=== PATIENT | male | born 1965 | race African-American/Black ===

== ENCOUNTER → 2016-12-05 | Outpatient (CLI) | payer OTHER ==
[~2016-12-05] MED LIST: ALBU1.25 NEB; AZIT250T3 PO; BENZ100 PO; GLIP5TAB8 PO; METF1000 PO; MOBI15TA PO; PRED20 PO; TERB250T4 PO; TYLETAB34 PO; lancets
[2016-12-05 09:12] LABS: AUTOMATED NEUTROPHIL # 4.1 TH/MM3 (1.8-7.7); BASOPHIL # 0.1 TH/MM3 (0-0.2); BASOPHIL % 0.9 % (0.0-2.0); EOSINOPHIL # 0.3 TH/MM3 (0-0.4); EOSINOPHIL % 4.2 % (0.0-4.0); HEMATOCRIT 38.7 % (39.0-51.0); HEMO FLAGS DIFF FINAL; LYMPH % 24.7 % (9.0-44.0); LYMPHOCYTE # 1.6 TH/MM3 (1.0-4.8); MEAN CELL VOLUME 89.4 FL (80.0-100.0); MEAN CORPUSCULAR HEMOGLOBIN 31.7 PG (27.0-34.0); MEAN CORPUSCULAR HGB CONC 35.5 % (32.0-36.0); MONO % 9.4 % (0.0-8.0); NEUT % 60.8 % (16.0-70.0); PLATELET COUNT 305 TH/MM3 (150-450); RED BLOOD COUNT 4.33 MIL/MM3 (4.50-5.90); RED CELL DISTRIBUTION WIDTH 14.7 % (11.6-17.2); WHITE BLOOD COUNT 6.7 TH/MM3 (4.0-11.0)
[2016-12-05 09:54] LABS: INDIRECT BILIRUBIN 0.7 MG/DL (0.0-0.8); POTASSIUM 4.1 MEQ/L (3.5-5.1); TOTAL BILIRUBIN ADULT 0.9 MG/DL (0.2-1.0)
== END ==
LOC: CLAB 08:51
DX: B35.0 Tinea barbae and tinea capitis (principal); Z79.899 Other long term (current) drug therapy
CPT/HCPCS: 36415; 80048; 80076; 85025

== ENCOUNTER 2017-01-25 06:13 | Emergency (ER) | payer OTHER ==
[~2017-01-25] VITALS: Ht 188 cm; Wt 92.0 kg
[2017-01-25] VITALS (7 sets, daily range): BP systolic 130–163; BP diastolic 77–93; PULSE 102–114; RESP 16–20; TEMP 97.8–99.2; O2SAT 97–98
[2017-01-25] MEDS ORDERED: ONDANSETRON HCL 4 MG/2 ML VIAL IV PUSH ONE (06:30)
[2017-01-25] MEDS ORDERED: MORPHINE SULFATE 4 MG/ML INJ IV PUSH ONE (06:30)
[2017-01-25] MEDS ORDERED: ASPIRIN 81 MG CHEW TAB PO ONE (06:30)
[2017-01-25] MEDS ORDERED: SODIUM CHLORID 0.9% 500 ML INJ 500 ML IV ONE (06:30)
--- NOTE | 2017-01-25 06:44 | PD ---
HPI Chief Complaint: Chest Pain Time Seen by Provider: 06:24 Travel History International Travel<30 days: No Contact w/Intl Traveler<30days: No Traveled to known affect area: No History of Present Illness HPI The patient is a 51-year-old [place] male who presents to the emergency department for chest pain or shortness of breath. The patient states she developed symptoms last night at 9 PM after eating Popeyes. The patient states the chest pain is right sided, pleuritic, worse with inspiration, and associated with shortness of breath. He denies any nausea, vomiting, diarrhea, or abdominal pain. The patient does have a history of diabetes and sarcoidosis. The patient states he had a negative cardiac catheterization in 2010 after a positive stress test. The patient denies any history of hypertension, hyperlipidemia, tobacco use, polysubstance abuse, or known coronary artery disease. He does note a history of diabetes mellitus which is controlled with glyburide and metformin. The patient denies any history of pulmonary embolism, DVT, recent surgeries, recent hospitalizations, but does state he traveled to [place] and December. Symptoms are moderate, worse with inspiration, slightly alleviated at rest. PFSH Past Medical History Arthritis: Yes Blood Disorders: No Heart Rhythm Problems: No Cancer: No Cardiac Catheterization: Yes (2009) Cardiovascular Problems: Yes (PREV CATH, + STRESS) High Cholesterol: No Chest Pain: Yes Congestive Heart Failure: No Diabetes: Yes Patient Takes Glucophage: Yes (METFORMIN 01/24/17 1800) Diminished Hearing: No Endocrine: Yes Gastrointestinal Disorders: No Genitourinary: Yes (KIDNEY STONE) Hepatitis: No Hiatal Hernia: No Hypertension: No Immune Disorder: Yes (PT THINKS HE MIGHT HAVE RA, NOT SURE) Musculoskeletal: Yes (CHRONIC BACK PAIN; ARTHRITIS IN KNEES, HIPS, FINGERS) Neurologic: No Psychiatric: No Reproductive: No Respiratory: Yes Myocardial Infarction: No Thyroid Disease: No Past Surgical History Abdominal Surgery: No AICD: No Body Medical Devices: NONE Cardiac Surgery: Yes (CARDIAC CATH 08/2012) Coronary Artery Bypass Graft: No Ear Surgery: No Endocrine Surgery: No Eye Surgery: No Genitourinary Surgery: No Joint Replacement: No Oral Surgery: No Pacemaker: No Thoracic Surgery: No Other Surgery: Yes (LUNG BIOPSY 2015) Social History Alcohol Use: Yes (2X WEEKLY) Tobacco Use: No Substance Use: No Allergies-Medications (Allergen,Severity, Reaction): Coded Allergies: No Known Allergies (Verified , 01/25/17) Reported Meds & Prescriptions Reported Meds & Active Scripts Active Metformin (Metformin HCl) 1,000 Mg Tab 1,000 Mg PO DAILY With a meal [lancets] DAILYAC Reported Glipizide 5 Mg Tab 5 Mg PO DAILY Take 30 minutes before a meal Albuterol Neb (Albuterol Sulfate) 1.25 Mg/3 Ml Neb 1.25 Mg NEB TID NEB PRN Review of Systems Except as stated in HPI: all other systems reviewed are Neg General / Constitutional: No: Fever Cardiovascular: Positive: Chest Pain or Discomfort, No: Diaphoresis Respiratory: Positive: Shortness of Breath Gastrointestinal: No: Nausea, Vomiting, Diarrhea, Abdominal Pain Musculoskeletal: No: Weakness Neurologic: No: Dizziness Physical Exam Narrative GENERAL: Awake, alert, pleasant 51-year-old male who appears his stated age and is in no acute respiratory distress. SKIN: Focused skin assessment warm/dry. HEAD: Atraumatic. Normocephalic. EYES: Pupils equal and round. No scleral icterus. No injection or drainage. ENT: No nasal bleeding or discharge. Mucous membranes pink and moist. NECK: Trachea midline. No JVD. CARDIOVASCULAR: Regular, tachycardic with a heart rate of 110. Chest wall is tender palpation reproduces symptoms. RESPIRATORY: No accessory muscle use. Clear to auscultation. Breath sounds equal bilaterally. GASTROINTESTINAL: Abdomen soft, non-tender, nondistended. No rebound tenderness. MUSCULOSKELETAL: No obvious deformities. No clubbing. No cyanosis. No edema. Calves are soft bilaterally. NEUROLOGICAL: Awake and alert. No obvious cranial nerve deficits. Motor grossly within normal limits. Normal speech. PSYCHIATRIC: Appropriate mood and affect; insight and judgment normal. Data Data Last Documented VS Vital Signs Date Time Temp Pulse Resp B/P Pulse Ox O2 Delivery O2 Flow Rate FiO2 01/25/17 09:32 97.8 76 16 130/77 99 01/25/17 08:14 Nasal Cannula 2 Orders B-Type Natriuretic Peptide (01/25/17 06:29) Ckmb (Isoenzyme) Profile (01/25/17 06:29) Complete Blood Count With Diff (01/25/17 06:29) Comprehensive Metabolic Panel (01/25/17 06:29) Magnesium (Mg) (01/25/17 06:29) Prothrombin Time / Inr (Pt) (01/25/17 06:29) Act Partial Throm Time (Ptt) (01/25/17 06:29) Troponin I (01/25/17 06:29) Lipase (01/25/17 06:29) Chest, Single Ap (01/25/17 06:29) Ecg Monitoring (01/25/17 06:29) Bilateral Bp Monitoring (01/25/17 06:29) Iv Access Insert/Monitor (01/25/17 06:29) Oximetry (01/25/17 06:29) Oxygen Administration (01/25/17 06:29) Aspirin Chew (Aspirin Chew) (01/25/17 06:30) Morphine Inj (Morphine Inj) (01/25/17 06:30) Sodium Chloride 0.9% Flush (Ns Flush) (01/25/17 06:30) Sodium Chlorid 0.9% 500 Ml Inj (Ns 500 M (01/25/17 06:30) Ct Pulmonary Angiogram (01/25/17 06:29) Ondansetron Inj (Zofran Inj) (01/25/17 06:30) Albuterol-Ipratropium Neb (Duoneb Neb) (01/25/17 06:45) Lidocaine Pf 4% Neb (Lidocaine Pf 4% Neb (01/25/17 06:45) Sodium Chlor 0.9% 1000 Ml Inj (Ns 1000 M (01/25/17 08:15) Insulin Human Regular Inj (Novolin R Inj (01/25/17 08:15) Electrocardiogram (01/25/17 ) Iohexol 350 Inj (Omnipaque 350 Inj) (01/25/17 08:37) Electrocardiogram (01/25/17 ) Labs Laboratory Tests Test 01/25/17 06:30 White Blood Count 7.4 TH/MM3 Red Blood Count 4.50 MIL/MM3 Hemoglobin 13.9 GM/DL Hematocrit 40.0 % Mean Corpuscular Volume 89.0 FL Mean Corpuscular Hemoglobin 31.0 PG Mean Corpuscular Hemoglobin 34.8 % Concent Red Cell Distribution Width 13.1 % Platelet Count 335 TH/MM3 Mean Platelet Volume 8.3 FL Neutrophils (%) (Auto) 62.1 % Lymphocytes (%) (Auto) 23.2 % Monocytes (%) (Auto) 8.9 % Eosinophils (%) (Auto) 4.9 % Basophils (%) (Auto) 0.9 % Neutrophils # (Auto) 4.6 TH/MM3 Lymphocytes # (Auto) 1.7 TH/MM3 Monocytes # (Auto) 0.7 TH/MM3 Eosinophils # (Auto) 0.4 TH/MM3 Basophils # (Auto) 0.1 TH/MM3 CBC Comment DIFF FINAL Differential Comment Prothrombin Time 10.9 SEC Prothromb Time International 1.0 RATIO Ratio Activated Partial 26.4 SEC Thromboplast Time Sodium Level 135 MEQ/L Potassium Level 4.1 MEQ/L Chloride Level 101 MEQ/L Carbon Dioxide Level 26.2 MEQ/L Anion Gap 8 MEQ/L Blood Urea Nitrogen 12 MG/DL Creatinine 1.48 MG/DL Estimat Glomerular Filtration 61 ML/MIN Rate Random Glucose 348 MG/DL Calcium Level 8.9 MG/DL Magnesium Level 2.0 MG/DL Total Bilirubin 0.6 MG/DL Aspartate Amino Transf 20 U/L (AST/SGOT) Alanine Aminotransferase 19 U/L (ALT/SGPT) Alkaline Phosphatase 116 U/L Total Creatine Kinase 96 U/L Troponin I LESS THAN 0.02 NG/ML B-Type Natriuretic Peptide 7 PG/ML Total Protein 7.5 GM/DL Albumin 3.5 GM/DL Lipase 424 U/L [facility] Medical Decision Making Medical Screen Exam Complete: Yes Emergency Medical Condition: Yes Medical Record Reviewed: Yes Interpretation(s) EKG reveals sinus tachycardia with a heart rate of 110. Nonspecific T-wave changes. S1Q3T3 Differential Diagnosis Differential diagnosis includes acute coronary syndrome, pulmonary embolism, costochondritis, sarcoidosis, pleural effusion, esophageal spasm, GERD, pancreatitis. Narrative Course IV was established, labs are drawn and sent, and the patient was placed on cardiac telemetry monitoring and continuous pulse oximetry monitoring. EKG was ordered and interpreted. CTA pulmonary angiogram was ordered as patient is tachycardic with pleuritic chest pain. The patient was administered aspirin, morphine, Zofran, and IV fluids. The patient was signed out to the oncoming physician at 7 AM with laboratory evaluation, chest x-ray, and CT pulmonary angiogram pending. I reviewed the patient's EMR, the patient had a negative cardiac catheterization performed by Dr. Anders September 03, 2012. Diagnosis Primary Impression: Chest pain, atypical Condition: Stable Javier Smart MD Jan 25, 2017 06:44
[2017-01-25] MEDS ORDERED: RESP: ALBUTEROL 2.5 MG/IPRATROPIUM 0.5 MG NEB (SCH) NEB ONE (06:45)
[2017-01-25] MEDS ORDERED: RESP: LIDOCAINE HCL 4% PF 5 ML NEB NEB ONE (06:45)
--- NOTE | 2017-01-25 06:48 | RADRPT ---
EXAM DATE/TIME: 01/25/2017 06:27 [facility] COMPARISON: CHEST SINGLE AP, September 15, 2016, 22:51. INDICATIONS : Chest pain. MEDICAL HISTORY : Cardiovascular disease. Diabetes mellitus type II. SURGICAL HISTORY : None. ENCOUNTER: Initial ACUITY: 1 day PAIN SCORE: 10/10 LOCATION: Right chest FINDINGS: A single view of the chest demonstrates the lungs to be symmetrically aerated without evidence of mas s, infiltrate or effusion. The cardiomediastinal contours are unremarkable. Osseous structures are intact. CONCLUSION: Normal examination. Dennys Che MD on January 25, 2017 at 6:46 Board Certified Radiologist. This report was verified electronically.
[2017-01-25 07:10] LABS: AUTOMATED NEUTROPHIL # 4.6 TH/MM3 (1.8-7.7); BASOPHIL # 0.1 TH/MM3 (0-0.2); BASOPHIL % 0.9 % (0.0-2.0); EOSINOPHIL # 0.4 TH/MM3 (0-0.4); EOSINOPHIL % 4.9 % (0.0-4.0); HEMO FLAGS DIFF FINAL; LYMPH % 23.2 % (9.0-44.0); LYMPHOCYTE # 1.7 TH/MM3 (1.0-4.8); MEAN CORPUSCULAR HGB CONC 34.8 % (32.0-36.0); MONO % 8.9 % (0.0-8.0); NEUT % 62.1 % (16.0-70.0); PLATELET COUNT 335 TH/MM3 (150-450); RED CELL DISTRIBUTION WIDTH 13.1 % (11.6-17.2); WHITE BLOOD COUNT 7.4 TH/MM3 (4.0-11.0)
[2017-01-25 07:21] LABS: APTT (PATIENT) 26.4 SEC (24.3-30.1); PROTHROMBIN TIME - PATIENT 10.9 SEC (9.8-11.6)
[2017-01-25] MEDS: SODIUM CHLORIDE 0.9% FLUSH 10 ML FLUSH IVF PRN ×2 (07:33→09:14)
[2017-01-25 07:41] LABS: ALKALINE PHOSPHATASE 116 U/L (45-117); ALT (GPT) 19 U/L (12-78); ANION GAP 8 MEQ/L (5-15); AST (GOT) 20 U/L (15-37); BICARBONATE 26.2 MEQ/L (21.0-32.0); BLOOD UREA NITROGEN 12 MG/DL (7-18); CHLORIDE 101 MEQ/L (98-107); GLOMERULAR FILTRATION RATE 61 ML/MIN (>89); POTASSIUM 4.1 MEQ/L (3.5-5.1); SODIUM (NA) 135 MEQ/L (136-145); TOTAL BILIRUBIN ADULT 0.6 MG/DL (0.2-1.0)
[2017-01-25 07:43] LABS: CREATINE KINASE 96 U/L (39-308)
--- NOTE | 2017-01-25 08:06 | PD ---
Physical Exam Narrative Received sign out from previous provider to follow up labs and CT angio for possible PE. 51yo M with history of sarcoidosis here with right sided pleuritic chest pain and sob that is worst with deep breathing. Pt has sinus tachycardia and EKG findings concerning for PE. Labs reviewed, no leukocytosis. Creatinine elevated at 1.48 but is at baseline. Glucose is elevated at 348 and it appears that pt has had glucose multiple times in the 300s before. Normal anion gap and CO2. Pt given regular insulin 5 units and liter of NS IVF. Troponin negative. BNP 7. CXR normal. Repeat glucose is 275. Pt reevaluated at bedside and states he feels better. CT angio showed mediastinal and hilar lymphadenopathy with antonio size ranging up to 3cm. No pulmonary embolism. Pt has history of sarcoidosis and has a art framing manager that he follows up with. Informed pt of the results and to follow up with art framing manager as outpatient. Lungs are clear bilaterally. Pt speaking in complete sentences. Chest pain is very atypical and agreed with previous provider and does not feel it is cardiac. Return precaution given. Data Data Last Documented VS Vital Signs Date Time Temp Pulse Resp B/P Pulse Ox O2 Delivery O2 Flow Rate FiO2 01/25/17 08:14 102 20 141/82 98 Nasal Cannula 2 01/25/17 07:05 97.8 Orders B-Type Natriuretic Peptide (01/25/17 06:29) Ckmb (Isoenzyme) Profile (01/25/17 06:29) Complete Blood Count With Diff (01/25/17 06:29) Comprehensive Metabolic Panel (01/25/17 06:29) Magnesium (Mg) (01/25/17 06:29) Prothrombin Time / Inr (Pt) (01/25/17 06:29) Act Partial Throm Time (Ptt) (01/25/17 06:29) Troponin I (01/25/17 06:29) Lipase (01/25/17 06:29) Chest, Single Ap (01/25/17 06:29) Ecg Monitoring (01/25/17 06:29) Bilateral Bp Monitoring (01/25/17 06:29) Iv Access Insert/Monitor (01/25/17 06:29) Oximetry (01/25/17 06:29) Oxygen Administration (01/25/17 06:29) Aspirin Chew (Aspirin Chew) (01/25/17 06:30) Morphine Inj (Morphine Inj) (01/25/17 06:30) Sodium Chloride 0.9% Flush (Ns Flush) (01/25/17 06:30) Sodium Chlorid 0.9% 500 Ml Inj (Ns 500 M (01/25/17 06:30) Ct Pulmonary Angiogram (01/25/17 06:29) Ondansetron Inj (Zofran Inj) (01/25/17 06:30) Albuterol-Ipratropium Neb (Duoneb Neb) (01/25/17 06:45) Lidocaine Pf 4% Neb (Lidocaine Pf 4% Neb (01/25/17 06:45) Sodium Chlor 0.9% 1000 Ml Inj (Ns 1000 M (01/25/17 08:15) Insulin Human Regular Inj (Novolin R Inj (01/25/17 08:15) Electrocardiogram (01/25/17 ) Iohexol 350 Inj (Omnipaque 350 Inj) (01/25/17 08:37) Labs Laboratory Tests Test 01/25/17 06:30 White Blood Count 7.4 TH/MM3 Red Blood Count 4.50 MIL/MM3 Hemoglobin 13.9 GM/DL Hematocrit 40.0 % Mean Corpuscular Volume 89.0 FL Mean Corpuscular Hemoglobin 31.0 PG Mean Corpuscular Hemoglobin 34.8 % Concent Red Cell Distribution Width 13.1 % Platelet Count 335 TH/MM3 Mean Platelet Volume 8.3 FL Neutrophils (%) (Auto) 62.1 % Lymphocytes (%) (Auto) 23.2 % Monocytes (%) (Auto) 8.9 % Eosinophils (%) (Auto) 4.9 % Basophils (%) (Auto) 0.9 % Neutrophils # (Auto) 4.6 TH/MM3 Lymphocytes # (Auto) 1.7 TH/MM3 Monocytes # (Auto) 0.7 TH/MM3 Eosinophils # (Auto) 0.4 TH/MM3 Basophils # (Auto) 0.1 TH/MM3 CBC Comment DIFF FINAL Differential Comment Prothrombin Time 10.9 SEC Prothromb Time International 1.0 RATIO Ratio Activated Partial 26.4 SEC Thromboplast Time Sodium Level 135 MEQ/L Potassium Level 4.1 MEQ/L Chloride Level 101 MEQ/L Carbon Dioxide Level 26.2 MEQ/L Anion Gap 8 MEQ/L Blood Urea Nitrogen 12 MG/DL Creatinine 1.48 MG/DL Estimat Glomerular Filtration 61 ML/MIN Rate Random Glucose 348 MG/DL Calcium Level 8.9 MG/DL Magnesium Level 2.0 MG/DL Total Bilirubin 0.6 MG/DL Aspartate Amino Transf 20 U/L (AST/SGOT) Alanine Aminotransferase 19 U/L (ALT/SGPT) Alkaline Phosphatase 116 U/L Total Creatine Kinase 96 U/L Troponin I LESS THAN 0.02 NG/ML B-Type Natriuretic Peptide 7 PG/ML Total Protein 7.5 GM/DL Albumin 3.5 GM/DL Lipase 424 U/L MDM Supervised Visit with ELIOT: No Diagnosis Primary Impression: Chest pain, atypical Patient Instructions: General Instructions Departure Forms: Tests/Procedures Additional Instruction: Please follow up with your art framing manager in 3-7 days. Return to the ED if symptoms worsen. Med/Other Pt SpecificInfo: No Change to Meds Disposition: 01 DISCHARGE HOME Condition: Stable Brooke Werner Jan 25, 2017 08:06
[2017-01-25] MEDS ORDERED: SODIUM CHLOR 0.9% 1000 ML INJ 1,000 ML IV ONE (08:15)
[2017-01-25] MEDS ORDERED: INSULIN HUMAN REGULAR 1,000 UNITS/10 ML VIAL SQ ONE (08:15)
[2017-01-25] MEDS ORDERED: IOHEXOL 350 MG/ML 10 ML VIAL (for RAD DIAG) IV ONE (08:37)
--- NOTE | 2017-01-25 09:04 | RADRPT ---
EXAM DATE/TIME: 01/25/2017 08:17 [facility] COMPARISON: No previous studies available for comparison. INDICATIONS : Chest pain and shortness of breath. IV CONTRAST: 66 cc Omnipaque 350 (iohexol) IV RADIATION DOSE: 12.0 CTDIvol (mGy) MEDICAL HISTORY : Diabetes mellitus type 2. SURGICAL HISTORY : Cardiac cath, lung biopsy. ENCOUNTER: Initial ACUITY: 1 day PAIN SCALE: 0/10 LOCATION: chest TECHNIQUE: Volumetric scanning of the chest was performed using a pulmonary embolism protocol MIP images were re constructed. Using automated exposure control and adjustment of the mA and/or kV according to patien t size, radiation dose was kept as low as reasonably achievable to obtain optimal diagnostic quality images. FINDINGS: PULMONARY ARTERIES: No filling defects are seen in the pulmonary arteries through the segmental level. LUNGS: 2 small nodular densities are identified in the right midlung within the interlobar fissure. They jules sure 5.2 and 4.4 mm in size. Mild interstitial prominence with groundglass opacity is identified in t he left lower lobe. There is no significant consolidation. PLEURAE: There is no pleural thickening or pleural effusion. MEDIASTINUM: Enlarged lymph nodes are identified in the mediastinum and hilar regions. There is prevascular, parat marcy and subcarinal lymphadenopathy. Largest lymph node is identified subcarinally and measures ro ughly 3 cm in size. Significant antonio enlargement is also evident within the right hilum. The heart i s unremarkable in size and appearance. MUSCULOSKELETAL: Within normal limits for patient age. MISCELLANEOUS: The visualized upper abdominal organs demonstrate no acute abnormality. CONCLUSION: Mediastinal and hilar lymphadenopathy with antonio size ranging up to 3 cm. Small nodules in the right intralobar fissure likely represent small nodes however surveillance is re commended. Interstitial prominence and ground glass opacity in the left lower lobe which may or present mild pne umonitis. No evidence of pulmonary embolism. Hung Dolan MD on January 25, 2017 at 8:48 Board Certified Radiologist. This report was verified electronically.
--- NOTE | 2017-01-25 13:36 | EKG ---
Date Performed: 01/25/2017 Time Performed: 06:26:37 PTAGE: 51 years EKG: SINUS TACHYCARDIA POSSIBLE LEFT ATRIAL ENLARGEMENT NONSPECIFIC T-WAVE ABNORMALITY ABNORMAL RHYTHM ECG WARNING: DATA QUALITY MAY AFFECT INTERPRETATION INTERPRETATION BASED ON A DEFAULT AGE OF 4 0 YEARS PREVIOUS TRACING : 09/15/2016 23.06 Compared to previous tracing nonspecific T wave louis es are now present. DOCTOR: Clay Casanova Interpretating Date/Time 01/25/2017 13:35:20
--- NOTE | 2017-01-26 18:54 | EKG ---
Date Performed: 01/25/2017 Time Performed: 08:39:59 PTAGE: 51 years EKG: Sinus rhythm NONSPECIFIC T-WAVE ABNORMALITY BORDERLINE ECG Compared to prior tracing no significant change PREVIOUS TRACING 01/25/17 @ 06.26.37 DOCTOR: Osmany Escobar Interpretating Date/Time 01/26/2017 18:53:30
== END 2017-01-25 09:32 | disposition home or self-care (01) ==
LOC: NEPC 06:13
DX: R07.89 Other chest pain (principal); R94.31 Abnormal electrocardiogram [ECG] [EKG]; E11.9 Type 2 diabetes mellitus without complications; Z79.84 Long term (current) use of oral hypoglycemic drugs; Z79.4 Long term (current) use of insulin
CPT/HCPCS: 71010; 71275; 80053; 82550; 83690; 83735; 83880; 84484; 85025; 85610; 85730; 93005; 94664; 96361; 96372; 96374; 96375; 99285; J1815; J2270; J2405; J7030; J7040; Q9967

== ENCOUNTER → 2017-03-21 | Outpatient (CLI) | payer OTHER ==
[~2017-03-21] MED LIST changes: -AZIT250T3 PO; -BENZ100 PO; -MOBI15TA PO; -PRED20 PO; -TERB250T4 PO; -TYLETAB34 PO
[2017-03-21 12:31] LABS: AUTOMATED NEUTROPHIL # 4.4 TH/MM3 (1.8-7.7); BASOPHIL % 0.7 % (0.0-2.0); EOSINOPHIL # 0.3 TH/MM3 (0-0.4); EOSINOPHIL % 4.6 % (0.0-4.0); HEMO FLAGS DIFF FINAL; LYMPH % 21.6 % (9.0-44.0); LYMPHOCYTE # 1.5 TH/MM3 (1.0-4.8); MEAN CELL VOLUME 88.6 FL (80.0-100.0); MEAN CORPUSCULAR HEMOGLOBIN 30.1 PG (27.0-34.0); MONO % 8.4 % (0.0-8.0); NEUT % 64.7 % (16.0-70.0); PLATELET COUNT 345 TH/MM3 (150-450); RED BLOOD COUNT 4.85 MIL/MM3 (4.50-5.90); RED CELL DISTRIBUTION WIDTH 13.8 % (11.6-17.2); WHITE BLOOD COUNT 6.8 TH/MM3 (4.0-11.0)
[2017-03-21 12:54] LABS: BICARBONATE 30.1 MEQ/L (21.0-32.0); POTASSIUM 4.3 MEQ/L (3.5-5.1)
[2017-03-21 13:00] LABS: INDIRECT BILIRUBIN 0.7 MG/DL (0.0-0.8); TOTAL BILIRUBIN ADULT 0.9 MG/DL (0.2-1.0)
== END ==
LOC: CLAB 11:47
DX: B35.0 Tinea barbae and tinea capitis (principal); Z79.899 Other long term (current) drug therapy
CPT/HCPCS: 36415; 80048; 80076; 85025

== ENCOUNTER 2017-04-15 19:42 | Emergency (ER) | payer OTHER ==
[~2017-04-15] VITALS: Ht 177.8 cm; Wt 92.0 kg
[2017-04-15 19:45] VITALS: BP 160/84; PULSE 115; RESP 16; TEMP 78.4; TEMP 98.4; O2SAT 98
[2017-04-15 23:22] VITALS: BP 161/91; PULSE 97; RESP 16; O2SAT 99
[2017-04-16] MEDS ORDERED: ONDANSETRON HCL 4 MG/2 ML VIAL IV PUSH ONE
[2017-04-16] MEDS ORDERED: MORPHINE SULFATE 4 MG/ML INJ IV PUSH ONE
[2017-04-16] MEDS ORDERED: SODIUM CHLORID 0.9% 500 ML INJ 500 ML IV ONE
[2017-04-16] MEDS ORDERED: MORPHINE SULFATE 8 MG/ML INJ ONE (00:19)
--- NOTE | 2017-04-16 00:24 | PD ---
HPI Chief Complaint: Headache Time Seen by Provider: 23:15 Travel History International Travel<30 days: No Contact w/Intl Traveler<30days: No Traveled to known affect area: No History of Present Illness HPI The patient is a 51 year old male who presents to the [facility] emergency department with a history of beginning to feel unwell yesterday. He reports that last night he began to have a subjective fever, diarrhea 3-4 times, and nausea without vomiting. The patient also reports having a headache over the top of his head. He reports that he's had problems with headaches and scalp pain since being diagnosed with tinea capitis. He reports that he has taken a 4 course of griseofulvin and then followed this up with terbinafine when his symptoms had not improved. The patient reports that he has been told that he has some lymph node swelling related to this infection. The patient reports that he has body aches since yesterday including neck pain since yesterday. The patient is currently on prednisone 20 mg daily over the last 2 months related to an exacerbation of his sarcoidosis. He denies having any worsening cough. He reports that he has a chronic dry cough. On review of systems otherwise, he denies having any new congestion, chest pain, worsening shortness of breath, abdominal pain, urinary symptoms, or neurologic symptoms. [facility] Past Medical History Narrative Medical The patient's past medical history is significant for arthritis, history of an abnormal stress test followed by a cardiac catheterization that was reportedly negative and 2011, history of diabetes mellitus, history of kidney stone, history of sarcoidosis, history of chronic back pain, history of arthritis in his knees. Arthritis: Yes Blood Disorders: No Heart Rhythm Problems: No Cancer: No Cardiac Catheterization: Yes (2009) Cardiovascular Problems: Yes (PREV CATH, + STRESS) High Cholesterol: No Chest Pain: Yes Congestive Heart Failure: No Diabetes: Yes Patient Takes Glucophage: Yes Diminished Hearing: No Endocrine: Yes Gastrointestinal Disorders: No Genitourinary: Yes (KIDNEY STONE) Hepatitis: No Hiatal Hernia: No Hypertension: No Immune Disorder: Yes (PT THINKS HE MIGHT HAVE RA, NOT SURE) Implanted Vascular Access Dvce: No Medical other: No Musculoskeletal: Yes (CHRONIC BACK PAIN; ARTHRITIS IN KNEES, HIPS, FINGERS) Neurologic: No Psychiatric: No Reproductive: No Respiratory: Yes Immunizations Current: Yes Myocardial Infarction: No Thyroid Disease: No Tetanus Vaccination: Unknown Influenza Vaccination: Yes Past Surgical History Narrative Surgical The patient's past surgical history is significant for a cardiac catheterization which was reportedly negative, lung biopsy in 2016 which confirmed sarcoidosis. Abdominal Surgery: No AICD: No Body Medical Devices: NONE Cardiac Surgery: Yes (CARDIAC CATH 08/2012) Coronary Artery Bypass Graft: No Ear Surgery: No Endocrine Surgery: No Eye Surgery: No Genitourinary Surgery: No Joint Replacement: No Neurologic Surgery: No Oral Surgery: No Pacemaker: No Thoracic Surgery: No Other Surgery: Yes (LUNG BIOPSY 2016) Social History Alcohol Use: Yes (2X WEEKLY) Tobacco Use: No Substance Use: No Allergies-Medications (Allergen,Severity, Reaction): Coded Allergies: No Known Allergies (Verified , 04/15/17) Reported Meds & Prescriptions Reported Meds & Active Scripts Active Keflex (Cephalexin) 500 Mg Cap 500 Mg PO Q6H Clindamycin (Clindamycin HCl) 300 Mg Cap 300 Mg PO TID Metformin (Metformin HCl) 1,000 Mg Tab 1,000 Mg PO DAILY With a meal Reported Glipizide 5 Mg Tab 5 Mg PO DAILY Take 30 minutes before a meal Albuterol Neb (Albuterol Sulfate) 1.25 Mg/3 Ml Neb 1.25 Mg NEB TID NEB PRN Review of Systems Except as stated in HPI: all other systems reviewed are Neg General / Constitutional: No: Fever Eyes: No: Visual changes HENT: Positive: Headaches, Neck Pain, No: Rhinorrhea, Neck Stiffness Cardiovascular: Positive: Dyspnea on exertion, No: Chest Pain or Discomfort Respiratory: Positive: Cough, No: Shortness of Breath Gastrointestinal: Positive: Nausea, Diarrhea, Hematemesis, Hematochezia, Indigestion, Loss of Appetite, No: Vomiting, Abdominal Pain, Changes in Bowel Habits Genitourinary: No: Dysuria Musculoskeletal: No: Pain Skin: No Rash Neurologic: Positive: Headache, No: Weakness, Focal Abnormalities, Change in Mentation, Slurred Speech, Sensory Disturbance Psychiatric: No: Depression Endocrine: No: Polydipsia Hematologic/Lymphatic: No: Easy Bruising Physical Exam Narrative General: The patient is a well-developed well-nourished male in no acute distress. Head and Neck exam: Head is normocephalic atraumatic. The patient on examination of the scalp is noted to have skin dryness, scalp thickening with some erythema in patches consistent with his diagnosis of tinea capitis. There is tenderness on palpation of the scalp. There is no visible drainage, pointing, crepitus area Eyes: EOMI, pupils are equal round and reactive to light. Nose: Midline septum with pink mucous membranes Mouth: Dentition unremarkable. No gum erythema, edema, or nikunj abscess formation. No swelling underneath his tongue. Moist mucus membranes. Posterior oropharynx is not erythematous. No tonsillar hypertrophy. Uvula midline. Airway patent. Neck: No palpable anterior cervical lymphadenopathy.. No nuchal rigidity. No thyromegaly. The patient has occipital lymphadenopathy palpated with tenderness on palpation. Cardiovascular: Regular rate and rhythm without murmurs, gallops, or rubs. Lungs: Clear to auscultation bilaterally. No wheezes, rhonchi, or rales. The patient has a frequent dry Cough on examination. Abdomen: Soft, without tenderness to palpation in all 4 quadrants of the abdomen. No guarding, rebound, or rigidity. Normal bowel sounds are audible. No tenderness on palpation of McBurney's point. Negative Lopez's sign. Extremities: No clubbing, cyanosis, or edema. 2+ pulses in all 4 extremities. No calf tenderness on palpation. Back: No costovertebral angle tenderness to palpation. Neurologic Exam: Grossly nonfocal. Skin Exam: No other rashes noted. Data Data Last Documented VS Vital Signs Date Time Temp Pulse Resp B/P Pulse Ox O2 Delivery O2 Flow Rate FiO2 04/16/17 00:38 94 18 160/84 99 Room Air 04/15/17 19:45 98.4 Orders Complete Blood Count With Diff (04/15/17 23:58) Comprehensive Metabolic Panel (04/15/17 23:58) Lipase (04/15/17 23:58) Magnesium (Mg) (04/15/17 23:58) Chest, Single Ap (04/15/17 23:58) Ct Brain W/O Iv Contrast(Rout) (04/15/17 23:58) Iv Access Insert/Monitor (04/15/17 23:58) Ecg Monitoring (04/15/17 23:58) Oximetry (04/15/17 23:58) Ct Soft Tiss Neck W Iv Cont (04/15/17 ) Sodium Chlorid 0.9% 500 Ml Inj (Ns 500 M (04/16/17 00:00) Morphine Inj (Morphine Inj) (04/16/17 00:00) Ondansetron Inj (Zofran Inj) (04/16/17 00:00) Morphine Inj (Morphine Inj) (04/16/17 00:19) Iohexol 350 Inj (Omnipaque 350 Inj) (04/16/17 01:16) Cefazolin 2 Gm Premix (Ancef 2 Gm Premix (04/16/17 01:45) Labs Laboratory Tests Test 04/16/17 00:10 White Blood Count 7.2 TH/MM3 Red Blood Count 4.51 MIL/MM3 Hemoglobin 13.7 GM/DL Hematocrit 39.6 % Mean Corpuscular Volume 87.7 FL Mean Corpuscular Hemoglobin 30.5 PG Mean Corpuscular Hemoglobin 34.7 % Concent Red Cell Distribution Width 13.6 % Platelet Count 330 TH/MM3 Mean Platelet Volume 8.5 FL Neutrophils (%) (Auto) 62.1 % Lymphocytes (%) (Auto) 21.6 % Monocytes (%) (Auto) 10.0 % Eosinophils (%) (Auto) 5.2 % Basophils (%) (Auto) 1.1 % Neutrophils # (Auto) 4.5 TH/MM3 Lymphocytes # (Auto) 1.6 TH/MM3 Monocytes # (Auto) 0.7 TH/MM3 Eosinophils # (Auto) 0.4 TH/MM3 Basophils # (Auto) 0.1 TH/MM3 CBC Comment DIFF FINAL Differential Comment Sodium Level 138 MEQ/L Potassium Level 4.3 MEQ/L Chloride Level 102 MEQ/L Carbon Dioxide Level 30.5 MEQ/L Anion Gap 6 MEQ/L Blood Urea Nitrogen 11 MG/DL Creatinine 1.28 MG/DL Estimat Glomerular Filtration 72 ML/MIN Rate Random Glucose 253 MG/DL Calcium Level 9.2 MG/DL Magnesium Level 2.0 MG/DL Total Bilirubin 0.7 MG/DL Aspartate Amino Transf 24 U/L (AST/SGOT) Alanine Aminotransferase 29 U/L (ALT/SGPT) Alkaline Phosphatase 121 U/L Total Protein 8.3 GM/DL Albumin 3.7 GM/DL Lipase 352 U/L [facility] Medical Decision Making Medical Screen Exam Complete: Yes Emergency Medical Condition: Yes Medical Record Reviewed: Yes Differential Diagnosis Superimposed bacterial infection on top of his prior diagnosis of tinea capitis , versus viral syndrome, versus lymphadenitis Narrative Course During the course of the patients emergency department visit, the patients history, examination, and differential diagnosis were reviewed with the patient. The patient had IV access obtained and blood work sent for analysis. The patient is placed on a cardiac exercise physiologist with oximetry and blood pressure monitoring. A CT scan of the head, and soft tissues of the neck was ordered The patient was initially provided normal saline IV fluids, morphine for pain, Zofran for nausea. The patients laboratory studies were reviewed and remarkable for a white count of 7.2, hemoglobin 13.7, platelets 3:30 with 10 monocytes, CMP is remarkable for glucose of 253, alkaline phosphatase 121, lipase 352 Radiology studies were reviewed and remarkable for a chest x-ray that shows no acute abnormality. CT scan of the brain shows no acute abnormality. CT scan of soft tissues in the neck shows marked soft tissue swelling across the chin on the right greater than the left, no deep abscess or drainable fluid collection is identified, I do not see any obvious etiology for cellulitis or infection. The patient's symptoms appear to be related to an infectious process from a folliculitis. The patient will be discharged home with a prescription for clindamycin and Keflex. The patient was given his first dose of Ancef 2 g IV. The patient is instructed to follow-up with his primary care physician for reexamination in 2 days for improvement. The patient is resting comfortably and feels better, is alert and in no distress. The patients results and examination findings were discussed with the patient. The repeat examination is unremarkable and benign. The history, exam, diagnostic testing, and current condition do not suggest any significant pathology to warrant further testing, continued ED treatment, admission, or surgical evaluation at this point. The vital signs have been stable. The patient does not have uncontrollable pain, intractable vomiting, or other significant symptoms. The patient's condition is stable and appropriate for discharge. The patient will pursue further outpatient evaluation with a primary care physician or other designated or consulting physician as indicated in the discharge instructions. The patient expressed understanding and was agreeable with this plan. Diagnosis Primary Impression: Folliculitis Additional Impression: Lymphadenitis Referrals: Primary Care Physician 2 days Patient Instructions: Folliculitis (ED), General Instructions Med/Other Pt SpecificInfo: Prescription(s) given Scripts Cephalexin (Keflex)500 Mg [id number] Mg PO Q6H #39 CAP Ref 0 Prov:Cindy Escobar MD 04/16/17 Clindamycin 300 Mg [id number] Mg PO TID #30 CAP Ref 0 Prov:Cindy Escobar MD 04/16/17 Disposition: 01 DISCHARGE HOME Condition: Stable Cindy Escobar MD Apr 16, 2017 00:24
[2017-04-16 00:29] LABS: AUTOMATED NEUTROPHIL # 4.5 TH/MM3 (1.8-7.7); BASOPHIL # 0.1 TH/MM3 (0-0.2); BASOPHIL % 1.1 % (0.0-2.0); EOSINOPHIL # 0.4 TH/MM3 (0-0.4); EOSINOPHIL % 5.2 % (0.0-4.0); HEMATOCRIT 39.6 % (39.0-51.0); HEMO FLAGS DIFF FINAL; LYMPH % 21.6 % (9.0-44.0); LYMPHOCYTE # 1.6 TH/MM3 (1.0-4.8); MEAN CELL VOLUME 87.7 FL (80.0-100.0); MEAN CORPUSCULAR HEMOGLOBIN 30.5 PG (27.0-34.0); MEAN CORPUSCULAR HGB CONC 34.7 % (32.0-36.0); NEUT % 62.1 % (16.0-70.0); PLATELET COUNT 330 TH/MM3 (150-450); RED BLOOD COUNT 4.51 MIL/MM3 (4.50-5.90); RED CELL DISTRIBUTION WIDTH 13.6 % (11.6-17.2); WHITE BLOOD COUNT 7.2 TH/MM3 (4.0-11.0)
--- NOTE | 2017-04-16 00:30 | RADRPT ---
EXAM DATE/TIME: 04/16/2017 00:08 [facility] COMPARISON: CHEST SINGLE AP, January 25, 2017, 6:27. INDICATIONS : Pt has had headache with fever x 2 days. MEDICAL HISTORY : Diabetes mellitus type II. Lung Biopsy (2016) SURGICAL HISTORY : None. ENCOUNTER: Initial ACUITY: 2 days PAIN SCORE: 7/10 LOCATION: Bilateral chest FINDINGS: A single view of the chest demonstrates the lungs to be symmetrically aerated without evidence of mas s, infiltrate or effusion. The cardiomediastinal contours are unremarkable. Osseous structures are intact. CONCLUSION: Normal examination. Dennys Che MD on April 16, 2017 at 0:28 Board Certified Radiologist. This report was verified electronically.
[2017-04-16 00:32] VITALS: RESP 16
[2017-04-16 00:38] VITALS: BP 160/84; PULSE 94; RESP 18; O2SAT 99
[2017-04-16 00:46] LABS: ALKALINE PHOSPHATASE 121 U/L (45-117); TOTAL BILIRUBIN ADULT 0.7 MG/DL (0.2-1.0)
[2017-04-16 00:48] LABS: ALT (GPT) 29 U/L (12-78); ANION GAP 6 MEQ/L (5-15); AST (GOT) 24 U/L (15-37); BICARBONATE 30.5 MEQ/L (21.0-32.0); BLOOD UREA NITROGEN 11 MG/DL (7-18); CHLORIDE 102 MEQ/L (98-107); GLOMERULAR FILTRATION RATE 72 ML/MIN (>89); POTASSIUM 4.3 MEQ/L (3.5-5.1); SODIUM (NA) 138 MEQ/L (136-145)
[2017-04-16] MEDS ORDERED: IOHEXOL 350 MG/ML 10 ML VIAL (for RAD DIAG) IV ONE (01:16)
--- NOTE | 2017-04-16 01:23 | RADRPT ---
EXAM DATE/TIME: 04/16/2017 01:12 [facility] COMPARISON: CT BRAIN W/O CONTRAST, July 26, 2016, 2:30. INDICATIONS : Headache and fever. RADIATION DOSE: 40.65 CTDIvol (mGy) MEDICAL HISTORY : Cardiovascular disease. Diabetes mellitus type 2. Renal calculi. SURGICAL HISTORY : None. ENCOUNTER: Initial ACUITY: 1 day PAIN SCALE: 6/10 LOCATION: cranial TECHNIQUE: Multiple contiguous axial images were obtained of the head. Using automated exposure control and adj ustment of the mA and/or kV according to patient size, radiation dose was kept as low as reasonably a chievable to obtain optimal diagnostic quality images. DICOM format image data is available electro nically for review and comparison. FINDINGS: CEREBRUM: The ventricles are normal for age. No evidence of midline shift, mass lesion, hemorrhage or acute in farction. No extra-axial fluid collections are seen. POSTERIOR FOSSA: The cerebellum and brainstem are intact. The 4th ventricle is midline. The cerebellopontine angle i s unremarkable. EXTRACRANIAL: The visualized portion of the orbits is intact. SKULL: The calvaria is intact. No evidence of skull fracture. CONCLUSION: Normal examination. Dennys Che MD on April 16, 2017 at 1:21 Board Certified Radiologist. This report was verified electronically.
--- NOTE | 2017-04-16 01:29 | RADRPT ---
EXAM DATE/TIME: 04/16/2017 01:12 [facility] COMPARISON: No previous studies available for comparison. INDICATIONS : Fever; possible abscess. Swelling on posterior neck. IV CONTRAST: 70 cc Omnipaque 350 (iohexol) IV RADIATION DOSE: 15.54 CTDIvol (mGy) MEDICAL HISTORY : Cardiovascular disease. Diabetes mellitus type 2. Renal calculi. SURGICAL HISTORY : None. ENCOUNTER: Initial ACUITY: 1 day PAIN SCALE: 6/10 LOCATION: neck TECHNIQUE: Volumetric scanning of the neck was performed. Using automated exposure control and adjustment of th e mA and/or kV according to patient size, radiation dose was kept as low as reasonably achievable to obtain optimal diagnostic quality images. DICOM format image data is available electronically for r eview and comparison. FINDINGS: There is very impressive soft tissue edema and swelling across the chin right greater than left. Ther e may be a skin ulceration inferolaterally. No deep abscess or drainable fluid collection is identifi ed. There are tiny reactive lymph nodes throughout the neck. None of them are pathologically enlarged . NASOPHARYNX: The nasopharyngeal airway has a normal configuration. No mucosal thickening or mass is seen. Small m ucous retention cyst within the right maxillary sinus OROPHARYNX: The intrinsic muscles of the tongue are symmetric. The tonsillar pillars are intact. The prevertebr al soft tissues are not thickened. LARYNX: The supraglottic, glottic, and infraglottic structures are intact. PARAPHARYNGEAL: The parapharyngeal space is intact. SALIVARY GLANDS: The parotid and submandibular glands are intact. LYMPH NODES: No enlarged or necrotic-appearing nodes. THYROID: Homogeneous enhancement without evidence of nodule. BONES: Unremarkable. CONCLUSION: Marked soft tissue swelling across the chin right greater than left. No deep abscess or drainable flu id collection is identified. I do not see an obvious etiology for the cellulitis or infection. Dennys Che MD on April 16, 2017 at 1:25 Board Certified Radiologist. This report was verified electronically.
[2017-04-16] MEDS ORDERED: ceFAZolin 2 GM PREMIX 50 ML IV ONE (01:45)
[2017-04-16] MEDS ORDERED: CLIN1CAP6 PO (01:50)
[2017-04-16] MEDS ORDERED: CEPH-460 PO (01:50)
== END 2017-04-16 02:20 | disposition home or self-care (01) ==
LOC: NEPE 19:42
DX: L73.9 Follicular disorder, unspecified (principal); I88.9 Nonspecific lymphadenitis, unspecified; R05 Cough; R19.7 Diarrhea, unspecified; R11.0 Nausea; M54.2 Cervicalgia; E11.9 Type 2 diabetes mellitus without complications; Z79.899 Other long term (current) drug therapy; Z79.51 Long term (current) use of inhaled steroids
CPT/HCPCS: 70450; 70491; 71010; 80053; 83690; 83735; 85025; 96361; 96374; 96375; 99285; J0690; J2270; J2405; J7040; Q9967

== ENCOUNTER 2017-05-20 17:48 | Emergency (ER) | payer OTHER ==
[~2017-05-20] VITALS: Ht 188 cm; Wt 92.0 kg
[~2017-05-20 17:48] MED LIST changes: +CEPH-460 PO; +CLIN1CAP6 PO; -lancets
[2017-05-20 17:51] VITALS: BP 130/93; PULSE 120; RESP 20; TEMP 98.9; O2SAT 97
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
[2017-05-20] MEDS ORDERED: PRED20 PO (18:13)
[2017-05-20] MEDS ORDERED: ORPHENADRINE INJ 60 MG/2 ML AMP IM ONE (18:15)
[2017-05-20] MEDS ORDERED: KETOROLAC TROMETHAMINE 60 MG/2 ML (IM) VIAL IM ONE (18:15)
[2017-05-20 18:27] VITALS: PULSE 110; RESP 16; O2SAT 100
[2017-05-20] MEDS ORDERED: ROBA500T PO (18:55)
[2017-05-20] MEDS ORDERED: IBUP800T23 PO (18:55)
[2017-05-20 19:15] VITALS: PULSE 98
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
== END 2017-05-20 19:25 | disposition home or self-care (01) ==
LOC: NEPD 17:48
DX: S39.012A Strain of muscle, fascia and tendon of lower back, initial encounter (principal); V89.2XXA Person injured in unspecified motor-vehicle accident, traffic, initial encounter
CPT/HCPCS: 72100; 96372; 99284; J1885; J2360

== ENCOUNTER 2017-06-24 13:02 | Emergency (ER) | payer OTHER ==
[~2017-06-24] VITALS: Ht 188 cm; Wt 90.0 kg
[~2017-06-24 13:02] MED LIST changes: -CEPH-460 PO; -CLIN1CAP6 PO; +IBUP800T23 PO; +PRED20 PO; +ROBA500T PO
[2017-06-24 13:04] VITALS: BP 148/91; PULSE 112; RESP 17; TEMP 98.4; O2SAT 98
[2017-06-24] MEDS ORDERED: SODIUM CHLORIDE 0.9% FLUSH 10 ML FLUSH IVF PRN (13:45)
[2017-06-24] MEDS ORDERED: methylPREDNISolone SOD SUCC 125 MG/2 ML VIAL IV PUSH ONE (13:45)
[2017-06-24 13:52] VITALS: RESP 20; O2SAT 98
--- NOTE | 2017-06-24 14:04 | PD ---
HPI Chief Complaint: Respiratory Symptoms Time Seen by Provider: 13:34 Travel History International Travel<30 days: No Contact w/Intl Traveler<30days: No Traveled to known affect area: No History of Present Illness HPI 52yo M with PMH of sarcoidosis, DM presents to the ED with sob for a few days. States he took his treatment today and did not really help. States he has nasal congestion. +Cough that is chronic for him. Denies any fever, chest pain , n/v, abdominal pain, focal weakness or numbness. PFSH Past Medical History Arthritis: Yes Blood Disorders: No Heart Rhythm Problems: No Cancer: No Cardiac Catheterization: Yes (2009) Cardiovascular Problems: Yes (PREV CATH, + STRESS) High Cholesterol: No Chest Pain: Yes Congestive Heart Failure: No Diabetes: Yes Diminished Hearing: No Endocrine: Yes Gastrointestinal Disorders: No Genitourinary: Yes (KIDNEY STONE) Hepatitis: No Hiatal Hernia: No Hypertension: No Immune Disorder: Yes (PT THINKS HE MIGHT HAVE RA, NOT SURE) Implanted Vascular Access Dvce: No Musculoskeletal: Yes (CHRONIC BACK PAIN; ARTHRITIS IN KNEES, HIPS, FINGERS) Neurologic: No Psychiatric: No Reproductive: No Respiratory: Yes Immunizations Current: Yes Myocardial Infarction: No Thyroid Disease: No Past Surgical History Abdominal Surgery: No AICD: No Body Medical Devices: NONE Cardiac Surgery: Yes (CARDIAC CATH 08/2012) Coronary Artery Bypass Graft: No Ear Surgery: No Endocrine Surgery: No Eye Surgery: No Genitourinary Surgery: No Joint Replacement: No Neurologic Surgery: No Oral Surgery: No Pacemaker: No Thoracic Surgery: No Other Surgery: Yes (LUNG BIOPSY 2015) Social History Alcohol Use: Yes (2X WEEKLY) Tobacco Use: No Substance Use: No Allergies-Medications (Allergen,Severity, Reaction): Coded Allergies: No Known Allergies (Verified , 04/15/17) Reported Meds & Prescriptions Reported Meds & Active Scripts Active Ibuprofen 800 Mg Tab 800 Mg PO Q6HR PRN Robaxin (Methocarbamol) 500 Mg Tab 500 Mg PO QID PRN Metformin (Metformin HCl) 1,000 Mg Tab 1,000 Mg PO DAILY With a meal Reported Prednisone 20 Mg Tab 20 Mg PO DAILY Glipizide 5 Mg Tab 5 Mg PO DAILY Take 30 minutes before a meal Albuterol Neb (Albuterol Sulfate) 1.25 Mg/3 Ml Neb 1.25 Mg NEB TID NEB PRN Review of Systems Except as stated in HPI: all other systems reviewed are Neg Physical Exam Narrative GENERAL: 52yo M not in distress. SKIN: Focused skin assessment warm/dry. HEAD: Atraumatic. Normocephalic. EYES: Pupils equal and round. No scleral icterus. No injection or drainage. ENT: No nasal bleeding or discharge. Mucous membranes pink and moist. NECK: Trachea midline. No JVD. CARDIOVASCULAR: Regular rate and rhythm. No murmur appreciated. RESPIRATORY: No accessory muscle use. End expiratory wheezing bilaterally. GASTROINTESTINAL: Abdomen soft, non-tender, nondistended. No rebound tenderness or guarding. MUSCULOSKELETAL: No obvious deformities. No clubbing. No cyanosis. No edema. NEUROLOGICAL: Awake and alert. No obvious cranial nerve deficits. Motor grossly within normal limits. Normal speech. PSYCHIATRIC: Appropriate mood and affect; insight and judgment normal. Data Data Last Documented VS Vital Signs Date Time Temp Pulse Resp B/P (MAP) Pulse Ox O2 Delivery O2 Flow Rate FiO2 06/24/17 15:13 99 Nasal Cannula 1.00 06/24/17 13:54 20 06/24/17 13:52 06/24/17 13:04 98.4 112 Orders Orders Complete Blood Count With Diff (06/24/17 13:38) Basic Metabolic Panel (Bmp) (06/24/17 13:38) B-Type Natriuretic Peptide (06/24/17 13:38) Troponin I (06/24/17 13:38) Iv Access Insert/Monitor (06/24/17 13:38) Electrocardiogram (06/24/17 13:38) Ecg Monitoring (06/24/17 13:38) Oximetry (06/24/17 13:38) Oxygen Administration (06/24/17 13:38) Chest, Single Ap (06/24/17 13:38) Sodium Chloride 0.9% Flush (Ns Flush) (06/24/17 13:45) Methylprednisolone So Succ Inj (Solumedr (06/24/17 13:45) Albuterol-Ipratropium Neb (Duoneb Neb) (06/24/17 13:45) Labs Laboratory Tests Test 06/24/17 13:45 White Blood Count 6.4 TH/MM3 Red Blood Count 4.22 MIL/MM3 Hemoglobin 12.6 GM/DL Hematocrit 38.3 % Mean Corpuscular Volume 90.7 FL Mean Corpuscular Hemoglobin 30.0 PG Mean Corpuscular Hemoglobin Concent 33.1 % Red Cell Distribution Width 13.6 % Platelet Count 320 TH/MM3 Mean Platelet Volume 7.2 FL Neutrophils (%) (Auto) 70.8 % Lymphocytes (%) (Auto) 15.9 % Monocytes (%) (Auto) 8.5 % Eosinophils (%) (Auto) 4.1 % Basophils (%) (Auto) 0.7 % Neutrophils # (Auto) 4.5 TH/MM3 Lymphocytes # (Auto) 1.0 TH/MM3 Monocytes # (Auto) 0.5 TH/MM3 Eosinophils # (Auto) 0.3 TH/MM3 Basophils # (Auto) 0.0 TH/MM3 CBC Comment DIFF FINAL Differential Comment Blood Urea Nitrogen 9 MG/DL Creatinine 1.22 MG/DL Random Glucose 365 MG/DL Calcium Level 8.6 MG/DL Sodium Level 133 MEQ/L Potassium Level 4.7 MEQ/L Chloride Level 100 MEQ/L Carbon Dioxide Level 26.7 MEQ/L Anion Gap 6 MEQ/L Estimat Glomerular Filtration Rate 76 ML/MIN Troponin I LESS THAN 0.02 NG/ML B-Type Natriuretic Peptide 10 PG/ML MDM Medical Decision Making Medical Screen Exam Complete: Yes Emergency Medical Condition: Yes Interpretation(s) EKG: NSR 95bpm. RAD. No ST segment elevation or depression. Differential Diagnosis Sarcoidosis vs. COPD vs. pneumonia Narrative Course 52yo M with sarcoidosis here with sob. Pt has wheezing on exam and given methylprednisolone 60mg IV and duonebs x3. Labs reviewed, no leukocytosis. Troponin negative. BNP normal. Glucose 365. No increased anion. Pt reevaluated at bedside after treatments and he said he feels much better. No longer sob. Pt saturating at 96% on RA and ambulating in the ED without any worsening sob. Pt has a [employer] supervisor to follow up with. Return precautions given. Diagnosis Primary Impression: Bronchitis Patient Instructions: General Instructions Departure Forms: Tests/Procedures Additional Instructions: Please follow up with your [employer] supervisor in 1-2 days. Return to the ED if symptoms worsen. Med/Other Pt SpecificInfo: Prescription(s) given Scripts Albuterol 18 GM Inh (Ventolin Hfa 18 GM Inh) 90 Mcg/Act Aer 2 PUFF INH Q4H Y for SHORTNESS OF BREATH, #1 INHALER 0 Refills Prov: Brooke Werner DO 06/24/17 Prednisone (Deltasone) 20 Mg Tab 20 MG PO BID for 5 Days, #10 TAB 0 Refills Prov: Brooke Werner DO 06/24/17 Disposition: 01 DISCHARGE HOME Condition: Stable Brooke Werner DO Jun 24, 2017 14:04
--- NOTE | 2017-06-24 14:05 | RADRPT ---
EXAM DATE/TIME: 06/24/2017 13:41 [facility] COMPARISON: CT PULMONARY ANGIOGRAM, January 25, 2017, 8:17. CHEST SINGLE AP, April 16, 2017, 0:08. INDICATIONS : Short of breath MEDICAL HISTORY : Diabetes mellitus type II. Lung Biopsy (2016) SURGICAL HISTORY : None. ENCOUNTER: Initial ACUITY: 1 day PAIN SCORE: 0/10 LOCATION: chest FINDINGS: The heart size is normal. The lungs are grossly clear. There is enlargement of the hilar regions german cially on the right. This appearance is unchanged. No effusion is seen. CONCLUSION: 1. No acute abnormality seen. 2. Persistent enlargement of the hilar regions. The patient had adenopathy seen on the prior CT. Wilton Barrera MD on June 24, 2017 at 14:02 Board Certified Radiologist. This report was verified electronically.
[2017-06-24 14:09] LABS: AUTOMATED NEUTROPHIL # 4.5 TH/MM3 (1.8-7.7); BASOPHIL % 0.7 % (0.0-2.0); EOSINOPHIL # 0.3 TH/MM3 (0-0.4); EOSINOPHIL % 4.1 % (0.0-4.0); HEMATOCRIT 38.3 % (39.0-51.0); HEMO FLAGS DIFF FINAL; LYMPH % 15.9 % (9.0-44.0); MEAN CELL VOLUME 90.7 FL (80.0-100.0); MEAN CORPUSCULAR HGB CONC 33.1 % (32.0-36.0); MONO % 8.5 % (0.0-8.0); NEUT % 70.8 % (16.0-70.0); PLATELET COUNT 320 TH/MM3 (150-450); RED BLOOD COUNT 4.22 MIL/MM3 (4.50-5.90); RED CELL DISTRIBUTION WIDTH 13.6 % (11.6-17.2); WHITE BLOOD COUNT 6.4 TH/MM3 (4.0-11.0)
[2017-06-24 14:35] LABS: ANION GAP 6 MEQ/L (5-15); BICARBONATE 26.7 MEQ/L (21.0-32.0); BLOOD UREA NITROGEN 9 MG/DL (7-18); CHLORIDE 100 MEQ/L (98-107); GLOMERULAR FILTRATION RATE 76 ML/MIN (>89); POTASSIUM 4.7 MEQ/L (3.5-5.1); SODIUM (NA) 133 MEQ/L (136-145)
[2017-06-24] MEDS: RESP: ALBUTEROL 2.5 MG/IPRATROPIUM 0.5 MG NEB (SCH) INH ×2 (15:05→15:06)
[2017-06-24 15:13] VITALS: O2SAT 99
[2017-06-24] MEDS ORDERED: VENTAER INH (16:42)
[2017-06-24] MEDS ORDERED: PRED-503 PO (16:42)
--- NOTE | 2017-06-24 19:15 | EKG ---
Date Performed: 06/24/2017 Time Performed: 14:16:40 PTAGE: 52 years EKG: Sinus rhythm NORMAL ECG PREVIOUS TRACING : 01/25/2017 08.39 No significant change from previous tracing noted. DOCTOR: Fran Joy Interpretating Date/Time 06/24/2017 19:14:20
== END 2017-06-24 16:52 | disposition home or self-care (01) ==
LOC: NEPC 13:02
DX: J40 Bronchitis, not specified as acute or chronic (principal); E11.9 Type 2 diabetes mellitus without complications; Z79.84 Long term (current) use of oral hypoglycemic drugs
CPT/HCPCS: 71010; 80048; 83880; 84484; 85025; 93005; 94664; 96374; 99285; J2930

== ENCOUNTER 2017-08-22 22:37 | Observation (INO) | payer OTHER ==
[~2017-08-22] VITALS: Ht 188 cm; Wt 88.0 kg
[~2017-08-22 22:37] MED LIST changes: +IBUP1TAB7 PO; -IBUP800T23 PO; +PRED-503 PO; +VENTAER INH
[2017-08-22 22:42] VITALS: BP 167/103; PULSE 123; RESP 18; TEMP 99.2; O2SAT 97
[2017-08-22 22:54] VITALS: BP 158/98; PULSE 115; RESP 20; TEMP 98.5; O2SAT 98
--- NOTE | 2017-08-22 22:57 | PD ---
HPI Chief Complaint: Cold / Flu Symptoms Time Seen by Provider: 22:57 Travel History International Travel<30 days: No Contact w/Intl Traveler<30days: No Traveled to known affect area: No History of Present Illness HPI 52-year-old male came to the emergency room with history of chest pain, dizziness, nausea, vomiting and cough for past 2-3 days. Patient describes this chest pain substernal and subxiphoid. No radiation of the pain. He describes the pain to be like a knife stabbing. He says the pain gets worse when he coughs. He says it is not unusual for him to cough since he has sarcoidosis but the cough is worse this time. Patient had a temperature of 99.2 in triage. His heart rate was 123. He appeared to be in some distress. Patient does not have any coronary artery disease his head. [facility] Past Medical History Narrative Medical List of his past medical, surgical, social and family history is reviewed from the nursing note. Arthritis: Yes Blood Disorders: No Heart Rhythm Problems: No Cancer: No Cardiac Catheterization: Yes (2009) Cardiovascular Problems: Yes (PREV CATH, + STRESS) High Cholesterol: No Chest Pain: Yes Congestive Heart Failure: No Diabetes: Yes Patient Takes Glucophage: Yes (METFORMIN 08/22/172029) Diminished Hearing: No Endocrine: Yes Gastrointestinal Disorders: No Genitourinary: Yes (KIDNEY STONE) Hepatitis: No Hiatal Hernia: No Hypertension: No Immune Disorder: Yes (PT THINKS HE MIGHT HAVE RA, NOT SURE) Implanted Vascular Access Dvce: No Musculoskeletal: Yes (CHRONIC BACK PAIN; ARTHRITIS IN KNEES, HIPS, FINGERS) Neurologic: No Psychiatric: No Reproductive: No Respiratory: Yes Immunizations Current: Yes Myocardial Infarction: No Thyroid Disease: No Past Surgical History Abdominal Surgery: No AICD: No Body Medical Devices: NONE Cardiac Surgery: Yes (CARDIAC CATH 08/2012) Coronary Artery Bypass Graft: No Ear Surgery: No Endocrine Surgery: No Eye Surgery: No Genitourinary Surgery: No Joint Replacement: No Neurologic Surgery: No Oral Surgery: No Pacemaker: No Thoracic Surgery: No Other Surgery: Yes (LUNG BIOPSY 2015) Social History Alcohol Use: Yes (2 OR 3X WEEKLY) Tobacco Use: No Substance Use: No Allergies-Medications (Allergen,Severity, Reaction): Coded Allergies: No Known Allergies (Verified Adverse Reaction, Unknown, 08/22/17) Comments No known drug allergies. Reported Meds & Prescriptions Reported Meds & Active Scripts Active Ventolin Hfa 18 GM Inh (Albuterol Sulfate) 90 Mcg/Act Aer 2 Puff INH Q4H PRN Ibuprofen 800 Mg Tab 800 Mg PO Q6HR PRN Robaxin (Methocarbamol) 500 Mg Tab 500 Mg PO QID PRN Metformin (Metformin HCl) 1,000 Mg Tab 1,000 Mg PO DAILY With a meal Reported Doxycycline Hyclate 50 Mg Cap 50 Mg PO BID Prednisone 20 Mg Tab 20 Mg PO DAILY Albuterol Neb (Albuterol Sulfate) 1.25 Mg/3 Ml Neb 1.25 Mg NEB TID NEB PRN Narrative Medication List of his home medications reviewed from the nursing note. Review of Systems Except as stated in HPI: all other systems reviewed are Neg Cardiovascular: Positive: Chest Pain or Discomfort Respiratory: Positive: Cough Gastrointestinal: Positive: Nausea, Vomiting Physical Exam Narrative GENERAL: Awake, alert, moderate distress SKIN: Focused skin assessment warm/dry. HEAD: Atraumatic. Normocephalic. EYES: Pupils equal and round. No scleral icterus. No injection or drainage. ENT: No nasal bleeding or discharge. Mucous membranes pink and moist. NECK: Trachea midline. No JVD. CARDIOVASCULAR: Regular rate and rhythm. Tachycardia. No murmur appreciated. RESPIRATORY: No accessory muscle use. Clear to auscultation. Breath sounds equal bilaterally. GASTROINTESTINAL: Abdomen soft, non-tender, nondistended. Hepatic and splenic margins not palpable. MUSCULOSKELETAL: No obvious deformities. No clubbing. No cyanosis. No edema. NEUROLOGICAL: Awake and alert. No obvious cranial nerve deficits. Motor grossly within normal limits. Normal speech. PSYCHIATRIC: Appropriate mood and affect; insight and judgment normal. Data Data Last Documented VS Vital Signs Date Time Temp Pulse Resp B/P (MAP) Pulse Ox O2 Delivery O2 Flow Rate FiO2 08/23/17 00:26 108 20 147/94 (111) 98 Nasal Cannula 2.00 08/22/17 22:54 98.5 Orders Orders Electrocardiogram (08/22/17 23:06) Basic Metabolic Panel (Bmp) (08/22/17 23:06) Ckmb (Isoenzyme) Profile (08/22/17 23:06) Complete Blood Count With Diff (08/22/17 23:06) D-Dimer (08/22/17 23:06) Magnesium (Mg) (08/22/17 23:06) Prothrombin Time / Inr (Pt) (08/22/17 23:06) Act Partial Throm Time (Ptt) (08/22/17 23:06) Troponin I (08/22/17 23:06) Chest, Single Ap (08/22/17 23:06) Ecg Monitoring (08/22/17 23:06) Bilateral Bp Monitoring (08/22/17 23:06) Iv Access Insert/Monitor (08/22/17 23:) Oximetry (08/22/17 23:06) Oxygen Administration (08/22/17 23:06) Sodium Chloride 0.9% Flush (Ns Flush) (08/22/17:15) Sodium Chlorid 0.9% 500 Ml Inj (Ns 500 M (08/22/17 23:15) Blood Culture (08/22/17 23:07) Lactic Acid (08/22/17 23:07) CKMB (08/22/17 23:10) CKMB% (08/22/17 23:10) Morphine Inj (Morphine Inj) (08/23/17 00:15) Labs Laboratory Tests Test 08/22/17 23:10 08/22/17 23:30 White Blood Count 6.5 TH/MM3 Red Blood Count 4.17 MIL/MM3 Hemoglobin 12.8 GM/DL Hematocrit 37.1 % Mean Corpuscular Volume 89.0 FL Mean Corpuscular Hemoglobin 30.7 PG Mean Corpuscular Hemoglobin Concent 34.5 % Red Cell Distribution Width 13.3 % Platelet Count 330 TH/MM3 Mean Platelet Volume 7.9 FL Neutrophils (%) (Auto) 63.3 % Lymphocytes (%) (Auto) 19.5 % Monocytes (%) (Auto) 10.2 % Eosinophils (%) (Auto) 6.2 % Basophils (%) (Auto) 0.8 % Neutrophils # (Auto) 4.1 TH/MM3 Lymphocytes # (Auto) 1.3 TH/MM3 Monocytes # (Auto) 0.7 TH/MM3 Eosinophils # (Auto) 0.4 TH/MM3 Basophils # (Auto) 0.1 TH/MM3 CBC Comment DIFF FINAL Differential Comment Prothrombin Time 10.9 SEC Prothromb Time International Ratio 1.0 RATIO Activated Partial Thromboplast Time 25.5 SEC D-Dimer Quantitative (PE/DVT) 0.41 MG/L FEU Blood Urea Nitrogen 11 MG/DL Creatinine 1.35 MG/DL Random Glucose 395 MG/DL Calcium Level 8.9 MG/DL Magnesium Level 2.0 MG/DL Sodium Level 136 MEQ/L Potassium Level 4.5 MEQ/L Chloride Level 100 MEQ/L Carbon Dioxide Level 26.8 MEQ/L Anion Gap 9 MEQ/L Estimat Glomerular Filtration Rate 67 ML/MIN Total Creatine Kinase 127 U/L Creatine Kinase MB 1.5 NG/ML Troponin I LESS THAN 0.02 NG/ML Lactic Acid Level 2.0 mmol/L MDM Medical Decision Making Medical Screen Exam Complete: Yes Emergency Medical Condition: Yes Medical Record Reviewed: Yes Interpretation(s) Twelve-lead EKG was reviewed by me. Normal sinus rhythm, normal axis, tachycardia, nonspecific ST-T wave changes. Heart rate of 115 bpm. Differential Diagnosis PE, ACS, pneumonia, sepsis Narrative Course 1:17 AM blood test results are back. Patient is hyperglycemic and lactic acid is borderline. Patient was given 500 cc of IV fluid bolus. His heart rate currently is come down to 100s. D-dimer is negative and troponin is negative. I will give him a dose of metformin. However I would like to admit him for his chest pain to medical service given other comorbid factors including the tachycardia and hyperglycemia. Awaiting for the hospitalist to call back. Meanwhile patient kept complaining of the pain and I have given him some morphine. Procedures EKG Prior to Arrival: No Diagnosis Primary Impression: chest pain Additional Impressions: Tachycardia Cough Hyperglycemia Admitting Information Admitting Physician Requests: Observation Azra Serna MD Aug 22, 2017 22:57
[2017-08-22] MEDS ORDERED: DOXY50 PO (23:01)
[2017-08-22] MEDS ORDERED: SODIUM CHLORIDE 0.9% FLUSH 10 ML FLUSH IVF PRN (23:15)
[2017-08-22] MEDS ORDERED: SODIUM CHLORID 0.9% 500 ML INJ 500 ML IV ONE (23:15)
--- NOTE | 2017-08-22 23:25 | RADRPT ---
EXAM DATE/TIME: 08/22/2017 23:10 [facility] COMPARISON: CHEST SINGLE AP, June 24, 2017, 13:41. INDICATIONS : Chest pain. MEDICAL HISTORY : Diabetes mellitus type II. Lung Biopsy (2016) SURGICAL HISTORY : None. ENCOUNTER: Initial ACUITY: 1 day PAIN SCORE: 4/10 LOCATION: Bilateral chest FINDINGS: A single view of the chest demonstrates the lungs to be symmetrically aerated without evidence of mas s, infiltrate or effusion. The cardiomediastinal contours are unremarkable. Osseous structures are intact. CONCLUSION: Normal examination. Dennys Che MD on August 22, 2017 at 23:23 Board Certified Radiologist. This report was verified electronically.
[2017-08-22 23:29] LABS: AUTOMATED NEUTROPHIL # 4.1 TH/MM3 (1.8-7.7); BASOPHIL # 0.1 TH/MM3 (0-0.2); BASOPHIL % 0.8 % (0.0-2.0); EOSINOPHIL # 0.4 TH/MM3 (0-0.4); EOSINOPHIL % 6.2 % (0.0-4.0); HEMATOCRIT 37.1 % (39.0-51.0); HEMO FLAGS DIFF FINAL; LYMPH % 19.5 % (9.0-44.0); LYMPHOCYTE # 1.3 TH/MM3 (1.0-4.8); MEAN CORPUSCULAR HEMOGLOBIN 30.7 PG (27.0-34.0); MEAN CORPUSCULAR HGB CONC 34.5 % (32.0-36.0); MONO % 10.2 % (0.0-8.0); NEUT % 63.3 % (16.0-70.0); PLATELET COUNT 330 TH/MM3 (150-450); RED BLOOD COUNT 4.17 MIL/MM3 (4.50-5.90); RED CELL DISTRIBUTION WIDTH 13.3 % (11.6-17.2); WHITE BLOOD COUNT 6.5 TH/MM3 (4.0-11.0)
[2017-08-22 23:53] LABS: APTT (PATIENT) 25.5 SEC (24.3-30.1); PROTHROMBIN TIME - PATIENT 10.9 SEC (9.8-11.6)
[2017-08-22 23:58] LABS: ANION GAP 9 MEQ/L (5-15); BICARBONATE 26.8 MEQ/L (21.0-32.0); BLOOD UREA NITROGEN 11 MG/DL (7-18); CHLORIDE 100 MEQ/L (98-107); GLOMERULAR FILTRATION RATE 67 ML/MIN (>89); POTASSIUM 4.5 MEQ/L (3.5-5.1); SODIUM (NA) 136 MEQ/L (136-145)
[2017-08-23] VITALS (14 sets, daily range): BP systolic 130–165; BP diastolic 84–94; PULSE 96–110; RESP 16–21; TEMP 97.6–98.5; O2SAT 97–99
[2017-08-23 00:04] LABS: CREATINE KINASE 127 U/L (39-308)
[2017-08-23] MEDS ORDERED: MORPHINE SULFATE 4 MG/ML INJ IV PUSH ONE (00:15)
[2017-08-23 00:17] LABS: CKMB 1.5 NG/ML (0.5-3.6)
[2017-08-23] MEDS ORDERED: metFORMIN HCL 500 MG TAB PO ONE (01:30)
[2017-08-23] MEDS ORDERED: DEXTROSE 50% IN WATER 50 ML VIAL(D50) IV PUSH PRN (01:45)
[2017-08-23] MEDS ORDERED: SODIUM CHLORIDE 0.9% FLUSH 10 ML FLUSH IV FLUSH PRN (01:45)
[2017-08-23] MEDS ORDERED: NITROGLYCERIN 0.4 MG SL 25 TABS/BTL SL PRN (01:45)
[2017-08-23] MEDS ORDERED: GLUCAGON 1 MG/ML VIAL OTHER PRN (01:45)
[2017-08-23] MEDS: HEPARIN SODIUM - SQ 10,000 UNITS/ML VIAL SQ SCH ×3 (02:00→18:00)
[2017-08-23] MEDS: MORPHINE SULFATE 2 MG/ML INJ IV PUSH PRN ×4 (03:43→18:11)
--- NOTE | 2017-08-23 05:25 | HHI.HP ---
[facility] Service [facility] Primary Care Physician Non-Staff Admission Diagnosis chest pain, hyperglycemia, tachycardia Diagnoses: Travel History International Travel<30 Days: No Contact w/Intl Traveler <30 Da: No Traveled to Known Affected Are: No History of Present Illness 52-year-old male with a past medical history significant for sarcoidosis and type 2 diabetes mellitus presents with a 2 day history of left-sided substernal chest pain. The patient reports his pain started on Sunday night and is worse with inspiration and when he leans forward. It does not radiate. He describes associated nausea/vomiting since his chest pain onset. He has a cough at baseline however reports that his cough has recently been worse. Labs are significant for creatinine of 1.35 (baseline 1.2-1.4). EKG significant for tachycardia of 115, no ST segment elevations or depressions. Troponin within normal limits. Patient is also being treated for a staph infection on his face and upper back, he is currently compliant with his doxycycline. Review of Systems Denies fever or chills Denies blurry vision, otorrhea, rhinorrhea Denies sore throat and cough Positive chest pain, palpitations and shortness of breath No abdominal pain Denies constipation/diarrhea/nausea/vomiting Denies muscle pain/weakness No rashes Past Family Social History Past Medical History Sarcoidosis Type 2 diabetes mellitus Past Surgical History Cardiac catheterization in 2010 - per patient within normal limits Left shoulder surgery Reported Medications Reported Meds & Active Scripts Active Ventolin Hfa 18 GM Inh (Albuterol Sulfate) 90 Mcg/Act Aer 2 Puff INH Q4H PRN Ibuprofen 800 Mg Tab 800 Mg PO Q6HR PRN Robaxin (Methocarbamol) 500 Mg Tab 500 Mg PO QID PRN Metformin (Metformin HCl) 1,000 Mg Tab 1,000 Mg PO DAILY With a meal Reported Doxycycline Hyclate 50 Mg Cap 50 Mg PO BID Prednisone 20 Mg Tab 20 Mg PO DAILY Albuterol Neb (Albuterol Sulfate) 1.25 Mg/3 Ml Neb 1.25 Mg NEB TID NEB PRN Allergies: Coded Allergies: No Known Allergies (Verified Adverse Reaction, Unknown, 08/22/17) Family History No family history of diabetes or coronary artery disease Social History Denies tobacco. Drinks approximately 4-5 beers per week. No marijuana or illicit drugs. Physical Exam Vital Signs Vital Signs Date Time Temp Pulse Resp B/P (MAP) Pulse Ox O2 Delivery O2 Flow Rate FiO2 08/23/17 04:18 98.4 105 16 139/91 (107) 97 08/23/17 02:45 98.4 108 18 142/89 (106) 98 08/23/17 02:15 104 20 150/85 (106) 99 Nasal Cannula 2.00 08/23/17 01:49 20 08/23/17 00:26 108 20 147/94 (111) 98 Nasal Cannula 2.00 08/22/17 23:45 99 Nasal Cannula 2.00 08/22/17 22:54 98.5 115 20 158/98 (118) 98 Room Air 08/22/17 22:42 99.2 123 18 167/103 (124) 97 Room Air Physical Exam GENERAL: male lying in bed SKIN: Multiple erythematous, scaly lesions on the face and upper back. HEAD: Atraumatic. Normocephalic. No temporal or scalp tenderness. EYES: Pupils equal round and reactive. Extraocular motions intact. No scleral icterus. No injection or drainage. ENT: Nose without bleeding, purulent drainage or septal hematoma. Throat without erythema, tonsillar hypertrophy or exudate. Uvula midline. Airway patent. NECK: Trachea midline. No JVD or lymphadenopathy. Supple, nontender, no meningeal signs. CARDIOVASCULAR: Tachycardic. No murmurs/rubs/gallops. RESPIRATORY: Bilateral wheezes throughout all lung san. No rales or rhonchi. GASTROINTESTINAL: Abdomen soft, non-tender, nondistended. No hepato-splenomegaly , or palpable masses. No guarding. MUSCULOSKELETAL: Extremities without clubbing, cyanosis, or edema. No joint tenderness, effusion, or edema noted. No calf tenderness. Negative Homans sign bilaterally. NEUROLOGICAL: Awake and alert. Cranial nerves II through XII intact. Motor and sensory grossly within normal limits. Normal speech. Laboratory Laboratory Tests Test 08/22/17 23:10 08/22/17 23:30 White Blood Count 6.5 Red Blood Count 4.17 Hemoglobin 12.8 Hematocrit 37.1 Mean Corpuscular Volume 89.0 Mean Corpuscular Hemoglobin 30.7 Mean Corpuscular Hemoglobin Concent 34.5 Red Cell Distribution Width 13.3 Platelet Count 330 Mean Platelet Volume 7.9 Neutrophils (%) (Auto) 63.3 Lymphocytes (%) (Auto) 19.5 Monocytes (%) (Auto) 10.2 Eosinophils (%) (Auto) 6.2 Basophils (%) (Auto) 0.8 Neutrophils # (Auto) 4.1 Lymphocytes # (Auto) 1.3 Monocytes # (Auto) 0.7 Eosinophils # (Auto) 0.4 Basophils # (Auto) 0.1 CBC Comment DIFF FINAL Differential Comment Prothrombin Time 10.9 Prothromb Time International Ratio 1.0 Activated Partial Thromboplast Time 25.5 D-Dimer Quantitative (PE/DVT) 0.41 Blood Urea Nitrogen 11 Creatinine 1.35 Random Glucose 395 Calcium Level 8.9 Magnesium Level 2.0 Sodium Level 136 Potassium Level 4.5 Chloride Level 100 Carbon Dioxide Level 26.8 Anion Gap 9 Estimat Glomerular Filtration Rate 67 Total Creatine Kinase 127 Creatine Kinase MB 1.5 Troponin I LESS THAN 0.02 Lactic Acid Level 2.0 Date/Time Source Procedure Growth Status 08/22/17 23:30 Blood Peripheral Aerobic Blood Culture Pending Received 08/22/17 23:30 Blood Peripheral Anaerobic Blood Culture Pending Received Result Diagram: 08/22/170 08/22/170 Caprini VTE Risk Assessment Caprini VTE Risk Assessment: No/Low Risk (score <= 1) Caprini Risk Assessment Model Point Value = 1 Point Value = 2 Point Value = 3 Point Value = 5 Age 41-60 Minor surgery BMI > 25 kg/m2 Swollen legs Varicose veins or History of unexplained or recurrent spontaneous Oral contraceptives or hormone replacement Sepsis (< 1 month) Serious lung disease, including pneumonia (< 1 month) Abnormal pulmonary function Acute myocardial infarction Congestive heart failure (< 1 month) History of inflammatory bowel disease Medical patient at bed rest Age 61-74 Arthroscopic surgery Major open surgery (> 45 min) Laparoscopic surgery (> 45 min) Malignancy Confined to bed (> 72 hours) Immobilizing plaster cast Central venous access Age >= 75 History of VTE Family history of VTE Factor V Leiden Prothrombin [id number] Lupus anticoagulant Anticardiolipin antibodies Elevated serum homocysteine Heparin-induced thrombocytopenia Other congenital or acquired thrombophilia Stroke (< 1 month) Elective arthroplasty Hip, pelvis, or leg fracture Acute spinal cord injury (< 1 month) Prophylaxis Regimen Total Risk Factor Score Risk Level Prophylaxis Regimen 0-1 Low Early ambulation 2 Moderate Order ONE of the following: *Sequential Compression Device (SCD) *Heparin 5000 units SQ BID 3-4 Higher Order ONE of the following medications: *Heparin 5000 units SQ TID *Enoxaparin/Lovenox 40 mg SQ daily (WT < 150 kg, CrCl > 30 mL/min) *Enoxaparin/Lovenox 30 mg SQ daily (WT < 150 kg, CrCl > 10-29 mL/min) *Enoxaparin/Lovenox 30 mg SQ BID (WT < 150 kg, CrCl > 30 mL/min) AND/OR *Sequential Compression Device (SCD) 5 or more Highest Order ONE of the following medications: *Heparin 5000 units SQ TID (Preferred with Epidurals) *Enoxaparin/Lovenox 40 mg SQ daily (WT < 150 kg, CrCl > 30 mL/min) *Enoxaparin/Lovenox 30 mg SQ daily (WT < 150 kg, CrCl > 10-29 mL/min) *Enoxaparin/Lovenox 30 mg SQ BID (WT < 150 kg, CrCl > 30 mL/min) AND *Sequential Compression Device (SCD) Assessment and Plan Assessment and Plan 52-year-old male with past medical history significant for type 2 diabetes mellitus and sarcoidosis presents with a 2 day history of increasing left-sided chest pain and shortness of breath. 1. Chest pain EKG significant for tachycardia, no ST segment depressions or elevations, reviewed by me Initial troponin negative ACS rule out pending; serial troponins/EKGs Morphine for pain 2. Shortness of breath/cough Patient with increasing cough and shortness of breath Chest x-ray with no acute process, images reviewed by me D-dimer within normal limits May be secondary to underlying sarcoidosis versus cardiac versus infection No leukocytosis, afebrile, lactic acid 2.0 3. Sarcoidosis Duo nebs for wheezing Continue home prednisone 4. Type 2 diabetes mellitus Holding home metformin Sliding scale insulin 5. Skin infection Per patient, this is improving on by mouth antibiotics Continue doxycycline 6. Nausea/vomiting Resolved FEN Heart healthy diet Electrolytes: monitor and replete prn Heparin Nicki Gomez MD Aug 23, 2017 05:25
[2017-08-23] MEDS ORDERED: RESP: ALBUTEROL 2.5 MG/IPRATROPIUM 0.5 MG NEB (PRN) NEB (05:30)
[2017-08-23 07:49] LABS: CREATINE KINASE 79 U/L (39-308)
[2017-08-23] MEDS: INSULIN ASPART SUPPLEMENTAL SCALE SQ SCH ×4 (08:00→22:45)
[2017-08-23] MEDS: SODIUM CHLORIDE 0.9% FLUSH 10 ML FLUSH IV FLUSH SCH ×2 (09:00→21:00)
[2017-08-23] MEDS ORDERED: predniSONE 20 MG TAB PO SCH ×2 (09:00→21:00)
[2017-08-23] MEDS ORDERED: DOXYCYCLINE HYCLATE 50 MG CAP PO SCH (09:00)
[2017-08-23] MEDS ORDERED: DOXY50 PO (11:42)
--- NOTE | 2017-08-23 11:43 | HHI.PR ---
Subjective Remarks Follow up for chest pain, shortness of breath, cough, with sarcoidosis. The patient reports the chest pain has improved but still persists, located at the left anterior chest, described as constant sharp pains, worse when leaning forward, deep inspiration, and cough. Denies fevers/chills. He reports continued nonproductive cough and shortness of breath. O2 sat currently 98% on 2L NC. He does not wear oxygen at home. 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 The patient cannot recall when his last chest CT was done, at least over a year ago. He has no other medical complaints at this time. Objective Vitals Vital Signs Date Time Temp Pulse Resp B/P (MAP) Pulse Ox O2 Delivery O2 Flow Rate FiO2 08/23/17 09:39 20 08/23/17 08:17 98.5 104 20 135/84 (101) 98 08/23/17 04:47 106 08/23/17 04:18 98.4 105 16 139/91 (107) 97 08/23/17 02:45 98.4 108 18 142/89 (106) 98 08/23/17 02:15 104 20 150/85 (106) 99 Nasal Cannula 2.00 08/23/17 01:49 20 08/23/17 00:26 108 20 147/94 (111) 98 Nasal Cannula 2.00 08/22/17 23:45 99 Nasal Cannula 2.00 08/22/17 22:54 98.5 115 20 158/98 (118) 98 Room Air 08/22/17 22:42 99.2 123 18 167/103 (124) 97 Room Air Result Diagram: 08/22/17 2310 08/22/17 2310 Imaging Last Impressions Chest X-Ray 08/22/17 2306 Signed Impressions: Service Date/Time: Tuesday, August 22, 2017 23:10 - CONCLUSION: Normal examination. Dennys Che MD Objective Remarks GENERAL: Well-nourished, well-developed middle aged male patient in [facility]. SKIN: Warm and dry. Multiple healing pustules at posterior neck and left submandibular area. HEENT: Normocephalic. Atraumatic.Pupils equal and round. Mucous membranes pink and moist. NECK: Supple. Trachea midline. CARDIOVASCULAR: Regular rate and rhythm. S1, S2 noted. No murmur or rub appreciated. Left anterior chest wall TTP. RESPIRATORY: No accessory muscle use. Diffuse scattered rhonchi with expiratory wheezing. Breath sounds equal bilaterally. GASTROINTESTINAL: Abdomen soft, non-tender, nondistended. Normoactive bowel sounds x4. MUSCULOSKELETAL: No obvious deformities. Extremities without clubbing, cyanosis , or edema. NEUROLOGICAL: Awake and alert. No obvious cranial nerve deficits. Motor grossly within normal limits. Normal speech. PSYCHIATRIC: Appropriate mood and affect; insight and judgment normal. Medications and IVs Current Medications Medications (Trade) Dose Ordered Sig/Dereck Route Start Time Stop Time Status Last Admin (NS Flush) 2 ml BID IV FLUSH 08/23/17 09:00 08/23/17 09:00 (NS Flush) 2 ml UNSCH PRN IV FLUSH 08/23/17 01:45 (Nitrostat Sl) 0.4 mg Q5M PRN SL 08/23/17 01:45 (Morphine Inj) 2 mg Q30M PRN IV PUSH 08/23/17 02:00 08/23/17 09:29 (Heparin Inj) 5,000 units Q8H SQ 08/23/17 02:00 08/23/17 09:29 (D50w (Vial) Inj) 50 ml UNSCH PRN IV PUSH 08/23/17 01:45 (Glucagon Inj) 1 mg UNSCH PRN OTHER 08/23/17 01:45 (NovoLOG SUPPLEMENTAL SCALE) 1 ACHS SLIDING SCALE SQ 08/23/17 08:00 08/23/17 08:00 (Duoneb Neb) 1 ampule Q4HR NEB PRN NEB 08/23/17 05:30 08/23/17 06:09 (Deltasone) 20 mg DAILY PO 08/23/17 09:00 08/23/17 09:00 (Vibramycin) 150 mg BID PO 08/23/17 21:00 UNV (Vibramycin) 100 mg ONCE ONCE PO 08/23/17 11:45 08/23/17 11:46 UNV A/P Problem List: (1) Sarcoidosis ICD Code: D86.9 - Sarcoidosis, unspecified (2) Dyspnea ICD Code: R06.00 - Dyspnea, unspecified (3) Chest pain, atypical ICD Code: R07.89 - Atypical chest pain Status: Acute (4) Cough ICD Code: R05 - Cough Status: Acute Assessment and Plan 52-year-old male with past medical history significant for type 2 diabetes mellitus and sarcoidosis presents with a 2 day history of increasing left-sided chest pain and shortness of breath. Chest pain: suspect secondary to sarcoidosis/cough, pain reproducible with deep inspiration, cough, and with palpation. EMR reviewed, had clean cardiac catheterization in Aug [address] Anders. -EKG reviewed, significant for tachycardia, no ST segment depressions or elevations -Continue to trend serial cardiac enzymes; first 2 sets negative -Continue IV morphine prn pain -Monitor on telemetry Dyspnea/Cough with Sarcoidosis: suspect secondary to underlying sarcoidosis, need to rule out infection. CXR images reviewed, shows no acute findings. Patient with significant rhonchi/wheezing on exam, and nonproductive cough. Afebrile, no leukocytosis. D-dimer negative. 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 Hyman -Check chest CT, give IVF and monitor BMP -check inflammatory markers including ESR/CRP -Blood cultures with NGTD -patient already on doxycycline 100mg bid for rash which will also cover for possible developing pneumonia -continue duonebs q6h and prn -increase patient's home prednisone from 20mg daily to 20mg bid -incentive spirometry -check home O2 walk test if unable to wean off oxygen -will consult pulmonology Type 2 diabetes mellitus, uncontrolled with hyperglycemia: BG 395 upon arrival, possibly secondary to steroids -holding home metformin for now -monitor Accu-checks and cover with SSI -check HgbA1c Skin infection: symptoms have been improving on antibiotics. Culture 07/23/17 positive for Staph Aureus and Group B Strep -Continue patient's doxycycline 100mg bid Nausea/vomiting: possibly secondary to recent excessive coughing -symptoms resolved for now -continue IV Zofran prn DVT Prophylaxis: Heparin SQ Discharge Planning Not yet ready for discharge. Possible discharge tomorrow if continued improvement. Martina Dang PA-C Aug 23, 2017 11:42 am
[2017-08-23] MEDS ORDERED: DOXYCYCLINE HYCLATE 100 MG CAP PO ONE (11:45)
[2017-08-23] MEDS ORDERED: ONDANSETRON HCL 4 MG/2 ML VIAL IV PUSH PRN (12:00)
[2017-08-23] MEDS ORDERED: SODIUM CHLOR 0.9% 1000 ML INJ 1,000 ML IV SCH (12:00)
[2017-08-23 13:00] LABS: BICARBONATE 27.9 MEQ/L (21.0-32.0)
[2017-08-23] MEDS: guaiFENesin/DEXTROMETHORPHAN 200 MG/20 MG/10 ML CUP PO PRN (13:18)
[2017-08-23] MEDS ORDERED: IOHEXOL 350 MG/ML 10 ML VIAL (for RAD DIAG) IVCONTRAST ONE (13:35)
--- NOTE | 2017-08-23 14:00 | RADRPT ---
EXAM DATE/TIME: 08/23/2017 13:35 [place] COMPARISON: CT PULMONARY ANGIOGRAM, January 25, 2017, 8:17. CT SOFT TISSUE NECK W CONTRAST, April 16, 2017, 1:12. INDICATIONS : Sarcoidosis with cough and dyspnea IV CONTRAST: 73 cc Omnipaque 350 (iohexol) IV RADIATION DOSE: 8.0 CTDIvol (mGy) MEDICAL HISTORY : Cardiovascular disease. Diabetes mellitus type 1. SURGICAL HISTORY : None. ENCOUNTER: Initial ACUITY: 2 days PAIN SCALE: 0/10 LOCATION: chest TECHNIQUE: Volumetric scanning of the chest was performed. Using automated exposure control and adjustment of t mA and/or kV according to patient size, radiation dose was kept as low as reasonably achievable to obtain optimal diagnostic quality images. DICOM format image data is available electronically for review and comparison. Follow-up recommendations for detected pulmonary nodules are based at a minimum on nodule size and pa tient risk factors according to Fleischner Society Guidelines. FINDINGS: The examination demonstrates extensive paratracheal, mediastinal and bilateral hilar adenopathy. Ther e is extensive subcarinal adenopathy as well. The largest node in the right hilum measures 3.6 cm. Th e largest area of subcarinal adenopathy measures 2.5 x 4.3 cm. The nodes within the mediastinum and l eft hilar are somewhat smaller but prolific. Imaging through the pulmonary parenchyma demonstrates in terstitial fibrotic change with 2 nodules measuring approximately 4 mm in the right middle lobe. Ther e is a 5 mm nodule in the left lower lobe. The finding is identified by CT would be consistent with t he patient's stated diagnosis of sarcoidosis. The visualized bony structures demonstrate mild degenerative changes but are otherwise intact. CONCLUSION: 1. There is extensive paratracheal, mediastinal hilar and subcarinal adenopathy. There is interstitia l fibrotic change and 3 subcentimeter pulmonary nodules identified as described above. In the appropr [facility] clinical setting, this could represent sarcoidosis as stated by the patient's clinical history. 2. The adenopathy and small nodules are similar in appearance compared to previous study dated 7. David Singh MD on August 23, 2017 at 13:47 Board Certified Radiologist. This report was verified electronically.
[2017-08-23] MEDS: RESP: ALBUTEROL 2.5 MG/IPRATROPIUM 0.5 MG NEB (SCH) NEB ×2 (14:22→20:55)
[2017-08-23 15:24] LABS: CREATINE KINASE 82 U/L (39-308)
[2017-08-23 16:11] LABS: HEMOGLOBIN A1b 1.1 %; HEMOGLOBIN F 1.4 %; HEMOGLOBIN LA1C 3.3 %; HEMOGLOBIN P3 4.5 %
[2017-08-23 16:27] LABS: HEMOGLOBIN A1a 0.9 %; HEMOGLOBIN A1b 1.1 %; HEMOGLOBIN F 1.4 %; HEMOGLOBIN LA1C 3.4 %; HEMOGLOBIN P3 4.5 %
--- NOTE | 2017-08-23 18:13 | EKG ---
Date Performed: 08/22/2017 Time Performed: 22:53:34 PTAGE: 52 years EKG: SINUS TACHYCARDIA Minimal inferior T-wave flattening, which is new since the prior tracing ABNORMAL RHYTHM ECG PREVIOUS TRACING : 06/24/2017 14.16 Since the prior tracing, the right axis deviation has resol allen, and that was probably from limb lead reversal on the previous tracing, but the P-wave vector is now normal. Except for the sinus tachycardia and T-wave changes, the tracing is now within normal shields its. DOCTOR: Vanesa Hurtado Interpretating Date/Time 08/23/2017 18:11:31
--- NOTE | 2017-08-23 18:13 | EKG ---
Date Performed: 08/23/2017 Time Performed: 06:21:17 PTAGE: 52 years EKG: SINUS TACHYCARDIA NONSPECIFIC T-WAVE ABNORMALITY ABNORMAL RHYTHM ECG PREVIOUS TRACING : 08/22/2017 22.53 Since the prior tracing, the EKG remains essentially normal , except for a modest sinus tachycardia and minimal stable T-wave flattening. DOCTOR: Vanesa Hurtado Interpretating Date/Time 08/23/2017 18:12:06
--- NOTE | 2017-08-23 21:35 | MB ---
cc: Tanner CARPENTER M.D. DATE OF CONSULTATION 08/23/17 REASON FOR CONSULTATION Sarcoidosis and chest pain. HISTORY OF PRESENT ILLNESS This is a 52-year-old -[place] male with a history of sarcoidosis and diabetes mellitus type 2, was admitted with left-sided chest pain radiating to the back. The patient has pleuritic chest pain and apparently has also had a cough but does not bring up any sputum. He had no fevers or chills and he has had a history for keratotic skin lesions on his face, neck and back and recently was seen by a stick feeder and a biopsy was suggestive of staph infection and thus he has been on doxycycline as an outpatient. The patient had cardiac evaluation done initially which was negative for any acute cardiac event PAST HISTORY The past history includes history of sarcoidosis on prednisone orally. History of diabetes mellitus. History of cardiac catheterization and history of shoulder surgery. HABITS The patient does not smoke. Alcohol use moderate. Works at the [employer]. FAMILY HISTORY Was noncontributory. Father in an accident. Mother is well. REVIEW OF SYSTEMS The patient denies recent weight loss. He has skin rash consistent with a staph infection. Has no headaches or blackouts. He has wheezing and shortness of breath and pleuritic chest pain. He has no abdominal pains. No GI bleed. No urinary symptoms and no depression or anxiety. Other system review is negative. ALLERGIES None listed. PHYSICAL EXAMINATION GENERAL: This averagely built middle-aged -[place] male who is pale in no acute distress. VITAL SIGNS: Blood pressure 138/80, pulse is 100, respirations 22, temperature 98.2. HEENT: Head normocephalic. Pupils are reactive and equal. Tongue is moist. Throat is mildly injected. Nasal mucosae erythematous. NECK: Supple. No bruits or thyroid enlargement. CHEST: Distant breath sounds, expiratory wheezes bilaterally, prolonged expirations. No crackles on either side. HEART: The heart sounds are regular S1-S2 with no murmur. No S3. ABDOMEN: The abdomen is soft, protuberant. No masses or organomegaly or tenderness. EXTREMITIES: Peripheral pulses are well felt. SKIN: Revealed there are keratotic raised lesions over the face, neck and the back between the scapulae and there was no redness around those lesions. RECTAL: Exam is deferred. IMPRESSION 1. Sarcoidosis. 2. Chest pain, etiology undetermined. Possible pleuritic chest pain. 3. Acute bronchitis with bronchospasm. 4. Keratotic skin lesions, possible staph infection. PLAN The patient will be maintained on O2 at 2 liters as ordered. We will also get a bedside pulmonary function study and continue with the doxycycline 100 milligrams b.i.d. He will be placed on Solu-Medrol in place of prednisone and we will get an RUFUS level. The patient will have a CT scan of the chest to evaluate the lymphadenopathy and if the cardiac evaluation is negative we could possibly switch him to oral medications and manage him as an outpatient. Thank you Dr. Barker for this consultation. Wilton Carpenter MD JVD/RODOLFO /7:33 PM /9:24 PM
[2017-08-23] MEDS: DOXYCYCLINE HYCLATE 100 MG CAP PO SCH (22:43)
[2017-08-23] MEDS: methylPREDNISolone SOD SUCC 40 MG/1 ML VIAL IV SCH (22:43)
[2017-08-24] VITALS (11 sets, daily range): BP systolic 130–137; BP diastolic 77–89; PULSE 95–117; RESP 18–20; TEMP 97.4–98.6; O2SAT 95–99
[2017-08-24] MEDS: HEPARIN SODIUM - SQ 10,000 UNITS/ML VIAL SQ SCH ×3 (03:00→17:13)
[2017-08-24] MEDS: methylPREDNISolone SOD SUCC 40 MG/1 ML VIAL IV SCH (03:00)
[2017-08-24] MEDS: RESP: ALBUTEROL 2.5 MG/IPRATROPIUM 0.5 MG NEB (SCH) NEB ×3 (07:32→19:53)
[2017-08-24] MEDS: INSULIN ASPART SUPPLEMENTAL SCALE SQ SCH ×5 (08:00→23:23)
[2017-08-24 08:08] LABS: BICARBONATE 22.7 MEQ/L (21.0-32.0); MAGNESIUM 1.8 MG/DL (1.5-2.5); POTASSIUM 4.1 MEQ/L (3.5-5.1)
[2017-08-24] MEDS: DOXYCYCLINE HYCLATE 100 MG CAP PO SCH ×2 (08:12→23:23)
[2017-08-24] MEDS: guaiFENesin/DEXTROMETHORPHAN 200 MG/20 MG/10 ML CUP PO PRN (08:12)
[2017-08-24] MEDS: SODIUM CHLORIDE 0.9% FLUSH 10 ML FLUSH IV FLUSH SCH ×2 (08:12→21:00)
[2017-08-24] MEDS ORDERED: INSULIN DETEMIR 100 UNITS/ML VIAL SQ ONE (12:00)
--- NOTE | 2017-08-24 12:56 | HHI.PR ---
Subjective Remarks patient stated he is doing much better than before about 60% Less wheezing I discussed with him his diabetes and his A1c he understand that he needs to go on insulin and agree with that Patient to have PFT today Later on he was cleared by exerciser horse for discharge once blood sugar under control Objective Vitals Vital Signs Date Time Temp Pulse Resp B/P (MAP) Pulse Ox O2 Delivery O2 Flow Rate FiO2 08/24/17 11:53 98.6 117 18 131/79 (96) 96 08/24/17 07:34 99 Nasal Cannula 1.00 08/24/17 07:22 98.3 102 20 137/85 (102) 98 08/24/17 04:39 97.4 95 18 133/86 (102) 99 08/24/17 00:21 97.6 95 18 136/89 (105) 99 08/23/17 20:53 99 Nasal Cannula 2.00 08/23/17 20:49 97.6 100 20 130/84 (99) 98 08/23/17 20:00 96 08/23/17 18:09 142/88 (106) 08/23/17 16:34 98.4 110 18 165/90 (115) 99 08/23/17 16:05 109 08/23/17 14:24 97 Nasal Cannula 2.00 I/O 08/23/17 08/23/17 08/23/17 08/24/17 08/24/17 08/24/17 07:00 15:00 23:00 07:00 15:00 23:00 Output Total 775 ml 725 ml Balance -775 ml -725 ml Output Urine Total 775 ml 725 ml Result Diagram: 08/22/17 2310 08/24/17 0602 Objective Remarks GENERAL: This is a well-nourished, well-developed patient, in no apparent distress. SKIN: No rashes, warm and dry HEAD: Atraumatic. Normocephalic. EYES: Pupils equal round and reactive. Extraocular motions intact. No scleral icterus. ENT: Nose without bleeding, or drainage, Airway patent. NECK: Trachea midline. Supple CARDIOVASCULAR: Regular tachycardia and rhythm without murmurs, gallops, or rubs. RESPIRATORY: Fair air entry bilaterally. No wheezes, rales, or rhonchi. GASTROINTESTINAL: Abdomen soft, non-tender, nondistended. Positive bowel sounds MUSCULOSKELETAL: Extremities without clubbing, cyanosis, or edema. Pedal pulses appreciated NEUROLOGICAL: Awake and alert. Moves all extremity. Normal speech.no focal neurological deficit A/P Problem List: (1) Sarcoidosis ICD Code: D86.9 - Sarcoidosis, unspecified (2) Dyspnea ICD Code: R06.00 - Dyspnea, unspecified (3) Chest pain, atypical ICD Code: R07.89 - Atypical chest pain Status: Acute (4) Cough ICD Code: R05 - Cough Status: Acute Assessment and Plan 08/24: Appreciate pulmonology consultation, start tapering cortisone, PFT to be done today, A1c was above 10, discussed with the patient he agree with going on insulin started Levemir with high level sliding scale blood sugar reached 440, will do Accu-Chek every 4 hours with coverage hopefully by tomorrow patient can be discharged on a new insulin regimen to follow up as an outpatient with pulmonology and primary care physician Initial A/P: 52-year-old male with past medical history significant for type 2 diabetes mellitus and sarcoidosis presents with a 2 day history of increasing left-sided chest pain and shortness of breath. Chest pain: suspect secondary to sarcoidosis/cough, pain reproducible with deep inspiration, cough, and with palpation. EMR reviewed, had clean cardiac catheterization in Aug [address] Anders. -EKG reviewed, significant for tachycardia, no ST segment depressions or elevations -Continue to trend serial cardiac enzymes; first 2 sets negative -Continue IV morphine prn pain -Monitor on telemetry Dyspnea/Cough with Sarcoidosis: suspect secondary to underlying sarcoidosis, need to rule out infection. CXR images reviewed, shows no acute findings. Patient with significant rhonchi/wheezing on exam, and nonproductive cough. Afebrile, no leukocytosis. D-dimer negative. Sees exerciser horse Dr. Hyman -Check chest CT, give IVF and monitor BMP -check inflammatory markers including ESR/CRP -Blood cultures with NGTD -patient already on doxycycline 100mg bid for rash which will also cover for possible developing pneumonia -continue duonebs q6h and prn -increase patient's home prednisone from 20mg daily to 20mg bid -incentive spirometry -check home O2 walk test if unable to wean off oxygen -will consult pulmonology Type 2 diabetes mellitus, uncontrolled with hyperglycemia: BG 395 upon arrival, possibly secondary to steroids -holding home metformin for now -monitor Accu-checks and cover with SSI -check HgbA1c Skin infection: symptoms have been improving on antibiotics. Culture 07/23/17 positive for Staph Aureus and Group B Strep -Continue patient's doxycycline 100mg bid Nausea/vomiting: possibly secondary to recent excessive coughing -symptoms resolved for now -continue IV Zofran prn DVT Prophylaxis: Heparin SQ Michelle Colon MD Aug 24, 2017 12:56
[2017-08-24] MEDS ORDERED: INSULIN ASPART SUPPLEMENTAL SCALE SQ SCH (17:00)
--- NOTE | 2017-08-24 17:58 | EKG ---
Date Performed: 08/23/2017 Time Performed: 12:37:44 PTAGE: 52 years EKG: Sinus rhythm NORMAL ECG Compared to PREVIOUS TRACING , T wave changes have improved. PREVIOUS TRACIN08/23/2017 06.21 DOCTOR: Dejuan Danielle Interpretating Date/Time 08/24/2017 17:57:23
--- NOTE | 2017-08-24 18:57 | HHI.PR ---
Subjective Remarks Chest pain is better. No cough. Has wheezing. Objective Vital Signs Date Time Temp Pulse Resp B/P (MAP) Pulse Ox O2 Delivery O2 Flow Rate FiO2 08/24/17 15:30 98.3 114 18 130/77 (94) 97 08/24/17 15:00 108 08/24/17 11:53 98.6 117 18 131/79 (96) 96 08/24/17 08:00 111 08/24/17 07:34 99 Nasal Cannula 1.00 08/24/17 07:22 98.3 102 20 137/85 (102) 98 08/24/17 04:39 97.4 95 18 133/86 (102) 99 08/24/17 00:21 97.6 95 18 136/89 (105) 99 08/23/17 20:53 99 Nasal Cannula 2.00 08/23/17 20:49 97.6 100 20 130/84 (99) 98 08/23/17 20:00 96 I/O 08/23/17 08/23/17 08/23/17 08/24/17 08/24/17 08/24/17 07:00 15:00 23:00 07:00 15:00 23:00 Intake Total 750 ml Output Total 775 ml 725 ml 1100 ml Balance -775 ml -725 ml -350 ml Intake Oral 750 ml Output Urine Total 775 ml 725 ml 1100 ml Result Diagram: 08/22/17 2310 08/24/17 1505 Objective Remarks GENERAL: This averagely built middle-aged -[place] male who is pale in no acute distress. HEENT: Head normocephalic. Pupils are reactive and equal. Tongue is moist. Throat is mildly injected. Nasal mucosae erythematous. NECK: Supple. No bruits or thyroid enlargement. CHEST: Distant breath sounds, expiratory wheezes bilaterally, prolonged expirations. No crackles on either side. HEART: The heart sounds are regular S1-S2 with no murmur. No S3. ABDOMEN: The abdomen is soft, protuberant. No masses or organomegaly or tenderness. EXTREMITIES: Peripheral pulses are well felt.No Neuro deficits SKIN: Revealed there are keratotic raised lesions over the face, neck and the back between the scapulae and there was no redness around those lesions. RECTAL: Exam is deferred. Assessment and Plan Assessment and Plan IMPRESSION 1. Sarcoidosis. 2. Chest pain, etiology undetermined. Possible pleuritic chest pain. 3. Acute bronchitis with bronchospasm. 4. Keratotic skin lesions, possible staph infection Plan : 1. Cont Antibiotics. 2. Taper steroids to Prednisone 20 mg bid. 3. Nebs tid , duoneb. 4. CBC,BMP, PFT. 5. Home on PO Meds in am 6. Wean O2 to keep sat >92 Tanner Carpenter MD Aug 24, 2017 18:57
[2017-08-24] MEDS ORDERED: INSULIN DETEMIR 100 UNITS/ML VIAL SQ SCH (21:00)
[2017-08-24] MEDS: predniSONE 20 MG TAB PO SCH (23:23)
[2017-08-25] VITALS: PULSE 102
[2017-08-25 00:58] VITALS: BP 142/88; PULSE 103; RESP 16; TEMP 98.2; O2SAT 98
[2017-08-25 04:00] VITALS: PULSE 102
[2017-08-25] MEDS: HEPARIN SODIUM - SQ 10,000 UNITS/ML VIAL SQ SCH ×2 (04:59→10:10)
[2017-08-25 07:48] VITALS: O2SAT 96
[2017-08-25] MEDS: RESP: ALBUTEROL 2.5 MG/IPRATROPIUM 0.5 MG NEB (SCH) NEB (07:48)
[2017-08-25] MEDS ORDERED: NOVOLOGP2 SQ (09:29)
[2017-08-25] MEDS ORDERED: PRED20 PO (09:29)
[2017-08-25] MEDS ORDERED: LANCETS1 MI1 (09:29)
[2017-08-25] MEDS ORDERED: GLUCKIT15 (09:29)
[2017-08-25] MEDS ORDERED: INSU1MIS15 (09:29)
[2017-08-25] MEDS ORDERED: LEVEMIR SQ (09:29)
[2017-08-25] MEDS ORDERED: GLUCTES12 (09:29)
--- NOTE | 2017-08-25 09:29 | HHI.DCPOC ---
Discharge Care Plan Diagnosis: (1) Chest pain, atypical (2) Sarcoidosis (3) Hyperglycemia (4) Diabetes mellitus Goals to Promote Your Health * To prevent worsening of your condition and complications * To maintain your health at the optimal level Directions to Meet Your Goals Take your medications as prescribed Follow your dietary instruction Follow activity as directed Keep your appointments as scheduled Take your immunizations and boosters as scheduled If your symptoms worsen call your PCP, if no PCP go to Urgent Care Center or Emergency Room Smoking is Dangerous to Your Health. Avoid second hand smoke Call the 24-hour hour crisis hotline for domestic abuse at Martina Dang PA-C Aug 25, 2017 9:29 am
[2017-08-25 09:33] VITALS: BP 132/81; PULSE 101; RESP 20; TEMP 95.4; O2SAT 97
[2017-08-25] MEDS: INSULIN ASPART SUPPLEMENTAL SCALE SQ SCH (10:10)
[2017-08-25] MEDS: DOXYCYCLINE HYCLATE 100 MG CAP PO SCH (10:11)
[2017-08-25] MEDS: predniSONE 20 MG TAB PO SCH (10:11)
[2017-08-25] MEDS: SODIUM CHLORIDE 0.9% FLUSH 10 ML FLUSH IV FLUSH SCH (10:11)
--- NOTE | 2017-08-25 13:04 | HHI.DS ---
Discharge Summary Admission Date Aug 23, 2017 at 01:41 Discharge Date: Aug 25, 2017 Admitting Diagnosis chest pain, hyperglycemia, tachycardia (1) Sarcoidosis ICD Code: D86.9 - Sarcoidosis, unspecified (2) Dyspnea ICD Code: R06.00 - Dyspnea, unspecified (3) Chest pain, atypical ICD Code: R07.89 - Atypical chest pain Status: Acute (4) Cough ICD Code: R05 - Cough Status: Acute Procedures See below Brief History - From Admission 52-year-old male with a past medical history significant for sarcoidosis and type 2 diabetes mellitus presents with a 2 day history of left-sided substernal chest pain. The patient reports his pain started on Sunday night and is worse with inspiration and when he leans forward. It does not radiate. He describes associated nausea/vomiting since his chest pain onset. He has a cough at baseline however reports that his cough has recently been worse. Labs are significant for creatinine of 1.35 (baseline 1.2-1.4). EKG significant for tachycardia of 115, no ST segment elevations or depressions. Troponin within normal limits. Patient is also being treated for a staph infection on his face and upper back, he is currently compliant with his doxycycline. CBC/BMP: 08/22/17 2310 08/24/17 1505 Significant Findings Laboratory Tests Test 08/22/17 23:10 08/22/17 23:30 08/23/17 06:40 08/23/17 11:54 Red Blood Count 4.17 MIL/MM3 (4.50-5.90) Hemoglobin 12.8 GM/DL (13.0-17.0) Hematocrit 37.1 % (39.0-51.0) Monocytes (%) (Auto) 10.2 % (0.0-8.0) Eosinophils (%) (Auto) 6.2 % (0.0-4.0) Creatinine 1.35 MG/DL (0.60-1.30) Random Glucose 395 MG/DL (74-106) 301 MG/DL (74-106) Estimat Glomerular Filtration Rate 67 ML/MIN (>89) 84 ML/MIN (>89) Troponin I LESS THAN 0.02 NG/ML LESS THAN 0.02 NG/ML Sodium Level 135 MEQ/L (136-145) Test 08/23/17 14:19 08/23/17 14:43 08/24/17 06:02 08/24/17 15:05 Hemoglobin A1c 10.4 % (4.3-6.0) 10.4 % (4.3-6.0) Troponin I LESS THAN 0.02 NG/ML Erythrocyte Sedimentation Rate 30 mm/hr (0-20) C-Reactive Protein 1.54 MG/DL (0.00-0.30) Random Glucose 284 MG/DL (74-106) 376 MG/DL (74-106) Sodium Level 134 MEQ/L (136-145) Estimat Glomerular Filtration Rate 88 ML/MIN (>89) PE at Discharge GENERAL: This is a well-nourished, well-developed patient, in no apparent distress. SKIN: No rashes, warm and dry HEAD: Atraumatic. Normocephalic. EYES: Pupils equal round and reactive. Extraocular motions intact. No scleral icterus. ENT: Nose without bleeding, or drainage, Airway patent. NECK: Trachea midline. Supple CARDIOVASCULAR: Regular tachycardia and rhythm without murmurs, gallops, or rubs. RESPIRATORY: Fair air entry bilaterally. No wheezes, rales, or rhonchi. GASTROINTESTINAL: Abdomen soft, non-tender, nondistended. Positive bowel sounds MUSCULOSKELETAL: Extremities without clubbing, cyanosis, or edema. Pedal pulses appreciated NEUROLOGICAL: Awake and alert. Moves all extremity. Normal speech.no focal neurological deficit Hospital Course 52-year-old male with past medical history significant for type 2 diabetes mellitus and sarcoidosis presents with a 2 day history of increasing left-sided chest pain and shortness of breath. Chest pain: suspect secondary to sarcoidosis/cough, pain reproducible with deep inspiration, cough, and with palpation. EMR reviewed, had clean cardiac catheterization in Aug [address] Anders. -EKG reviewed, significant for tachycardia, no ST segment depressions or elevations Dyspnea/Cough with Sarcoidosis: suspect secondary to underlying sarcoidosis, need to rule out infection. CXR images reviewed, shows no acute findings. Patient with significant rhonchi/wheezing on exam, and nonproductive cough. Afebrile, no leukocytosis. D-dimer negative. Sees case worker Dr. Hyman Pulmonology consulted, O2, DuoNeb, Solu-Medrol in tapering prednisone, ABX Type 2 diabetes mellitus, uncontrolled with hyperglycemia: BG 395 upon arrival, possibly worsened by steroid, hemoglobin A1c is above 10, we stop metformin placed on Levemir 10 units twice a day, with sliding scale and extensive diabetic education, at the beginning patient was against doing insulin but with further explanation he agreed Skin infection: symptoms have been improving on antibiotics. Culture 07/23/17 positive for Staph Aureus and Group B Strep Continue patient's doxycycline 100mg bid [id number] encounter performed with the patient on discharge day, as well as physical exam, summary of hospitalization course and postdischarge plan has been D/W the patient. D/W nurse D/W nurse case management. Discharge medications reviewed and printed and signed, post discharge follow up visit with PCP and other specialist as well as Brief hospital course and discharge summary has been placed. Pt Condition on Discharge: Stable Discharge Disposition: Discharge Home Discharge Time: > 30 minutes Discharge Instructions DIET: Follow Instructions for: Diabetic Diet Activities you can perform: Regular-No Restrictions Follow up Referrals: PCP Follow-up - 1 Week Pulmonology - 1 Week with Shayne Hyman MD New Medications: Blood Glucose Monitoring W/Device (Glucocom Blood Glucose Mo W/Device) 1 Kit Kit KIT .ROUTE DIRECTED for Blood Sugar Management, #1 Glucocom Test Strips (Glucocom Test Strips) 1 Anum Anum EA .ROUTE DIRECTED for Blood Sugar Management, #1 Insulin Aspart Inj (Novolog Inj) 1,000 Unit/10 Ml Vial 2-12 UNITS SQ ACHS for Blood Sugar Management, #100 ML 0 Refills sugars less than 70,(0) units; sugars 150-199,(2) units; sugars 200-249,(4) units; sugars 250-299,(7) units; sugars 300-349,(10) units; sugars greater than 349,(12)units Insulin Syringe/U-100/31G X 5/16" 1 ml (Insulin Syringe/U-100/31G X 5/16" 1 ml) 31 Gauge X 5/16" Mis EA .ROUTE DIRECTED for Blood Sugar Management, #1 0 Refills Lancets (Lancets) 1 Mis Mis EA .ROUTE DIRECTED for Blood Sugar Management, #1 0 Refills Insulin Detemir Inj (Levemir Inj) 1,000 unit/ 10 ML Vial 10 UNITS SQ BID for Blood Sugar Management, #60 INJECTION Do not mix with any other Insulin. Prednisone (Prednisone) 20 Mg Tab 20 MG PO BID for Inflammation, #37 TAB Take 20mg twice a day for 1 week, Then go back to 20mg once daily. Continued Medications: Albuterol 18 GM Inh (Ventolin Hfa 18 GM Inh) 90 Mcg/Act Aer 2 PUFF INH Q4H PRN for SHORTNESS OF BREATH, #1 INHALER 0 Refills Albuterol Neb (Albuterol Neb) 1.25 Mg/3 Ml Neb 1.25 MG NEB TID NEB PRN for SHORTNESS OF BREATH, #100 NEBULE 0 Refills Doxycycline Hyclate (Doxycycline Hyclate) 50 Mg Cap 150 MG PO BID for Infection for 14 Days, #84 CAP 0 Refills Discontinued Medications: Ibuprofen (Ibuprofen) 800 Mg Tab 800 MG PO Q6HR PRN for PAIN, #30 TAB 0 Refills Metformin (Metformin) 1,000 Mg Tab 1000 MG PO DAILY for Blood Sugar Management, #30 TAB 5 Refills With a meal Methocarbamol (Robaxin) 500 Mg Tab 500 MG PO QID PRN for MUSCLE SPASM, #30 TAB 0 Refills Prednisone (Prednisone) 20 Mg Tab 20 MG PO DAILY, TAB 0 Refills Michelle Colon MD Aug 25, 2017 13:04
--- NOTE | 2017-08-27 11:11 | RSPPFT ---
DATE OF PROCEDURE: 08/24/17 COMMENTS: The forced vital capacity shows a marked reduction with no improvement after bronchodilator. The FEV1 also shows a marked reduction with no improvement after bronchodilator. The FEF 25-75 is normal. The FEV1/FVC ratio is normal. Flow volume loops are an unusual elliptical shape. IMPRESSION: This is compatible with a possible upper airways obstruction. A total lung capacity would be helpful.
== END 2017-08-25 11:12 | disposition home or self-care (01) ==
LOC: NEPE 22:37 → NEDA 08-23 01:41 → NEPHCDU 08-23 02:47
PROVIDERS: ADMIT Hospitalist; ATTEND Hospitalist
DX: R07.89 Other chest pain (principal); D86.9 Sarcoidosis, unspecified; E11.65 Type 2 diabetes mellitus with hyperglycemia; J20.9 Acute bronchitis, unspecified; L08.9 Local infection of the skin and subcutaneous tissue, unspecified; B95.8 Unspecified staphylococcus as the cause of diseases classified elsewhere; M17.0 Bilateral primary osteoarthritis of knee; Z87.442 Personal history of urinary calculi; Z79.84 Long term (current) use of oral hypoglycemic drugs
CPT/HCPCS: 71010; 71260; 80048; 82550; 82552; 82947; 82948; 83036; 83605; 83735; 84484; 85025; 85379; 85610; 85652; 85730; 86140; 87040; 93005; 94060; 94150; 94640; 94664; 96361; 96372; 96374; 96375; 96376; 99285; G0378; J1644; J1815; J2270; J2920; J7030; J7040; J7512; Q9967

== ENCOUNTER 2017-11-12 22:42 | Observation (INO) | payer OTHER ==
[~2017-11-12 22:42] MED LIST changes: +DOXY50 PO; -GLIP5TAB8 PO; +GLUCKIT15; +GLUCTES12; -IBUP1TAB7 PO; +INSU1MIS15; +LANCETS1 MI1; +LEVEMIR SQ; -METF1000 PO; +NOVOLOGP2 SQ; -PRED-503 PO; -ROBA500T PO
[2017-11-12 22:44] VITALS: BP 143/81; PULSE 118; RESP 16; TEMP 99.9; O2SAT 98
[2017-11-12] MEDS ORDERED: METF1000 PO (22:54)
[2017-11-12] MEDS ORDERED: SODIUM CHLOR 0.9% 1000 ML INJ 1,000 ML IV ONE (23:15)
[2017-11-12] MEDS ORDERED: ASPIRIN 81 MG CHEW TAB CHEW ONE (23:15)
--- NOTE | 2017-11-12 23:20 | PD ---
HPI Chief Complaint: Chest Pain Time Seen by Provider: 22:59 Travel History International Travel<30 days: No Contact w/Intl Traveler<30days: No Traveled to known affect area: No History of Present Illness HPI The patient is a 52 year old male who presents to the [facility] emergency department with a history of left-sided chest pain that he reports began yesterday and has been coming and going. It became worse this evening and recurred approximately 1 hour ago. He reports that he was resting when it began. He reports that the pain is a tightening sensation. He reports that it is currently moderate in severity. He denies having any shortness of breath associated with this. He does report having some sweating and chills. He denies having any known fevers. He denies having any worsening cough or congestion. He does have a chronic dry cough related to sarcoidosis. 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 The patient reports that that was diagnosed in September. He denies having any nausea, vomiting, or diarrhea. He denies having any prior history of myocardial infarction, DVT, or PE. He denies having any lower extremity edema, calf pain, or erythema. He reports that he was recently checked for HIV and it was negative. Review of systems otherwise, the patient denies having any neck pain, abdominal pain, urinary symptoms, or neurologic symptoms. [facility] Past Medical History Narrative Medical The patient's past medical history is significant for sarcoidosis, type 2 diabetes mellitus, history of a Mycobacterium infection currently under treatment, chronic back pain related to arthritis, history of chest pain in the past with a stress test that was abnormal in 2011 followed by a cardiac catheterization in 2011 that was negative for coronary artery disease. Arthritis: Yes Blood Disorders: No Depression: No Heart Rhythm Problems: No Cancer: No Cardiac Catheterization: Yes (2009) Cardiovascular Problems: Yes (PREV CATH, + STRESS) High Cholesterol: No Chest Pain: Yes Congestive Heart Failure: No Diabetes: Yes Patient Takes Glucophage: Yes Diminished Hearing: No Endocrine: Yes Gastrointestinal Disorders: No Genitourinary: Yes (KIDNEY STONE) Hepatitis: No Hiatal Hernia: No Hypertension: No Immune Disorder: Yes (PT THINKS HE MIGHT HAVE RA, NOT SURE) Implanted Vascular Access Dvce: No Musculoskeletal: Yes (CHRONIC BACK PAIN; ARTHRITIS IN KNEES, HIPS, FINGERS) Neurologic: No Psychiatric: No Reproductive: No Respiratory: Yes (sarcoidosis) Immunizations Current: Yes Myocardial Infarction: No Thyroid Disease: No Tetanus Vaccination: Unknown Influenza Vaccination: Yes Past Surgical History Narrative Surgical The patient's past surgical history is significant for cardiac catheterization in 2011, left shoulder surgery. Abdominal Surgery: No AICD: No Body Medical Devices: NONE Cardiac Surgery: Yes (CARDIAC CATH 08/2012) Coronary Artery Bypass Graft: No Ear Surgery: No Endocrine Surgery: No Eye Surgery: No Genitourinary Surgery: No Joint Replacement: No Neurologic Surgery: No Oral Surgery: No Pacemaker: No Thoracic Surgery: No Other Surgery: Yes (LUNG BIOPSY 2016) Social History Alcohol Use: Yes (2 OR 3X WEEKLY) Tobacco Use: No Substance Use: No Allergies-Medications (Allergen,Severity, Reaction): Coded Allergies: No Known Allergies (Verified Adverse Reaction, Unknown, 11/12/17) Reported Meds & Prescriptions Reported Meds & Active Scripts Active Prednisone 20 Mg Tab 20 Mg PO BID Take 20mg twice a day for 1 week, Then go back to 20mg once daily. Ventolin Hfa 18 GM Inh (Albuterol Sulfate) 90 Mcg/Act Aer 2 Puff INH Q4H PRN Reported Metformin (Metformin HCl) 1,000 Mg Tab 1,500 Mg PO DAILY With a meal Albuterol Neb (Albuterol Sulfate) 1.25 Mg/3 Ml Neb 1.25 Mg NEB TID NEB PRN Review of Systems Except as stated in HPI: all other systems reviewed are Neg General / Constitutional: Positive: Chills, No: Fever Eyes: No: Visual changes HENT: No: Headaches, Rhinorrhea, Congestion Cardiovascular: Positive: Chest Pain or Discomfort, No: Dyspnea on exertion Respiratory: Positive: Cough (Chronic), No: Shortness of Breath Gastrointestinal: No: Nausea, Vomiting, Diarrhea, Abdominal Pain Genitourinary: No: Dysuria Musculoskeletal: No: Pain Skin: No Rash Neurologic: No: Weakness, Syncope, Focal Abnormalities, Headache, Change in Mentation, Slurred Speech, Sensory Disturbance Psychiatric: No: Depression Endocrine: No: Polydipsia Hematologic/Lymphatic: No: Easy Bruising Physical Exam Narrative General: The patient is a well-developed well-nourished male in no acute distress. Head and Neck exam: Head is normocephalic atraumatic. Eyes: EOMI, pupils are equal round and reactive to light. Nose: Midline septum with pink mucous membranes. The patient is noted to have a granulomatous appearing ulcerated lesion involving the left naris. Mouth: Dentition unremarkable. Moist mucus membranes. Posterior oropharynx is not erythematous. No tonsillar hypertrophy. Uvula midline. Airway patent. Neck: No palpable lymphadenopathy. No nuchal rigidity. No thyromegaly. Cardiovascular: Sinus tachycardia in the 1 teens without murmurs, gallops, or rubs. No pulse deficit to the extremities on simultaneous auscultation and palpation of his radial artery per. Lungs: Clear to auscultation bilaterally. No wheezes, rhonchi, or rales. Abdomen: Soft, without tenderness to palpation in all 4 quadrants of the abdomen. No guarding, rebound, or rigidity. Normal bowel sounds are audible. No tenderness on palpation of McBurney's point. Negative Lopez sign. Extremities: No clubbing, cyanosis, or edema. 2+ pulses in all 4 extremities. No calf tenderness on palpation. Back: No spinous process tenderness to palpation. No costovertebral angle tenderness to palpation. Neurologic Exam: Grossly nonfocal. Skin Exam: On examination of the upper mid back the patient is noted to have a cluster of papules which he reports is related to a Mycobacterium infection that is currently under treatment. Intact skin that is warm and dry. Data Data Last Documented VS Vital Signs Date Time Temp Pulse Resp B/P (MAP) Pulse Ox O2 Delivery O2 Flow Rate FiO2 11/12/17 23:44 16 98 Room Air 11/12/17 23:00 116 11/12/17 22:44 99.9 Orders Orders Electrocardiogram (11/12/17 23:10) Complete Blood Count With Diff (11/12/17 23:10) Comprehensive Metabolic Panel (11/12/17 23:10) Creatine Kinase (Cpk) (11/12/17 23:10) Ckmb (Isoenzyme) Profile (11/12/17 23:10) Troponin I (11/12/17 23:10) B-Type Natriuretic Peptide (11/12/17 23:10) Prothrombin Time / Inr (Pt) (11/12/17 23:10) Act Partial Throm Time (Ptt) (11/12/17 23:10) Blood Culture (11/12/17 23:10) C-Reactive Protein (Crp) (11/12/17 23:10) Lipase (11/12/17 23:10) Urinalysis - C+S If Indicated (11/12/17 23:10) D-Dimer (11/12/17 23:10) Magnesium (Mg) (11/12/17 23:10) Chest, Single Ap (11/12/17 23:10) Iv Access Insert/Monitor (11/12/17 23:10) Ecg Monitoring (11/12/17 23:10) Oximetry (11/12/17 23:10) Lactic Acid Sepsis Protocol (11/12/17 23:10) Sodium Chlor 0.9% 1000 Ml Inj (Ns 1000 M (11/12/17 23:15) Influenzae A/B Antigen (11/12/17 23:10) Aspirin Chew (Aspirin Chew) (11/12/17 23:15) Morphine Inj (Morphine Inj) (11/13/17 00:00) Ondansetron Inj (Zofran Inj) (11/13/17 00:00) Sodium Chlor 0.9% 1000 Ml Inj (Ns 1000 M (11/13/17 00:00) Admit Order (Ed Use Only) (11/13/17 01:25) Labs Laboratory Tests Test 11/12/17 23:15 White Blood Count 6.0 TH/MM3 Red Blood Count 4.69 MIL/MM3 Hemoglobin 14.5 GM/DL Hematocrit 41.9 % Mean Corpuscular Volume 89.2 FL Mean Corpuscular Hemoglobin 31.0 PG Mean Corpuscular Hemoglobin Concent 34.7 % Red Cell Distribution Width 14.0 % Platelet Count 309 TH/MM3 Mean Platelet Volume 7.8 FL Neutrophils (%) (Auto) 60.6 % Lymphocytes (%) (Auto) 20.8 % Monocytes (%) (Auto) 10.0 % Eosinophils (%) (Auto) 7.6 % Basophils (%) (Auto) 1.0 % Neutrophils # (Auto) 3.6 TH/MM3 Lymphocytes # (Auto) 1.2 TH/MM3 Monocytes # (Auto) 0.6 TH/MM3 Eosinophils # (Auto) 0.5 TH/MM3 Basophils # (Auto) 0.1 TH/MM3 CBC Comment DIFF FINAL Differential Comment Prothrombin Time 10.7 SEC Prothromb Time International Ratio 1.1 RATIO Activated Partial Thromboplast Time 25.1 SEC D-Dimer Quantitative (PE/DVT) 0.39 MG/L FEU Blood Urea Nitrogen 13 MG/DL Creatinine 1.44 MG/DL Random Glucose 279 MG/DL Total Protein 7.7 GM/DL Albumin 3.5 GM/DL Calcium Level 9.1 MG/DL Magnesium Level 2.1 MG/DL Alkaline Phosphatase 135 U/L Aspartate Amino Transf (AST/SGOT) 19 U/L Alanine Aminotransferase (ALT/SGPT) 20 U/L Total Bilirubin 0.9 MG/DL Sodium Level 137 MEQ/L Potassium Level 4.3 MEQ/L Chloride Level 102 MEQ/L Carbon Dioxide Level 29.8 MEQ/L Anion Gap 5 MEQ/L Estimat Glomerular Filtration Rate 62 ML/MIN Lactic Acid Level 2.1 mmol/L Total Creatine Kinase 90 U/L Troponin I LESS THAN 0.02 NG/ML C-Reactive Protein 1.90 MG/DL B-Type Natriuretic Peptide 11 PG/ML Lipase 414 U/L MDM Medical Decision Making Medical Screen Exam Complete: Yes Emergency Medical Condition: Yes Medical Record Reviewed: Yes Interpretation(s) Last Impressions Chest X-Ray 11/12/17 1840 Signed Impressions: Service Date/Time: Sunday, November 12, 2017 23:15 - CONCLUSION: Stable chest x-ray with bilateral hilar fullness. This was previously demonstrated to represent mediastinal and hilar lymphadenopathy. Otherwise, no acute finding is identified. Wilton Landeros MD Differential Diagnosis Acute coronary syndrome, versus pulmonary embolism, versus pneumonia, versus pericarditis, versus sepsis, versus influenza, versus sarcoidosis exacerbation Narrative Course During the course of the patient's emergency department visit, the patient's history, examination, and differential diagnosis were reviewed with the patient. The patient was placed on a residential monitor with oximetry and frequent blood pressure monitoring. The patient had IV access obtained and blood work sent for analysis. The patient had an EKG done on arrival that shows a sinus tachycardia, heart rate of 115, QRS duration is 75 ms, QTC [address] segment elevation is noted. The patient was initially provided aspirin 324 mg p.o. 1, normal saline 1 L IV fluid bolus, morphine for pain, Zofran for nausea. A second liter of normal saline IV fluids was started per The patient's laboratory studies were reviewed and remarkable for a white count of 6, hemoglobin 14.5, platelets 309 with 10 monocytes, CMP is remarkable for a creatinine of 1.44, glucose 279, alk phos 135, troponin I less than 0.02, CPK 90 , lipase 414, BNP 11, lactic acid 2.1 which will be repeated in 2 hours, I suspect that the patient's elevated lactate is related to dehydration as the patient's creatinine is up slightly compared to previously and the patient is slightly tachycardic. PT 10.7, PTT 25.1, d-dimer 0.39 decreasing likelihood of pulmonary embolism in this patient with no other significant risk factors, urinalysis shows trace ketones, 1000 glucose, otherwise unremarkable Radiology studies were reviewed and remarkable for a chest x-ray shows stable bilateral hilar fullness that was previously seen on x-ray, no other acute findings. Repeat lactate actually increased to 2.5. Given the fact that the patient is tachycardic and in spite of hydration the patient's lactate has increased, and underlying bacteremia versus sepsis is still in the differential as the patient has been on antibiotic for mycobacteria infection The patient's results were discussed with the patient, including the plan of care. I explained that further testing and/ or monitoring is indicated based on the patient's history, examination, and/ or laboratory findings. Therefore, I recommended admission for additional evaluation. The patient expressed understanding and was agreeable with this plan. The patient was admitted to the hospital in stable condition and sent to a bed under the care of [facility] service. Sepsis Criteria SIRS Criteria (2 or more): Heart rate over 90 Severe Sepsis (+one): Lactate >2 Physician Communication Physician Communication The patient's case including history, pertinent physical examination findings, and laboratory studies were discussed with Dr. Gomez. It was agreed that the patient would be admitted to the [facility] service. Diagnosis Primary Impression: Lactic acidosis Additional Impressions: Sinus tachycardia Chest pain, rule out acute myocardial infarction Admitting Information Admitting Physician Requests: Observation Cindy Escobar MD Nov 12, 2017 23:20
--- NOTE | 2017-11-12 23:29 | RADRPT ---
EXAM DATE/TIME: 11/12/2017 23:15 [place] COMPARISON: CT THORAX W CONTRAST, August 23, 2017, 13:35. CHEST SINGLE AP, August 22, 2017, 23:10. INDICATIONS : Chest wall pain at anterior chest. MEDICAL HISTORY : Diabetes mellitus type II. Lung Biopsy (2016) SURGICAL HISTORY : None. ENCOUNTER: Initial ACUITY: 1 day PAIN SCORE: 5/10 LOCATION: Bilateral chest FINDINGS: Portable AP view of the chest demonstrates a normal-sized cardiac silhouette. There is stable bilater al hilar fullness. No pleural effusion, airspace consolidation, or pneumothorax is identified. The siobhan emmanuel and soft tissues demonstrate no acute abnormality. CONCLUSION: Stable chest x-ray with bilateral hilar fullness. This was previously demonstrated to represent media stinal and hilar lymphadenopathy. Otherwise, no acute finding is identified. Wilton Landeros MD on November 12, 2017 at 23:26 Board Certified Radiologist. This report was verified electronically.
[2017-11-12 23:37] LABS: AUTOMATED NEUTROPHIL # 3.6 TH/MM3 (1.8-7.7); BASOPHIL # 0.1 TH/MM3 (0-0.2); EOSINOPHIL # 0.5 TH/MM3 (0-0.4); EOSINOPHIL % 7.6 % (0.0-4.0); HEMATOCRIT 41.9 % (39.0-51.0); HEMOGLOBIN 14.5 GM/DL (13.0-17.0); LYMPH % 20.8 % (9.0-44.0); LYMPHOCYTE # 1.2 TH/MM3 (1.0-4.8); MEAN CELL VOLUME 89.2 FL (80.0-100.0); MEAN CORPUSCULAR HGB CONC 34.7 % (32.0-36.0); MEAN PLATELET VOLUME 7.8 FL (7.0-11.0); MONOCYTE # 0.6 TH/MM3 (0-0.9); NEUT % 60.6 % (16.0-70.0); PLATELET COUNT 309 TH/MM3 (150-450); RED BLOOD COUNT 4.69 MIL/MM3 (4.50-5.90)
[2017-11-12 23:44] VITALS: RESP 16; O2SAT 98
[2017-11-12 23:50] LABS: D-DIMER 0.39 MG/L FEU (0.00-0.50); INTERNATIONAL NORMALIZED RATIO 1.1 RATIO; PROTHROMBIN TIME - PATIENT 10.7 SEC (9.8-11.6)
[2017-11-12 23:52] LABS: ALT (GPT) 20 U/L (12-78)
[2017-11-12 23:53] LABS: LACTIC ACID SEPSIS PROTOCOL 2.1 mmol/L (0.4-2.0)
[2017-11-12 23:55] LABS: ALBUMIN 3.5 GM/DL (3.4-5.0); ALKALINE PHOSPHATASE 135 U/L (45-117); AST (GOT) 19 U/L (15-37); BICARBONATE 29.8 MEQ/L (21.0-32.0); BLOOD UREA NITROGEN 13 MG/DL (7-18); CALCIUM 9.1 MG/DL (8.5-10.1); CHLORIDE 102 MEQ/L (98-107); CREATININE 1.44 MG/DL (0.60-1.30); GLOMERULAR FILTRATION RATE 62 ML/MIN (>89); GLUCOSE,RANDOM 279 MG/DL (74-106); MAGNESIUM 2.1 MG/DL (1.5-2.5); SODIUM (NA) 137 MEQ/L (136-145); TOTAL BILIRUBIN ADULT 0.9 MG/DL (0.2-1.0); TOTAL PROTEIN 7.7 GM/DL (6.4-8.2); TROPONIN I LESS THAN 0.02 NG/ML (0.02-0.05)
[2017-11-13] MEDS ORDERED: ONDANSETRON HCL 4 MG/2 ML VIAL IV PUSH ONE
[2017-11-13] MEDS ORDERED: MORPHINE SULFATE 4 MG/ML INJ IV PUSH ONE
[2017-11-13 02:09] LABS: BILIRUBIN, URINE NEG (NEG); BLOOD, URINE NEG (NEG); GLUCOSE,URINE 1000 mg/dL (NEG); HYALINE CAST, URINE 1 /lpf (RARE); KETONE, URINE TRACE mg/dL (NEG); MUCUS URINE FEW /lpf (OCC); NITRITE,URINE NEG (NEG); PH, URINE 5.5 (5.0-8.5); URINE COLOR YELLOW (YELLW/STRAW); URINE LEUKOCYTE ESTERASE NEG (NEG)
[2017-11-13] MEDS ORDERED: SODIUM CHLOR 0.9% 1000 ML INJ 1,000 ML IV ONE ×2 (02:45)
[2017-11-13] MEDS ORDERED: cefTRIAXone INJ 1,000 MG in SODIUM CHLORIDE 0.9% INJ 100 ML IV ONE (02:45)
[2017-11-13] MEDS ORDERED: AZITHROMYCIN INJ 500 MG in SODIUM CHLOR 0.9% 250 ML INJ 250 ML IV ONE (02:45)
--- NOTE | 2017-11-13 03:22 | HHI.HP ---
[facility] Adriana aPz MD Admission Diagnosis CP r/o ACS Diagnoses: Travel History International Travel<30 Days: No Contact w/Intl Traveler <30 Da: No Traveled to Known Affected Are: No History of Present Illness 52-year-old male with a past medical history significant for sarcoidosis and type 2 diabetes mellitus presents with a 2 day history of left-sided substernal chest pain. The patient ascribes the pain as a pressure. He endorses accompanying episodes of diaphoresis and shortness of breath, worse than baseline. Chest pain started Sunday night and has continued. Patient also has a nonproductive cough which is increased from baseline. 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 He is not sure what antibiotics he is on. Review of Systems Except as stated in HPI: all other systems reviewed are Neg Past Family Social History Past Medical History Sarcoidosis Type 2 diabetes mellitus Past Surgical History Cardiac catheterization in 2011 - per patient within normal limits Left shoulder surgery Reported Medications Reported Meds & Active Scripts Active Prednisone 20 Mg Tab 20 Mg PO BID Take 20mg twice a day for 1 week, Then go back to 20mg once daily. Ventolin Hfa 18 GM Inh (Albuterol Sulfate) 90 Mcg/Act Aer 2 Puff INH Q4H PRN Reported Metformin (Metformin HCl) 1,000 Mg Tab 1,500 Mg PO DAILY With a meal Albuterol Neb (Albuterol Sulfate) 1.25 Mg/3 Ml Neb 1.25 Mg NEB TID NEB PRN Allergies: Coded Allergies: No Known Allergies (Verified Adverse Reaction, Unknown, 11/12/17) Family History No family history of diabetes or coronary artery disease Social History Denies tobacco. Drinks approximately 4-5 beers per week. No marijuana or illicit drugs. Physical Exam Vital Signs Vital Signs Date Time Temp Pulse Resp B/P (MAP) Pulse Ox O2 Delivery O2 Flow Rate FiO2 11/12/17 23:44 16 98 Room Air 11/12/17 23:00 116 16 98 Room Air 11/12/17 22:44 99.9 118 16 143/81 (101) 98 Physical Exam GENERAL: male lying in bed SKIN: Multiple erythematous, scaly lesions on the face and upper back. HEAD: Atraumatic. Normocephalic. No temporal or scalp tenderness. EYES: Pupils equal round and reactive. Extraocular motions intact. No scleral icterus. No injection or drainage. ENT: Nose without bleeding, purulent drainage or septal hematoma. Throat without erythema, tonsillar hypertrophy or exudate. Uvula midline. Airway patent. NECK: Trachea midline. No JVD or lymphadenopathy. Supple, nontender, no meningeal signs. CARDIOVASCULAR: Tachycardic. No murmurs/rubs/gallops. RESPIRATORY: Bilateral wheezes throughout all lung san. No rales or rhonchi. GASTROINTESTINAL: Abdomen soft, non-tender, nondistended. No hepato-splenomegaly , or palpable masses. No guarding. MUSCULOSKELETAL: Extremities without clubbing, cyanosis, or edema. No joint tenderness, effusion, or edema noted. No calf tenderness. NEUROLOGICAL: Awake and alert. Cranial nerves II through XII intact. Motor and sensory grossly within normal limits. Normal speech. Laboratory Laboratory Tests Test 11/12/17 23:15 11/13/17 01:40 11/13/17 01:50 White Blood Count 6.0 Red Blood Count 4.69 Hemoglobin 14.5 Hematocrit 41.9 Mean Corpuscular Volume 89.2 Mean Corpuscular Hemoglobin 31.0 Mean Corpuscular Hemoglobin Concent 34.7 Red Cell Distribution Width 14.0 Platelet Count 309 Mean Platelet Volume 7.8 Neutrophils (%) (Auto) 60.6 Lymphocytes (%) (Auto) 20.8 Monocytes (%) (Auto) 10.0 Eosinophils (%) (Auto) 7.6 Basophils (%) (Auto) 1.0 Neutrophils # (Auto) 3.6 Lymphocytes # (Auto) 1.2 Monocytes # (Auto) 0.6 Eosinophils # (Auto) 0.5 Basophils # (Auto) 0.1 CBC Comment DIFF FINAL Differential Comment Prothrombin Time 10.7 Prothromb Time International Ratio 1.1 Activated Partial Thromboplast Time 25.1 D-Dimer Quantitative (PE/DVT) 0.39 Blood Urea Nitrogen 13 Creatinine 1.44 Random Glucose 279 Total Protein 7.7 Albumin 3.5 Calcium Level 9.1 Magnesium Level 2.1 Alkaline Phosphatase 135 Aspartate Amino Transf (AST/SGOT) 19 Alanine Aminotransferase (ALT/SGPT) 20 Total Bilirubin 0.9 Sodium Level 137 Potassium Level 4.3 Chloride Level 102 Carbon Dioxide Level 29.8 Anion Gap 5 Estimat Glomerular Filtration Rate 62 Lactic Acid Level 2.1 2.5 Total Creatine Kinase 90 Troponin I LESS THAN 0.02 C-Reactive Protein 1.90 B-Type Natriuretic Peptide 11 Lipase 414 Urine Color YELLOW Urine Turbidity CLEAR Urine pH 5.5 Urine Specific [place] 1.025 Urine Protein TRACE Urine Glucose (UA) 1000 Urine Ketones TRACE Urine Occult Blood NEG Urine Nitrite NEG Urine Bilirubin NEG Urine Urobilinogen 2.0 Urine Leukocyte Esterase NEG Urine RBC LESS THAN 1 Urine WBC 1 Urine Hyaline Casts 1 Urine Mucus FEW Microscopic Urinalysis Comment CULT NOT INDICATED Date/Time Source Procedure Growth Status 11/12/17 23:20 Blood Peripheral Aerobic Blood Culture Pending Received 11/12/17 23:20 Blood Peripheral Anaerobic Blood Culture Pending Received 11/12/17 23:25 Nasal Aspirate Influenza Types A,B Antigen (TAYLOR) - Final NEGATIVE FOR FLU A AND B ANTIGEN.... Complete Result Diagram: 11/12/17 2315 11/12/175 Caprini VTE Risk Assessment Caprini VTE Risk Assessment: No/Low Risk (score <= 1) Caprini Risk Assessment Model Point Value = 1 Point Value = 2 Point Value = 3 Point Value = 5 Age 41-60 Minor surgery BMI > 25 kg/m2 Swollen legs Varicose veins or History of unexplained or recurrent spontaneous Oral contraceptives or hormone replacement Sepsis (< 1 month) Serious lung disease, including pneumonia (< 1 month) Abnormal pulmonary function Acute myocardial infarction Congestive heart failure (< 1 month) History of inflammatory bowel disease Medical patient at bed rest Age 61-74 Arthroscopic surgery Major open surgery (> 45 min) Laparoscopic surgery (> 45 min) Malignancy Confined to bed (> 72 hours) Immobilizing plaster cast Central venous access Age >= 75 History of VTE Family history of VTE Factor V Leiden Prothrombin [id number] Lupus anticoagulant Anticardiolipin antibodies Elevated serum homocysteine Heparin-induced thrombocytopenia Other congenital or acquired thrombophilia Stroke (< 1 month) Elective arthroplasty Hip, pelvis, or leg fracture Acute spinal cord injury (< 1 month) Prophylaxis Regimen Total Risk Factor Score Risk Level Prophylaxis Regimen 0-1 Low Early ambulation 2 Moderate Order ONE of the following: *Sequential Compression Device (SCD) *Heparin 5000 units SQ BID 3-4 Higher Order ONE of the following medications: *Heparin 5000 units SQ TID *Enoxaparin/Lovenox 40 mg SQ daily (WT < 150 kg, CrCl > 30 mL/min) *Enoxaparin/Lovenox 30 mg SQ daily (WT < 150 kg, CrCl > 10-29 mL/min) *Enoxaparin/Lovenox 30 mg SQ BID (WT < 150 kg, CrCl > 30 mL/min) AND/OR *Sequential Compression Device (SCD) 5 or more Highest Order ONE of the following medications: *Heparin 5000 units SQ TID (Preferred with Epidurals) *Enoxaparin/Lovenox 40 mg SQ daily (WT < 150 kg, CrCl > 30 mL/min) *Enoxaparin/Lovenox 30 mg SQ daily (WT < 150 kg, CrCl > 10-29 mL/min) *Enoxaparin/Lovenox 30 mg SQ BID (WT < 150 kg, CrCl > 30 mL/min) AND *Sequential Compression Device (SCD) Assessment and Plan Assessment and Plan 1. Chest pain/diaphoresis EKG significant for tachycardia, no ST segment depressions or elevations, reviewed by me Initial troponin negative ACS rule out pending; serial troponins/EKGs Morphine for pain 2. Mycobacterium skin infection Patient on 3 antibiotics and being treated by outpatient infectious disease, does not know which antibiotics he is currently on Patient will call in the morning to determine the names of his antibiotics Lactic acid remains elevated despite IV fluid hydration, patient tachycardic Concern for developing sepsis Infectious disease consulted, appreciate recommendations 3. Acute kidney injury Creatinine 1.44, baseline 1.2 IV fluid hydration Monitor renal function 4. Sarcoidosis Duo nebs for wheezing Continue home prednisone 5. Type 2 diabetes mellitus Holding home metformin Sliding scale insulin FEN Heart healthy diet Electrolytes: monitor and replete prn Heparin Nicki Gomez MD Nov 13, 2017 03:22
[2017-11-13] MEDS ORDERED: GLUCAGON 1 MG/ML VIAL OTHER PRN (03:30)
[2017-11-13] MEDS ORDERED: SODIUM CHLORIDE 0.9% FLUSH 10 ML FLUSH IV FLUSH PRN (03:30)
[2017-11-13] MEDS ORDERED: NALOXONE HCL 0.4 MG/ML AMP IV PUSH PRN (03:30)
[2017-11-13] MEDS ORDERED: ONDANSETRON HCL 4 MG/2 ML VIAL IVP PRN (03:30)
[2017-11-13] MEDS ORDERED: DEXTROSE 50% IN WATER 50 ML VIAL(D50) IV PUSH PRN (03:30)
[2017-11-13] MEDS ORDERED: ACETAMINOPHEN 325 MG TAB PO PRN (03:30)
[2017-11-13] MEDS: HEPARIN SODIUM - SQ 10,000 UNITS/ML VIAL SQ SCH ×2 (05:04→13:55)
[2017-11-13 05:07] VITALS: BP 138/84; PULSE 74; RESP 18; TEMP 98.1; O2SAT 98
[2017-11-13] MEDS: SODIUM CHLOR 0.9% 1000 ML INJ 1,000 ML IV SCH ×2 (05:41→11:17)
[2017-11-13 07:52] VITALS: BP 133/80; PULSE 96; RESP 18; TEMP 98; O2SAT 95
[2017-11-13 07:52] LABS: TROPONIN I LESS THAN 0.02 NG/ML (0.02-0.05)
[2017-11-13] MEDS: INSULIN ASPART SUPPLEMENTAL SCALE SQ SCH ×2 (08:00→12:00)
[2017-11-13] MEDS ORDERED: SODIUM CHLORIDE 0.9% FLUSH 10 ML FLUSH IV FLUSH SCH (09:00)
[2017-11-13] MEDS ORDERED: predniSONE 20 MG TAB PO SCH (09:00)
[2017-11-13] MEDS ORDERED: ACETAMINOPHEN/HYDROcodone 325 MG/5 MG TAB PO PRN (09:45)
[2017-11-13] MEDS ORDERED: AZIT500T2 PO (10:02)
[2017-11-13] MEDS ORDERED: ETHA400T PO (10:02)
[2017-11-13] MEDS ORDERED: MOXI1TAB2 PO (10:02)
[2017-11-13] MEDS ORDERED: guaiFENesin/CODEINE SYRUP 200 MG/20 MG/10 ML CUP PO PRN (10:45)
[2017-11-13] MEDS ORDERED: HYDR-3516 PO (11:28)
[2017-11-13] MEDS ORDERED: guaiFEN-COD 200-20 MG/10ML LIQ PO (11:28)
--- NOTE | 2017-11-13 12:39 | HHI.DS ---
Discharge Summary Admission Date Nov 13, 2017 at 01:27 Discharge Date: Nov 13, 2017 Admitting Diagnosis CP r/o ACS (1) Pleurisy ICD Code: R09.1 - Pleurisy Diagnosis: Principal Procedures See hospital course. Brief History - From Admission 52-year-old male with a past medical history significant for sarcoidosis and type 2 diabetes mellitus presents with a 2 day history of left-sided substernal chest pain. The patient ascribes the pain as a pressure. He endorses accompanying episodes of diaphoresis and shortness of breath, worse than baseline. Chest pain started Sunday night and has continued. Patient also has a nonproductive cough which is increased from baseline. 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 He is not sure what antibiotics he is on. CBC/BMP: 11/12/17 2315 11/12/17 2315 Significant Findings Laboratory Tests Test 11/12/17 23:15 11/13/17 01:40 11/13/17 01:50 11/13/17 06:39 Monocytes (%) (Auto) 10.0 % (0.0-8.0) Eosinophils (%) (Auto) 7.6 % (0.0-4.0) Eosinophils # (Auto) 0.5 TH/MM3 (0-0.4) Creatinine 1.44 MG/DL (0.60-1.30) Random Glucose 279 MG/DL (74-106) Alkaline Phosphatase 135 U/L (45-117) Estimat Glomerular Filtration Rate 62 ML/MIN (>89) Lactic Acid Level 2.1 mmol/L (0.4-2.0) 2.5 mmol/L (0.4-2.0) Troponin I LESS THAN 0.02 NG/ML LESS THAN 0.02 NG/ML C-Reactive Protein 1.90 MG/DL (0.00-0.30) Lipase 414 U/L (73-393) Urine Glucose (UA) 1000 mg/dL (NEG) Urine Ketones TRACE mg/dL (NEG) Urine Mucus FEW /lpf (OCC) Imaging Last Impressions Chest X-Ray 11/12/17 2310 Signed Impressions: Service Date/Time: Sunday, November 12, 2017 23:15 - CONCLUSION: Stable chest x-ray with bilateral hilar fullness. This was previously demonstrated to represent mediastinal and hilar lymphadenopathy. Otherwise, no acute finding is identified. Wilton Landeros MD PE at Discharge GENERAL: in NAD. CARDIOVASCULAR: Regular rate and rhythm without murmurs, gallops, or rubs. RESPIRATORY: Breath sounds equal bilaterally. No accessory muscle use. GASTROINTESTINAL: Abdomen soft, non-tender, nondistended. MUSCULOSKELETAL: No cyanosis, or edema. BACK: Nontender without obvious deformity. No CVA tenderness. Pt update on day of discharge Follow-up for chest pain and cough. Patient stated that he has been having a cough for very long time due to his sarcoidosis. Patient stated that the past week it has increased some. Denied any increased sputum production. Denies any fevers or chills. Patient sees Dr. George in regards to his Mycobacterium treatment. He stated that he can get into see her easily. Chest pain only occurs with cough or deep inspiration. Patient was admitted a few months ago for the exact same symptoms. Otherwise he has no other complaints. Denies any shortness of breathing, palpitation, lightheadedness or dizziness. Hospital Course This is a 52-year-old male with history of sarcoidosis and Mycobacterium infection who was complaining of chest pain with cough or deep inspiration Atypical chest pain -Most likely secondary to pleurisy. Chest pain only occurs with cough and deep inspiration. Patient said that he has been coughing a little more this past week. Denies any increased sputum production. EKG significant for tachycardia, no ST segment depressions or elevations. Patient was ruled out with negative troponins 3. -Patient was given pain medication and cough medicine to help with symptoms. Mycobacterium skin infection -Patient seen Dr. George infectious disease. His chest x-ray was stable from his prior hospitalization. Patient told to see Dr. rock George tomorrow or in the next 1-2 days to see if she wants to change his antibiotics since he has increased -cough the past week. He stated that he can do this and that she is very easy to get into. Acute kidney injury -Creatinine 1.44, baseline 1.2 -Mild insufficiency. Patient was put on IV fluids. Encourage oral intake. Sarcoidosis -Continue with home prednisone. Type 2 diabetes mellitus -Resume home medication. Pt Condition on Discharge: Stable Discharge Disposition: Discharge Home Discharge Time: > 30 minutes Discharge Instructions DIET: Follow Instructions for: Diabetic Diet Activities you can perform: Regular-No Restrictions Follow up Referrals: Infectious Disease - Today PCP Follow-up - 3-5 Days New Medications: Hydrocodone/Acetaminophen (Hydrocodone-Acetamin 5-325 mg) 5 Mg-325 Mg Tablet 1 TAB PO Q4H PRN for pain>3, #15 TAB 0 Refills [guaiFEN-COD 200-20 MG/10ML LIQ] () 10 ML SYRP 10 ML PO Q6H PRN for cough, #100 ML 0 Refills Continued Medications: Albuterol 18 GM Inh (Ventolin Hfa 18 GM Inh) 90 Mcg/Act Aer 2 PUFF INH Q4H PRN for SHORTNESS OF BREATH, #1 INHALER 0 Refills Albuterol Neb (Albuterol Neb) 1.25 Mg/3 Ml Neb 1.25 MG NEB TID NEB PRN for SHORTNESS OF BREATH, #100 NEBULE 0 Refills Azithromycin (Azithromycin) 500 Mg Tab 500 MG PO DAILY for Infection, #5 TAB 0 Refills Ethambutol (Ethambutol) 400 Mg Tab 1200 MG PO DAILY for Infection Metformin (Metformin) 1,000 Mg Tab 1500 MG PO DAILY for Blood Sugar Management, #30 TAB 0 Refills With a meal Moxifloxacin (Moxifloxacin) 400 Mg Tab 400 MG PO DAILY for Infection, TAB 0 Refills Prednisone (Prednisone) 20 Mg Tab 20 MG PO BID for Inflammation, #37 TAB Take 20mg twice a day for 1 week, Then go back to 20mg once daily. Cheryl Dunn MD Nov 13, 2017 12:39
[2017-11-13 12:55] VITALS: BP 138/85; PULSE 93; RESP 18; TEMP 98; O2SAT 96
[2017-11-13 13:22] LABS: TROPONIN I LESS THAN 0.02 NG/ML (0.02-0.05)
--- NOTE | 2017-11-13 14:01 | HHI.DCPOC ---
Discharge Care Plan Diagnosis: (1) Pleurisy Goals to Promote Your Health * To prevent worsening of your condition and complications * To maintain your health at the optimal level Directions to Meet Your Goals Take your medications as prescribed Follow your dietary instruction Follow activity as directed Keep your appointments as scheduled Take your immunizations and boosters as scheduled If your symptoms worsen call your PCP, if no PCP go to Urgent Care Center or Emergency Room Smoking is Dangerous to Your Health. Avoid second hand smoke Call the 24-hour hour crisis hotline for domestic abuse at Cheryl Dunn MD Nov 13, 2017 14:01
--- NOTE | 2017-11-13 15:56 | EKG ---
Date Performed: 11/12/2017 Time Performed: 23:01:35 PTAGE: 52 years EKG: SINUS TACHYCARDIA LEFT ATRIAL ENLARGEMENT NONSPECIFIC T-WAVE ABNORMALITY ABNORMAL ECG Since the prior tracing, there has been no significant change NO PREVIOUS TRACING DOCTOR: Samantha Sherwood Interpretating Date/Time 11/13/2017 15:55:40
--- NOTE | 2017-11-13 15:56 | EKG ---
Date Performed: 11/13/2017 Time Performed: 06:27:38 PTAGE: 52 years EKG: SINUS TACHYCARDIA POSSIBLE LEFT ATRIAL ENLARGEMENT ABNORMAL RHYTHM ECG Since the prior trac ing, there has been no significant change PREVIOUS TRACING : 08/23/2017 12.37 DOCTOR: Samantha Sherwood Interpretating Date/Time 11/13/2017 15:55:49
== END 2017-11-13 14:42 | disposition home or self-care (01) ==
LOC: NEPE 22:42 → NEDA 11-13 01:27 → NEPFCDU 11-13 04:24
PROVIDERS: ADMIT Family Medicine; ATTEND Family Medicine
DX: R09.1 Pleurisy (principal); R61 Generalized hyperhidrosis; A31.9 Mycobacterial infection, unspecified; R00.0 Tachycardia, unspecified; N17.9 Acute kidney failure, unspecified; D86.9 Sarcoidosis, unspecified; E11.9 Type 2 diabetes mellitus without complications; R05 Cough; R68.83 Chills (without fever); M54.9 Dorsalgia, unspecified; G89.29 Other chronic pain; E87.2 Acidosis; R94.31 Abnormal electrocardiogram [ECG] [EKG]; L08.9 Local infection of the skin and subcutaneous tissue, unspecified; M17.0 Bilateral primary osteoarthritis of knee; M16.0 Bilateral primary osteoarthritis of hip; M19.042 Primary osteoarthritis, left hand; M19.041 Primary osteoarthritis, right hand; Z79.84 Long term (current) use of oral hypoglycemic drugs
CPT/HCPCS: 71045; 80053; 81001; 82550; 82948; 83605; 83690; 83735; 83880; 84484; 85025; 85379; 85610; 85730; 86140; 87040; 87804; 93005; 96361; 96365; 96366; 96368; 96372; 96375; 96376; 99285; G0378; J0456; J0696; J1644; J1815; J2270; J2405; J7030; J7050; J7512

== ENCOUNTER 2017-11-18 10:40 | Emergency (ER) | payer OTHER ==
[~2017-11-18] VITALS: Ht 188 cm; Wt 91.5 kg
[~2017-11-18 10:40] MED LIST changes: +AZIT500T2 PO; -DOXY50 PO; +ETHA400T PO; -GLUCKIT15; -GLUCTES12; +HYDR-3516 PO; -INSU1MIS15; -LANCETS1 MI1; -LEVEMIR SQ; +METF1000 PO; +MOXI1TAB2 PO; -NOVOLOGP2 SQ; +guaiFEN-COD 200-20 MG/10ML LIQ PO
[2017-11-18 10:41] VITALS: BP 143/90; PULSE 112; RESP 15; TEMP 98.4; O2SAT 96
[2017-11-18 11:00] VITALS: BP 160/94; PULSE 90
[2017-11-18] MEDS ORDERED: SILVER SULFADIAZINE 1% CR 400 GM JAR TOPICAL ONE (11:15)
[2017-11-18] MEDS ORDERED: TETANUS/DIPHTHERIA TOXOID ADULT 0.5 ML VIAL IM ONE (11:15)
[2017-11-18] MEDS ORDERED: CLINDAMYCIN 600 MG/NS PREMIX 50 ML IV ONE (11:15)
[2017-11-18 11:25] LABS: AUTOMATED NEUTROPHIL # 4.5 TH/MM3 (1.8-7.7); BASOPHIL % 0.6 % (0.0-2.0); EOSINOPHIL # 0.4 TH/MM3 (0-0.4); EOSINOPHIL % 5.7 % (0.0-4.0); HEMATOCRIT 40.1 % (39.0-51.0); LYMPH % 19.4 % (9.0-44.0); LYMPHOCYTE # 1.4 TH/MM3 (1.0-4.8); MEAN CELL VOLUME 88.7 FL (80.0-100.0); MEAN PLATELET VOLUME 7.5 FL (7.0-11.0); MONO % 10.4 % (0.0-8.0); MONOCYTE # 0.7 TH/MM3 (0-0.9); NEUT % 63.9 % (16.0-70.0); PLATELET COUNT 304 TH/MM3 (150-450); RED BLOOD COUNT 4.52 MIL/MM3 (4.50-5.90); RED CELL DISTRIBUTION WIDTH 14.3 % (11.6-17.2)
--- NOTE | 2017-11-18 11:26 | PD ---
HPI Chief Complaint: Diabetic Time Seen by Provider: 11:06 Travel History International Travel<30 days: No Contact w/Intl Traveler<30days: No Traveled to known affect area: No History of Present Illness HPI 52-year-old male that presents to the ED for evaluation of left lower leg pain and swelling. Per patient she's had swelling on his leg about 2 days ago and applied Epsom salts on his foot. Per patient ever since his been noticing blisters to appear to be infected. Patient he has minimal feeling on his feet secondary to diabetes. He is diabetic and takes medications. Per patient his sugars of in the 200s. He denies any urinary or bowel movement issues. No trauma. No history of palpitations. No fevers chills or sweats. States compliance with his medications. Has not seen anybody for this. He got concerned because of the swelling and blistering. When asked. Was the Epsom salts he states as hot as I could tolerate it. Per patient the pain is 4 out of 10 but he also states that he has minimal feeling on his feet. PFSH Past Medical History Arthritis: Yes Blood Disorders: No Anxiety: No Depression: No Heart Rhythm Problems: No Cancer: No Cardiac Catheterization: Yes (2009) Cardiovascular Problems: Yes (PREV CATH, + STRESS) High Cholesterol: No Chest Pain: Yes Congestive Heart Failure: No Diabetes: Yes (METFORMIN) Patient Takes Glucophage: Yes (TODAY) Diminished Hearing: No Endocrine: Yes Gastrointestinal Disorders: No Genitourinary: No Hepatitis: No Hiatal Hernia: No Hypertension: No Immune Disorder: Yes (PT THINKS HE MIGHT HAVE RA, NOT SURE) Implanted Vascular Access Dvce: No Medical other: No Musculoskeletal: Yes Neurologic: No Psychiatric: No Reproductive: No Immunizations Current: Yes Myocardial Infarction: No Thyroid Disease: No Tetanus Vaccination: < 5 Years Past Surgical History Abdominal Surgery: No AICD: No Body Medical Devices: NONE Cardiac Surgery: Yes (CARDIAC CATH 08/2012) Coronary Artery Bypass Graft: No Ear Surgery: No Endocrine Surgery: No Eye Surgery: No Genitourinary Surgery: No Joint Replacement: No Neurologic Surgery: No Oral Surgery: No Pacemaker: No Thoracic Surgery: No Other Surgery: Yes (shoulder/heart cath) Social History Alcohol Use: Yes (2 OR 3X WEEKLY LAST WAS A WEEK AGO) Tobacco Use: No Substance Use: No Allergies-Medications (Allergen,Severity, Reaction): Coded Allergies: No Known Allergies (Verified Adverse Reaction, Unknown, 11/12/17) Reported Meds & Prescriptions Reported Meds & Active Scripts Active Silvadene Topical (Silver Sulfadiazine) 1 % Cream 1 Applic TOPICAL DIRECTED Bactrim DS (Sulfamethoxazole-Trimethoprim) 800-160 Mg Tab 1 Tab PO BID 10 Days [guaiFEN-COD 200-20 MG/10ML LIQ] 10 ML Syrp 10 Ml PO Q6H PRN Hydrocodone-Acetamin 5-325 mg (Hydrocodone/Acetaminophen) 5 Mg-325 Mg Tablet 1 Tab PO Q4H PRN Prednisone 20 Mg Tab 20 Mg PO BID Take 20mg twice a day for 1 week, Then go back to 20mg once daily. Ventolin Hfa 18 GM Inh (Albuterol Sulfate) 90 Mcg/Act Aer 2 Puff INH Q4H PRN Reported Moxifloxacin (Moxifloxacin HCl) 400 Mg Tab 400 Mg PO DAILY Azithromycin 500 Mg Tab 500 Mg PO DAILY Ethambutol (Ethambutol HCl) 400 Mg Tab 1,200 Mg PO DAILY Metformin (Metformin HCl) 1,000 Mg Tab 1,500 Mg PO DAILY With a meal Albuterol Neb (Albuterol Sulfate) 1.25 Mg/3 Ml Neb 1.25 Mg NEB TID NEB PRN Review of Systems Except as stated in HPI: all other systems reviewed are Neg Physical Exam Narrative GENERAL: SKIN: Warm and dry. HEAD: Atraumatic. Normocephalic. EYES: Pupils equal and round. No scleral icterus. No injection or drainage. ENT: No nasal bleeding or discharge. Mucous membranes pink and moist. Tongue is midline. No uvula deviation. NECK: Trachea midline. No JVD. CARDIOVASCULAR: Regular rate and rhythm. No murmurs, S3, S4. RESPIRATORY: No accessory muscle use. Clear to auscultation. Breath sounds equal bilaterally. GASTROINTESTINAL: Abdomen soft, non-tender, nondistended. Hepatic and splenic margins not palpable. MUSCULOSKELETAL: Extremities without clubbing, cyanosis, or edema. No obvious deformities. Full range of motion of the upper and lower extremities bilaterally. 2+ pulses bilaterally. Patient has what appears to be blistering with possible second-degree escamilla to the left lateral dorsal foot. Mainly around the first oh as well as the third through fifth. Has good capillary refill. Patient does appear to have some purulence noted on the dorsal aspect of the blisters. Does appear to be second-degree escamilla. Possible first-degree escamilla as well but no sign of third-degree escamilla. None noted in the plantar aspect of the foot. NEUROLOGICAL: Awake and alert. No obvious cranial nerve deficits. Motor grossly within normal limits. Five out of 5 muscle strength in the arms and legs. Normal speech. PSYCHIATRIC: Appropriate mood and affect; insight and judgment normal. Data Data Last Documented VS Vital Signs Date Time Temp Pulse Resp B/P (MAP) Pulse Ox O2 Delivery O2 Flow Rate FiO2 11/18/17 10:41 98.4 112 15 143/90 (107) 96 Orders Orders Foot, Complete ([id number]) (11/18/17 11:12) Complete Blood Count With Diff (11/18/17 11:12) Basic Metabolic Panel (Bmp) (11/18/17 11:12) Wound Culture And Gram Stain (11/18/17 11:12) Iv Access Insert/Monitor (11/18/17 11:12) Clindamycin 600 Mg/Ns Premix (Cleocin 60 (11/18/17 11:15) Silver Sulfadi 1% Crm (400 Gm) (Silvaden (11/18/17 11:15) Tetanus/Diphtheria Tox Adult (Tetanus/Di (11/18/17 11:15) Labs Laboratory Tests Test 11/18/17 11:05 White Blood Count 7.0 TH/MM3 Red Blood Count 4.52 MIL/MM3 Hemoglobin 14.0 GM/DL Hematocrit 40.1 % Mean Corpuscular Volume 88.7 FL Mean Corpuscular Hemoglobin 31.0 PG Mean Corpuscular Hemoglobin Concent 35.0 % Red Cell Distribution Width 14.3 % Platelet Count 304 TH/MM3 Mean Platelet Volume 7.5 FL Neutrophils (%) (Auto) 63.9 % Lymphocytes (%) (Auto) 19.4 % Monocytes (%) (Auto) 10.4 % Eosinophils (%) (Auto) 5.7 % Basophils (%) (Auto) 0.6 % Neutrophils # (Auto) 4.5 TH/MM3 Lymphocytes # (Auto) 1.4 TH/MM3 Monocytes # (Auto) 0.7 TH/MM3 Eosinophils # (Auto) 0.4 TH/MM3 Basophils # (Auto) 0.0 TH/MM3 CBC Comment DIFF FINAL Differential Comment Blood Urea Nitrogen 9 MG/DL Creatinine 1.10 MG/DL Random Glucose 188 MG/DL Calcium Level 8.7 MG/DL Sodium Level 138 MEQ/L Potassium Level 4.1 MEQ/L Chloride Level 104 MEQ/L Carbon Dioxide Level 26.6 MEQ/L Anion Gap 7 MEQ/L Estimat Glomerular Filtration Rate 85 ML/MIN MDM Medical Decision Making Medical Screen Exam Complete: Yes Emergency Medical Condition: Yes Medical Record Reviewed: Yes Interpretation(s) CBC & BMP Diagram 11/18/17 11:05 Calcium Level 8.7 xray of foot showed chronic changes concerning for chronic plantar fasciitis, but no infection or bony injury Differential Diagnosis Cellulitis versus first-degree burn versus second-degree burn versus osteomyelitis Narrative Course 52-year-old male that presents to the ED for evaluation of left foot blistering and swelling. Patient was properly examined and was found to have signs and symptoms which appear to be very consistent with likely second-degree escamilla and first-degree escamilla from putting the put on a hot Epsom salt. Patient has neuropathy and per patient she left there until the swelling came down but it appears that he had blistering secondary to the burning. He does appear to have some early signs of infection what appears to be some purulence and some of the blisters. He is diabetic. The recommend labs and imaging as well as antibiotics and wound culture. Labs and imaging showed no sign of acute disease. At this time this appears to be second-degree burn with possible early infection. Patient will be sent home with prescriptions for Bactrim and silver Silvadene. My attending Dr. Munoz about the patient and agrees with plan. Patient was given clindamycin here as well as wound care and told her to do wound care. Patient was told to come back in 48 hours for recheck. See ED worsening symptoms. Follow with PCP. Diagnosis Primary Impression: Second degree burn of foot Qualified Codes: T25.222A - Burn of second degree of left foot, initial encounter Patient Instructions: General Instructions Additional Instructions: Take medication as prescribed. Follow with PCP. See ED worsening symptoms. Recheck in 48 hours to assess improvement Med/Other Pt SpecificInfo: Prescription(s) given Scripts Silver Sulfadiazine Topical (Silvadene Topical) 1 % Cream 1 APPLIC TOPICAL DIRECTED for Wound Management, #50 GM 0 Refills Prov: Dennys Munoz MD 11/18/17 Sulfamethoxazole-Trimethoprim (Bactrim DS) 800-160 Mg Tab 1 TAB PO BID for Infection for 10 Days, #20 TAB 0 Refills Prov: Dennys Munoz MD 11/18/17 Disposition: 01 DISCHARGE HOME Condition: Stable Phillip Cruz Nov 18, 2017 11:25
[2017-11-18 11:46] LABS: BICARBONATE 26.6 MEQ/L (21.0-32.0); CALCIUM 8.7 MG/DL (8.5-10.1); CREATININE 1.1 MG/DL (0.60-1.30)
--- NOTE | 2017-11-18 11:47 | RADRPT ---
EXAM DATE/TIME: 11/18/2017 11:19 [facility] COMPARISON: No previous studies available for comparison. INDICATIONS : Pain lateral side left foot, numbness medial side left foot. Injured foot 6 months ago. Open score 1st 2nd and 3rd anterior toes began today. MEDICAL HISTORY : None. Diabetes mellitus type II. Lung Biopsy (2016) SURGICAL HISTORY : None. ENCOUNTER: Initial ACUITY: 4 - 6 months PAIN SCORE: 5/10 LOCATION: Left Foot FINDINGS: Three view examination of the left foot demonstrates no soft tissue swelling, dislocation, or fractur e. There is ossification of the plantar neurosis at the level of the insertion on the calcaneus. Smal l enthesophyte identified at the level of the Achilles tendon insertion. The tarsal bones appear int act. The interphalangeal and metatarsophalangeal joints are intact. The calcaneus is intact. Bony mineralization is normal. CONCLUSION: No acute abnormality seen. Dystrophic calcifications identified within the plantar neurosis near its insertion concerning for chronic plantar fasciitis. No other abnormality seen. Maria Victoria Zapien MD on November 18, 2017 at 11:43 Board Certified Radiologist. This report was verified electronically.
[2017-11-18] MEDS ORDERED: SILV1CRE20 TOPICAL (11:52)
[2017-11-18] MEDS ORDERED: BACT800T5 PO (11:52)
--- NOTE | 2017-11-18 11:56 | PD ---
Data Data Last Documented VS Vital Signs Date Time Temp Pulse Resp B/P (MAP) Pulse Ox O2 Delivery O2 Flow Rate FiO2 11/18/17 10:41 98.4 112 15 143/90 (107) 96 Orders Orders Foot, Complete ([id number]) (11/18/17 11:12) Complete Blood Count With Diff (11/18/17 11:12) Basic Metabolic Panel (Bmp) (11/18/17 11:12) Wound Culture And Gram Stain (11/18/17 11:12) Iv Access Insert/Monitor (11/18/17 11:12) Clindamycin 600 Mg/Ns Premix (Cleocin 60 (11/18/17 11:15) Silver Sulfadi 1% Crm (400 Gm) (Silvaden (11/18/17 11:15) Tetanus/Diphtheria Tox Adult (Tetanus/Di (11/18/17 11:15) Labs Laboratory Tests Test 11/18/17 11:05 White Blood Count 7.0 TH/MM3 Red Blood Count 4.52 MIL/MM3 Hemoglobin 14.0 GM/DL Hematocrit 40.1 % Mean Corpuscular Volume 88.7 FL Mean Corpuscular Hemoglobin 31.0 PG Mean Corpuscular Hemoglobin Concent 35.0 % Red Cell Distribution Width 14.3 % Platelet Count 304 TH/MM3 Mean Platelet Volume 7.5 FL Neutrophils (%) (Auto) 63.9 % Lymphocytes (%) (Auto) 19.4 % Monocytes (%) (Auto) 10.4 % Eosinophils (%) (Auto) 5.7 % Basophils (%) (Auto) 0.6 % Neutrophils # (Auto) 4.5 TH/MM3 Lymphocytes # (Auto) 1.4 TH/MM3 Monocytes # (Auto) 0.7 TH/MM3 Eosinophils # (Auto) 0.4 TH/MM3 Basophils # (Auto) 0.0 TH/MM3 CBC Comment DIFF FINAL Differential Comment Blood Urea Nitrogen 9 MG/DL Creatinine 1.10 MG/DL Random Glucose 188 MG/DL Calcium Level 8.7 MG/DL Sodium Level 138 MEQ/L Potassium Level 4.1 MEQ/L Chloride Level 104 MEQ/L Carbon Dioxide Level 26.6 MEQ/L Anion Gap 7 MEQ/L Estimat Glomerular Filtration Rate 85 ML/MIN MDM Supervised Visit with ELIOT: Yes Narrative Course The history, exam, and medical decision-making in the associated mid-level provider note were completed with my assistance. I reviewed and agree with the findings presented. I attest that I had a [id number] encounter with the patient on the same day, and personally performed and documented my assessment and findings in the medical record. *My assessment and Findings: He is a 52-year-old man who presents the emergency department with wound to the left foot, history diabetes, concern for chemical burn. He looks generally well. Some blistering. No evidence of osteomyelitis. He otherwise looks well. Wound check for follow-up. Scripts Silver Sulfadiazine Topical (Silvadene Topical) 1 % Cream 1 APPLIC TOPICAL DIRECTED for Wound Management, #50 GM 0 Refills Prov: Dennys Munoz MD 11/18/17 Sulfamethoxazole-Trimethoprim (Bactrim DS) 800-160 Mg Tab 1 TAB PO BID for Infection for 10 Days, #20 TAB 0 Refills Prov: Dennys Munoz MD 11/18/17 Dennys Munoz MD Nov 18, 2017 11:56
[2017-11-18] MEDS ORDERED: SILVER SULFADIAZINE 1% CR 50 GM JAR TOPICAL ONE (13:15)
[2017-11-18 13:45] VITALS: BP 154/83
== END 2017-11-18 13:50 | disposition home or self-care (01) ==
LOC: NEPE 10:40
DX: T25.222A Burn of second degree of left foot, initial encounter (principal); X19.XXXA Contact with other heat and hot substances, initial encounter; B95.62 Methicillin resistant Staphylococcus aureus infection as the cause of diseases classified elsewhere; E11.9 Type 2 diabetes mellitus without complications; M19.90 Unspecified osteoarthritis, unspecified site; Z23 Encounter for immunization
CPT/HCPCS: 16000; 73630; 80048; 85025; 86403; 87070; 87186; 87205; 90471; 90714; 96374

== ENCOUNTER 2017-11-27 22:02 | Emergency (ER) | payer OTHER ==
[~2017-11-27] VITALS: Ht 188 cm; Wt 88.2 kg
[~2017-11-27 22:02] MED LIST changes: +BACT800T5 PO; +SILV1CRE20 TOPICAL
[2017-11-27 22:05] VITALS: BP 134/85; PULSE 114; RESP 16; TEMP 99.3; O2SAT 99
[2017-11-28] MEDS ORDERED: diphenhydrAMINE HCL 50 MG/ML VIAL IM ONE (04:45)
[2017-11-28] MEDS: RESP: ALBUTEROL 2.5 MG/3 ML NEB (SCH) INH ×2 (04:45→04:46)
--- NOTE | 2017-11-28 04:54 | PD ---
HPI Chief Complaint: Allergic/Adverse Reaction Time Seen by Provider: 04:28 Travel History International Travel<30 days: No Contact w/Intl Traveler<30days: No Traveled to known affect area: No History of Present Illness HPI 52-year-old black male presents to emergency Department with complaints of allergic reaction. He states he was seen earlier today by his doctor due to her reaction to sulfur antibiotic for a foot infection. He states that he was not given anything for itching or swelling. He was changed from his antibiotic and given a topical cream. He states that he feels his face is more swollen than usual. He feels short of breath and tightness. He denies any nausea vomiting. His skin is very pruritic. States that he had hives earlier but they did improve. Symptoms are moderate. He denies any glossal edema. No alleviating factors. Worsened by sulfur antibiotic PFSH Past Medical History Arthritis: Yes Blood Disorders: No Anxiety: No Depression: No Heart Rhythm Problems: No Cancer: No Cardiac Catheterization: Yes (2009) Cardiovascular Problems: Yes (PREV CATH, + STRESS) High Cholesterol: No Chest Pain: Yes Congestive Heart Failure: No Diabetes: Yes (METFORMIN) Diminished Hearing: No Endocrine: Yes Gastrointestinal Disorders: No Genitourinary: No Hepatitis: No Hiatal Hernia: No Hypertension: No Immune Disorder: Yes (PT THINKS HE MIGHT HAVE RA, NOT SURE) Implanted Vascular Access Dvce: No Musculoskeletal: Yes Neurologic: No Psychiatric: No Reproductive: No Immunizations Current: Yes Myocardial Infarction: No Thyroid Disease: No Past Surgical History Abdominal Surgery: No AICD: No Body Medical Devices: NONE Cardiac Surgery: Yes (CARDIAC CATH 08/2012) Coronary Artery Bypass Graft: No Ear Surgery: No Endocrine Surgery: No Eye Surgery: No Genitourinary Surgery: No Joint Replacement: No Neurologic Surgery: No Oral Surgery: No Pacemaker: No Thoracic Surgery: No Other Surgery: Yes (shoulder/heart cath) Social History Alcohol Use: Yes (2 OR 3X WEEKLY LAST WAS A WEEK AGO) Tobacco Use: No Substance Use: No Allergies-Medications (Allergen,Severity, Reaction): Coded Allergies: sulfamethoxazole (Verified Allergy, Severe, Swelling, 11/27/17) trimethoprim (Verified Allergy, Severe, Swelling, 11/27/17) Reported Meds & Prescriptions Reported Meds & Active Scripts Active Qvar Inh (Beclomethasone Dipropionate) 80 Mcg/Act Aero 1 Puff INH BID Proventil Hfa 6.7 GM Inh (Albuterol Sulfate) 90 Mcg/Act Aer 2 Puff INH Q4-6H PRN Silvadene Topical (Silver Sulfadiazine) 1 % Cream 1 Applic TOPICAL DIRECTED [guaiFEN-COD 200-20 MG/10ML LIQ] 10 ML Syrp 10 Ml PO Q6H PRN Hydrocodone-Acetamin 5-325 mg (Hydrocodone/Acetaminophen) 5 Mg-325 Mg Tablet 1 Tab PO Q4H PRN Prednisone 20 Mg Tab 20 Mg PO BID Take 20mg twice a day for 1 week, Then go back to 20mg once daily. Ventolin Hfa 18 GM Inh (Albuterol Sulfate) 90 Mcg/Act Aer 2 Puff INH Q4H PRN Reported Azithromycin 500 Mg Tab 500 Mg PO DAILY Ethambutol (Ethambutol HCl) 400 Mg Tab 1,200 Mg PO DAILY Metformin (Metformin HCl) 1,000 Mg Tab 1,500 Mg PO DAILY With a meal Albuterol Neb (Albuterol Sulfate) 1.25 Mg/3 Ml Neb 1.25 Mg NEB TID NEB PRN Review of Systems Except as stated in HPI: all other systems reviewed are Neg Physical Exam Narrative GENERAL: Well-developed, well-nourished in no apparent distress. Nontoxic appearing. HEAD: Normocephalic, atraumatic. EYES: Pupils equal round and reactive. Extraocular motions intact. No scleral icterus. No injection or drainage. ENT: Nose clear. Throat without erythema, tonsillar hypertrophy or exudate. Uvula midline. Airway patent. No glossal edema. No muffled phonation. Handling his secretions well. NECK: Trachea midline. Supple, nontender, moves head freely. No central bony tenderness or spasm. CARDIOVASCULAR: Regular rate and rhythm without murmurs, gallops, or rubs. RESPIRATORY: Patient has findings very wheezes. No Rales. No respiratory distress. GASTROINTESTINAL: Abdomen soft, non-tender, nondistended. No hepato-splenomegaly , or palpable masses. No guarding. EXTREMITIES: No clubbing, cyanosis, or edema. No joint tenderness. BACK: Nontender without deformity. No flank tenderness. NEUROLOGICAL: Awake, alert and oriented x 3 .Cranial nerves grossly intact. Motor and sensory grossly within normal limits. Normal speech. Skin: Patient has no hives or erythema. He has multiple areas of excoriation. He also has multiple skin lesions are chronic nature about his arms, legs, trunk , neck and face. 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 Data Data Last Documented VS Vital Signs Date Time Temp Pulse Resp B/P (MAP) Pulse Ox O2 Delivery O2 Flow Rate FiO2 11/28/17 05:06 109 20 143/87 (105) 97 Room Air 11/27/17 22:05 99.3 Orders Orders Oximetry (11/28/17 04:33) Albuterol Neb (Albuterol Neb) (11/28/17 04:45) Diphenhydramine Inj (Benadryl Inj) (11/28/17 04:45) MDM Medical Decision Making Medical Screen Exam Complete: Yes Emergency Medical Condition: Yes Medical Record Reviewed: Yes Differential Diagnosis Differential diagnoses: Allergic reaction, angioedema, contact dermatitis, medication reaction Narrative Course Patient's oral exam is unremarkable. He does have a fine expiratory wheezes. He does not appear to be any distress. He will be given an albuterol treatment and Benadryl 50 mg IM. At this time due to his foot infection and diabetes I will hold off on oral steroids. The patient is reexamined. He has had decrease in of his wheezing. He's had improvement of air movement. The patient will be discharged with prescription for albuterol and inhaled corticosteroid. Diagnosis Primary Impression: Allergic reaction caused by a drug Qualified Codes: T78.40XA - Allergy, unspecified, initial encounter Additional Impression: reactive airway disease Patient Instructions: General Instructions Additional Instructions: Rest. Aveeno bath. Benadryl 50 mg every 4 hours. Albuterol inhaler and Qvar. Recheck with your doctor in 24 hours. Return to the ER for any problems. Med/Other Pt SpecificInfo: Prescription(s) given Scripts Beclomethasone Inh (Qvar Inh) 80 Mcg/Act Aero 1 PUFF INH BID for Asthma Management, #1 INHALER 0 Refills Prov: Cindy Escobar MD 11/28/17 Albuterol 6.7 GM Inh (Proventil Hfa 6.7 GM Inh) 90 Mcg/Act Aer 2 PUFF INH Q4-6H Y for SHORTNESS OF BREATH, #1 INHALER 0 Refills Prov: Cindy Escobar MD 11/28/17 Disposition: 01 DISCHARGE HOME Condition: Stable Oseas Aguiar Nov 28, 2017 04:54
[2017-11-28 05:06] VITALS: BP 143/87; PULSE 109; RESP 20; O2SAT 97
[2017-11-28] MEDS ORDERED: BECL80AE3 INH (05:54)
[2017-11-28] MEDS ORDERED: ALBU6.7H INH (05:54)
== END 2017-11-28 06:20 | disposition home or self-care (01) ==
LOC: NEPC 22:02
DX: R06.2 Wheezing (principal); R22.0 Localized swelling, mass and lump, head; L29.9 Pruritus, unspecified; T49.0X5A Adverse effect of local antifungal, anti-infective and anti-inflammatory drugs, initial encounter; L08.9 Local infection of the skin and subcutaneous tissue, unspecified; E11.9 Type 2 diabetes mellitus without complications; J45.909 Unspecified asthma, uncomplicated; M19.90 Unspecified osteoarthritis, unspecified site; Z79.899 Other long term (current) drug therapy
CPT/HCPCS: 94640; 94664; 96372; 99283; J1200; J7613

== ENCOUNTER 2017-12-13 20:05 | Emergency (ER) | payer OTHER ==
[~2017-12-13 20:05] MED LIST changes: +ALBU6.7H INH; -BACT800T5 PO; +BECL80AE3 INH; -MOXI1TAB2 PO
[2017-12-13 21:02] VITALS: BP 144/88; PULSE 124; RESP 22; TEMP 100.7; O2SAT 97
[2017-12-13] MEDS ORDERED: FLUT1INH INH (21:14)
[2017-12-13 21:16] VITALS: BP 155/94; PULSE 124; RESP 16; O2SAT 96
--- NOTE | 2017-12-13 21:23 | PD ---
HPI Chief Complaint: Musculoskeletal Complaint Time Seen by Provider: 21:19 Travel History International Travel<30 days: No Contact w/Intl Traveler<30days: No Traveled to known affect area: No History of Present Illness HPI 52-year-old male with history of CAD, diabetes, sarcoidosis, presents emergency department for evaluation of left lower extremity pain and swelling. Patient states he fell 2 days ago. Sustained an abrasion on his right great toe. He seems not think much of this. He is able to get up and ambulate. However he does today that there was swelling in the left lower extremity distal to the knee with tenderness on the posterior aspect of the distal lower extremity, worse with ambulation. Denies fever or chills. Denies chest or tightness. He states he is all he short of breath due to his sarcoidosis. He has no other symptoms to report. PFSH Past Medical History Arthritis: Yes Blood Disorders: No Anxiety: No Depression: No Heart Rhythm Problems: No Cancer: No Cardiac Catheterization: Yes (2009) Cardiovascular Problems: Yes (PREV CATH, + STRESS) High Cholesterol: No Chest Pain: Yes Congestive Heart Failure: No Diabetes: Yes (METFORMIN) Patient Takes Glucophage: Yes Diminished Hearing: No Endocrine: Yes Gastrointestinal Disorders: No Genitourinary: No Hepatitis: No Hiatal Hernia: No Hypertension: No Immune Disorder: Yes (PT THINKS HE MIGHT HAVE RA, NOT SURE) Implanted Vascular Access Dvce: No Musculoskeletal: Yes Neurologic: No Psychiatric: No Reproductive: No Immunizations Current: Yes Myocardial Infarction: No Thyroid Disease: No Influenza Vaccination: No Past Surgical History Abdominal Surgery: No AICD: No Body Medical Devices: NONE Cardiac Surgery: Yes (CARDIAC CATH 08/2012) Coronary Artery Bypass Graft: No Ear Surgery: No Endocrine Surgery: No Eye Surgery: No Genitourinary Surgery: No Joint Replacement: No Neurologic Surgery: No Oral Surgery: No Pacemaker: No Thoracic Surgery: No Other Surgery: Yes (shoulder/heart cath) Social History Alcohol Use: No (LAST DRINK NOV 11 2017) Tobacco Use: No Substance Use: No Allergies-Medications (Allergen,Severity, Reaction): Coded Allergies: sulfamethoxazole (Verified Allergy, Severe, Swelling, 12/13/17) trimethoprim (Verified Allergy, Severe, Swelling, 12/13/17) Reported Meds & Prescriptions Reported Meds & Active Scripts Active Proventil Hfa 6.7 GM Inh (Albuterol Sulfate) 90 Mcg/Act Aer 2 Puff INH Q4-6H PRN Silvadene Topical (Silver Sulfadiazine) 1 % Cream 1 Applic TOPICAL DIRECTED [guaiFEN-COD 200-20 MG/10ML LIQ] 10 ML Syrp 10 Ml PO Q6H PRN Prednisone 20 Mg Tab 20 Mg PO BID Take 20mg twice a day for 1 week, Then go back to 20mg once daily. Reported Breo Ellipta Inh (Fluticasone/Vilanterol) 100-25 Mcg/Act Inh 1 Puff INH DAILY Use daily at the same time. Metformin (Metformin HCl) 1,000 Mg Tab 1,000 Mg PO DAILY With a meal Albuterol Neb (Albuterol Sulfate) 1.25 Mg/3 Ml Neb 1,000 Mg NEB TID NEB PRN Review of Systems Except as stated in HPI: all other systems reviewed are Neg Physical Exam Narrative GENERAL: Unkempt male patient, sitting in bed, in no acute distress. SKIN: Focused skin assessment warm/dry. HEAD: Atraumatic. Normocephalic. EYES: Pupils equal and round. No scleral icterus. No injection or drainage. ENT: No nasal bleeding or discharge. Mucous membranes pink and moist. NECK: Trachea midline. No JVD. CARDIOVASCULAR: Tachycardic rate and rhythm. RESPIRATORY: No accessory muscle use. Diminished with next. Wheeze to auscultation. Breath sounds equal bilaterally. GASTROINTESTINAL: Abdomen soft, non-tender, nondistended. Hepatic and splenic margins not palpable. MUSCULOSKELETAL: No obvious deformities. No clubbing. No cyanosis. 1+ nonpitting edema of the right distal lower extremity. Tenderness elicited palpation of the posterior distal lower extremity. There is a 2 cm diameter abrasion over the left great toe. NEUROLOGICAL: Awake and alert. No obvious cranial nerve deficits. Motor grossly within normal limits. Normal speech. PSYCHIATRIC: Appropriate mood and affect; insight and judgment normal. Data Data Last Documented VS Vital Signs Date Time Temp Pulse Resp B/P (MAP) Pulse Ox O2 Delivery O2 Flow Rate FiO2 12/13/17 21:16 124 16 155/94 (114) 96 Room Air 12/13/17 21:02 100.7 Orders Orders Iv Access Insert/Monitor (12/13/17 21:22) Basic Metabolic Panel (Bmp) (12/13/17 21:22) Coag Profile (12/13/17 21:22) Us Leg Venous Doppler (12/13/17 ) Complete Blood Count With Diff (12/13/17 21:22) Sodium Chlor 0.9% 1000 Ml Inj (Ns 1000 M (12/13/17 21:30) Labs Laboratory Tests Test 12/13/17 21:45 White Blood Count 8.6 TH/MM3 Red Blood Count 4.14 MIL/MM3 Hemoglobin 12.6 GM/DL Hematocrit 35.9 % Mean Corpuscular Volume 86.7 FL Mean Corpuscular Hemoglobin 30.5 PG Mean Corpuscular Hemoglobin Concent 35.1 % Red Cell Distribution Width 13.1 % Platelet Count 353 TH/MM3 Mean Platelet Volume 7.7 FL Neutrophils (%) (Auto) 72.7 % Lymphocytes (%) (Auto) 14.5 % Monocytes (%) (Auto) 9.9 % Eosinophils (%) (Auto) 2.1 % Basophils (%) (Auto) 0.8 % Neutrophils # (Auto) 6.3 TH/MM3 Lymphocytes # (Auto) 1.2 TH/MM3 Monocytes # (Auto) 0.8 TH/MM3 Eosinophils # (Auto) 0.2 TH/MM3 Basophils # (Auto) 0.1 TH/MM3 CBC Comment DIFF FINAL Differential Comment Prothrombin Time 11.2 SEC Prothromb Time International Ratio 1.1 RATIO Activated Partial Thromboplast Time 26.9 SEC Blood Urea Nitrogen 13 MG/DL Creatinine 1.41 MG/DL Random Glucose 350 MG/DL Calcium Level 8.7 MG/DL Sodium Level 134 MEQ/L Potassium Level 4.2 MEQ/L Chloride Level 99 MEQ/L Carbon Dioxide Level 27.4 MEQ/L Anion Gap 8 MEQ/L Estimat Glomerular Filtration Rate 64 ML/MIN [facility] Medical Decision Making Medical Screen Exam Complete: Yes Emergency Medical Condition: Yes Medical Record Reviewed: Yes Differential Diagnosis Cellulitis versus DVT versus strain versus fracture Narrative Course 52-year-old male presents to emergency department for evaluation left distal lower extremity edema and pain. Workup is initiated. Ultrasound disorder. Patient is treated for pain. [id number] patient is signed out to my attending physician who will assume care and disposition will pend his judgment. Condition: Stable CashMiesha diaz CHALO Dec 13, 2017 21:23
[2017-12-13] MEDS ORDERED: SODIUM CHLOR 0.9% 1000 ML INJ 1,000 ML IV ONE (21:30)
[2017-12-13 22:20] LABS: INTERNATIONAL NORMALIZED RATIO 1.1 RATIO; PROTHROMBIN TIME - PATIENT 11.2 SEC (9.8-11.6)
[2017-12-13 22:24] LABS: BICARBONATE 27.4 MEQ/L (21.0-32.0); BLOOD UREA NITROGEN 13 MG/DL (7-18); CALCIUM 8.7 MG/DL (8.5-10.1); CHLORIDE 99 MEQ/L (98-107); CREATININE 1.41 MG/DL (0.60-1.30); GLOMERULAR FILTRATION RATE 64 ML/MIN (>89); GLUCOSE,RANDOM 350 MG/DL (74-106); SODIUM (NA) 134 MEQ/L (136-145)
[2017-12-13 22:33] LABS: AUTOMATED NEUTROPHIL # 6.3 TH/MM3 (1.8-7.7); BASOPHIL # 0.1 TH/MM3 (0-0.2); BASOPHIL % 0.8 % (0.0-2.0); EOSINOPHIL # 0.2 TH/MM3 (0-0.4); EOSINOPHIL % 2.1 % (0.0-4.0); HEMATOCRIT 35.9 % (39.0-51.0); HEMOGLOBIN 12.6 GM/DL (13.0-17.0); LYMPH % 14.5 % (9.0-44.0); LYMPHOCYTE # 1.2 TH/MM3 (1.0-4.8); MEAN CELL VOLUME 86.7 FL (80.0-100.0); MEAN CORPUSCULAR HEMOGLOBIN 30.5 PG (27.0-34.0); MEAN CORPUSCULAR HGB CONC 35.1 % (32.0-36.0); MEAN PLATELET VOLUME 7.7 FL (7.0-11.0); MONO % 9.9 % (0.0-8.0); MONOCYTE # 0.8 TH/MM3 (0-0.9); NEUT % 72.7 % (16.0-70.0); PLATELET COUNT 353 TH/MM3 (150-450); RED BLOOD COUNT 4.14 MIL/MM3 (4.50-5.90); RED CELL DISTRIBUTION WIDTH 13.1 % (11.6-17.2); WHITE BLOOD COUNT 8.6 TH/MM3 (4.0-11.0)
[2017-12-13] MEDS ORDERED: KETOROLAC TROMETHAMINE 30 MG/ML (IVP) VIAL IV PUSH ONE (22:45)
--- NOTE | 2017-12-13 23:16 | RADRPT ---
EXAM DATE/TIME: 12/13/2017 22:40 [facility] COMPARISON: No previous studies available for comparison. INDICATIONS : Left leg swelling. MEDICAL HISTORY : Diabetic. SURGICAL HISTORY : Cardiac catheterization. Left shoulder surgery. ENCOUNTER: Initial ACUITY: 1 day PAIN SCORE: 3/10 LOCATION: Left leg. TECHNIQUE: Venous ultrasound of the leg was performed from the inguinal ligament to the proximal calf. Real-jaycob e, color Doppler and spectral tracing, compression and augmentation techniques were used. FINDINGS: There is normal compressibility of the deep venous system from the inguinal region to the proximal ca lf. No echogenic clot is seen in the lumen of the common femoral, femoral, popliteal, and posterior tibial veins. There is a normal response of the venous system to proximal and distal augmentation an d respiration. There are left inguinal lymph nodes measuring up to 1.9 x 1.3 x 5.7 cm. CONCLUSION: No venous thrombosis of the left lower extremity. Wilton Cam MD on December 13, 2017 at 23:14 Board Certified Radiologist. This report was verified electronically.
[2017-12-14] MEDS ORDERED: SODIUM CHLOR 0.9% 1000 ML INJ 1,000 ML IV ONE (01:00)
[2017-12-14] MEDS ORDERED: ACETAMINOPHEN 325 MG TAB PO ONE (01:00)
[2017-12-14 01:30] VITALS: BP 120/72; PULSE 112; RESP 18; O2SAT 99
[2017-12-14 03:54] LABS: TROPONIN I LESS THAN 0.02 NG/ML (0.02-0.05)
--- NOTE | 2017-12-14 05:36 | PD ---
Physical Exam Date Seen by Provider: Dec 14, 2017 Time Seen by Provider: 00:30 Narrative Patient's ultrasound was negative for a clot in his leg patient's troponin is negative and she is sleeping there is no abnormalities in his labs to make it need for any further workup he is afebrile he is safe to discharge for close follow-up as an outpatient for his doctor with his sarcoidosis and his leg no indication that there is an infectious process Data Data Last Documented VS Vital Signs Date Time Temp Pulse Resp B/P (MAP) Pulse Ox O2 Delivery O2 Flow Rate FiO2 12/14/17 05:59 12/14/17 01:30 112 18 99 Room Air 12/13/17 21:02 100.7 Orders Orders Iv Access Insert/Monitor (12/13/17 21:22) Basic Metabolic Panel (Bmp) (12/13/17 21:22) Coag Profile (12/13/17 21:22) Us Leg Venous Doppler (12/13/17 ) Complete Blood Count With Diff (12/13/17 21:22) Sodium Chlor 0.9% 1000 Ml Inj (Ns 1000 M (12/13/17 21:30) Ketorolac Inj (Toradol Inj) (12/13/17 22:45) Sodium Chlor 0.9% 1000 Ml Inj (Ns 1000 M (12/14/17 01:00) Acetaminophen (Tylenol) (12/14/17 01:00) Troponin I (12/14/17 02:42) Troponin I (12/13/17 21:45) Ed Discharge Order (12/14/17 06:03) Labs Laboratory Tests Test 12/13/17 21:45 12/14/17 02:50 White Blood Count 8.6 TH/MM3 Red Blood Count 4.14 MIL/MM3 Hemoglobin 12.6 GM/DL Hematocrit 35.9 % Mean Corpuscular Volume 86.7 FL Mean Corpuscular Hemoglobin 30.5 PG Mean Corpuscular Hemoglobin Concent 35.1 % Red Cell Distribution Width 13.1 % Platelet Count 353 TH/MM3 Mean Platelet Volume 7.7 FL Neutrophils (%) (Auto) 72.7 % Lymphocytes (%) (Auto) 14.5 % Monocytes (%) (Auto) 9.9 % Eosinophils (%) (Auto) 2.1 % Basophils (%) (Auto) 0.8 % Neutrophils # (Auto) 6.3 TH/MM3 Lymphocytes # (Auto) 1.2 TH/MM3 Monocytes # (Auto) 0.8 TH/MM3 Eosinophils # (Auto) 0.2 TH/MM3 Basophils # (Auto) 0.1 TH/MM3 CBC Comment DIFF FINAL Differential Comment Prothrombin Time 11.2 SEC Prothromb Time International Ratio 1.1 RATIO Activated Partial Thromboplast Time 26.9 SEC Blood Urea Nitrogen 13 MG/DL Creatinine 1.41 MG/DL Random Glucose 350 MG/DL Calcium Level 8.7 MG/DL Sodium Level 134 MEQ/L Potassium Level 4.2 MEQ/L Chloride Level 99 MEQ/L Carbon Dioxide Level 27.4 MEQ/L Anion Gap 8 MEQ/L Estimat Glomerular Filtration Rate 64 ML/MIN Troponin I LESS THAN 0.02 NG/ML LESS THAN 0.02 NG/ML MDM Supervised Visit with ELIOT: Yes Diagnosis Primary Impression: Foot pain Patient Instructions: Foot Care for People with Diabetes (ED), General Instructions Condition: Stable Baldev Galicia MD Dec 14, 2017 05:36
[2017-12-14 06:08] VITALS: BP 129/76; PULSE 75; RESP 18; O2SAT 100
[2017-12-15] MEDS ORDERED: DOXY100C PO (06:01)
== END 2017-12-14 06:16 | disposition home or self-care (01) ==
LOC: NEPE 20:05
DX: M79.672 Pain in left foot (principal); R60.0 Localized edema; E11.9 Type 2 diabetes mellitus without complications; D86.9 Sarcoidosis, unspecified; I25.10 Atherosclerotic heart disease of native coronary artery without angina pectoris; M19.90 Unspecified osteoarthritis, unspecified site
CPT/HCPCS: 80048; 84484; 85025; 85610; 85730; 93971; 96361; 96374; 99284; J1885; J7030

== ENCOUNTER 2017-12-15 05:18 | Emergency (ER) | payer OTHER ==
[~2017-12-15] VITALS: Ht 188 cm; Wt 87.0 kg
[~2017-12-15 05:18] MED LIST changes: -AZIT500T2 PO; -BECL80AE3 INH; -ETHA400T PO; +FLUT1INH INH; -HYDR-3516 PO; -VENTAER INH
[2017-12-15 05:23] VITALS: BP 143/79; PULSE 117; RESP 20; TEMP 99.2; O2SAT 98
--- NOTE | 2017-12-15 05:54 | PD ---
HPI Chief Complaint: Edema Time Seen by Provider: 05:47 Travel History International Travel<30 days: No Contact w/Intl Traveler<30days: No Traveled to known affect area: No History of Present Illness HPI The patient is a 52-year-old male that has had left leg swelling for about 5 days. 4 days ago he came to the emergency department and an ultrasound showed no DVT. He does have a wound on his great toe. 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 He has never had swelling in the leg before. His right leg is unaffected. He denies any fever. He has diabetes and states he does not have any feeling in his feet and this is a sore on his left great toe developed. His primary care physician is Dr. Paz and he is followed by Dr. Paz for his diabetes. He is currently on an antibiotic but he did not bring the antibiotic with him. Review of the old records did not reveal an antibiotic. His primary care physician wrote the antibiotic. PFSH Past Medical History Arthritis: Yes Blood Disorders: No Anxiety: No Depression: No Heart Rhythm Problems: No Cancer: No Cardiac Catheterization: Yes (2009) Cardiovascular Problems: Yes (PREV CATH, + STRESS) High Cholesterol: No Chest Pain: Yes Congestive Heart Failure: No Diabetes: Yes Patient Takes Glucophage: Yes Diminished Hearing: No Endocrine: Yes Gastrointestinal Disorders: No Genitourinary: No Hepatitis: No Hiatal Hernia: No Hypertension: No Immune Disorder: Yes (PT THINKS HE MIGHT HAVE RA, NOT SURE) Implanted Vascular Access Dvce: No Medical other: No Musculoskeletal: Yes Neurologic: No Psychiatric: No Reproductive: No Immunizations Current: Yes Myocardial Infarction: No Thyroid Disease: No Tetanus Vaccination: < 5 Years Influenza Vaccination: Yes Past Surgical History Abdominal Surgery: No AICD: No Body Medical Devices: NONE Cardiac Surgery: Yes (CARDIAC CATH 08/2012) Coronary Artery Bypass Graft: No Ear Surgery: No Endocrine Surgery: No Eye Surgery: No Genitourinary Surgery: No Joint Replacement: No Neurologic Surgery: No Oral Surgery: No Pacemaker: No Thoracic Surgery: No Other Surgery: Yes (shoulder/heart cath) Social History Alcohol Use: No (LAST DRINK NOV 11 2017) Tobacco Use: No Substance Use: No Allergies-Medications (Allergen,Severity, Reaction): Coded Allergies: sulfamethoxazole (Verified Allergy, Severe, Swelling, 12/15/17) trimethoprim (Verified Allergy, Severe, Swelling, 12/15/17) Reported Meds & Prescriptions Reported Meds & Active Scripts Active Doxycycline Hyclate 100 Mg Cap 100 Mg PO BID Proventil Hfa 6.7 GM Inh (Albuterol Sulfate) 90 Mcg/Act Aer 2 Puff INH Q4-6H PRN Silvadene Topical (Silver Sulfadiazine) 1 % Cream 1 Applic TOPICAL DIRECTED [guaiFEN-COD 200-20 MG/10ML LIQ] 10 ML Syrp 10 Ml PO Q6H PRN Prednisone 20 Mg Tab 20 Mg PO BID Take 20mg twice a day for 1 week, Then go back to 20mg once daily. Reported Breo Ellipta Inh (Fluticasone/Vilanterol) 100-25 Mcg/Act Inh 1 Puff INH DAILY Use daily at the same time. Metformin (Metformin HCl) 1,000 Mg Tab 1,000 Mg PO DAILY With a meal Albuterol Neb (Albuterol Sulfate) 1.25 Mg/3 Ml Neb 1,000 Mg NEB TID NEB PRN Review of Systems Except as stated in HPI: all other systems reviewed are Neg Physical Exam Narrative GENERAL: Well-nourished, well-developed patient in slight apparent distress with his left leg discomfort. His vital signs show pulse of 117 and blood pressure 143/79 but are otherwise normal. SKIN: Focused skin assessment warm/dry. There is a 2 cm diameter ulcer on the great toe. This appears to be healing slowly. There is no red streak or cellulitis developing from the sore. HEAD: Normocephalic. EYES: No scleral icterus. No injection or drainage. NECK: Supple, trachea midline. No JVD or lymphadenopathy. CARDIOVASCULAR: Regular rate and rhythm without murmurs, gallops, or rubs. RESPIRATORY: Breath sounds equal bilaterally. No accessory muscle use. GASTROINTESTINAL: Abdomen soft, non-tender, nondistended. MUSCULOSKELETAL: No cyanosis, there is 2+ left lower extremity edema. BACK: Nontender without obvious deformity. No CVA tenderness. Data Data Last Documented VS Vital Signs Date Time Temp Pulse Resp B/P (MAP) Pulse Ox O2 Delivery O2 Flow Rate FiO2 12/15/17 05:23 99.2 117 20 143/79 (100) 98 Orders Orders Doxycycline (Vibramycin) (12/15/17 06:00) [facility] Medical Decision Making Medical Screen Exam Complete: Yes Emergency Medical Condition: Yes Medical Record Reviewed: Yes Differential Diagnosis Nonhealing ulcer great toe, DVT-unlikely, edema from inability to elevate properly, venous insufficiency Narrative Course The patient certainly is not elevating his left leg properly. He will be given a 7 day work excuse so that he can elevate his leg above his heart. He is also referred to the [place] wound care clinic and given a brochure. He is also to use JOHN stockings. He is to continue his antibiotic. Review of the old records reveals also that he was put on Bactrim DS but he became allergic to this and was switched to azithromycin. Tonight we will add doxycycline to the antibiotics. Diagnosis Primary Impression: Non-healing ulcer of foot Additional Impression: Edema of left lower extremity Additional Instructions: As we discussed, it is important to elevate the leg as much as you can. Elevation remains above the level of your heart. You will be given 7 days off so that she can do this. Also, follow-up with the wound clinic. We will also add doxycycline to be taken twice daily for 10 days. Med/Other Pt SpecificInfo: Prescription(s) given Scripts Doxycycline Hyclate (Doxycycline Hyclate) 100 Mg Cap 100 MG PO BID for Infection, #20 CAP 0 Refills Prov: Valdo Meza MD 12/15/17 Disposition: 01 DISCHARGE HOME Condition: Stable Valdo Meza MD Dec 15, 2017 05:54
[2017-12-15] MEDS ORDERED: DOXYCYCLINE HYCLATE 100 MG CAP PO ONE (06:00)
[2017-12-15] MEDS ORDERED: DOXY100C PO (06:01)
== END 2017-12-15 06:22 | disposition home or self-care (01) ==
LOC: PHED 05:18
DX: L97.529 Non-pressure chronic ulcer of other part of left foot with unspecified severity (principal); R60.0 Localized edema; E11.9 Type 2 diabetes mellitus without complications; Z79.84 Long term (current) use of oral hypoglycemic drugs; Z87.39 Personal history of other diseases of the musculoskeletal system and connective tissue; Z86.79 Personal history of other diseases of the circulatory system
CPT/HCPCS: 99283

== ENCOUNTER 2017-12-21 03:12 | Emergency (ER) | payer OTHER ==
[~2017-12-21] VITALS: Ht 188 cm; Wt 86.4 kg
[~2017-12-21 03:12] MED LIST changes: +DOXY100C PO
[2017-12-21 03:27] VITALS: BP 164/90; PULSE 104; RESP 16; TEMP 98.3; O2SAT 99
--- NOTE | 2017-12-21 04:54 | PD ---
HPI Chief Complaint: Skin Problem Time Seen by Provider: 04:49 Travel History International Travel<30 days: No Contact w/Intl Traveler<30days: No Traveled to known affect area: No History of Present Illness HPI 52-year-old male with history of diabetes presents for evaluation of left great toe wound. He has had an ulcer on the dorsal aspect of left great toe for weeks. He is currently taking doxycycline. He was seen for the first time at the wound care clinic 3 days ago where a wound culture was performed, an x-ray was performed, bandages were placed. He presents tonight because he noticed some leaking through the bandages. He denies any increased pain-reports that because of his peripheral neuropathy he has minimal sensation in his left foot. He denies any fevers or chills. He has been compliant with his doxycycline. He has an appointment with the wound care doctor in 3 days. No other complaints. PFSH Past Medical History Arthritis: Yes Blood Disorders: No Anxiety: No Depression: No Heart Rhythm Problems: No Cancer: No Cardiac Catheterization: Yes (2009) Cardiovascular Problems: Yes (PREV CATH, + STRESS) High Cholesterol: No Chest Pain: Yes Congestive Heart Failure: No Diabetes: Yes Patient Takes Glucophage: No Diminished Hearing: No Endocrine: Yes Gastrointestinal Disorders: No Genitourinary: No Hepatitis: No Hiatal Hernia: No Hypertension: No Immune Disorder: Yes (PT THINKS HE MIGHT HAVE RA, NOT SURE) Implanted Vascular Access Dvce: No Musculoskeletal: Yes Neurologic: No Psychiatric: No Reproductive: No Immunizations Current: Yes Myocardial Infarction: No Thyroid Disease: No Past Surgical History Abdominal Surgery: No AICD: No Body Medical Devices: NONE Cardiac Surgery: Yes (CARDIAC CATH 08/2012) Coronary Artery Bypass Graft: No Ear Surgery: No Endocrine Surgery: No Eye Surgery: No Genitourinary Surgery: No Joint Replacement: No Neurologic Surgery: No Oral Surgery: No Pacemaker: No Thoracic Surgery: No Other Surgery: Yes (shoulder/heart cath) Social History Alcohol Use: Yes Tobacco Use: No Substance Use: No Allergies-Medications (Allergen,Severity, Reaction): Coded Allergies: sulfamethoxazole (Verified Allergy, Severe, Swelling, 12/21/17) trimethoprim (Verified Allergy, Severe, Swelling, 12/21/17) Reported Meds & Prescriptions Reported Meds & Active Scripts Active Doxycycline Hyclate 100 Mg Cap 100 Mg PO BID Proventil Hfa 6.7 GM Inh (Albuterol Sulfate) 90 Mcg/Act Aer 2 Puff INH Q4-6H PRN Silvadene Topical (Silver Sulfadiazine) 1 % Cream 1 Applic TOPICAL DIRECTED [guaiFEN-COD 200-20 MG/10ML LIQ] 10 ML Syrp 10 Ml PO Q6H PRN Prednisone 20 Mg Tab 20 Mg PO BID Take 20mg twice a day for 1 week, Then go back to 20mg once daily. Reported Breo Ellipta Inh (Fluticasone/Vilanterol) 100-25 Mcg/Act Inh 1 Puff INH DAILY Use daily at the same time. Metformin (Metformin HCl) 1,000 Mg Tab 1,000 Mg PO DAILY With a meal Albuterol Neb (Albuterol Sulfate) 1.25 Mg/3 Ml Neb 1,000 Mg NEB TID NEB PRN Review of Systems General / Constitutional: No: Fever, Chills Skin: Positive Other (Positive for ulcer, drainage) Neurologic: Positive: Paresthesia Physical Exam Narrative GENERAL: Well-developed well-nourished male in no acute distress SKIN: Warm and dry. Examination left lower extremity reveals a 2 cm circular ulceration on the dorsum of the left great toe with no purulent drainage at this time. There was some bloody drainage on his bandage which has been removed. There is no proximal streaking or erythema. HEAD: Atraumatic. Normocephalic. EYES: Pupils equal and round. No scleral icterus. No injection or drainage. ENT: No nasal bleeding or discharge. Mucous membranes pink and moist. NECK: Trachea midline. No JVD. CARDIOVASCULAR: Regular rate and rhythm. No murmur appreciated. RESPIRATORY: No accessory muscle use. Clear to auscultation. Breath sounds equal bilaterally. MUSCULOSKELETAL: skin as noted above. Diminished sensation left foot which is chronic. NEUROLOGICAL: Awake and alert. No obvious cranial nerve deficits. Motor grossly within normal limits. Normal speech. Data Data Last Documented VS Vital Signs Date Time Temp Pulse Resp B/P (MAP) Pulse Ox O2 Delivery O2 Flow Rate FiO2 12/21/17 03:27 98.3 104 16 164/90 (114) 99 MDM Medical Decision Making Medical Screen Exam Complete: Yes Emergency Medical Condition: Yes Medical Record Reviewed: Yes Differential Diagnosis Diabetic foot ulcer, cellulitis, osteomyelitis Narrative Course The patient appears to have a chronic ulcer on the dorsal aspect of left great toe. There is no cellulitic changes. He had an x-ray 3 days ago at the wound care clinic and the results are not available at this time. He also had a wound culture performed at that time which has grown out MRSA which is sensitive to the doxycycline that he is on. At this point in time the plan is to re-bandage the ulcer and have him follow-up at the wound care clinic in 3 days as scheduled. Discussed signs and symptoms that would warrant returning to the emergency room. He is stable for discharge. Diagnosis Primary Impression: Diabetic foot ulcer Additional Instructions: Follow-up at the wound care clinic as scheduled. Elevate. Continue taking antibiotics as prescribed. Return for any acutely new or worsening symptoms such as fevers, increasing pain. Med/Other Pt SpecificInfo: Wound Care Disposition: 01 DISCHARGE HOME Condition: Stable Graham Ennis Dec 21, 2017 04:54
== END 2017-12-21 05:16 | disposition home or self-care (01) ==
LOC: NEPD 03:12
DX: E11.621 Type 2 diabetes mellitus with foot ulcer (principal); L97.529 Non-pressure chronic ulcer of other part of left foot with unspecified severity; Z79.84 Long term (current) use of oral hypoglycemic drugs
CPT/HCPCS: 99281

== ENCOUNTER 2017-12-28 21:02 | Inpatient (IN) | payer OTHER ==
[~2017-12-28] VITALS: Ht 188 cm; Wt 82.7 kg
[2017-12-28 22:40] VITALS: BP 159/87; PULSE 101; RESP 18; TEMP 99.6; O2SAT 96
[2017-12-28] MEDS ORDERED: MORPHINE SULFATE 2 MG/ML SYRINGE IV PUSH PRN (23:30)
[2017-12-28] MEDS ORDERED: NALOXONE HCL 0.4 MG/ML AMP IV PUSH PRN (23:30)
[2017-12-28] MEDS ORDERED: ONDANSETRON HCL 4 MG/2 ML VIAL IVP PRN (23:30)
[2017-12-28] MEDS ORDERED: ACETAMINOPHEN 325 MG TAB PO PRN (23:30)
--- NOTE | 2017-12-28 23:55 | HHI.HP ---
HPI Service [facility] Hospitalists Primary Care Physician Unknown Admission Diagnosis Osteomyelitis of left great toe Diagnoses: Chief Complaint: Left great toe infection Travel History International Travel<30 Days: No Contact w/Intl Traveler <30 Da: No History of Present Illness Mr. Ceja is a 52-year-old male with a past medical history significant for sarcoidosis, MRSA, and type 2 diabetes mellitus who presented to [facility] in [place] complaint of left toe infection. The patient has been transferred to [facility] under the care of the hospitalist service for treatment of toe osteomyelitis. Mr. Ceja was sent by infectious disease DrTru Britton for fever and left great toe drainage to [facility] in [place] on 12/25/17. He was diagnosed with osteomyelitis there as well as lower left leg cellulitis. IV antibiotics were initiated and surgical intervention was anticipated. Due to insurance issues, it was deemed necessary to transport him to [facility]. The patient reports severe, throbbing left foot and ankle pain secondary to infection. He reports that the IV morphine last for about 2 hours but then he is left sitting in pain until the next dose. [facility] MRI of the left foot with findings in keeping with active/acute osteomyelitis throughout the proximal and distal phalanges of the hallux. Septic arthritis IP joint hallux. Dorsal wound site above the head segment of the proximal phalanx of the hallux with soft tissue subcutaneous inflammatory tract extending to the head of the proximal phalanx of the hallux. Minimal fluid in the subcutaneous tract without definite discrete large drainable soft tissue abscess collection defined. Small nonspecific effusion first MTP. Left foot x-ray also reveals a fracture in the head of the proximal phalanx. 12/27/2017 sodium 133, potassium 4.3, BUN 14, creatinine 1.0, estimated GFR 99.6 Review of Systems Except as stated in HPI: all other systems reviewed are Neg Past Family Social History Past Medical History Sarcoidosis Type 2 diabetes mellitus MRSA PAD bilateral lower extremity Diabetic peripheral neuropathy . Past Surgical History Cardiac catheterization 2011 Left shoulder surgery . Reported Medications Reported Meds & Active Scripts Active Doxycycline Hyclate 100 Mg Cap 100 Mg PO BID Proventil Hfa 6.7 GM Inh (Albuterol Sulfate) 90 Mcg/Act Aer 2 Puff INH Q4-6H PRN Silvadene Topical (Silver Sulfadiazine) 1 % Cream 1 Applic TOPICAL DIRECTED [guaiFEN-COD 200-20 MG/10ML LIQ] 10 ML Syrp 10 Ml PO Q6H PRN Prednisone 20 Mg Tab 20 Mg PO BID Take 20mg twice a day for 1 week, Then go back to 20mg once daily. Reported Breo Ellipta Inh (Fluticasone/Vilanterol) 100-25 Mcg/Act Inh 1 Puff INH DAILY Use daily at the same time. Metformin (Metformin HCl) 1,000 Mg Tab 1,000 Mg PO DAILY With a meal Albuterol Neb (Albuterol Sulfate) 1.25 Mg/3 Ml Neb 1,000 Mg NEB TID NEB PRN . Allergies: Coded Allergies: sulfamethoxazole (Verified Allergy, Severe, Swelling, 12/21/17) trimethoprim (Verified Allergy, Severe, Swelling, 12/21/17) Family History Mother with migraine headaches Father when patient was a child via drowning . Social History Tobacco: Denies-states has never smoked. Alcohol: Has had no alcohol since . Antonio's Day. Previously drank a few drinks socially per week. Illicit Drugs: Denies . Physical Exam Physical Exam GENERAL: This is a well-nourished, well-developed patient, pleasant and cooperative. SKIN: No rashes. Cool and dry. Left foot covered in dressing. Left lower extremity warm. HEAD: Atraumatic. Normocephalic. EYES: No scleral icterus. No injection or drainage. ENT: Nose without bleeding, purulent drainage. NECK: Trachea midline. No JVD. CARDIOVASCULAR: Regular rate and rhythm without murmurs, gallops, or rubs. RESPIRATORY: Clear to auscultation. Breath sounds equal bilaterally. No wheezes , rales, or rhonchi. GASTROINTESTINAL: Abdomen soft, non-tender, nondistended. No guarding. MUSCULOSKELETAL: Extremities without clubbing, cyanosis, or edema. No calf tenderness. NEUROLOGICAL: Awake and alert. Motor and sensory grossly within normal limits. Normal speech. . Laboratory MRSA on left toe culture 12/18 . Imaging As summarized from [facility] records: 12/26/17: MRI of the left foot with findings in keeping with active/acute osteomyelitis throughout the proximal and distal phalanges of the hallux. Septic arthritis IP joint hallux. Dorsal wound site above the head segment of the proximal phalanx of the hallux with soft tissue subcutaneous inflammatory tract extending to the head of the proximal phalanx of the Hallux. Minimal fluid in the subcutaneous tract without definite discrete large drainable soft tissue abscess collection defined. Small nonspecific effusion first MTP. 12/25: X-ray left foot shows minimally displaced intra-articular fracture head proximal phalanx hallux 12/26 -left lower extremity venous Doppler - no left lower extremity deep venous thrombosis. Enlarged normal-appearing left inguinal lymph node. . Caprini VTE Risk Assessment Caprini VTE Risk Assessment: Mod/High Risk (score >= 2) Caprini Risk Assessment Model Point Value = 1 Point Value = 2 Point Value = 3 Point Value = 5 Age 41-60 Minor surgery BMI > 25 kg/m2 Swollen legs Varicose veins or History of unexplained or recurrent spontaneous Oral contraceptives or hormone replacement Sepsis (< 1 month) Serious lung disease, including pneumonia (< 1 month) Abnormal pulmonary function Acute myocardial infarction Congestive heart failure (< 1 month) History of inflammatory bowel disease Medical patient at bed rest Age 61-74 Arthroscopic surgery Major open surgery (> 45 min) Laparoscopic surgery (> 45 min) Malignancy Confined to bed (> 72 hours) Immobilizing plaster cast Central venous access Age >= 75 History of VTE Family history of VTE Factor V Leiden Prothrombin [id number] Lupus anticoagulant Anticardiolipin antibodies Elevated serum homocysteine Heparin-induced thrombocytopenia Other congenital or acquired thrombophilia Stroke (< 1 month) Elective arthroplasty Hip, pelvis, or leg fracture Acute spinal cord injury (< 1 month) Prophylaxis Regimen Total Risk Factor Score Risk Level Prophylaxis Regimen 0-1 Low Early ambulation 2 Moderate Order ONE of the following: *Sequential Compression Device (SCD) *Heparin 5000 units SQ BID 3-4 Higher Order ONE of the following medications: *Heparin 5000 units SQ TID *Enoxaparin/Lovenox 40 mg SQ daily (WT < 150 kg, CrCl > 30 mL/min) *Enoxaparin/Lovenox 30 mg SQ daily (WT < 150 kg, CrCl > 10-29 mL/min) *Enoxaparin/Lovenox 30 mg SQ BID (WT < 150 kg, CrCl > 30 mL/min) AND/OR *Sequential Compression Device (SCD) 5 or more Highest Order ONE of the following medications: *Heparin 5000 units SQ TID (Preferred with Epidurals) *Enoxaparin/Lovenox 40 mg SQ daily (WT < 150 kg, CrCl > 30 mL/min) *Enoxaparin/Lovenox 30 mg SQ daily (WT < 150 kg, CrCl > 10-29 mL/min) *Enoxaparin/Lovenox 30 mg SQ BID (WT < 150 kg, CrCl > 30 mL/min) AND *Sequential Compression Device (SCD) Assessment and Plan Assessment and Plan Mr. Ceja is a 52-year-old male with a past medical history significant for sarcoidosis and type 2 diabetes mellitus who presented to [facility] in [place] complaint of left toe infection. The patient has been transferred to [facility] under the care of the hospitalist service for treatment of possible toe osteomyelitis. Osteomyelitis MRSA Displaced intra-articular fracture head proximal phalanx hallux - 12/26/17: MRI of the left foot with findings in keeping with active/acute osteomyelitis throughout the proximal and distal phalanges of the hallux. Septic arthritis IP joint hallux. Dorsal wound site above the head segment of the proximal phalanx of the hallux with soft tissue subcutaneous inflammatory tract extending to the head of the proximal phalanx of the Hallux. Minimal fluid in the subcutaneous tract without definite discrete large drainable soft tissue abscess collection defined. Small nonspecific effusion first MTP. - Consult podiatry - appreciate assistance - Poorly controlled pain - change pain medication regimen to Farley 5/325 mg and 10/325 mg as needed for pain, Morphine 3 mg IV PRN breakthrough pain - Antibiotics: IV Vancomycin and Zosyn Mycobacterial skin infection Osteomyelitis MRSA 12-18-17 per culture of toe wound - consult infectious disease - appreciate assistance - patient has been following with Dr. Tasha Schilling - continue IV Vancomycin, IV Zosyn, Ethambutol, and Azithromycin based on discharge medications listed from [facility] - Placed on contact isolation Type 2 Diabetes Mellitus - Hold home metformin for now - Accu-Cheks before meals and at bedtime with low-dose NovoLog sliding scale coverage - As needed hypoglycemia protocol - Monitor trends and blood glucose readings and adjust treatments as indicated Sarcoidosis - Duonebulizers q4h PRN sob/wheezing - monitor pulse oximetry q4h DVT prophylaxis - Heparin 5000 units subq q8h . Discussed Condition With Charleen Reynolds Dec 28, 2017 23:55
[2017-12-29] MEDS: HEPARIN SODIUM - SQ 10,000 UNITS/ML VIAL SQ SCH ×4 (00:15→23:07)
[2017-12-29] MEDS: SODIUM CHLORIDE 0.9% FLUSH 10 ML FLUSH IV FLUSH SCH ×2 (00:15→20:57)
[2017-12-29 00:25] VITALS: BP 153/94; PULSE 100; RESP 18; TEMP 99.2; O2SAT 95
[2017-12-29] MEDS ORDERED: GLUCAGON 1 MG/ML VIAL OTHER PRN (00:30)
[2017-12-29] MEDS ORDERED: DEXTROSE 50% IN WATER 50 ML VIAL(D50) IV PUSH PRN (00:30)
[2017-12-29] MEDS ORDERED: Vancomycin Consult Pharmacy 1 EA OTHER SCH (01:45)
[2017-12-29] MEDS ORDERED: ACETAMINOPHEN/HYDROcodone 325 MG/5 MG TAB PO PRN (02:30)
[2017-12-29] MEDS: PIPERACIL-TAZO 3.375 GM PREMIX 50 ML IV SCH ×4 (02:53→20:57)
[2017-12-29] MEDS: ACETAMINOPHEN/HYDROcodone 325 MG/10 MG TAB PO PRN ×2 (02:53→20:56)
[2017-12-29 04:00] VITALS: BP 139/87; PULSE 93; RESP 18; TEMP 98.4; O2SAT 96
[2017-12-29] MEDS: MORPHINE SULFATE 4 MG/ML INJ IV PRN ×3 (05:30→22:56)
[2017-12-29] MEDS ORDERED: RESP: ALBUTEROL 2.5 MG/IPRATROPIUM 0.5 MG NEB (PRN) NEB (05:30)
[2017-12-29] MEDS ORDERED: VANCOMYCIN INJ 1,750 MG in SODIUM CHLORID 0.9% 500 ML INJ 500 ML IV ONE (05:45)
[2017-12-29 08:00] VITALS: BP 132/88; PULSE 92; RESP 20; TEMP 98.2; O2SAT 92
[2017-12-29] MEDS: INSULIN ASPART SUPPLEMENTAL SCALE SQ SCH ×4 (08:00→21:01)
[2017-12-29] MEDS: ETHAMBUTOL HCL 400 MG TAB PO SCH (09:00)
[2017-12-29] MEDS: AZITHROMYCIN 250 MG TAB PO SCH (09:00)
[2017-12-29 10:06] LABS: AUTOMATED NEUTROPHIL # 4.2 TH/MM3 (1.8-7.7); BASOPHIL # 0.1 TH/MM3 (0-0.2); BASOPHIL % 0.7 % (0.0-2.0); EOSINOPHIL # 0.5 TH/MM3 (0-0.4); EOSINOPHIL % 6.2 % (0.0-4.0); HEMATOCRIT 32.6 % (39.0-51.0); HEMOGLOBIN 11.5 GM/DL (13.0-17.0); LYMPH % 25.7 % (9.0-44.0); LYMPHOCYTE # 1.9 TH/MM3 (1.0-4.8); MEAN CELL VOLUME 85.9 FL (80.0-100.0); MEAN CORPUSCULAR HEMOGLOBIN 30.4 PG (27.0-34.0); MEAN CORPUSCULAR HGB CONC 35.4 % (32.0-36.0); MEAN PLATELET VOLUME 7.3 FL (7.0-11.0); MONO % 10.4 % (0.0-8.0); MONOCYTE # 0.8 TH/MM3 (0-0.9); PLATELET COUNT 492 TH/MM3 (150-450); RED BLOOD COUNT 3.79 MIL/MM3 (4.50-5.90); RED CELL DISTRIBUTION WIDTH 12.8 % (11.6-17.2); WHITE BLOOD COUNT 7.4 TH/MM3 (4.0-11.0)
[2017-12-29 10:14] LABS: BICARBONATE 26.7 MEQ/L (21.0-32.0); CALCIUM 8.5 MG/DL (8.5-10.1); CREATININE 0.97 MG/DL (0.60-1.30)
[2017-12-29 12:00] VITALS: BP 159/99; PULSE 95; RESP 20; TEMP 98.3; O2SAT 97
--- NOTE | 2017-12-29 13:21 | HHI.PR ---
Subjective Remarks Resting comfortably in bed No event overnight Denied chest and or short of breath No fever or chills Objective Vitals Vital Signs Date Time Temp Pulse Resp B/P (MAP) Pulse Ox O2 Delivery O2 Flow Rate FiO2 12/29/17 08:00 98.2 92 20 132/88 (103) 92 12/29/17 04:00 98.4 93 18 139/87 (104) 96 12/29/17 00:25 99.2 100 18 153/94 (113) 95 12/29/17 00:00 Room Air 12/28/17 22:40 99.6 101 18 159/87 (111) 96 I/O 12/28/17 12/28/17 12/28/17 12/29/17 12/29/17 12/29/17 07:00 15:00 23:00 07:00 15:00 23:00 Intake Total 290 ml Output Total 775 ml Balance -485 ml Intake Oral 240 ml IV Total 50 ml Output Urine Total 775 ml # Bowel Movements 0 Result Diagram: 12/29/17 0857 12/29/17 0857 Objective Remarks GENERAL: This is a well-nourished, well-developed patient, in no apparent distress. SKIN: No rashes, warm and dry HEAD: Atraumatic. Normocephalic. EYES: PERRLA . No scleral icterus. ENT: No bleeding, or drainage, Airway patent. NECK: Trachea midline. Supple CARDIOVASCULAR: RRR, no gallops, or rubs. RESPIRATORY: Fair air entry bilaterally. No W, R, or R GASTROINTESTINAL: Abdomen soft, non-tender, nondistended. Positive bowel sounds MUSCULOSKELETAL: Extremities without clubbing, cyanosis, or edema. Pedal pulses appreciated, left foot in because NEUROLOGICAL: Awake and alert. Moves all extremity. Normal speech.no focal neurological deficit A/P Assessment and Plan Mr. Ceja is a 52-year-old male with a past medical history significant for sarcoidosis and type 2 diabetes mellitus who presented to [facility] in [place] complaint of left toe infection. The patient has been transferred to [facility] under the care of the hospitalist service for treatment of possible toe osteomyelitis. 12/29: Pending podiatry consult, also infectious disease consult for abx management, monitor CBC Osteomyelitis MRSA Displaced intra-articular fracture head proximal phalanx hallux - 12/26/17: MRI of the left foot with findings in keeping with active/acute osteomyelitis throughout the proximal and distal phalanges of the hallux. Septic arthritis IP joint hallux. Dorsal wound site above the head segment of the proximal phalanx of the hallux with soft tissue subcutaneous inflammatory tract extending to the head of the proximal phalanx of the Hallux. Minimal fluid in the subcutaneous tract without definite discrete large drainable soft tissue abscess collection defined. Small nonspecific effusion first MTP. - Consult podiatry - appreciate assistance - Poorly controlled pain - change pain medication regimen to Huson 5/325 mg and 10/325 mg as needed for pain, Morphine 3 mg IV PRN breakthrough pain - Antibiotics: IV Vancomycin and Zosyn Mycobacterial skin infection Osteomyelitis MRSA 12-18-17 per culture of toe wound - consult infectious disease - appreciate assistance - patient has been following with Dr. Tasha Schilling - continue IV Vancomycin, IV Zosyn, Ethambutol, and Azithromycin based on discharge medications listed from [facility] - Placed on contact isolation Type 2 Diabetes Mellitus - Hold home metformin for now - Accu-Cheks before meals and at bedtime with low-dose NovoLog sliding scale coverage - As needed hypoglycemia protocol - Monitor trends and blood glucose readings and adjust treatments as indicated Sarcoidosis - Duonebulizers q4h PRN sob/wheezing - monitor pulse oximetry q4h DVT prophylaxis - Heparin 5000 units subq q8h Michelle Colon MD Dec 29, 2017 13:21
--- NOTE | 2017-12-29 13:55 | RADRPT ---
EXAM DATE/TIME: 12/29/2017 13:12 [place] COMPARISON: FOOT LEFT COMPLETE ([id number]), November 18, 2017, 11:19. INDICATIONS : Left foot pain, open sore on 1st digit MEDICAL HISTORY : Diabetes mellitus type II. Lung Biopsy (2016) SURGICAL HISTORY : None. ENCOUNTER: Initial ACUITY: 1 month PAIN SCORE: 5/10 LOCATION: Left entire foot FINDINGS: There is fracturing of the distal aspect of the first proximal phalanx. This extends into the first i nterphalangeal joint. There is soft tissue swelling. There is chronic spurring at the plantar aponeur osis and Achilles attachment sites of the posterior calcaneus. CONCLUSION: Acute fracturing of the distal aspect of the first proximal phalanx extending into the first interpha langeal joint. Wilton Barrera MD on December 29, 2017 at 13:50 Board Certified Radiologist. This report was verified electronically.
--- NOTE | 2017-12-29 15:14 | PD.ID.CON ---
History of Present Illness Service ID Consult Requested By Charleen ISABEL Reason for Consult osteo, MRSA Primary Care Physician Unknown Diagnoses: History of Present Illness Mr. Ceja is a 52-year-old male with a past medical history significant for sarcoidosis, on high dose prednisone, and type 2 diabetes mellitus who presented to [facility] in [place] complaint of left toe infection. Mr. Ceja was sent by infectious disease Dr. Britton for fever and left great toe drainage to [facility] in [facility] on 12/25/17. He was diagnosed with osteomyelitis there as well as lower left leg cellulitis. Hewas followed byy Dr Angeles in wound care clinicc w/o improvement. He was diagnosed with MRSA IV antibiotics were initiated and surgical intervention was anticipated. Due to insurance issues, it was deemed necessary to transport him to [facility]. 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 Septic arthritis IP joint hallux. Dorsal wound site above the head segment of the proximal phalanx of the hallux with soft tissue subcutaneous inflammatory tract extending to the head of the proximal phalanx of the hallux. Minimal fluid in the subcutaneous tract without definite discrete large drainable soft tissue abscess collection defined. Small nonspecific effusion first MTP. Left foot x-ray also reveals a fracture in the head of the proximal phalanx. Pt is on vancomycin , zosyn Oven Unloader Dr Wilde is following him Review of Systems Integumentary: COMPLAINS OF: Rash Except as stated in HPI: all other systems reviewed are Neg Past Family Social History Allergies: Coded Allergies: sulfamethoxazole (Verified Allergy, Severe, Swelling, 12/21/17) trimethoprim (Verified Allergy, Severe, Swelling, 12/21/17) Past Medical History Sarcoidosis Type 2 diabetes mellitus MRSA PAD bilateral lower extremity Diabetic peripheral neuropathy . Past Surgical History Cardiac catheterization 2011 Left shoulder surgery . Active Ordered Medications Medications where reviewed in EMR Antibiotics Include: vancomycin zosyn Family History Mother with migraine headaches Father when patient was a child via drowning Social History Tobacco: Denies-states has never smoked. Alcohol: Has had no alcohol since . Antonio's Day. Previously drank a few drinks socially per week. Illicit Drugs: Denies . Physical Exam Vital Signs Vital Signs Date Time Temp Pulse Resp B/P (MAP) Pulse Ox O2 Delivery O2 Flow Rate FiO2 12/29/17 08:00 98.2 92 20 132/88 (103) 92 12/29/17 04:00 98.4 93 18 139/87 (104) 96 12/29/17 00:25 99.2 100 18 153/94 (113) 95 12/29/17 00:00 Room Air 12/28/17 22:40 99.6 101 18 159/87 (111) 96 Physical Exam CONSTITUTIONAL/GENERAL: This is an adequately nourished patient, in no apparent distress. TUBES/LINES/DRAINS: SKIN: No jaundice, rashes, Multiple large lesions with central clearing noted on scalp, face , nose and back . Skin temperature appropriate. Not diaphoretic. HEAD: Atraumatic. Normocephalic. EYES: Pupils equal and round and reactive. Extraocular motions intact. No scleral icterus. No injection or drainage. Fundi not examined. ENT: Hearing grossly normal. Nose without bleeding or purulent drainage. Throat without visible erythema, exudates, masses, or lesions. NECK: Trachea midline. Supple, nontender. No palpable thyroid enlargement or nodularity. CARDIOVASCULAR: Regular rate and rhythm without murmurs, gallops, or rubs. No JVD. Peripheral pulses symmetric. RESPIRATORY/CHEST: Symmetric, unlabored respirations. Clear to auscultation. Breath sounds equal bilaterally. No wheezes, rales, or rhonchi. GASTROINTESTINAL: Abdomen soft, non-tender, nondistended. No hepato-splenomegaly , or palpable masses. No guarding. Bowel sounds present. GENITOURINARY: Without palpable bladder distension. Eaton catheter in place. MUSCULOSKELETAL: Extremities without clubbing, cyanosis, + edema more prominent LLE L hallux witrh prominent edema, erytheam and open wound with clean excessive granulation tissue No joint tenderness or effusion noted. No calf tenderness. No mottling or clubbing. LYMPHATICS: No palpable cervical or supraclavicular adenopathy. + Ipsilateral inguinal adenopathy NEUROLOGICAL: Awake and alert. Motor and sensory grossly within normal limits. Follows commands. Cognitively sharp. Moves all extremities. PSYCHIATRIC: No obvious anxiety/depression. no apparent hallucinations or other psychotic thought process. Laboratory Laboratory Tests Test 12/29/17 08:57 White Blood Count 7.4 Red Blood Count 3.79 Hemoglobin 11.5 Hematocrit 32.6 Mean Corpuscular Volume 85.9 Mean Corpuscular Hemoglobin 30.4 Mean Corpuscular Hemoglobin Concent 35.4 Red Cell Distribution Width 12.8 Platelet Count 492 Mean Platelet Volume 7.3 Neutrophils (%) (Auto) 57.0 Lymphocytes (%) (Auto) 25.7 Monocytes (%) (Auto) 10.4 Eosinophils (%) (Auto) 6.2 Basophils (%) (Auto) 0.7 Neutrophils # (Auto) 4.2 Lymphocytes # (Auto) 1.9 Monocytes # (Auto) 0.8 Eosinophils # (Auto) 0.5 Basophils # (Auto) 0.1 CBC Comment DIFF FINAL Differential Comment Blood Urea Nitrogen 9 Creatinine 0.97 Random Glucose 150 Calcium Level 8.5 Sodium Level 136 Potassium Level 3.9 Chloride Level 102 Carbon Dioxide Level 26.7 Anion Gap 7 Estimat Glomerular Filtration Rate 99 Random Vancomycin Level 46.3 Result Diagram: 12/29/17 0857 12/29/17 0857 Assessment and Plan Assessment and Plan DFI, L hallux with osteo Fracture L hallux probably pathological 2/2 osteo Immunocompromised, on high dose Prednisone Atypical mycobacterial skin infx - will dw Dr Kilgore on Sunday Sarcoidosis cont vancomycin will dc zosyn if no e/o other organisnms Discussed Condition With Genie Correa MD Dec 29, 2017 15:14
[2017-12-29 16:00] VITALS: BP 160/88; PULSE 105; RESP 20; TEMP 98.6; O2SAT 96
--- NOTE | 2017-12-29 17:51 | PD.CONS ---
History of Present Illness Service Foot and ankle surgery/podiatry Consult Requested By Reason for Consult Left hallux osteomyelitis Primary Care Physician Unknown Diagnoses: History of Present Illness Podiatry consulted for this 62-year-old male with past medical history significant for sarcoidosis, MRSA, and diabetes type 2 for left hallux infection. Patient was by [facility] in [place] and by the wound care center. He was sent by Dr. George infectious disease for increasing fever and left great toe drainage. Patient was transported to [facility] due to insurance issues he reports severe, throbbing left foot and ankle pain secondary to infection. Per hospitalist history and physical MRI of left foot with findings in keeping with active/acute osteomyelitis throughout the proximal and distal phalanges of the hallux. Septic arthritis of the IP hallux joint. Dorsal wound site above the head segment of the proximal base of the hallux with soft tissue subcutaneous inflammation tract extending to the head of the proximal signs of the hallux. Minimal fluid in the subcutaneous tract without definite discrete large drainable and soft tissue abscess collection defined. Small nonspecific effusion first MTP. Left foot x-ray also reveals a fracture of the proximal phalanx. Review of Systems Constitutional: DENIES: Fever Endocrine: DENIES: Heat/cold intolerance Eyes: DENIES: Blurred vision Ears, nose, mouth, throat: DENIES: Tinnitus Respiratory: DENIES: Cough, Sputum production, Shortness of breath Cardiovascular: DENIES: Chest pain Gastrointestinal: DENIES: Abdominal pain Neurologic: DENIES: Abnormal gait Psychiatric: DENIES: Anxiety, Confusion Past Family Social History Allergies: Coded Allergies: sulfamethoxazole (Verified Allergy, Severe, Swelling, 12/21/17) trimethoprim (Verified Allergy, Severe, Swelling, 12/21/17) Past Medical History As per HPI Active Ordered Medications Current Medications Medications (Trade) Dose Ordered Sig/Dereck Route Start Time Stop Time Status Last Admin (NS Flush) 2 ml UNSCH PRN IV FLUSH 12/28/17 23:30 (NS Flush) 2 ml BID IV FLUSH 12/29/17 09:00 12/29/17 00:15 (Tylenol) 650 mg Q4H PRN PO 12/28/17 23:30 (Heparin Inj) 5,000 units Q8H SQ 12/29/17 00:00 12/29/17 00:15 (Narcan Inj) 0.4 mg UNSCH PRN IV PUSH 3/23/18 23:30 (D50w (Vial) Inj) 50 ml UNSCH PRN IV PUSH 12/29/17 00:30 (Glucagon Inj) 1 mg UNSCH PRN OTHER 12/29/17 00:30 (NovoLOG SUPPLEMENTAL SCALE) 1 ACHS SLIDING SCALE SQ 12/29/17 08:00 Piperacillin Sod/ Tazobactam Sod 50 ml @ 100 mls/hr Q6H IV 12/29/17 02:00 12/29/17 13:41 Pharmacy Profile Note 0 ml @ 0 mls/hr UNSCH OTHER 12/29/17 01:45 (Myambutol) 1,600 mg DAILY PO 12/29/17 09:00 (Morphine Inj) 3 mg Q3H PRN IV 12/29/17 02:45 12/29/17 13:40 ([place] 5-325 Mg) 1 tab Q4H PRN PO 12/29/17 02:30 ([place] 10-325 Mg) 1 tab Q4H PRN PO 12/29/17 02:30 12/29/17 02:53 (Zithromax) 500 mg DAILY PO 12/29/17 09:00 (Duoneb Neb) 1 ampule Q4HR NEB PRN NEB 12/29/17 05:30 Vancomycin HCl 1750 mg/Sodium Chloride 517.5 ml @ 250 mls/hr Q12H IV 12/29/17 18:00 Miscellaneous Information SPECIFIC LAB TO BE RASHAD... ONCE ONCE .XX 12/30/17 17:45 12/30/17 17:46 Physical Exam Vital Signs Vital Signs Date Time Temp Pulse Resp B/P (MAP) Pulse Ox O2 Delivery O2 Flow Rate FiO2 12/29/17 08:00 98.2 92 20 132/88 (103) 92 12/29/17 04:00 98.4 93 18 139/87 (104) 96 12/29/17 00:25 99.2 100 18 153/94 (113) 95 12/29/17 00:00 Room Air 12/28/17 22:40 99.6 101 18 159/87 (111) 96 Physical Exam GENERAL: This is a well-nourished, well-developed patient, in no apparent distress. SKIN: HEAD: Atraumatic. EYES: Pupils equal round and reactive. ENT: Airway patent. NECK: Trachea midline. RESPIRATORY: Nonlabored breathing. MUSCULOSKELETAL:. Negative Homans sign bilaterally. NEUROLOGICAL: Awake and alert. Normal speech. Lower extremity physical exam: Vascular: Dorsalis pedis 2/4, posterior tibial 2/4. Capillary refill time within normal limits to digits 5 bilateral foot. Edema present left lower extremity Neuro: Gross sensation intact to bilateral lower extremity. Pinpoint sensation decreased. No hyperalgesia noted to bilateral lower extremity Dermatology: Left hallux with bulbous appearance and associated medial and lateral ulcerations. Serous drainage noted. No purulent drainage upon compression. Associated discoloration to hallux and first metatarsophalangeal joint. Musculoskeletal: No tenderness to palpation noted. Increased laxity noted at the interphalangeal joint left hallux. Laboratory Laboratory Tests Test 12/29/17 08:57 White Blood Count 7.4 Red Blood Count 3.79 Hemoglobin 11.5 Hematocrit 32.6 Mean Corpuscular Volume 85.9 Mean Corpuscular Hemoglobin 30.4 Mean Corpuscular Hemoglobin Concent 35.4 Red Cell Distribution Width 12.8 Platelet Count 492 Mean Platelet Volume 7.3 Neutrophils (%) (Auto) 57.0 Lymphocytes (%) (Auto) 25.7 Monocytes (%) (Auto) 10.4 Eosinophils (%) (Auto) 6.2 Basophils (%) (Auto) 0.7 Neutrophils # (Auto) 4.2 Lymphocytes # (Auto) 1.9 Monocytes # (Auto) 0.8 Eosinophils # (Auto) 0.5 Basophils # (Auto) 0.1 CBC Comment DIFF FINAL Differential Comment Blood Urea Nitrogen 9 Creatinine 0.97 Random Glucose 150 Calcium Level 8.5 Sodium Level 136 Potassium Level 3.9 Chloride Level 102 Carbon Dioxide Level 26.7 Anion Gap 7 Estimat Glomerular Filtration Rate 99 Random Vancomycin Level 46.3 Result Diagram: 12/29/17 0857 12/29/17 0857 Assessment and Plan Assessment and Plan 52-year-old male with left hallux osteomyelitis Patient examined and evaluated with all questions answered Discussed with patient surgical intervention for left hallux osteomyelitis, patient agrees to left hallux amputation Will obtain consent N.p.o. after midnight Patient understands all risks benefits complications associated with procedure Will obtain proximal clearing margins as well as deep cultures To the OR tomorrow for left hallux amputation at metatarsal phalangeal joint Discussed case with infectious disease Ny Wilde DPM Dec 29, 2017 17:51
[2017-12-29] MEDS: VANCOMYCIN INJ 1,750 MG in SODIUM CHLORID 0.9% 500 ML INJ 500 ML IV SCH (18:25)
[2017-12-29 20:00] VITALS: BP 153/95; PULSE 98; RESP 20; TEMP 98; O2SAT 95
[2017-12-29] MEDS: SODIUM CHLORIDE 0.9% FLUSH 10 ML FLUSH IV FLUSH PRN ×2 (20:56→22:57)
[2017-12-29] MEDS ORDERED: SODIUM CHLORID 0.9% 500 ML IV PRN (23:15)
[2017-12-29] MEDS ORDERED: POVIDONE IODINE 5% (ANTISEPSIS KIT) 4 APPLICATIONS EACH NARE PRN (23:15)
[2017-12-29] MEDS ORDERED: LACTATED RINGER'S 1000 ML IV PRN (23:15)
[2017-12-29] MEDS ORDERED: CHLORHEXIDINE GLUCONATE 2 % 1 PACK (2 CLOTHS) TOPICAL PRN (23:15)
[2017-12-30] VITALS: BP 137/83; PULSE 100; RESP 20; TEMP 97.8; O2SAT 97
[2017-12-30] MEDS: PIPERACIL-TAZO 3.375 GM PREMIX 50 ML IV SCH ×4 (03:35→20:47)
[2017-12-30] MEDS: SODIUM CHLORIDE 0.9% FLUSH 10 ML FLUSH IV FLUSH PRN ×2 (03:36→05:07)
[2017-12-30 04:00] VITALS: BP 143/87; PULSE 94; RESP 20; TEMP 97.8; O2SAT 97
[2017-12-30] MEDS: VANCOMYCIN INJ 1,750 MG in SODIUM CHLORID 0.9% 500 ML INJ 500 ML IV SCH ×2 (04:33→18:21)
[2017-12-30] MEDS: MORPHINE SULFATE 4 MG/ML INJ IV PRN ×2 (05:07→20:45)
[2017-12-30 08:00] VITALS: BP 150/88; PULSE 99; RESP 20; TEMP 98.3; O2SAT 97
[2017-12-30] MEDS: INSULIN ASPART SUPPLEMENTAL SCALE SQ SCH ×4 (08:00→20:49)
[2017-12-30] MEDS: HEPARIN SODIUM - SQ 10,000 UNITS/ML VIAL SQ SCH ×2 (08:00→16:00)
[2017-12-30] MEDS: SODIUM CHLORIDE 0.9% FLUSH 10 ML FLUSH IV FLUSH SCH ×2 (09:16→20:47)
[2017-12-30] MEDS: ETHAMBUTOL HCL 400 MG TAB PO SCH (09:16)
[2017-12-30] MEDS: AZITHROMYCIN 250 MG TAB PO SCH (09:16)
[2017-12-30] MEDS: ACETAMINOPHEN/HYDROcodone 325 MG/10 MG TAB PO PRN ×2 (09:24→18:21)
[2017-12-30 10:08] LABS: CREATININE 1.56 MG/DL (0.60-1.30)
[2017-12-30] MEDS ORDERED: BUPIVACAINE HCL PF 0.5% 30 ML VIAL ONE (10:12)
--- NOTE | 2017-12-30 10:44 | HHI.PR ---
Subjective Remarks Patient seen bedside in preop agrees with planned surgical intervention. Objective Vital Signs Date Time Temp Pulse Resp B/P (MAP) Pulse Ox O2 Delivery O2 Flow Rate FiO2 12/30/17 04:00 97.8 94 20 143/87 (105) 97 12/30/17 00:00 Room Air 12/30/17 00:00 97.8 100 20 137/83 (101) 97 12/29/17 21:00 Room Air 12/29/17 20:00 98.0 98 20 153/95 (114) 95 12/29/17 16:00 98.6 105 20 160/88 (112) 96 12/29/17 16:00 Room Air 12/29/17 12:00 98.3 95 20 159/99 (119) 97 12/29/17 12:00 Room Air I/O 12/29/17 12/29/17 12/29/17 12/30/17 12/30/17 12/30/17 07:00 15:00 23:00 07:00 15:00 23:00 Intake Total 290 ml 0 ml 0 ml Output Total 775 ml 700 ml Balance -485 ml -700 ml 0 ml Intake Oral 240 ml 0 ml 0 ml IV Total 50 ml Output Urine Total 775 ml 700 ml # Voids 2 # Bowel Movements 0 0 1 Result Diagram: 12/29/17 0857 12/30/17 0715 Objective Remarks Dressing to left foot with strikethrough noted. Medications and IVs Current Medications Medications (Trade) Dose Ordered Sig/Dereck Route Start Time Stop Time Status Last Admin (NS Flush) 2 ml UNSCH PRN IV FLUSH 12/28/17 23:30 12/30/17 05:07 (NS Flush) 2 ml BID IV FLUSH 12/29/17 09:00 12/30/17 09:16 (Tylenol) 650 mg Q4H PRN PO 12/28/17 23:30 (Heparin Inj) 5,000 units Q8H SQ 12/29/17 00:00 12/29/17 00:15 (Narcan Inj) 0.4 mg UNSCH PRN IV PUSH 12/28/17 23:30 (D50w (Vial) Inj) 50 ml UNSCH PRN IV PUSH 12/29/17 00:30 (Glucagon Inj) 1 mg UNSCH PRN OTHER 12/29/17 00:30 (NovoLOG SUPPLEMENTAL SCALE) 1 ACHS SLIDING SCALE SQ 12/29/17 08:00 12/29/17 21:01 Piperacillin Sod/ Tazobactam Sod 50 ml @ 100 mls/hr Q6H IV 12/29/17 02:00 12/30/17 09:16 Pharmacy Profile Note 0 ml @ 0 mls/hr UNSCH OTHER 12/29/17 01:45 (Myambutol) 1,600 mg DAILY PO 12/29/17 09:00 12/30/17 09:16 (Morphine Inj) 3 mg Q3H PRN IV 12/29/17 02:45 12/30/17 05:07 ([place] 5-325 Mg) 1 tab Q4H PRN PO 12/29/17 02:30 ([place] 10-325 Mg) 1 tab Q4H PRN PO 12/29/17 02:30 12/30/17 09:24 (Zithromax) 500 mg DAILY PO 12/29/17 09:00 12/30/17 09:16 (Duoneb Neb) 1 ampule Q4HR NEB PRN NEB 12/29/17 05:30 Vancomycin HCl 1750 mg/Sodium Chloride 517.5 ml @ 250 mls/hr Q12H IV 12/29/17 18:00 12/30/17 04:33 Miscellaneous Information SPECIFIC LAB TO BE ... ONCE ONCE .XX 12/30/17 17:45 12/30/17 17:46 Lactated Ringer's 1,000 ml @ 30 mls/hr Q24H PRN IV 12/29/17 23:15 01/01/18 23:14 Sodium Chloride 500 ml @ 30 mls/hr [id number] PRN IV 12/29/17 23:15 01/01/18 23:14 (Betadine 5% Antisepsis Kit) 1 applic LIVESTOCK INSPECTOR PRN EACH NARE 12/29/17 23:15 01/01/18 23:14 (Chlorhexidine 2% Cloth) 3 pack LIVESTOCK INSPECTOR PRN TOPICAL 12/29/17 23:15 01/01/18 23:14 Assessment and Plan Assessment and Plan 52-year-old male with left hallux osteomyelitis Patient examined and evaluated with all questions answered Discussed with patient surgical intervention for left hallux osteomyelitis, patient agrees to left hallux amputation Consent signed LLE marked Patient has remained NPO Patient understands all risks benefits complications associated with procedure Will obtain proximal clearing margins as well as deep cultures To the OR today for left hallux amputation at metatarsal phalangeal joint Ny Wilde DPM Dec 30, 2017 10:44
[2017-12-30] MEDS ORDERED: Post-op Orders (for Pharmacy) XX ONE (11:45)
--- NOTE | 2017-12-30 11:48 | HHI.PR ---
Immediate Post Op Note Procedure Date: Dec 30, 2017 Pre Op Diagnosis: left hallux osteomyelitis Post Op Diagnosis: left hallux osteomyelitis Surgeon: Ny Wilde High Lead Yarder(s): None Procedure: Left first hallux amputation Findings: None Additional Information: None Complications: None Specimen(s) removed: Left hallux pathology Left foot soft tissue Left foot first metatarsal for pathology and microbiology Estimated blood loss: 10cc Anesthesia: MAC Drains: None Patient to: PACU Patient Condition: Good Ny Wilde DPM Dec 30, 2017 11:48
[2017-12-30] MEDS ORDERED: MIDAZOLAM HCL 2 MG/2 ML VIAL ONE (11:59)
[2017-12-30 12:00] VITALS: BP 156/94; PULSE 91; RESP 20; TEMP 97.9; O2SAT 96
[2017-12-30] MEDS ORDERED: PHENYLEPH/NS 1000 MCG/10 ML SYR IV ONE (12:00)
[2017-12-30] MEDS ORDERED: LIDOCAINE HCL 1% PF 5 ML SYRINGE OTHER ONE (12:00)
[2017-12-30] MEDS ORDERED: PROPOFOL 200 MG/20 ML AMP IV ONE (12:00)
--- NOTE | 2017-12-30 12:13 | MP ---
cc: Ny Wilde DPM DATE OF OPERATION: SURGEON: Ny Wilde DPM LEAF SORTER: None. PREOPERATIVE DIAGNOSIS: Left hallux osteomyelitis. POSTOPERATIVE DIAGNOSIS: Left hallux osteomyelitis. DETAILS OF PROCEDURE: Left hallux amputation. ANESTHESIA: IV sedation with local infiltrate of 0.5% Marcaine plain, 10 mL infiltrated about left foot. HEMOSTASIS: Ankle tourniquet set at 250 mmHg. ESTIMATED BLOOD LOSS: Less than 15 mL. MATERIALS: 2-0, 3-0 Prolene. INJECTABLES: None. COMPLICATIONS: None. INDICATIONS FOR PROCEDURE: The patient is a 52-year-old male who was transferred from a different hospital, secondary to insurance issues, for left hallux osteomyelitis. MRI from previous hospital in [place] showed interphalangeal joint sepsis as well as osteomyelitis and pathologic fracture to distal phalanx. The patient understands all alternatives, risks, complications, and benefits associated with procedure. He is positive for MRSA. The patient would like to proceed with hallux amputation. DESCRIPTION OF PROCEDURE: The patient was brought back to the operating room, placed on the operating room table in the supine position. IV sedation was then induced and local infiltrative 0.5% Marcaine plain was infiltrated about the left hallux. Left foot was scrubbed and prepped in the usual sterile fashion. The ankle tourniquet, which was applied prior to prepping and draping, was inflated to 250 mmHg. Attention was then directed to the left hallux, at which time a racket-shaped incision was made about the left hallux. This incision was carried down through skin to subcutaneous tissue with care to retract all vital neurovascular structure. Bovie cautery as well as a 3-0 Vicryl was utilized to ligate bleeders. Incision was taken down to bone, at which time metatarsophalangeal joint was identified. Medial and lateral collateral ligaments were transected and the hallux was disarticulated. Hallux was passed off the field for pathology. Copious irrigation was performed at this time. Left foot soft tissue was sent to microbiology. First metatarsal proximal clearing margin was sent to pathology and microbiology. Site was then again copiously irrigated. There were noted to be no bleeders and hemostasis was achieved. The site was then closed with 2-0 Prolene to skin. The patient tolerated the procedure and anesthesia well. He was transferred from the OR to PACU with vital signs stable and neurovascular status intact to digits x 4. His wound was dressed with Xeroform, 4 x 4's, cast padding, Prakash. He will continue on IV antibiotics and we will await pathology and micro results. SHANTE Hadley/BE , 11:54 AM , 12:12 PM
[2017-12-30] MEDS ORDERED: DO NOT ADM ANY ANTICOAGULANT DRUGS PRN (12:15)
--- NOTE | 2017-12-30 13:04 | HHI.PR ---
Subjective Remarks Seen earlier today going for toe amputation Creatinine jumped from 0.9-1.56 questionable IN due to Vanco Afebrile Patient little tachycardic Objective Vitals Vital Signs Date Time Temp Pulse Resp B/P (MAP) Pulse Ox O2 Delivery O2 Flow Rate FiO2 12/30/17 08:00 98.3 99 20 150/88 (108) 97 12/30/17 04:00 97.8 94 20 143/87 (105) 97 12/30/17 00:00 Room Air 12/30/17 00:00 97.8 100 20 137/83 (101) 97 12/29/17 21:00 Room Air 12/29/17 20:00 98.0 98 20 153/95 (114) 95 12/29/17 16:00 98.6 105 20 160/88 (112) 96 12/29/17 16:00 Room Air I/O 12/29/17 12/29/17 12/29/17 12/30/17 12/30/17 12/30/17 07:00 15:00 23:00 07:00 15:00 23:00 Intake Total 290 ml 0 ml 0 ml Output Total 775 ml 700 ml Balance -485 ml -700 ml 0 ml Intake Oral 240 ml 0 ml 0 ml IV Total 50 ml Output Urine Total 775 ml 700 ml # Voids 2 # Bowel Movements 0 0 1 Result Diagram: 12/29/17 0857 12/30/17 0715 Objective Remarks GENERAL: This is a well-nourished, well-developed patient, in no apparent distress. SKIN: No rashes, warm and dry HEAD: Atraumatic. Normocephalic. EYES: PERRLA . No scleral icterus. ENT: No bleeding, or drainage, Airway patent. NECK: Trachea midline. Supple CARDIOVASCULAR: RRR, no gallops, or rubs. RESPIRATORY: Fair air entry bilaterally. No W, R, or R GASTROINTESTINAL: Abdomen soft, non-tender, nondistended. Positive bowel sounds MUSCULOSKELETAL: Extremities without clubbing, cyanosis, or edema. Pedal pulses appreciated, left foot in because NEUROLOGICAL: Awake and alert. Moves all extremity. Normal speech.no focal neurological deficit A/P Assessment and Plan Mr. Ceja is a 52-year-old male with a past medical history significant for sarcoidosis and type 2 diabetes mellitus who presented to [facility] in [place] complaint of left toe infection. The patient has been transferred to [facility] under the care of the hospitalist service for treatment of possible toe osteomyelitis. 12/29: Pending podiatry consult, also infectious disease consult for abx management, monitor CBC 12/30: Appreciate podiatry consult going for amputation surgery today, appreciate ID, continue antibiotic, SUDHIR creatinine increased from 0.95-1.56, questionable vancomycin side effect , will discuss with ID possibly need to change Vanco, check urine eosinophil, renal ultrasound, spot protein urine over creatinine ratio Osteomyelitis MRSA Displaced intra-articular fracture head proximal phalanx hallux - 12/26/17: MRI of the left foot with findings in keeping with active/acute osteomyelitis throughout the proximal and distal phalanges of the hallux. Septic arthritis IP joint hallux. Dorsal wound site above the head segment of the proximal phalanx of the hallux with soft tissue subcutaneous inflammatory tract extending to the head of the proximal phalanx of the Hallux. Minimal fluid in the subcutaneous tract without definite discrete large drainable soft tissue abscess collection defined. Small nonspecific effusion first MTP. - Consult podiatry - appreciate assistance - Poorly controlled pain - change pain medication regimen to [place] 5/325 mg and 10/325 mg as needed for pain, Morphine 3 mg IV PRN breakthrough pain - Antibiotics: IV Vancomycin and Zosyn Mycobacterial skin infection Osteomyelitis MRSA 12-18-17 per culture of toe wound - consult infectious disease - appreciate assistance - patient has been following with Dr. Tasha Schilling - continue IV Vancomycin, IV Zosyn, Ethambutol, and Azithromycin based on discharge medications listed from [facility] - Placed on contact isolation Type 2 Diabetes Mellitus - Hold home metformin for now - Accu-Cheks before meals and at bedtime with low-dose NovoLog sliding scale coverage - As needed hypoglycemia protocol - Monitor trends and blood glucose readings and adjust treatments as indicated SUDHIR: Creatinine increased from 0.95-1.56 ? Vanco, IN Avoid nephrotoxin Sarcoidosis - Duonebulizers q4h PRN sob/wheezing - monitor pulse oximetry q4h DVT prophylaxis - Heparin 5000 units subq q8h Michelle Colon MD Dec 30, 2017 13:04
--- NOTE | 2017-12-30 14:16 | RADRPT ---
EXAM DATE/TIME: 12/30/2017 13:54 [facility] COMPARISON: FOOT LEFT COMPLETE ([id number]), December 29, 2017, 13:12. INDICATIONS : Post OP. Amputate first digit. MEDICAL HISTORY : None. SURGICAL HISTORY : Amputate 1st digit. ENCOUNTER: Initial ACUITY: 2 days PAIN SCORE: 0/10 LOCATION: Left 1st digit. FINDINGS: The patient is status post amputation of the first digit to the level of the first metatarsal head. C alcaneal spurs are seen at the Achilles and plantar aponeurosis attachment sites. CONCLUSION: Status post amputation of the first digit. Wilton Barrera MD on December 30, 2017 at 14:12 Board Certified Radiologist. This report was verified electronically.
[2017-12-30 16:00] VITALS: BP 159/84; PULSE 100; RESP 20; TEMP 98.3; O2SAT 97
[2017-12-30] MEDS ORDERED: PHARMACY ORDERED LAB ONE (17:45)
--- NOTE | 2017-12-30 19:27 | RADRPT ---
EXAM DATE/TIME: 12/30/2017 18:37 [facility] COMPARISON: No previous studies available for comparison. INDICATIONS : SUDHIR. MEDICAL HISTORY : Methicillin-resistant Staphylococcus aureus. Arthritis. Diabetes. Sarcoidosis. SURGICAL HISTORY : Left shoulder surgery. Cardiac catheterization. Biopsy. ENCOUNTER: Initial ACUITY: 1 day PAIN SCORE: 0/10 LOCATION: Bilateral flank MEASUREMENTS: RIGHT KIDNEY: 12.0 x 4.8 x 5.2 cm LEFT KIDNEY: 12.8 x 4.8 x 6.3 cm FINDINGS: RIGHT KIDNEY: Minimal cortical echogenicity. 1.9 cm cyst No hydronephrosis or stone. LEFT KIDNEY: Minimal cortical echogenicity. 1.5 cm cyst No hydronephrosis or stone. BLADDER: Within normal limits given the degree of distension. CONCLUSION: Mildly echogenic cortex otherwise negative Jordy Singh MD FACR on December 30, 2017 at 19:24 Board Certified Radiologist. This report was verified electronically.
[2017-12-30 20:00] VITALS: BP 137/79; PULSE 101; RESP 18; TEMP 99; O2SAT 96
[2017-12-31] VITALS: BP 145/81; PULSE 99; RESP 18; TEMP 98.7; O2SAT 95
[2017-12-31] MEDS: HEPARIN SODIUM - SQ 10,000 UNITS/ML VIAL SQ SCH ×4 (00:15→23:27)
[2017-12-31] MEDS: ACETAMINOPHEN/HYDROcodone 325 MG/10 MG TAB PO PRN ×4 (00:15→23:27)
[2017-12-31] MEDS: PIPERACIL-TAZO 3.375 GM PREMIX 50 ML IV SCH ×2 (03:14→09:32)
[2017-12-31] MEDS: MORPHINE SULFATE 4 MG/ML INJ IV PRN ×3 (03:31→20:43)
[2017-12-31 04:00] VITALS: BP 139/72; PULSE 101; RESP 18; TEMP 98.6
[2017-12-31 07:39] LABS: BICARBONATE 27.2 MEQ/L (21.0-32.0); CALCIUM 8.6 MG/DL (8.5-10.1); CREATININE 1.61 MG/DL (0.60-1.30)
[2017-12-31 08:02] VITALS: BP 148/86; PULSE 100; RESP 18; TEMP 98.9; O2SAT 96
[2017-12-31] MEDS: AZITHROMYCIN 250 MG TAB PO SCH (09:33)
[2017-12-31] MEDS: ETHAMBUTOL HCL 400 MG TAB PO SCH (09:33)
[2017-12-31] MEDS: INSULIN ASPART SUPPLEMENTAL SCALE SQ SCH ×4 (09:33→20:44)
[2017-12-31] MEDS: SODIUM CHLORIDE 0.9% FLUSH 10 ML FLUSH IV FLUSH SCH ×2 (09:34→20:42)
[2017-12-31 12:00] VITALS: BP 147/88; PULSE 105; RESP 17; TEMP 98.5; O2SAT 97
[2017-12-31] MEDS: MOXIFLOXACIN HYDROCHLORIDE 400 MG TAB PO SCH (13:26)
[2017-12-31] MEDS: DAPTOmycin INJ 500 MG in SODIUM CHLORIDE 0.9% INJ 100 ML IV SCH (13:26)
--- NOTE | 2017-12-31 14:03 | HHI.PR ---
Subjective Remarks Resting comfortably in bed No event overnight Denied chest and or short of breath No fever or chills Objective Vitals Vital Signs Date Time Temp Pulse Resp B/P (MAP) Pulse Ox O2 Delivery O2 Flow Rate FiO2 12/31/17 12:00 98.5 105 17 147/88 (107) 97 12/31/17 08:02 98.9 100 18 148/86 (106) 96 12/31/17 08:00 Room Air 12/31/17 04:00 Room Air 12/31/17 04:00 98.6 101 18 139/72 (94) 12/31/17 00:00 Room Air 12/31/17 00:00 98.7 99 18 145/81 (102) 95 12/30/17 20:00 Room Air 12/30/17 20:00 99.0 101 18 137/79 (98) 96 12/30/17 16:00 98.3 100 20 159/84 (109) 97 12/30/17 16:00 Room Air I/O 12/30/17 12/30/17 12/30/17 12/31/17 12/31/17 12/31/17 07:00 15:00 23:00 07:00 15:00 23:00 Intake Total 0 ml 600 ml 567.5 ml 50 ml Output Total 10 ml 900 ml Balance 0 ml 590 ml 567.5 ml -850 ml Intake Oral 0 ml 0 ml IV Total 150 ml 567.5 ml 50 ml Other 450 ml Output Urine Total 900 ml Estimated Blood Loss 10 ml # Voids 2 3 # Bowel Movements 1 1 Result Diagram: 12/29/17 0857 12/31/17 0506 Objective Remarks GENERAL: This is a well-nourished, well-developed patient, in no apparent distress. SKIN: No rashes, warm and dry HEAD: Atraumatic. Normocephalic. EYES: PERRLA . No scleral icterus. ENT: No bleeding, or drainage, Airway patent. NECK: Trachea midline. Supple CARDIOVASCULAR: RRR, no gallops, or rubs. RESPIRATORY: Fair air entry bilaterally. No W, R, or R GASTROINTESTINAL: Abdomen soft, non-tender, nondistended. Positive bowel sounds MUSCULOSKELETAL: Extremities without clubbing, cyanosis, or edema. Pedal pulses appreciated, left foot in gauze NEUROLOGICAL: Awake and alert. Moves all extremity. Normal speech.no focal neurological deficit A/P Assessment and Plan Mr. Ceja is a 52-year-old male with a past medical history significant for sarcoidosis and type 2 diabetes mellitus who presented to [facility] in [place] complaint of left toe infection. The patient has been transferred to [facility] under the care of the hospitalist service for treatment of possible toe osteomyelitis. 12/29: Pending podiatry consult, also infectious disease consult for abx management, monitor CBC 12/30: Appreciate podiatry consult going for amputation surgery today, appreciate ID, continue antibiotic, SUDHIR creatinine increased from 0.95-1.56, questionable vancomycin side effect , will discuss with ID possibly need to change Vanco, check urine eosinophil, renal ultrasound, spot protein urine over creatinine ratio 12/31: Appreciate ID recommendations discussed with Dr. Blackwell will change antibiotic to daptomycin, monitor kidney function and workup, BMP in a.m., labs for UA and urine eosinophils still pending Osteomyelitis MRSA Displaced intra-articular fracture head proximal phalanx hallux - 12/26/17: MRI of the left foot with findings in keeping with active/acute osteomyelitis throughout the proximal and distal phalanges of the hallux. Septic arthritis IP joint hallux. Dorsal wound site above the head segment of the proximal phalanx of the hallux with soft tissue subcutaneous inflammatory tract extending to the head of the proximal phalanx of the Hallux. Minimal fluid in the subcutaneous tract without definite discrete large drainable soft tissue abscess collection defined. Small nonspecific effusion first MTP. - Consult podiatry - appreciate assistance - Poorly controlled pain - change pain medication regimen to [place] 5/325 mg and 10/325 mg as needed for pain, Morphine 3 mg IV PRN breakthrough pain - Antibiotics: IV Vancomycin and Zosyn Mycobacterial skin infection Osteomyelitis MRSA 12-18-17 per culture of toe wound - consult infectious disease - appreciate assistance - patient has been following with Dr. Tasha Schilling - continue IV Vancomycin, IV Zosyn, Ethambutol, and Azithromycin based on discharge medications listed from [facility] - Placed on contact isolation Type 2 Diabetes Mellitus - Hold home metformin for now - Accu-Cheks before meals and at bedtime with low-dose NovoLog sliding scale coverage - As needed hypoglycemia protocol - Monitor trends and blood glucose readings and adjust treatments as indicated SUDHIR: Creatinine increased from 0.95-1.56 ? Vanco, [place] Avoid nephrotoxin Sarcoidosis - Duonebulizers q4h PRN sob/wheezing - monitor pulse oximetry q4h DVT prophylaxis - Heparin 5000 units subq q8h Michelle Colon MD Dec 31, 2017 14:03
[2017-12-31 16:02] VITALS: BP 150/88; PULSE 104; RESP 17; TEMP 98.3; O2SAT 98
--- NOTE | 2017-12-31 16:49 | HHI.IDPN ---
Subjective Subjective Remarks no c/o sp Left hallux amputation by Dr Briscoe MRSA fro m op cultures Creatinine nearly doubled Antibiotics vancomycin zosyn Allergies: Coded Allergies: sulfamethoxazole (Verified Allergy, Severe, Swelling, 12/21/17) trimethoprim (Verified Allergy, Severe, Swelling, 12/21/17) Objective . Vital Signs Date Time Temp Pulse Resp B/P (MAP) Pulse Ox O2 Delivery O2 Flow Rate FiO2 12/31/17 12:00 98.5 105 17 147/88 (107) 97 12/31/17 08:02 98.9 100 18 148/86 (106) 96 12/31/17 08:00 Room Air 12/31/17 04:00 Room Air 12/31/17 04:00 98.6 101 18 139/72 (94) 12/31/17 00:00 Room Air 12/31/17 00:00 98.7 99 18 145/81 (102) 95 12/30/17 20:00 Room Air 12/30/17 20:00 99.0 101 18 137/79 (98) 96 . Laboratory Tests Test 12/30/17 07:15 12/31/17 05:06 Creatinine 1.56 MG/DL 1.61 MG/DL Estimat Glomerular Filtration Rate 57 ML/MIN 55 ML/MIN Blood Urea Nitrogen 15 MG/DL Random Glucose 131 MG/DL Calcium Level 8.6 MG/DL Sodium Level 140 MEQ/L Potassium Level 3.7 MEQ/L Chloride Level 103 MEQ/L Carbon Dioxide Level 27.2 MEQ/L Anion Gap 10 MEQ/L Microbiology Date/Time Source Procedure Growth Status 12/30/17 11:11 Wound Foot Fungal Smear - Final NO FUNGAL ELEMENTS SEEN. Resulted 12/30/17 11:11 Wound Foot Fungal Culture Pending Resulted 12/30/17 11:11 Wound Foot Acid Fast Stain Pending Worksheet 12/30/17 11:11 Wound Foot Mycobacterial Culture Pending Worksheet 12/30/17 11:11 Wound Foot Gram Stain - Final Resulted 12/30/17 11:11 Wound Culture - Preliminary S. Aureus Mrsa Resulted 12/30/17 11:11 Wound Toe Fungal Smear - Final Resulted 12/30/17 11:11 Wound Toe Fungal Culture Pending Resulted 12/30/17 11:11 Wound Toe Acid Fast Stain Pending Received 12/30/17 11:11 Wound Toe Mycobacterial Culture Pending Received 12/30/17 11:11 Wound Toe Gram Stain - Final Resulted 12/30/17 11:11 Wound Culture - Preliminary Gram Positive Cocci Resulted Imaging Last Impressions Renal Ultrasound 12/30/17 0000 Signed Impressions: Service Date/Time: Saturday, December 30, 2017 18:37 - CONCLUSION: Mildly echogenic cortex otherwise negative Jordy Singh MD FACR Foot X-Ray 12/30/17 0000 Signed Impressions: Service Date/Time: Saturday, December 30, 2017 13:54 - CONCLUSION: Status post amputation of the first digit. Wiltno Barrera MD Physical Exam CONSTITUTIONAL/GENERAL: This is an adequately nourished patient, in no apparent distress. TUBES/LINES/DRAINS: SKIN: No jaundice, rashes, Multiple large lesions with central clearing noted on scalp, face , nose and back . Skin temperature appropriate. Not diaphoretic. CARDIOVASCULAR: Regular rate and rhythm without murmurs, gallops, or rubs. No JVD. Peripheral pulses symmetric. RESPIRATORY/CHEST: Symmetric, unlabored respirations. Clear to auscultation. Breath sounds equal bilaterally. No wheezes, rales, or rhonchi. GASTROINTESTINAL: Abdomen soft, non-tender, nondistended. No hepato-splenomegaly , or palpable masses. No guarding. Bowel sounds present. GENITOURINARY: Without palpable bladder distension. Eaton catheter in place. MUSCULOSKELETAL: Extremities without clubbing, cyanosis, L foot with dressing in place NEUROLOGICAL: Awake and alert. Motor and sensory grossly within normal limits. Follows commands. Cognitively sharp. Moves all extremities. PSYCHIATRIC: No obvious anxiety/depression. no apparent hallucinations or other psychotic thought process. 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 abx contributing change vancomycin to daprto dc zosyn DC markus, ETM start tygacyl, primaxin dw Genie Langford MD Dec 31, 2017 16:49
[2017-12-31] MEDS ORDERED: MISCELLANEOUS PHARMACY INFORMATION XX PRN (17:00)
[2017-12-31] MEDS ORDERED: TIGECYCLINE INJ 100 MG in SODIUM CHLORIDE 0.9% INJ 100 ML IV ONE (18:00)
[2017-12-31] MEDS ORDERED: VANCOMYCIN INJ 1,500 MG in SODIUM CHLORID 0.9% 500 ML INJ 500 ML IV SCH (18:00)
--- NOTE | 2017-12-31 18:05 | PD.POD ---
Subjective Podiatric Problems POD #1 Left hallux amputation with . Pt states that he is not having any pain and that the swelling in his ankle has reduced tremendously. He denies any n/v/f/h/c/sob. Past Med/Surg/Social History Past Medical History Endocrine: REPORTS HX OF: Diabetes mellitus Infectious disease: REPORTS HX OF: Chickenpox, Measles Past Surgical History Cardiovascular: REPORTS HX OF: Other cardiac surgery Musculoskeletal: REPORTS HX OF: Other musculoskeletal srg (left shoulder) Breast: DENIES HX OF: Mastectomy, bilateral, Mastectomy, left, Mastectomy, right Social History Smoking Status: Never Smoker Objective Vital Signs Vital Signs Date Time Temp Pulse Resp B/P (MAP) Pulse Ox O2 Delivery O2 Flow Rate FiO2 12/31/17 16:02 98.3 104 17 150/88 (108) 98 12/31/17 12:00 98.5 105 17 147/88 (107) 97 12/31/17 08:02 98.9 100 18 148/86 (106) 96 12/31/17 08:00 Room Air 12/31/17 04:00 Room Air 12/31/17 04:00 98.6 101 18 139/72 (94) 12/31/17 00:00 Room Air 12/31/17 00:00 98.7 99 18 145/81 (102) 95 12/30/17 20:00 Room Air 12/30/17 20:00 99.0 101 18 137/79 (98) 96 Coded Allergies: sulfamethoxazole (Verified Allergy, Severe, Swelling, 3) trimethoprim (Verified Allergy, Severe, Swelling, 12/21/17) Physical Exam Remarks KKLeft hallux amputation incision site is well coapted, all sutures are intact. No erythema, no drainage. Left calf is supple and non tender to compression. Assessment & Plan A/P 1) POD #1 left hallux amp - keep dressings clean, dry, and intact -sx cxs are pending -ok for d/c on PO abx from a podiatry pending ID recs -WBAT in surgical shoe -Follow up with 1 week after d/c Rupinder Simpson DPM Dec 31, 2017 18:05
[2017-12-31 20:00] VITALS: BP 131/76; PULSE 101; RESP 16; TEMP 98.9; O2SAT 97
[2017-12-31] MEDS: IMIPENEM/CILASTATIN INJ 500 MG in SODIUM CHLORIDE 0.9% INJ 100 ML IV SCH (20:42)
[2018-01-01] VITALS (7 sets, daily range): BP systolic 142–163; BP diastolic 82–93; PULSE 92–104; RESP 16–20; TEMP 98–98.3; O2SAT 95–98
[2018-01-01] MEDS: IMIPENEM/CILASTATIN INJ 500 MG in SODIUM CHLORIDE 0.9% INJ 100 ML IV SCH ×4 (02:24→21:09)
[2018-01-01] MEDS: MORPHINE SULFATE 4 MG/ML INJ IV PRN ×2 (02:25→08:34)
[2018-01-01] MEDS: ACETAMINOPHEN/HYDROcodone 325 MG/10 MG TAB PO PRN (06:01)
[2018-01-01 06:47] LABS: CREATININE 1.57 MG/DL (0.60-1.30)
[2018-01-01] MEDS: HEPARIN SODIUM - SQ 10,000 UNITS/ML VIAL SQ SCH ×2 (08:34→17:22)
[2018-01-01] MEDS: INSULIN ASPART SUPPLEMENTAL SCALE SQ SCH ×4 (08:34→21:00)
[2018-01-01] MEDS: TIGECYCLINE INJ 50 MG in SODIUM CHLORIDE 0.9% INJ 100 ML IV SCH ×2 (09:29→22:23)
[2018-01-01] MEDS: SODIUM CHLORIDE 0.9% FLUSH 10 ML FLUSH IV FLUSH SCH ×2 (09:29→21:09)
[2018-01-01] MEDS ORDERED: PHARMACY ORDERED LAB ONE (11:45)
[2018-01-01] MEDS: DAPTOmycin INJ 500 MG in SODIUM CHLORIDE 0.9% INJ 100 ML IV SCH (12:42)
[2018-01-01] MEDS: MOXIFLOXACIN HYDROCHLORIDE 400 MG TAB PO SCH (12:43)
--- NOTE | 2018-01-01 16:25 | RADRPT ---
EXAM DATE/TIME: 12/29/2017 00:00 [facility] COMPARISON: No previous studies available for comparison. INDICATIONS : Osteomyelitis TECHNIQUE: Five-station segmental examination of the lower extremities was performed. Pulsed-cuff waveform tracings and pressures were recorded. Ankle-brachial indices and toe-brachial indices were calculated. PRESSURES (mmHg): Brachial (arm): Right iv site Left 117 Lower Thigh: Right Left 159 Calf: Right Left 145 Ankle: Right Left 150 Toe: Right Left 105 YUDI: Right Left 1.28 TBI: Right Left 0.90 PULSED CUFF WAVEFORMS: Demonstrate normal amplitude bilaterally. CONCLUSION: Unremarkable segmental evaluation of the lower extremities. Russ Jaquez Jr., MD on January 01, 2018 at 14:24 Board Certified Radiologist. This report was verified electronically.
--- NOTE | 2018-01-01 19:01 | HHI.PR ---
Subjective Remarks Resting in bed, denied fever or chills No short of breath Objective Vitals Vital Signs Date Time Temp Pulse Resp B/P (MAP) Pulse Ox O2 Delivery O2 Flow Rate FiO2 01/01/18 08:00 Room Air 01/01/18 08:00 98.0 92 20 147/93 (111) 96 01/01/18 04:00 98.0 93 16 142/87 (105) 96 01/01/18 00:00 98.2 100 17 146/85 (105) 97 12/31/17 20:00 98.9 101 16 131/76 (94) 97 12/31/17 19:30 Room Air I/O 12/31/17 12/31/17 12/31/17 01/01/18 01/01/18 01/01/18 07:00 15:00 23:00 07:00 15:00 23:00 Intake Total 50 ml 720 ml 480 ml Output Total 900 ml 600 ml 2200 ml Balance -850 ml 120 ml -1720 ml Intake Oral 720 ml 480 ml IV Total 50 ml Output Urine Total 900 ml 600 ml 2200 ml # Bowel Movements 0 0 Result Diagram: 12/29/17 0857 01/01/18 0522 Objective Remarks GENERAL: This is a well-nourished, well-developed patient, in no apparent distress. SKIN: No rashes, warm and dry HEAD: Atraumatic. Normocephalic. EYES: PERRLA . No scleral icterus. ENT: No bleeding, or drainage, Airway patent. NECK: Trachea midline. Supple CARDIOVASCULAR: RRR, no gallops, or rubs. RESPIRATORY: Fair air entry bilaterally. No W, R, or R GASTROINTESTINAL: Abdomen soft, non-tender, nondistended. Positive bowel sounds MUSCULOSKELETAL: Extremities without clubbing, cyanosis, or edema. Pedal pulses appreciated, left foot in gauze NEUROLOGICAL: Awake and alert. Moves all extremity. Normal speech.no focal neurological deficit A/P Assessment and Plan Mr. Ceja is a 52-year-old male with a past medical history significant for sarcoidosis and type 2 diabetes mellitus who presented to [facility] in [place] complaint of left toe infection. The patient has been transferred to [facility] under the care of the hospitalist service for treatment of possible toe osteomyelitis. 12/29: Pending podiatry consult, also infectious disease consult for abx management, monitor CBC 12/30: Appreciate podiatry consult going for amputation surgery today, appreciate ID, continue antibiotic, SUDHIR creatinine increased from 0.95-1.56, questionable vancomycin side effect , will discuss with ID possibly need to change Vanco, check urine eosinophil, renal ultrasound, spot protein urine over creatinine ratio 12/31: Appreciate ID recommendations discussed with Dr. 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 Septic arthritis IP joint hallux. Dorsal wound site above the head segment of the proximal phalanx of the hallux with soft tissue subcutaneous inflammatory tract extending to the head of the proximal phalanx of the Hallux. Minimal fluid in the subcutaneous tract without definite discrete large drainable soft tissue abscess collection defined. Small nonspecific effusion first MTP. - Consult podiatry - appreciate assistance - Poorly controlled pain - change pain medication regimen to [place] 5/325 mg and 10/325 mg as needed for pain, Morphine 3 mg IV PRN breakthrough pain - Antibiotics: IV Vancomycin and Zosyn Mycobacterial skin infection Osteomyelitis MRSA 12-18-17 per culture of toe wound - consult infectious disease - appreciate assistance - patient has been following with Dr. Tasha Schilling -Status post IV Vancomycin, IV Zosyn, Ethambutol, and Azithromycin based on discharge medications listed from [facility] however patient was found to have mycobacteria FORTUITUM not sensitive to ethambutol and azithromycin, appreciate ID recommendation DC Zosyn and azithromycin and ethambutol, start Tygacil and Primaxin - Placed on contact isolation Type 2 Diabetes Mellitus - Hold home metformin for now - Accu-Cheks before meals and at bedtime with low-dose NovoLog sliding scale coverage - As needed hypoglycemia protocol - Monitor trends and blood glucose readings and adjust treatments as indicated SUDHIR: Creatinine increased from 0.95-1.56 ? Vanco, [place] Avoid nephrotoxin Sarcoidosis - Duonebulizers q4h PRN sob/wheezing - monitor pulse oximetry q4h DVT prophylaxis - Heparin 5000 units subq q8h Michelle Colon MD Jan 01, 2018 19:00
[2018-01-01 19:21] LABS: BILIRUBIN, URINE NEG (NEG); BLOOD, URINE NEG (NEG); GLUCOSE,URINE NEG (NEG); KETONE, URINE NEG (NEG); MUCUS URINE FEW /lpf (OCC); NITRITE,URINE NEG (NEG); SQUAMOUS EPITHELIAL CELL URINE <1 /hpf (0-5); URINE COLOR YELLOW (YELLW/STRAW); URINE LEUKOCYTE ESTERASE NEG (NEG)
[2018-01-01 19:27] LABS: CREATININE, RANDOM URINE 52.4 MG/DL
[2018-01-01] MEDS: ONDANSETRON HCL 4 MG/2 ML VIAL IV PUSH PRN (21:09)
[2018-01-02] MEDS: HEPARIN SODIUM - SQ 10,000 UNITS/ML VIAL SQ SCH ×3 (01:34→18:54)
[2018-01-02] MEDS: IMIPENEM/CILASTATIN INJ 500 MG in SODIUM CHLORIDE 0.9% INJ 100 ML IV SCH ×4 (01:34→22:16)
[2018-01-02 04:00] VITALS: BP 153/91; PULSE 92; RESP 18; TEMP 98.5; O2SAT 97
[2018-01-02 08:00] VITALS: BP 146/86; PULSE 88; RESP 20; TEMP 98.5; O2SAT 98
[2018-01-02] MEDS: INSULIN ASPART SUPPLEMENTAL SCALE SQ SCH ×4 (08:00→22:20)
[2018-01-02] MEDS: SODIUM CHLORIDE 0.9% FLUSH 10 ML FLUSH IV FLUSH SCH ×2 (09:26→22:20)
[2018-01-02] MEDS: TIGECYCLINE INJ 50 MG in SODIUM CHLORIDE 0.9% INJ 100 ML IV SCH ×2 (09:26→22:53)
[2018-01-02 12:00] VITALS: BP 151/91; PULSE 98; RESP 20; TEMP 98.2; O2SAT 96
--- NOTE | 2018-01-02 12:03 | PD.CONS ---
HPI Service Nephrology Consult Requested By Dr. Colon Reason for Consult Acute Kidney injury was on vancomycin Primary Care Physician Unknown History of Present Illness Patient is a 52-year-old male with a past medical history significant for sarcoidosis, MRSA, and type 2 diabetes mellitus since 2007. Patient initially present to [facility] in [place] complaint of left toe infection and diagnosed with osteomyelitis as well as lower left leg culllulitis. . Patient is now s/p Left hallux amputation with . Nephrology was consulted for elevated BUN and creatinine. Creatinine is noted to be 1.57 today down from 1.61. Patient does not have a previous history of Kidney disease and on admission creatinine was less than 1. Renal US with mildly echogenic cortex otherwise negative. Patient has been on vancomycin and elevated trough was noted. (Rima Bailey) Review of Systems Respiratory: DENIES: Sputum production, Shortness of breath Cardiovascular: DENIES: Chest pain Gastrointestinal: DENIES: Abdominal pain, Nausea, Vomiting Genitourinary: DENIES: Urinary frequency, Hematuria, Dysuria Psychiatric: DENIES: Anxiety (Rima Bailey) Past Family Social History Allergies: Coded Allergies: sulfamethoxazole (Verified Allergy, Severe, Swelling, 12/21/17) trimethoprim (Verified Allergy, Severe, Swelling, 12/21/17) Past Medical History Sarcoidosis Type 2 diabetes mellitus MRSA PAD bilateral lower extremity Diabetic peripheral neuropathy . . Past Surgical History Cardiac catheterization 2011 Left shoulder surgery Lung biopsy . Active Ordered Medications Current Medications Medications (Trade) Dose Ordered Sig/Dereck Route Start Time Stop Time Status Last Admin (NS Flush) 2 ml UNSCH PRN IV FLUSH 12/28/17 23:30 12/30/17 05:07 (NS Flush) 2 ml BID IV FLUSH 12/29/17 09:00 01/02/18 09:26 (Tylenol) 650 mg Q4H PRN PO 12/28/17 23:30 (Heparin Inj) 5,000 units Q8H SQ 12/29/17 00:00 01/02/18 09:26 (Narcan Inj) 0.4 mg UNSCH PRN IV PUSH 12/28/17 23:30 (D50w (Vial) Inj) 50 ml UNSCH PRN IV PUSH 12/29/17 00:30 (Glucagon Inj) 1 mg UNSCH PRN OTHER 12/29/17 00:30 (NovoLOG SUPPLEMENTAL SCALE) 1 ACHS SLIDING SCALE SQ 12/29/17 08:00 01/01/18 17:22 (Morphine Inj) 3 mg Q3H PRN IV 12/29/17 02:45 01/01/18 08:34 ([place] 5-325 Mg) 1 tab Q4H PRN PO 12/29/17 02:30 ([place] 10-325 Mg) 1 tab Q4H PRN PO 12/29/17 02:30 01/01/18 06:01 (Duoneb Neb) 1 ampule Q4HR NEB PRN NEB 12/29/17 05:30 Daptomycin 500 mg/ Sodium Chloride 100 ml @ 200 mls/hr Q24H IV 12/31/17 13:00 01/01/18 12:42 (Avelox) 400 mg Q24H PO 12/31/17 12:00 01/01/18 12:43 Tigecycline 50 mg/ Sodium Chloride 100 ml @ 200 mls/hr Q12H IV 01/01/18 09:00 01/02/18 09:26 Imipenem/ Cilastatin Sodium 500 mg/Sodium Chloride 100 ml @ 200 mls/hr Q6H IV 12/31/17 20:00 01/02/18 09:26 (Zofran Inj) 4 mg Q6HR PRN IV PUSH 01/01/18 20:45 01/01/18 21:09 Family History No family history of kidney disease Social History Denies tobacco or illicit drug use Lives with Quit ETOH in November (Rima Bailey) Physical Exam Vital Signs Vital Signs Date Time Temp Pulse Resp B/P (MAP) Pulse Ox O2 Delivery O2 Flow Rate FiO2 01/02/18 08:00 Room Air 01/02/18 08:00 98.5 88 20 146/86 (106) 98 01/02/18 04:00 98.5 92 18 153/91 (111) 97 01/01/18 23:15 98.3 96 18 151/91 (111) 98 01/01/18 20:00 98.1 96 18 163/86 (111) 97 01/01/18 16:00 98.2 95 20 150/82 (104) 98 01/01/18 12:00 98.2 104 20 148/83 (104) 95 Physical Exam GENERAL: alert and oriented. SKIN: Warm and dry. Dressing on left foot HEAD: Normocephalic. EYES: No scleral icterus. No injection or drainage. NECK: Supple, trachea midline. No JVD or lymphadenopathy. CARDIOVASCULAR: Regular rate and rhythm without murmurs, gallops, or rubs. RESPIRATORY: Breath sounds equal bilaterally. No accessory muscle use. Wheezing noted. GASTROINTESTINAL: Abdomen soft, non-tender, nondistended. MUSCULOSKELETAL: No cyanosis, or edema. BACK: Nontender without obvious deformity. No CVA tenderness. Laboratory Laboratory Tests Test 01/01/18 18:35 Urine Color YELLOW Urine Turbidity CLEAR Urine pH 6.0 Urine Specific [place] 1.012 Urine Protein NEG Urine Glucose (UA) NEG Urine Ketones NEG Urine Occult Blood NEG Urine Nitrite NEG Urine Bilirubin NEG Urine Urobilinogen 2.0 Urine Leukocyte Esterase NEG Urine RBC LESS THAN 1 Urine WBC 1 Urine Squamous Epithelial Cells <1 Urine Mucus FEW Microscopic Urinalysis Comment CULT NOT INDICATED Urine Eosinophils NONE SEEN Urine Random Creatinine 53 Urine Random Total Protein 20 Urine Random Sodium 114 Urine Protein/Creatinine Ratio 0.38 Date/Time Source Procedure Growth Status 12/30/17 11:11 Wound Foot Fungal Smear - Final NO FUNGAL ELEMENTS SEEN. Resulted 12/30/17 11:11 Wound Foot Fungal Culture Pending Resulted (Rima Bailey) Result Diagram: 12/29/17 0857 01/01/18 0522 Imaging Last Impressions Renal Ultrasound 12/30/17 0000 Signed Impressions: Service Date/Time: Saturday, December 30, 2017 18:37 - CONCLUSION: Mildly echogenic cortex otherwise negative Jordy Singh MD FACR Foot X-Ray 12/30/17 0000 Signed Impressions: Service Date/Time: Saturday, December 30, 2017 13:54 - CONCLUSION: Status post amputation of the first digit. Wilton Barrera MD (Rima Bailey) Assessment and Plan Problem List: (1) SUDHIR (acute kidney injury) ICD Codes: N17.9 - Acute kidney failure, unspecified Plan: Acute kidney injury with FeNa at 2.4 suggestive of ATN possible related to vancomycin toxicity Urine EOS are negative Renal US: Mildly echogenic cortex otherwise negative Creatine is mildly improving at 1.57 from 1.61 today. Baseline has been under 1. Plan Will monitor UOP and BMP Avoid nephrotoxins as possible Renal dose antibiotics. Serology ordered. (2) Diabetes mellitus ICD Codes: E11.9 - Diabetes mellitus Status: Chronic Plan: Continue to hold metformin Maintain BS between 140mg/dl to 180mg/dl (Rima Bailey) Problem List: (1) SUDHIR (acute kidney injury) ICD Codes: N17.9 - Acute kidney failure, unspecified Plan: Acute kidney injury with FeNa at 2.4 suggestive of ATN possible related to vancomycin toxicity Urine EOS are negative Renal US: Mildly echogenic cortex otherwise negative Creatine is mildly improving at 1.57 from 1.61 today. Baseline has been under 1. Plan Will monitor UOP and BMP Avoid nephrotoxins as possible Renal dose antibiotics. Serology ordered. Patient seen and examined, agree with above. The work up as above. Follow the BMP. (2) Diabetes mellitus ICD Codes: E11.9 - Diabetes mellitus Status: Chronic Plan: Continue to hold metformin Maintain BS between 140mg/dl to 180mg/dl (Esa Chou MD) Rima Bailey Jan 02, 2018 12:02 Esa Chou MD Jan 02, 2018 18:33
[2018-01-02] MEDS: MOXIFLOXACIN HYDROCHLORIDE 400 MG TAB PO SCH (13:34)
[2018-01-02] MEDS: DAPTOmycin INJ 500 MG in SODIUM CHLORIDE 0.9% INJ 100 ML IV SCH (13:34)
[2018-01-02 14:11] LABS: BICARBONATE 29.8 MEQ/L (21.0-32.0); CREATININE 1.59 MG/DL (0.60-1.30)
--- NOTE | 2018-01-02 14:40 | HHI.PR ---
Subjective Remarks Reported patient doing well No fever or chills pain is controlled still on IV antibiotic per ID Objective Vitals Vital Signs Date Time Temp Pulse Resp B/P (MAP) Pulse Ox O2 Delivery O2 Flow Rate FiO2 01/02/18 12:00 98.2 98 20 151/91 (111) 96 01/02/18 08:00 Room Air 01/02/18 08:00 98.5 88 20 146/86 (106) 98 01/02/18 04:00 98.5 92 18 153/91 (111) 97 01/01/18 23:15 98.3 96 18 151/91 (111) 98 01/01/18 20:00 98.1 96 18 163/86 (111) 97 01/01/18 16:00 98.2 95 20 150/82 (104) 98 I/O 01/01/18 01/01/18 01/01/18 01/02/18 01/02/18 01/02/18 07:00 15:00 23:00 07:00 15:00 23:00 Intake Total 480 ml 480 ml 320 ml 120 ml Output Total 2200 ml 500 ml Balance -1720 ml 480 ml -180 ml 120 ml Intake Oral 480 ml 480 ml 320 ml 120 ml Output Urine Total 2200 ml 500 ml # Voids 3 # Bowel Movements 0 1 0 Result Diagram: 12/29/17 0857 01/02/18 1330 Objective Remarks GENERAL: This is a well-nourished, well-developed patient, in no apparent distress. SKIN: No rashes, warm and dry HEAD: Atraumatic. Normocephalic. EYES: PERRLA . No scleral icterus. ENT: No bleeding, or drainage, Airway patent. NECK: Trachea midline. Supple CARDIOVASCULAR: RRR, no gallops, or rubs. RESPIRATORY: Fair air entry bilaterally. No W, R, or R GASTROINTESTINAL: Abdomen soft, non-tender, nondistended. Positive bowel sounds MUSCULOSKELETAL: Extremities without clubbing, cyanosis, or edema. Pedal pulses appreciated, left foot in gauze NEUROLOGICAL: Awake and alert. Moves all extremity. Normal speech.no focal neurological deficit A/P Assessment and Plan Mr. Ceja is a 52-year-old male with a past medical history significant for sarcoidosis and type 2 diabetes mellitus who presented to [facility] in [place] complaint of left toe infection. The patient has been transferred to [facility] under the care of the hospitalist service for treatment of possible toe osteomyelitis. Osteomyelitis MRSA Displaced intra-articular fracture head proximal phalanx hallux - MRI of the left foot with findings in keeping with active/acute osteomyelitis throughout the proximal and distal phalanges of the hallux. Septic arthritis IP joint hallux. Dorsal wound site above the head segment of the proximal phalanx of the hallux with soft tissue subcutaneous inflammatory tract extending to the head of the proximal phalanx of the Hallux. Minimal fluid in the subcutaneous tract without definite discrete large drainable soft tissue abscess collection defined. Small nonspecific effusion first MTP. - Appreciate podiatry consultation, POD #2 status post hallux amputation, continue antibiotic per ID, biopsy showed clean margin Pain management now on [place] 5/325 mg and 10/325 mg as needed for pain, Morphine 3 mg IV PRN breakthrough pain Mycobacterial skin infection Osteomyelitis MRSA 3-13-18 per culture of toe wound - consult infectious disease - appreciate assistance - patient has been following with Dr. 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 Vanco, changed to daptomycin Avoid nephrotoxin Consulted nephrology Sarcoidosis - Duonebulizers q4h PRN sob/wheezing - monitor pulse oximetry q4h DVT prophylaxis - Heparin 5000 units subq q8h Discharge Planning Pending clinical improvement, and clearance by ID and podiatry Michelle Colon MD Jan 02, 2018 14:40
[2018-01-02 16:00] VITALS: BP 156/95; PULSE 99; RESP 19; TEMP 98.3; O2SAT 97
[2018-01-02] MEDS ORDERED: BISACODYL 10 MG SUPP RECTAL PRN (17:15)
[2018-01-02] MEDS ORDERED: MAGNESIUM HYDROXIDE SUSP 30 ML CUP PO PRN (17:15)
[2018-01-02 20:00] VITALS: BP 148/74; PULSE 96; RESP 16; TEMP 97.6; O2SAT 96
[2018-01-03] VITALS: BP 156/99; PULSE 93; RESP 20; TEMP 98; O2SAT 98
[2018-01-03] MEDS: HEPARIN SODIUM - SQ 10,000 UNITS/ML VIAL SQ SCH ×4 (00:16→22:31)
[2018-01-03] MEDS: IMIPENEM/CILASTATIN INJ 500 MG in SODIUM CHLORIDE 0.9% INJ 100 ML IV SCH ×4 (03:00→22:26)
[2018-01-03 04:02] VITALS: BP 150/91; PULSE 94; RESP 20; TEMP 97.5; O2SAT 99
[2018-01-03 08:00] VITALS: BP 140/86; PULSE 96; RESP 16; TEMP 98.1; O2SAT 98
[2018-01-03] MEDS: INSULIN ASPART SUPPLEMENTAL SCALE SQ SCH ×4 (08:00→22:30)
[2018-01-03] MEDS: DOCUSATE SODIUM 50 MG/SENNA 8.6 MG TAB PO SCH (09:11)
[2018-01-03] MEDS: SODIUM CHLORIDE 0.9% FLUSH 10 ML FLUSH IV FLUSH SCH ×2 (09:11→22:29)
[2018-01-03] MEDS: TIGECYCLINE INJ 50 MG in SODIUM CHLORIDE 0.9% INJ 100 ML IV SCH ×2 (09:46→23:20)
[2018-01-03 10:07] LABS: BICARBONATE 29.7 MEQ/L (21.0-32.0); CALCIUM 9.1 MG/DL (8.5-10.1); CREATININE 1.44 MG/DL (0.60-1.30)
[2018-01-03 10:29] LABS: COMPLEMENT C3 133 MG/DL (90-180); COMPLEMENT C4 34 MG/DL (10-40)
--- NOTE | 2018-01-03 10:56 | HHI.PR ---
Subjective Remarks no complains afebrile states good hypoglycemic awareness Objective Vitals Vital Signs Date Time Temp Pulse Resp B/P (MAP) Pulse Ox O2 Delivery O2 Flow Rate FiO2 01/03/18 09:58 Room Air 01/03/18 08:00 98.1 96 16 140/86 (104) 98 01/03/18 04:02 97.5 94 20 150/91 (110) 99 01/03/18 00:00 98.0 93 20 156/99 (118) 98 01/02/18 20:00 97.6 96 16 148/74 (98) 96 01/02/18 20:00 Room Air 01/02/18 16:00 98.3 99 19 156/95 (115) 97 01/02/18 16:00 Room Air 01/02/18 12:00 98.2 98 20 151/91 (111) 96 01/02/18 12:00 Room Air I/O 01/02/18 01/02/18 01/02/18 01/03/18 01/03/18 01/03/18 07:00 15:00 23:00 07:00 15:00 23:00 Intake Total 320 ml 120 ml 120 ml 280 ml Output Total 500 ml 3 ml Balance -180 ml 120 ml 120 ml 277 ml Intake Oral 320 ml 120 ml 120 ml 280 ml Output Urine Total 500 ml 3 ml # Voids 3 # Bowel Movements 0 1 1 Result Diagram: 01/03/18 0830 Imaging Last Impressions Renal Ultrasound 12/30/17 0000 Signed Impressions: Service Date/Time: Saturday, December 30, 2017 18:37 - CONCLUSION: Mildly echogenic cortex otherwise negative Jordy Singh MD FACR Foot X-Ray 12/30/17 0000 Signed Impressions: Service Date/Time: Saturday, December 30, 2017 13:54 - CONCLUSION: Status post amputation of the first digit. Wilton Barrera MD Objective Remarks awake and alert, no distres anicteric lungs-no rales regular rhyhtm abdomen- soft, nontender left foot- post op dresing in place Procedures 12/30- left hallux amputation A/P Assessment and Plan Mr. Ceja is a 52-year-old male with a past medical history significant for sarcoidosis and type 2 diabetes mellitus who presented to [facility] in [place] complaint of left toe infection. The patient has been transferred to [facility] under the care of the hospitalist service for treatment of possible toe osteomyelitis. 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 Septic arthritis IP joint hallux. Dorsal wound site above the head segment of the proximal phalanx of the hallux with soft tissue subcutaneous inflammatory tract extending to the head of the proximal phalanx of the Hallux. Minimal fluid in the subcutaneous tract without definite discrete large drainable soft tissue abscess collection defined. Small nonspecific effusion first MTP. - - on multiple antibiotics- per ID Pain management now on [place] 5/325 mg and 10/325 mg as needed for pain, Morphine 3 mg IV PRN breakthrough pain Mycobacterial skin infection Osteomyelitis MRSA 12-18- per culture of toe wound - consult infectious disease - appreciate assistance - patient has been following with Dr. 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 and azithromycin, appreciate ID recommendation l, start Tygacil and Primaxin + Avelox - Placed on contact isolation Type 2 Diabetes Mellitus - Hold home metformin for now with elevated creatinine - Accu-Cheks before meals and at bedtime with low-dose NovoLog sliding scale coverage - As needed hypoglycemia protocol - Monitor trends and blood glucose readings and adjust treatments as indicated - check a1C- consider 70/30 vs Levemer SUDHIR:- creatinine trending down- non oliguric Avoid nephrotoxin Nephrology ff ff BMP Sarcoidosis - Duonebulizers q4h PRN sob/wheezing - monitor pulse oximetry q4h DVT prophylaxis - Heparin 5000 units subq q8h Discharge Planning Pending clinical improvement, and clearance by ID and podiatry Ralf Ontiveros MD Jan 03, 2018 10:56
--- NOTE | 2018-01-03 11:07 | HHI.NPPN ---
Subjective Renal Failure: Acute History of Present Illness Patient is a 52-year-old male with a past medical history significant for sarcoidosis, MRSA, and type 2 diabetes mellitus since 2007. Patient initially present to [facility] in [place] complaint of left toe infection and diagnosed with osteomyelitis as well as lower left leg culllulitis. . Patient is now s/p Left hallux amputation with . Nephrology was consulted for elevated BUN and creatinine. Creatinine is noted to be 1.57 today down from 1.61. Patient does not have a previous history of Kidney disease and on admission creatinine was less than 1. Renal US with mildly echogenic cortex otherwise negative. Patient has been on vancomycin and elevated trough was noted. Additional Remarks Resting comfortably. No complaints. (Rima Bailey) Review of Systems Respiratory Respiratory Remarks Denies any SOB (Rima Bailey) Cardiovascular Cardiac Remarks Denies any CP (Rima Bailey) Gastrointestinal GI Remarks Denies any abdominal pain (Rima Bailey) Objective Data Data Vital Signs Date Time Temp Pulse Resp B/P (MAP) Pulse Ox O2 Delivery O2 Flow Rate FiO2 01/03/18 09:58 Room Air 01/03/18 08:00 98.1 96 16 140/86 (104) 98 01/03/18 04:02 97.5 94 20 150/91 (110) 99 01/03/18 00:00 98.0 93 20 156/99 (118) 98 01/02/18 20:00 97.6 96 16 148/74 (98) 96 01/02/18 20:00 Room Air 01/02/18 16:00 98.3 99 19 156/95 (115) 97 01/02/18 16:00 Room Air 01/02/18 12:00 98.2 98 20 151/91 (111) 96 01/02/18 12:00 Room Air (Rima Bailey) -: 01/03/18 0830 Imaging Last Impressions Renal Ultrasound 12/30/17 0000 Signed Impressions: Service Date/Time: Saturday, December 30, 2017 18:37 - CONCLUSION: Mildly echogenic cortex otherwise negative Jordy Singh MD FACR Foot X-Ray 12/30/17 0000 Signed Impressions: Service Date/Time: Saturday, December 30, 2017 13:54 - CONCLUSION: Status post amputation of the first digit. Wilton Barrera MD (Rima Bailey) Physical Exam General Appearance: No Acute Distress, Comfortable (Rima Bailey) Eyes Eye Exam: Pupils Equal (Rima Bailey) Pulmonary Resp Exam: Clear Bilaterally, Breath Sounds Equal, No Distress (Rima Bailey) Cardiology CV Exam: Regular, Normal Sinus Rhythm (Rima Bailey) Gastrointestinal/Abdomen GI Exam: Soft, Non-Tender, Bowel Sounds Present (Rima Bailey) Genitourinary Exam: Flank Non-Tender (Rima Bailey) Integumentary Skin Exam: Clear, Warm, Lesion(s) Skin Remarks dressing on left lower extremity (Rima Bailey) Extremeties Extremities Exam: No Edema (Rima Bailey) Neurologic Neuro Exam: Alert, Awake, Oriented (Rima Bailey) Psychiatric Psych Exam: Appropriate Responses (Rima Bailey) Assessment/Plan Discussed Condition With: Patient Assessment Summary: SUDHIR/Acute Renal Failure Problem List: (1) SUDHIR (acute kidney injury) ICD Codes: N17.9 - Acute kidney failure, unspecified Plan: Acute kidney injury with FeNa at 2.4 suggestive of ATN possible related to vancomycin toxicity Urine EOS are negative Renal US: Mildly echogenic cortex otherwise negative Creatine is mildly improving at 1.44 from 1.57. Baseline has been under 1. C 3 and C 4 normal Plan Will monitor UOP and BMP Avoid nephrotoxins as possible Renal dose antibiotics. (2) Diabetes mellitus ICD Codes: E11.9 - Diabetes mellitus Status: Chronic Plan: Continue to hold metformin Maintain BS between 140mg/dl to 180mg/dl (Rima Bailey) Problem List: (1) SUDHIR (acute kidney injury) ICD Codes: N17.9 - Acute kidney failure, unspecified Plan: Acute kidney injury with FeNa at 2.4 suggestive of ATN possible related to vancomycin toxicity Urine EOS are negative Renal US: Mildly echogenic cortex otherwise negative Creatine is mildly improving at 1.44 from 1.57. Baseline has been under 1. C 3 and C 4 normal Plan Will monitor UOP and BMP Avoid nephrotoxins as possible Renal dose antibiotics. Patient seen and examined, agree with above. Creatinine is almost same. (2) Diabetes mellitus ICD Codes: E11.9 - Diabetes mellitus Status: Chronic Plan: Continue to hold metformin Maintain BS between 140mg/dl to 180mg/dl (sEa Chou MD) Rima Bailey Jan 03, 2018 11:07 Esa Chou MD Jan 03, 2018 18:00
[2018-01-03 12:00] VITALS: BP 147/84; PULSE 101; RESP 16; TEMP 98.2; O2SAT 97
[2018-01-03] MEDS: MOXIFLOXACIN HYDROCHLORIDE 400 MG TAB PO SCH (12:09)
[2018-01-03] MEDS: DAPTOmycin INJ 500 MG in SODIUM CHLORIDE 0.9% INJ 100 ML IV SCH (12:10)
--- NOTE | 2018-01-03 13:56 | HHI.IDPN ---
Subjective Subjective Remarks no c/o sp Left hallux amputation by Dr Briscoe MRSA fro m op cultures Creatinine nearly doubled Antibiotics dapto moxi/tygacyl//imipenem - for M. fortinum Allergies: Coded Allergies: sulfamethoxazole (Verified Allergy, Severe, Swelling, 12/21/17) trimethoprim (Verified Allergy, Severe, Swelling, 12/21/17) Objective . Vital Signs Date Time Temp Pulse Resp B/P (MAP) Pulse Ox O2 Delivery O2 Flow Rate FiO2 01/03/18 12:00 98.2 101 16 147/84 (105) 97 01/03/18 09:58 Room Air 01/03/18 08:00 98.1 96 16 140/86 (104) 98 01/03/18 04:02 97.5 94 20 150/91 (110) 99 01/03/18 00:00 98.0 93 20 156/99 (118) 98 01/02/18 20:00 97.6 96 16 148/74 (98) 96 01/02/18 20:00 Room Air 01/02/18 16:00 98.3 99 19 156/95 (115) 97 01/02/18 16:00 Room Air . Laboratory Tests Test 01/02/18 13:30 01/03/18 08:30 Blood Urea Nitrogen 24 MG/DL 26 MG/DL Creatinine 1.59 MG/DL 1.44 MG/DL Random Glucose 229 MG/DL 130 MG/DL Calcium Level 9.0 MG/DL 9.1 MG/DL Sodium Level 140 MEQ/L 140 MEQ/L Potassium Level 4.4 MEQ/L 4.3 MEQ/L Chloride Level 104 MEQ/L 105 MEQ/L Carbon Dioxide Level 29.8 MEQ/L 29.7 MEQ/L Anion Gap 6 MEQ/L 5 MEQ/L Estimat Glomerular Filtration Rate 56 ML/MIN 62 ML/MIN Imaging Last Impressions Renal Ultrasound 12/30/17 0000 Signed Impressions: Service Date/Time: Saturday, December 30, 2017 18:37 - CONCLUSION: Mildly echogenic cortex otherwise negative Jordy Singh MD FACR Foot X-Ray 12/30/17 0000 Signed Impressions: Service Date/Time: Saturday, December 30, 2017 13:54 - CONCLUSION: Status post amputation of the first digit. Wilton Barrera MD Physical Exam CONSTITUTIONAL/GENERAL: This is an adequately nourished patient, in no apparent distress. TUBES/LINES/DRAINS: SKIN: No jaundice, rashes, Multiple large lesions with central clearing noted on scalp, face , nose and back . Skin temperature appropriate. Not diaphoretic. CARDIOVASCULAR: Regular rate and rhythm without murmurs, gallops, or rubs. No JVD. Peripheral pulses symmetric. RESPIRATORY/CHEST: Symmetric, unlabored respirations. Clear to auscultation. Breath sounds equal bilaterally. No wheezes, rales, or rhonchi. GASTROINTESTINAL: Abdomen soft, non-tender, nondistended. No hepato-splenomegaly , or palpable masses. No guarding. Bowel sounds present. GENITOURINARY: Without palpable bladder distension. Eaton catheter in place. MUSCULOSKELETAL: Extremities without clubbing, cyanosis, L foot with dressing in place NEUROLOGICAL: Awake and alert. Motor and sensory grossly within normal limits. Follows commands. Cognitively sharp. Moves all extremities. PSYCHIATRIC: No obvious anxiety/depression. no apparent hallucinations or other psychotic thought process. 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 abx contributing cont daprto cont tygacyl, primaxin and moxiflox for M. fortiium those medications should be continued for months and there no oral substitues for the Rx dw dr Jame Blackwell,Genie Morin MD Jan 03, 2018 13:56
[2018-01-03 16:00] VITALS: BP 155/58; PULSE 97; RESP 16; TEMP 98.3; O2SAT 98
[2018-01-03 19:51] VITALS: BP 148/92; PULSE 92; RESP 18; TEMP 98.5; O2SAT 98
[2018-01-04 00:03] VITALS: BP 146/99; PULSE 90; RESP 16; TEMP 98.2; O2SAT 100
[2018-01-04] MEDS: IMIPENEM/CILASTATIN INJ 500 MG in SODIUM CHLORIDE 0.9% INJ 100 ML IV SCH ×4 (03:05→22:48)
[2018-01-04] MEDS: ONDANSETRON HCL 4 MG/2 ML VIAL IV PUSH PRN ×2 (04:46→09:56)
[2018-01-04 04:55] VITALS: BP 144/102; PULSE 94; RESP 16; TEMP 98.3; O2SAT 100
[2018-01-04] MEDS: INSULIN ASPART SUPPLEMENTAL SCALE SQ SCH ×4 (07:52→22:47)
[2018-01-04 08:00] VITALS: BP 147/93; PULSE 95; RESP 18; TEMP 98; O2SAT 98
[2018-01-04 08:31] LABS: BICARBONATE 26.8 MEQ/L (21.0-32.0); BLOOD UREA NITROGEN 28 MG/DL (7-18); CHLORIDE 105 MEQ/L (98-107); CREATININE 1.44 MG/DL (0.60-1.30); GLOMERULAR FILTRATION RATE 62 ML/MIN (>89); GLUCOSE,RANDOM 118 MG/DL (74-106); SODIUM (NA) 141 MEQ/L (136-145)
[2018-01-04] MEDS: HEPARIN SODIUM - SQ 10,000 UNITS/ML VIAL SQ SCH ×2 (09:29→14:27)
[2018-01-04] MEDS: DOCUSATE SODIUM 50 MG/SENNA 8.6 MG TAB PO SCH (09:29)
[2018-01-04] MEDS: SODIUM CHLORIDE 0.9% FLUSH 10 ML FLUSH IV FLUSH SCH ×2 (09:30→22:48)
[2018-01-04] MEDS: TIGECYCLINE INJ 50 MG in SODIUM CHLORIDE 0.9% INJ 100 ML IV SCH (09:31)
--- NOTE | 2018-01-04 10:10 | HHI.PR ---
Subjective Remarks complains of constant nausea, poor po + BM- formed no abdominal pain Objective Vitals Vital Signs Date Time Temp Pulse Resp B/P (MAP) Pulse Ox O2 Delivery O2 Flow Rate FiO2 01/04/18 08:00 98.0 95 18 147/93 (111) 98 01/04/18 04:55 98.3 94 16 144/102 (116) 100 01/04/18 00:03 98.2 90 16 146/99 (115) 100 01/03/18 20:00 Room Air 01/03/18 19:51 98.5 92 18 148/92 (110) 98 01/03/18 16:00 98.3 97 16 155/58 (90) 98 01/03/18 12:00 98.2 101 16 147/84 (105) 97 I/O 01/03/18 01/03/18 01/03/18 01/04/18 01/04/18 01/04/18 07:00 15:00 23:00 07:00 15:00 23:00 Intake Total 280 ml 0 ml Output Total 3 ml 1000 ml Balance 277 ml -1000 ml Intake Oral 280 ml 0 ml Output Urine Total 3 ml 1000 ml # Bowel Movements 1 0 Result Diagram: 01/04/18 0616 Imaging Last Impressions Renal Ultrasound 12/30/17 0000 Signed Impressions: Service Date/Time: Saturday, December 30, 2017 18:37 - CONCLUSION: Mildly echogenic cortex otherwise negative Jordy Singh MD FACR Foot X-Ray 12/30/17 0000 Signed Impressions: Service Date/Time: Saturday, December 30, 2017 13:54 - CONCLUSION: Status post amputation of the first digit. Wilton Barrera MD Objective Remarks awake and alert, no distress anicteric lungs-no rales regular rhythm abdomen- soft, nontender left foot- post op dressing in place Procedures 12/30- left hallux amputation A/P Assessment and Plan Mr. Ceja is a 52-year-old male with a past medical history significant for sarcoidosis and type 2 diabetes mellitus who presented to [facility] in [place] complaint of left toe infection. The patient has been transferred to [facility] under the care of the hospitalist service for treatment of possible toe osteomyelitis. Nausea- ? adverse med reactions with Poor po benign abdominal exam reviewed meds with Pharmacy- IV antibiotics- specifically Tygacil- reviewed- february be the cause continue Zofran will d/w Dr. Blackwell start IVF Osteomyelitis MRSA Displaced intra-articular fracture head proximal phalanx hallux S/P left 5th hallux amputation 01/01 - MRI of the left foot with findings in keeping with active/acute osteomyelitis throughout the proximal and distal phalanges of the hallux. Septic arthritis IP joint hallux. Dorsal wound site above the head segment of the proximal phalanx of the hallux with soft tissue subcutaneous inflammatory tract extending to the head of the proximal phalanx of the Hallux. Minimal fluid in the subcutaneous tract without definite discrete large drainable soft tissue abscess collection defined. Small nonspecific effusion first MTP. - - on multiple antibiotics- per ID Pain management now on [place] 5/325 mg and 10/325 mg as needed for pain, Morphine 3 mg IV PRN breakthrough pain- patient barely using Mycobacterial skin infection Osteomyelitis MRSA 3- per culture of toe wound - consult infectious disease - appreciate assistance - patient has been following with Dr. 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 to ethambutol and azithromycin, appreciate ID recommendation l, on Tygacil and Primaxin + Avelox - Placed on contact isolation Type 2 Diabetes Mellitus - Hold home metformin for now with elevated creatinine - Accu-Cheks before meals and at bedtime with low-dose NovoLog sliding scale coverage - As needed hypoglycemia protocol - Monitor trends and blood glucose readings and adjust treatments as indicated - check a1C pending- consider 70/30 vs Levemer SUDHIR:- creatinine trending down- non oliguric Avoid nephrotoxin Nephrology ff ff BMP-stabilizing start IVF with poor po and nausea Sarcoidosis - Duonebulizers q4h PRN sob/wheezing - monitor pulse oximetry q4h POor po - start glucerna for supplement - dietitian consult DVT prophylaxis - Heparin 5000 units subq q8h Discharge Planning Pending clinical improvement, and clearance by ID and podiatry Ralf Ontiveros MD Jan 04, 2018 10:10
[2018-01-04] MEDS: SODIUM CHLOR 0.9% 1000 ML INJ 1,000 ML IV SCH (10:25)
[2018-01-04] MEDS: amLODIPine BESYLATE 5 MG TAB PO SCH (10:25)
--- NOTE | 2018-01-04 11:02 | HHI.NPPN ---
Subjective Renal Failure: Acute History of Present Illness Patient is a 52-year-old male with a past medical history significant for sarcoidosis, MRSA, and type 2 diabetes mellitus since 2007. Patient initially present to [facility] in [place] complaint of left toe infection and diagnosed with osteomyelitis as well as lower left leg culllulitis. . Patient is now s/p Left hallux amputation with . Nephrology was consulted for elevated BUN and creatinine. Creatinine is noted to be 1.57 today down from 1.61. Patient does not have a previous history of Kidney disease and on admission creatinine was less than 1. Renal US with mildly echogenic cortex otherwise negative. Patient has been on vancomycin and elevated trough was noted. Additional Remarks Resting comfortably. Complaining of nausea (Rima Bailey) Review of Systems Respiratory Respiratory Remarks Denies any SOB (Rima Bailey) Cardiovascular Cardiac Remarks Denies any CP (Rima Bailey) Gastrointestinal Gastrointestinal: Nausea & Vomiting (Rima Bailey) Objective Data Data Vital Signs Date Time Temp Pulse Resp B/P (MAP) Pulse Ox O2 Delivery O2 Flow Rate FiO2 01/04/18 10:22 Room Air 01/04/18 08:00 98.0 95 18 147/93 (111) 98 01/04/18 04:55 98.3 94 16 144/102 (116) 100 01/04/18 00:03 98.2 90 16 146/99 (115) 100 01/03/18 20:00 Room Air 01/03/18 19:51 98.5 92 18 148/92 (110) 98 01/03/18 16:00 98.3 97 16 155/58 (90) 98 01/03/18 12:00 98.2 101 16 147/84 (105) 97 (Rima Bailey) -: 01/04/18 0616 Physical Exam General Appearance: No Acute Distress, Comfortable (Rima Bailey) Eyes Eye Exam: Pupils Equal (Rima Bailey) Pulmonary Resp Exam: Clear Bilaterally, Breath Sounds Equal, No Distress (Rima Bailey) Cardiology CV Exam: Regular, Normal Sinus Rhythm (Rima Bailey) Gastrointestinal/Abdomen GI Exam: Soft, Non-Tender, Bowel Sounds Present (Rima Bailey) Genitourinary Exam: Flank Non-Tender (Rima Bailey) Integumentary Skin Exam: Clear, Warm, Lesion(s) Skin Remarks dressing on left lower extremity (Rima Bailey) Extremeties Extremities Exam: No Edema (Rima Bailey) Neurologic Neuro Exam: Alert, Awake, Oriented (Rima Bailey) Psychiatric Psych Exam: Appropriate Responses (Rima Bailey) Assessment/Plan Discussed Condition With: Patient Assessment Summary: SUDHIR/Acute Renal Failure Problem List: (1) SUDHIR (acute kidney injury) ICD Codes: N17.9 - Acute kidney failure, unspecified Plan: Acute kidney injury with FeNa at 2.4 suggestive of ATN possible related to vancomycin toxicity Urine EOS are negative Renal US: Mildly echogenic cortex otherwise negative Creatine at 1.44. Baseline has been under 1. C 3 and C 4 normal Plan Will monitor UOP and BMP Avoid nephrotoxins as possible Renal dose antibiotics. IVF ordered for nausea and poor po intake. (2) Diabetes mellitus ICD Codes: E11.9 - Diabetes mellitus Status: Chronic Plan: Continue to hold metformin Maintain BS between 140mg/dl to 180mg/dl (Rima Bailey) Problem List: (1) SUDHIR (acute kidney injury) ICD Codes: N17.9 - Acute kidney failure, unspecified Plan: Acute kidney injury with FeNa at 2.4 suggestive of ATN possible related to vancomycin toxicity Urine EOS are negative Renal US: Mildly echogenic cortex otherwise negative Creatine at 1.44. Baseline has been under 1. C 3 and C 4 normal Plan Will monitor UOP and BMP Avoid nephrotoxins as possible Renal dose antibiotics. IVF ordered for nausea and poor PO intake. Patient seen and examined, agree with above. Creatinine is stable, if D/C, will need nephrology follow up. (2) Diabetes mellitus ICD Codes: E11.9 - Diabetes mellitus Status: Chronic Plan: Continue to hold metformin Maintain BS between 140mg/dl to 180mg/dl (Esa Chou MD) Rima Bailey Jan 04, 2018 11:02 Esa Chou MD Jan 04, 2018 16:17
[2018-01-04 12:00] VITALS: BP 159/103; PULSE 92; RESP 18; TEMP 98.3; O2SAT 98
[2018-01-04] MEDS: DAPTOmycin INJ 500 MG in SODIUM CHLORIDE 0.9% INJ 100 ML IV SCH (12:16)
[2018-01-04] MEDS: PANTOPRAZOLE SOD 40 MG DELAYED RELEASE TAB PO SCH (12:16)
[2018-01-04 16:00] VITALS: BP 157/100; PULSE 95; RESP 18; TEMP 98; O2SAT 95
[2018-01-04 16:29] LABS: HEMOGLOBIN A1C 8.9 % (4.3-6.0)
--- NOTE | 2018-01-04 17:17 | HHI.IDPN ---
Subjective Subjective Remarks no c/o sp Left hallux amputation by Dr Briscoe MRSA from op cultures Creatinine improving co severe nausea after his tygacyl was started Antibiotics dapto moxi/tygacyl//imipenem - for M. fortinum Allergies: Coded Allergies: sulfamethoxazole (Verified Allergy, Severe, Swelling, 12/21/17) trimethoprim (Verified Allergy, Severe, Swelling, 12/21/17) Objective . Vital Signs Date Time Temp Pulse Resp B/P (MAP) Pulse Ox O2 Delivery O2 Flow Rate FiO2 01/04/18 12:00 98.3 92 18 159/103 (121) 98 01/04/18 10:22 Room Air 01/04/18 08:00 98.0 95 18 147/93 (111) 98 01/04/18 04:55 98.3 94 16 144/102 (116) 100 01/04/18 00:03 98.2 90 16 146/99 (115) 100 01/03/18 20:00 Room Air 01/03/18 19:51 98.5 92 18 148/92 (110) 98 01/04/18 01/04/18 01/05/18 15:00 23:00 07:00 Intake Total 200 ml Balance 200 ml IV Total 200 ml . Laboratory Tests Test 01/03/18 08:30 01/04/18 06:16 Blood Urea Nitrogen 26 MG/DL 28 MG/DL Creatinine 1.44 MG/DL 1.44 MG/DL Random Glucose 130 MG/DL 118 MG/DL Calcium Level 9.1 MG/DL 9.0 MG/DL Sodium Level 140 MEQ/L 141 MEQ/L Potassium Level 4.3 MEQ/L 4.1 MEQ/L Chloride Level 105 MEQ/L 105 MEQ/L Carbon Dioxide Level 29.7 MEQ/L 26.8 MEQ/L Anion Gap 5 MEQ/L 9 MEQ/L Estimat Glomerular Filtration Rate 62 ML/MIN 62 ML/MIN Total Creatine Kinase 28 U/L Imaging Last Impressions Renal Ultrasound 12/30/17 0000 Signed Impressions: Service Date/Time: Saturday, December 30, 2017 18:37 - CONCLUSION: Mildly echogenic cortex otherwise negative Jordy Singh MD FACR Foot X-Ray 12/30/17 0000 Signed Impressions: Service Date/Time: Saturday, December 30, 2017 13:54 - CONCLUSION: Status post amputation of the first digit. Wilton Barrera MD Physical Exam CONSTITUTIONAL/GENERAL: This is an adequately nourished patient, in no apparent distress. TUBES/LINES/DRAINS: SKIN: No jaundice, rashes, Skin lesions appeart much dryer and less erythematous CARDIOVASCULAR: Regular rate and rhythm without murmurs, gallops, or rubs. No JVD. Peripheral pulses symmetric. RESPIRATORY/CHEST: Symmetric, unlabored respirations. Clear to auscultation. Breath sounds equal bilaterally. No wheezes, rales, or rhonchi. GASTROINTESTINAL: Abdomen soft, non-tender, nondistended. No hepato-splenomegaly , or palpable masses. No guarding. Bowel sounds present. MUSCULOSKELETAL: Extremities without clubbing, cyanosis, L foot with dressing in place NEUROLOGICAL: Awake and alert. Motor and sensory grossly within normal limits. Follows commands. Cognitively sharp. Moves all extremities. PSYCHIATRIC: No obvious anxiety/depression. no apparent hallucinations or other psychotic thought process. 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 abx contributing: improved cont daprto cont tygacyl, primaxin and moxiflox for M. fortiium those medications should be continued for months and there no oral substitues for the Rx will cut tygacyl to once- a-day dw dr Kilgore pt will need to f/u with Dr Kilgore after d/c Genie Blackwell MD Jan 04, 2018 17:17
--- NOTE | 2018-01-04 17:21 | HHI.FF ---
Infusion Therapy Location of Infusion Therapy: [facility] IV Infusion Order Patient Information Patient Weight 83.1 kg Diagnosis: Coded Allergies: sulfamethoxazole (Verified Allergy, Severe, Swelling, 12/21/17) trimethoprim (Verified Allergy, Severe, Swelling, 12/21/17) Administer Medication Daptomycin 500 mg IV q 24 hours Start Treatment: Jan 04, 2018 Stop Treatment: February 10, 2018 Administer Medication Tigecycline 50 mg IV q 24 hours Start Treatment: Jan 04, 2018 Stop Treatment: February 10, 2018 Administer Medication Primaxin 500 mg IV q 6 hours Start Treatment: Jan 04, 2018 Stop Treatment: February 10, 2018 Additional Information Venous access: PICC Line Additional Instructions [x] Peripheral flush and dressing changes per protocol [x] Implanted port and central online merchandising manager: * Implanted port: 10 ml Normal Saline followed by 5 ml Heparin 100 units/ml Heparin flush after each use and monthly to maintain. [] May leave port accessed during therapy. [] May leave peripheral site accessed for duration of therapy. [x] If patient has SOB or respiratory distress, check oxygen saturation. If less than 90% or clinical signs of respiratory distress, administer oxygen at 2 L/min. via nasal cannula and notify physician. [x] Anaphylaxis/Reaction orders: * Stop infusion. * Keep IV line open with saline flush. * Notify physician. * Monitor vital signs every 15 minutes until symptoms resolve. * Check Oxygen saturation; Oxygen at 2 L/min. via nasal cannula if less than 90% or clinical signs of respiratory distress. * Administer diphenhydramine (Benadryl) 25 mg IV STAT, (unless patient has received as pre-med). May repeat once, if necessary. * Solu-Cortef 250 mg IVP over 30-60 seconds, use 100 mg vials for each dissolution. * Epinephrine (1mg/1 ml) 0.3 mg subcutaneously or IVP now with any signs of respiratory distress. * Check with physician for new additional pre-med orders if patient is re- challenged or re-treated. [x] May remove PICC line when treatment complete, after confirming with Physician. [x] If the patient is admitted to the hospital, the ED, or transferred via [facility] , complete transfer form including medication reconciliation order sheet. Laboratory Tests Weekly Labs: CBC w/diff, Creatinine, LFT's (Hepatic function test), Serum CK Levels Genie Blackwell MD Jan 04, 2018 17:21
[2018-01-04 20:00] VITALS: BP 146/90; PULSE 100; RESP 20; TEMP 98.3; O2SAT 100
[2018-01-05] VITALS: BP 154/92; PULSE 90; RESP 20; TEMP 98.2; O2SAT 99
[2018-01-05] MEDS: SODIUM CHLOR 0.9% 1000 ML INJ 1,000 ML IV SCH ×2 (00:32→14:36)
[2018-01-05] MEDS: HEPARIN SODIUM - SQ 10,000 UNITS/ML VIAL SQ SCH ×3 (00:32→17:38)
[2018-01-05] MEDS: IMIPENEM/CILASTATIN INJ 500 MG in SODIUM CHLORIDE 0.9% INJ 100 ML IV SCH ×4 (02:00→20:52)
[2018-01-05 04:00] VITALS: BP 153/92; PULSE 87; RESP 20; TEMP 97.9; O2SAT 100
[2018-01-05 08:00] VITALS: BP 149/94; PULSE 91; RESP 18; TEMP 97.6; O2SAT 99
[2018-01-05] MEDS: INSULIN ASPART SUPPLEMENTAL SCALE SQ SCH ×4 (08:00→20:54)
[2018-01-05] MEDS: SODIUM CHLORIDE 0.9% FLUSH 10 ML FLUSH IV FLUSH SCH ×2 (09:00→20:52)
[2018-01-05] MEDS: ONDANSETRON HCL 4 MG/2 ML VIAL IV PUSH PRN (10:08)
[2018-01-05] MEDS: DOCUSATE SODIUM 50 MG/SENNA 8.6 MG TAB PO SCH (10:09)
[2018-01-05] MEDS: PANTOPRAZOLE SOD 40 MG DELAYED RELEASE TAB PO SCH (10:09)
[2018-01-05] MEDS: amLODIPine BESYLATE 5 MG TAB PO SCH (10:09)
[2018-01-05] MEDS: TIGECYCLINE INJ 50 MG in SODIUM CHLORIDE 0.9% INJ 100 ML IV SCH ×2 (10:44→10:51)
--- NOTE | 2018-01-05 11:02 | HHI.PR ---
Subjective Remarks patient non oliguric persistent nausea + BM no abdominal pain + flatus Objective Vitals Vital Signs Date Time Temp Pulse Resp B/P (MAP) Pulse Ox O2 Delivery O2 Flow Rate FiO2 01/05/18 08:00 97.6 91 18 149/94 (112) 99 01/05/18 04:00 97.9 87 20 153/92 (112) 100 01/05/18 00:00 98.2 90 20 154/92 (112) 99 01/04/18 20:00 Room Air 01/04/18 20:00 98.3 100 20 146/90 (108) 100 01/04/18 16:00 98.0 95 18 157/100 (119) 95 01/04/18 12:00 98.3 92 18 159/103 (121) 98 I/O 01/04/18 01/04/18 01/04/18 01/05/18 01/05/18 01/05/18 07:00 15:00 23:00 07:00 15:00 23:00 Intake Total 100 ml 200 ml 200 ml Output Total 1000 ml 400 ml Balance -900 ml 200 ml -200 ml Intake Oral 0 ml IV Total 100 ml 200 ml 200 ml Output Urine Total 1000 ml 400 ml # Bowel Movements 0 Result Diagram: 01/04/18 0616 Imaging Last Impressions Renal Ultrasound 12/30/17 0000 Signed Impressions: Service Date/Time: Saturday, December 30, 2017 18:37 - CONCLUSION: Mildly echogenic cortex otherwise negative Jordy Singh MD FACR Foot X-Ray 12/30/17 0000 Signed Impressions: Service Date/Time: Saturday, December 30, 2017 13:54 - CONCLUSION: Status post amputation of the first digit. Wilton Barrera MD Objective Remarks awake and alert, no distress anicteric lungs-no rales regular rhythm abdomen- soft, nontender, good bowel sounds left foot- post op dressing in place Procedures 12/30- left hallux amputation A/P Assessment and Plan Mr. Ceja is a 52-year-old male with a past medical history significant for sarcoidosis and type 2 diabetes mellitus who presented to [facility] in [place] complaint of left toe infection. The patient has been transferred to [facility] under the care of the hospitalist service for treatment of possible toe osteomyelitis. Nausea- ? adverse med - to Tygacil benign abdominal exam reviewed meds with Pharmacy- IV antibiotics- specifically Tygacil- reviewed- may be the cause continue [place] DUC Tygacil Osteomyelitis MRSA Displaced intra-articular fracture head proximal phalanx hallux S/P left 5th hallux amputation 01/01 - MRI of the left foot with findings in keeping with active/acute osteomyelitis throughout the proximal and distal phalanges of the hallux. Septic arthritis IP joint hallux. Dorsal wound site above the head segment of the proximal phalanx of the hallux with soft tissue subcutaneous inflammatory tract extending to the head of the proximal phalanx of the Hallux. Minimal fluid in the subcutaneous tract without definite discrete large drainable soft tissue abscess collection defined. Small nonspecific effusion first MTP. - - on multiple antibiotics- per ID Pain management now on [place] 5/325 mg and 10/325 mg as needed for pain, Morphine 3 mg IV PRN breakthrough pain- patient barely using Mycobacterial skin infection Osteomyelitis MRSA 3--18 per culture of toe wound - consult infectious disease - appreciate assistance - patient has been following with Dr. 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 and azithromycin, appreciate ID recommendation l, on Tygacil and Primaxin + Avelox - Placed on contact isolation Type 2 Diabetes Mellitus - Hold home metformin for now with elevated creatinine - Accu-Cheks before meals and at bedtime with low-dose NovoLog sliding scale coverage - As needed hypoglycemia protocol - Monitor trends and blood glucose readings and adjust treatments as indicated - check a1C pending- consider 70/30 vs [place] SUDHIR:- creatinine trending down- non oliguric Avoid nephrotoxin Nephrology ff ff BMP-stabilizing start IVF with poor po and nausea Sarcoidosis - Duonebulizers q4h PRN sob/wheezing - monitor pulse oximetry q4h POor po - start glucerna for supplement - dietitian consult DVT prophylaxis - Heparin 5000 units subq q8h Discharge Planning Pending clinical improvement, and clearance by ID and podiatry PICC placement- vascular consult Ralf Ontiveros MD Jan 05, 2018 11:02
--- NOTE | 2018-01-05 11:26 | HHI.NPPN ---
Subjective Renal Failure: Acute History of Present Illness Patient is a 52-year-old male with a past medical history significant for sarcoidosis, MRSA, and type 2 diabetes mellitus since 2007. Patient initially present to [facility] in [place] complaint of left toe infection and diagnosed with osteomyelitis as well as lower left leg culllulitis. . Patient is now s/p Left hallux amputation with . Nephrology was consulted for elevated BUN and creatinine. Creatinine is noted to be 1.57 today down from 1.61. Patient does not have a previous history of Kidney disease and on admission creatinine was less than 1. Renal US with mildly echogenic cortex otherwise negative. Patient has been on vancomycin and elevated trough was noted. Additional Remarks Patient is alert, no SOB, eating well. Review of Systems Respiratory Respiratory Remarks Denies any SOB Cardiovascular Cardiac Remarks Denies any CP Gastrointestinal Gastrointestinal: Nausea & Vomiting Objective Data Data Vital Signs Date Time Temp Pulse Resp B/P (MAP) Pulse Ox O2 Delivery O2 Flow Rate FiO2 01/05/18 08:00 97.6 91 18 149/94 (112) 99 01/05/18 04:00 97.9 87 20 153/92 (112) 100 01/05/18 00:00 98.2 90 20 154/92 (112) 99 01/04/18 20:00 Room Air 01/04/18 20:00 98.3 100 20 146/90 (108) 100 01/04/18 16:00 98.0 95 18 157/100 (119) 95 01/04/18 12:00 98.3 92 18 159/103 (121) 98 -: 01/04/18 0616 Physical Exam General Appearance: No Acute Distress, Comfortable Eyes Eye Exam: Pupils Equal Pulmonary Resp Exam: Clear Bilaterally, Breath Sounds Equal, No Distress Cardiology CV Exam: Regular, Normal Sinus Rhythm Gastrointestinal/Abdomen GI Exam: Soft, Non-Tender, Bowel Sounds Present Genitourinary Exam: Flank Non-Tender Integumentary Skin Exam: Clear, Warm, Lesion(s) Extremeties Extremities Exam: No Edema Neurologic Neuro Exam: Alert, Awake, Oriented Psychiatric Psych Exam: Appropriate Responses Assessment/Plan Discussed Condition With: Patient Assessment Summary: SUDHIR/Acute Renal Failure Problem List: (1) SUDHIR (acute kidney injury) ICD Codes: N17.9 - Acute kidney failure, unspecified Plan: Acute kidney injury with FeNa at 2.4 suggestive of ATN possible related to vancomycin toxicity Urine EOS are negative Renal US: Mildly echogenic cortex otherwise negative Creatine at 1.44. Baseline has been under 1. C 3 and C 4 normal Plan Will monitor UOP and BMP Avoid nephrotoxins as possible Renal dose antibiotics. Creatinine is stable, if D/C, will need nephrology follow up. Can have PICC line, as he has SUDHIR. (2) Diabetes mellitus ICD Codes: E11.9 - Diabetes mellitus Status: Chronic Plan: Continue to hold metformin Maintain BS between 140mg/dl to 180mg/dl Esa Chou MD Jan 05, 2018 11:26
[2018-01-05 12:00] VITALS: BP 155/85; PULSE 86; RESP 18; TEMP 98.5; O2SAT 99
[2018-01-05] MEDS: DAPTOmycin INJ 500 MG in SODIUM CHLORIDE 0.9% INJ 100 ML IV SCH (12:32)
[2018-01-05] MEDS: MOXIFLOXACIN HYDROCHLORIDE 400 MG TAB PO SCH (12:32)
[2018-01-05 16:10] VITALS: BP 157/87; PULSE 91; RESP 18; TEMP 97.6; O2SAT 100
[2018-01-05] MEDS ORDERED: SODIUM CHLORIDE 0.9% FLUSH 10 ML FLUSH IV FLUSH PRN (16:45)
[2018-01-05 20:00] VITALS: BP 150/91; PULSE 95; RESP 18; TEMP 97.5; O2SAT 100
[2018-01-06] VITALS: BP 149/92; PULSE 89; RESP 19; TEMP 98; O2SAT 98
[2018-01-06] MEDS: IMIPENEM/CILASTATIN INJ 500 MG in SODIUM CHLORIDE 0.9% INJ 100 ML IV SCH ×4 (01:03→20:52)
[2018-01-06] MEDS: HEPARIN SODIUM - SQ 10,000 UNITS/ML VIAL SQ SCH ×3 (01:03→16:03)
[2018-01-06 04:00] VITALS: BP 142/93; PULSE 83; RESP 19; TEMP 97.4; O2SAT 99
[2018-01-06] MEDS: SODIUM CHLOR 0.9% 1000 ML INJ 1,000 ML IV SCH ×2 (04:16→17:36)
[2018-01-06] MEDS: INSULIN ASPART SUPPLEMENTAL SCALE SQ SCH ×4 (08:00→20:51)
[2018-01-06] MEDS: SODIUM CHLORIDE 0.9% FLUSH 10 ML FLUSH IV FLUSH SCH ×3 (08:22→20:51)
[2018-01-06] MEDS: PANTOPRAZOLE SOD 40 MG DELAYED RELEASE TAB PO SCH (08:23)
[2018-01-06] MEDS: amLODIPine BESYLATE 5 MG TAB PO SCH (08:24)
[2018-01-06] MEDS: DOCUSATE SODIUM 50 MG/SENNA 8.6 MG TAB PO SCH (08:24)
[2018-01-06 08:31] VITALS: BP 156/96; PULSE 90; RESP 20; TEMP 98.6; O2SAT 99
[2018-01-06] MEDS ORDERED: amLODIPine BESYLATE 5 MG TAB PO ONE (09:45)
[2018-01-06] MEDS ORDERED: glyBURIDE 5 MG TAB PO SCH (09:45)
--- NOTE | 2018-01-06 09:57 | HHI.PR ---
Subjective Remarks doing great no further nausea or vomiting- off tygacil good BM no pain complains wanting to go home voiding well not requiring any pain meds at all Objective Vitals Vital Signs Date Time Temp Pulse Resp B/P (MAP) Pulse Ox O2 Delivery O2 Flow Rate FiO2 01/06/18 08:31 98.6 90 20 156/96 (116) 99 01/06/18 04:00 97.4 83 19 142/93 (109) 99 01/06/18 03:53 Room Air 01/06/18 00:00 98.0 89 19 149/92 (111) 98 01/06/18 00:00 Room Air 01/05/18 20:00 Room Air 01/05/18 20:00 97.5 95 18 150/91 (110) 100 01/05/18 18:23 Room Air 01/05/18 16:10 97.6 91 18 157/87 (110) 100 01/05/18 16:09 Room Air 01/05/18 13:28 Room Air 01/05/18 12:00 98.5 86 18 155/85 (108) 99 I/O 01/05/18 01/05/18 01/05/18 01/06/18 01/06/18 01/06/18 07:00 15:00 23:00 07:00 15:00 23:00 Intake Total 200 ml 820 ml 1340 ml Output Total 400 ml 900 ml 800 ml Balance -200 ml -80 ml 540 ml Intake Oral 720 ml 240 ml IV Total 200 ml 100 ml 1100 ml Output Urine Total 400 ml 900 ml 800 ml # Bowel Movements 0 Result Diagram: 01/04/18 0616 Imaging Last Impressions Renal Ultrasound 12/30/17 0000 Signed Impressions: Service Date/Time: Saturday, December 30, 2017 18:37 - CONCLUSION: Mildly echogenic cortex otherwise negative Jordy Singh MD FACR Foot X-Ray 12/30/17 0000 Signed Impressions: Service Date/Time: Saturday, December 30, 2017 13:54 - CONCLUSION: Status post amputation of the first digit. Wilton Barrera MD Objective Remarks awake and alert, no distress anicteric lungs-no rales regular rhythm abdomen- soft, nontender, good bowel sounds left foot- warm to touch, dry, no drainage, incisions Procedures 12/30- left hallux amputation 01/05- PICC line placement A/P Assessment and Plan Mr. Ceja is a 52-year-old male with a past medical history significant for sarcoidosis and type 2 diabetes mellitus who presented to [facility] in [place] complaint of left toe infection. The patient has been transferred to [facility] under the care of the hospitalist service for treatment of possible toe osteomyelitis. Nausea- adverse reaction - to Tygacil benign abdominal exam Resolved off tygacil Osteomyelitis MRSA Displaced intra-articular fracture head proximal phalanx hallux S/P left 5th hallux amputation 01/01 - MRI of the left foot with findings in keeping with active/acute osteomyelitis throughout the proximal and distal phalanges of the hallux. Septic arthritis IP joint hallux. Dorsal wound site above the head segment of the proximal phalanx of the hallux with soft tissue subcutaneous inflammatory tract extending to the head of the proximal phalanx of the Hallux. Minimal fluid in the subcutaneous tract without definite discrete large drainable soft tissue abscess collection defined. Small nonspecific effusion first MTP. - - on multiple antibiotics- per ID- Primaxin, cubicin and Avelox till 02/10 -OP ff up with Podiatry and ID- Dr. George Pain management now on [place] 5/325 mg and 10/325 mg as needed for pain, Morphine 3 mg IV PRN breakthrough pain- patient barely using Mycobacterial skin infection Osteomyelitis MRSA 3--18 per culture of toe wound -ID- ff appreciate assistance - patient has been following with Dr. Tasha Schilling -Status post IV Vancomycin, IV Zosyn, Ethambutol, and Azithromycin based on discharge medications listed from 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 pillai - patient has BGM machine and checks sugars SUDHIR:- creatinine trending down- non oliguric Avoid nephrotoxin Nephrology ff ff BMP-stab le- non oliguric Sarcoidosis - Duonebulizers q4h PRN sob/wheezing - monitor pulse oximetry q4h POor po- improved - off tygacil - start glucerna for supplement - dietitian consult DVT prophylaxis - Heparin 5000 units subq q8h Discharge Planning - OP ff up with Podiatry and ID Ralf Ontiveros MD Jan 06, 2018 09:56
[2018-01-06] MEDS ORDERED: PILL SPLITTER OTHER PRN (10:00)
[2018-01-06] MEDS ORDERED: GLYB5TAB3 PO (10:03)
[2018-01-06] MEDS ORDERED: MOXI400T4 PO (10:03)
[2018-01-06] MEDS ORDERED: AMLO5 PO (10:03)
--- NOTE | 2018-01-06 10:13 | HHI.DS ---
Discharge Summary Admission Date Dec 29, 2017 at 01:31 Discharge Date: Jan 07, 2018 Admitting Diagnosis Osteomyelitis of left great toe (1) Osteomyelitis ICD Code: M86.9 - Osteomyelitis, unspecified Diagnosis: Principal (2) SUDHIR (acute kidney injury) ICD Code: N17.9 - Acute kidney failure, unspecified Diagnosis: Principal (3) Diabetes mellitus ICD Code: E11.9 - Diabetes mellitus Diagnosis: Secondary Status: Chronic Procedures 12/30- left hallux amputation 01/05- PICC line placement Brief History - From Admission Mr. Ceja is a 52-year-old male with a past medical history significant for sarcoidosis, MRSA, and type 2 diabetes mellitus who presented to [facility] in [place] complaint of left toe infection. The patient has been transferred to [facility] under the care of the hospitalist service for treatment of toe osteomyelitis. Mr. Ceja was sent by infectious disease DrTru Britton for fever and left great toe drainage to [facility] in [place] on 12/25/17. He was diagnosed with osteomyelitis there as well as lower left leg cellulitis. IV antibiotics were initiated and surgical intervention was anticipated. Due to insurance issues, it was deemed necessary to transport him to [facility]. The patient reports severe, throbbing left foot and ankle pain secondary to infection. He reports that the IV morphine last for about 2 hours but then he is left sitting in pain until the next dose. [facility] MRI of the left foot with findings in keeping with active/acute osteomyelitis throughout the proximal and distal phalanges of the hallux. Septic arthritis IP joint hallux. Dorsal wound site above the head segment of the proximal phalanx of the hallux with soft tissue subcutaneous inflammatory tract extending to the head of the proximal phalanx of the hallux. Minimal fluid in the subcutaneous tract without definite discrete large drainable soft tissue abscess collection defined. Small nonspecific effusion first MTP. Left foot x-ray also reveals a fracture in the head of the proximal phalanx. 12/27/2017 sodium 133, potassium 4.3, BUN 14, creatinine 1.0, estimated GFR 99.6 CBC/BMP: 01/04/18 0616 Significant Findings Laboratory Tests Test 01/03/18 12:16 01/04/18 06:16 Blood Urea Nitrogen 28 MG/DL (7-18) Creatinine 1.44 MG/DL (0.60-1.30) Random Glucose 118 MG/DL (74-106) Estimat Glomerular Filtration Rate 62 ML/MIN (>89) Hemoglobin A1c 8.9 % (4.3-6.0) Total Creatine Kinase 28 U/L (39-308) Imaging Last Impressions Renal Ultrasound 12/30/17 0000 Signed Impressions: Service Date/Time: Saturday, December 30, 2017 18:37 - CONCLUSION: Mildly echogenic cortex otherwise negative Jordy Singh MD FACR Foot X-Ray 12/30/17 0000 Signed Impressions: Service Date/Time: Saturday, December 30, 2017 13:54 - CONCLUSION: Status post amputation of the first digit. Wilton Barrera MD PE at Discharge awake and alert, no distress anicteric lungs-no rales regular rhythm abdomen- soft, nontender, good bowel sounds left foot- post op dressing in place Pt update on day of discharge afebrile good readings no complains very motivated with lifestyle changes has a very supportive who is a nurse and will make sure he gets PCP ff up and subpsecialist ff up and foot care Hospital Course Mr. Ceja is a 52-year-old male with a past medical history significant for sarcoidosis and type 2 diabetes mellitus who presented to [facility] in [place] complaint of left toe infection. The patient has been transferred to [facility] under the care of the hospitalist service for treatment of possible toe osteomyelitis. 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 Septic arthritis IP joint hallux. Dorsal wound site above the head segment of the proximal phalanx of the hallux with soft tissue subcutaneous inflammatory tract extending to the head of the proximal phalanx of the Hallux. Minimal fluid in the subcutaneous tract without definite discrete large drainable soft tissue abscess collection defined. Small nonspecific effusion first MTP. - - on multiple antibiotics- per ID- Primaxin, cubicin and Avelox till 5/6 -OP ff up with Podiatry and ID- Dr. George Pain management now on [place] 5/325 mg and 10/325 mg as needed for pain, Morphine 3 mg IV PRN breakthrough pain- patient barely using Mycobacterial skin infection Osteomyelitis MRSA 318 per culture of toe wound -ID- ff appreciate assistance - patient has been following with Dr. 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 Paz - patient has BGM machine and checks sugars SUDHIR:- creatinine trending down- non oliguric Avoid nephrotoxin Nephrology ff ff BMP-stab le- non oliguric Sarcoidosis - Duonebulizers q4h PRN sob/wheezing - monitor pulse oximetry q4h POor po- improved - off tygacil- resolved - glucerna for supplement DVT prophylaxis - Heparin 5000 units subq q8h Pt Condition on Discharge: Good Discharge Disposition: Disch w/ Home Health Serv Discharge Time: > 30 minutes Discharge Instructions DIET: Follow Instructions for: Heart Healthy Diet, Diabetic Diet Speech Therapy-Diet Recommends: Regular Activities you can perform: Weight Bearing as Dinh Follow up Referrals: Infectious Disease - 2-3 Days with [facility] Nephrology - 2 Weeks with Ion PCP Follow-up - 01/08/18 with Nick Podiatry @ [facility] with Ny Wilde DPRichard New Orders: COMP MET PROF (CMP) - 01/08/18 New Medications: Amlodipine (Norvasc) 5 Mg Tab 5 MG PO DAILY for HTN for 30 Days, #30 TAB Glyburide (Glyburide) 5 Mg Tab 2.5 MG PO DAILYAC for DM for 30 Days, TAB Take with meals at the same time each day Moxifloxacin (Avelox) 400 Mg Tab 400 MG PO Q24H for OM for 36 Days, #36 TAB until 6 Continued Medications: Albuterol 6.7 GM Inh (Proventil Hfa 6.7 GM Inh) 90 Mcg/Act Aer 2 PUFF INH Q4-6H PRN for SHORTNESS OF BREATH, #1 INHALER 0 Refills Albuterol Neb (Albuterol Neb) 1.25 Mg/3 Ml Neb 1000 MG NEB TID NEB PRN for SHORTNESS OF BREATH, #100 NEBULE 0 Refills Fluticasone-Vilanterol Inh (Breo Ellipta Inh) 100-25 Mcg/Act Inh 1 PUFF INH DAILY, #1 INHALER 0 Refills Use daily at the same time. Discontinued Medications: Doxycycline Hyclate (Doxycycline Hyclate) 100 Mg Cap 100 MG PO BID for Infection, #20 CAP 0 Refills Metformin (Metformin) 1,000 Mg Tab 1000 MG PO DAILY for Blood Sugar Management, #30 TAB 0 Refills With a meal Prednisone (Prednisone) 20 Mg Tab 20 MG PO BID for Inflammation, #37 TAB Take 20mg twice a day for 1 week, Then go back to 20mg once daily. Silver Sulfadiazine Topical (Silvadene Topical) 1 % Cream 1 APPLIC TOPICAL DIRECTED for Wound Management, #50 GM 0 Refills [guaiFEN-COD 200-20 MG/10ML LIQ] () 10 ML SYRP 10 ML PO Q6H PRN for cough, #100 ML 0 Refills Ralf Ontiveros MD Jan 06, 2018 10:13
[2018-01-06 12:06] VITALS: BP 153/99; PULSE 86; RESP 20; TEMP 98.1; O2SAT 100
--- NOTE | 2018-01-06 12:09 | HHI.FF ---
Face to Face Verification Diagnosis: (1) OM (osteomyelitis) (2) SUDHIR (acute kidney injury) (3) Diabetes mellitus Home Health Nursing Order: Signs/symptoms of disease process Diabetic education Wound care and dressing changes Nursing assessment with vital signs I have seen patient Josemanuel Ceja on 01/06/18. My clinical findings support the need for the requested home health care services because: Ltd mobility - disease progression Need for psychosocial assistance Infection w/ risk of complications I certify that my clinical findings support that this patient is homebound because: Need for psychosocial assistance Ralf Ontiveros MD Jan 06, 2018 12:09
[2018-01-06] MEDS: MOXIFLOXACIN HYDROCHLORIDE 400 MG TAB PO SCH (12:47)
[2018-01-06] MEDS: DAPTOmycin INJ 500 MG in SODIUM CHLORIDE 0.9% INJ 100 ML IV SCH (12:49)
--- NOTE | 2018-01-06 15:10 | HHI.NPPN ---
Subjective Renal Failure: Acute History of Present Illness Patient is a 52-year-old male with a past medical history significant for sarcoidosis, MRSA, and type 2 diabetes mellitus since 2007. Patient initially present to [facility] in [place] complaint of left toe infection and diagnosed with osteomyelitis as well as lower left leg culllulitis. . Patient is now s/p Left hallux amputation with . Nephrology was consulted for elevated BUN and creatinine. Creatinine is noted to be 1.57 today down from 1.61. Patient does not have a previous history of Kidney disease and on admission creatinine was less than 1. Renal US with mildly echogenic cortex otherwise negative. Patient has been on vancomycin and elevated trough was noted. Additional Remarks Patient is alert, no SOB, no complaint. Review of Systems Respiratory Respiratory Remarks Denies any SOB Cardiovascular Cardiac Remarks Denies any CP Gastrointestinal Gastrointestinal: Nausea & Vomiting Objective Data Data 01/06/18 01/07/18 19:00 07:00 Output Total 250 ml Balance -250 ml Output Urine Total 250 ml Vital Signs Date Time Temp Pulse Resp B/P (MAP) Pulse Ox O2 Delivery O2 Flow Rate FiO2 01/06/18 12:06 98.1 86 20 153/99 (117) 100 01/06/18 08:31 98.6 90 20 156/96 (116) 99 01/06/18 08:00 99 Room Air 01/06/18 04:00 97.4 83 19 142/93 (109) 99 01/06/18 03:53 Room Air 01/06/18 00:00 98.0 89 19 149/92 (111) 98 01/06/18 00:00 Room Air 01/05/18 20:00 Room Air 01/05/18 20:00 97.5 95 18 150/91 (110) 100 01/05/18 18:23 Room Air 01/05/18 16:10 97.6 91 18 157/87 (110) 100 01/05/18 16:09 Room Air -: 01/04/18 0616 Physical Exam General Appearance: No Acute Distress, Comfortable Eyes Eye Exam: Pupils Equal Pulmonary Resp Exam: Clear Bilaterally, Breath Sounds Equal, No Distress Cardiology CV Exam: Regular, Normal Sinus Rhythm Gastrointestinal/Abdomen GI Exam: Soft, Non-Tender, Bowel Sounds Present Genitourinary Exam: Flank Non-Tender Integumentary Skin Exam: Clear, Warm, Lesion(s) Extremeties Extremities Exam: No Edema Neurologic Neuro Exam: Alert, Awake, Oriented Psychiatric Psych Exam: Appropriate Responses Assessment/Plan Discussed Condition With: Patient Assessment Summary: SUDHIR/Acute Renal Failure Problem List: (1) SUDHIR (acute kidney injury) ICD Codes: N17.9 - Acute kidney failure, unspecified Plan: Acute kidney injury with FeNa at 2.4 suggestive of ATN possible related to vancomycin toxicity Urine EOS are negative Renal US: Mildly echogenic cortex otherwise negative Creatine at 1.44. Baseline has been under 1. C 3 and C 4 normal Plan Will monitor UOP and BMP Avoid nephrotoxins as possible Renal dose antibiotics. Creatinine is stable, if D/C, will need nephrology follow up. Can have PICC line, as he has SUDHIR. Creatinine is stable at 1.44. Awaiting out patient antibiotics arrangement. (2) Diabetes mellitus ICD Codes: E11.9 - Diabetes mellitus Status: Chronic Plan: Continue to hold metformin Maintain BS between 140mg/dl to 180mg/dl Esa Chou MD Jan 06, 2018 15:10
[2018-01-06 15:52] VITALS: BP 153/94; PULSE 90; RESP 20; TEMP 98.1; O2SAT 99
[2018-01-06 20:00] VITALS: BP 142/86; PULSE 88; RESP 17; TEMP 97.9; O2SAT 95
[2018-01-07] VITALS: BP 131/83; PULSE 93; RESP 16; TEMP 98.2; O2SAT 94
[2018-01-07] MEDS: HEPARIN SODIUM - SQ 10,000 UNITS/ML VIAL SQ SCH ×2 (00:57→09:39)
[2018-01-07] MEDS: IMIPENEM/CILASTATIN INJ 500 MG in SODIUM CHLORIDE 0.9% INJ 100 ML IV SCH ×2 (00:57→07:25)
[2018-01-07 04:00] VITALS: BP 147/89; PULSE 88; RESP 16; TEMP 98; O2SAT 100
[2018-01-07 08:00] VITALS: BP 156/100; PULSE 91; RESP 20; TEMP 98.5; O2SAT 100
[2018-01-07] MEDS ORDERED: glyBURIDE 5 MG TAB PO SCH (08:00)
--- NOTE | 2018-01-07 08:35 | HHI.PR ---
Subjective Remarks no complains 'looking forward to going home Objective Vitals Vital Signs Date Time Temp Pulse Resp B/P (MAP) Pulse Ox O2 Delivery O2 Flow Rate FiO2 01/07/18 04:00 Room Air 01/07/18 04:00 98.0 88 16 147/89 (108) 100 01/07/18 00:00 98.2 93 16 131/83 (99) 94 01/07/18 00:00 Room Air 01/06/18 20:00 97.9 88 17 142/86 (104) 95 01/06/18 20:00 Room Air 01/06/18 15:52 98.1 90 20 153/94 (113) 99 01/06/18 12:06 98.1 86 20 153/99 (117) 100 I/O 01/06/18 01/06/18 01/06/18 01/07/18 01/07/18 01/07/18 07:00 15:00 23:00 07:00 15:00 23:00 Intake Total 1340 ml 240 ml Output Total 1300 ml 250 ml 1100 ml Balance 40 ml -250 ml -860 ml Intake Oral 240 ml 240 ml IV Total 1100 ml Output Urine Total 1300 ml 250 ml 1100 ml # Bowel Movements 0 0 Result Diagram: 01/04/18 0616 Imaging Last Impressions Renal Ultrasound 12/30/17 0000 Signed Impressions: Service Date/Time: Saturday, December 30, 2017 18:37 - CONCLUSION: Mildly echogenic cortex otherwise negative Jodry Singh MD FACR Foot X-Ray 12/30/17 0000 Signed Impressions: Service Date/Time: Saturday, December 30, 2017 13:54 - CONCLUSION: Status post amputation of the first digit. Wilton Barrera MD Objective Remarks awake and alert, no distress anicteric lungs-no rales regular rhythm abdomen- soft, nontender, good bowel sounds left foot- warm to touch, dry, no drainage, incisions Procedures 12/30- left hallux amputation 01/05- PICC line placement A/P Assessment and Plan Mr. Ceja is a 52-year-old male with a past medical history significant for sarcoidosis and type 2 diabetes mellitus who presented to [facility] in [place] complaint of left toe infection. The patient has been transferred to [facility] under the care of the hospitalist service for treatment of possible toe osteomyelitis. 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 Septic arthritis IP joint hallux. Dorsal wound site above the head segment of the proximal phalanx of the hallux with soft tissue subcutaneous inflammatory tract extending to the head of the proximal phalanx of the Hallux. Minimal fluid in the subcutaneous tract without definite discrete large drainable soft tissue abscess collection defined. Small nonspecific effusion first MTP. - - on multiple antibiotics- per ID- Primaxin, cubicin and Avelox till 02/10 -OP ff up with Podiatry and ID- Dr. George Pain management now on [place] 5/325 mg and 10/325 mg as needed for pain, Morphine 3 mg IV PRN breakthrough pain- patient barely using Mycobacterial skin infection Osteomyelitis MRSA 3--18 per culture of toe wound -ID- ff appreciate assistance - patient has been following with Dr. 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 Paz - patient has BGM machine and checks sugars SUDHIR:- creatinine trending down- non oliguric Avoid nephrotoxin Nephrology ff ff BMP-stab le- non oliguric Sarcoidosis - Duonebulizers q4h PRN sob/wheezing - monitor pulse oximetry q4h POor po- improved - off tygacil - start glucerna for supplement - dietitian consult DVT prophylaxis - Heparin 5000 units subq q8h Discharge Planning - OP ff up with Podiatry and ID Ralf Ontiveros MD Jan 07, 2018 08:35
[2018-01-07] MEDS ORDERED: amLODIPine BESYLATE 5 MG TAB PO SCH (09:00)
[2018-01-07] MEDS: PANTOPRAZOLE SOD 40 MG DELAYED RELEASE TAB PO SCH (09:36)
[2018-01-07] MEDS: DOCUSATE SODIUM 50 MG/SENNA 8.6 MG TAB PO SCH (09:36)
[2018-01-07] MEDS: INSULIN ASPART SUPPLEMENTAL SCALE SQ SCH (09:39)
[2018-01-07] MEDS: SODIUM CHLORIDE 0.9% FLUSH 10 ML FLUSH IV FLUSH SCH ×2 (09:41)
[2018-01-07] MEDS ORDERED: DAPTOmycin INJ 500 MG in SODIUM CHLORIDE 0.9% INJ 100 ML IV SCH (11:00)
== END 2018-01-07 12:30 | disposition home or self-care (01) | DRG 617 ==
LOC: N04B 22:34 → OBSVTOIN 12-29 01:31
PROVIDERS: ADMIT Internal Medicine; ATTEND Internal Medicine
PROC: 0Y6Q0Z0 Detachment at Left 1st Toe, Complete, Open Approach (ICD-10-PCS; principal; 2017-12-30 10:42)
PROC: 02HV33Z Insertion of Infusion Device into Superior Vena Cava, Percutaneous Approach (ICD-10-PCS; 2018-01-05)
PROC: B548ZZA Ultrasonography of Superior Vena Cava, Guidance (ICD-10-PCS; 2018-01-05)
DX: E11.69 Type 2 diabetes mellitus with other specified complication (principal); M86.172 Other acute osteomyelitis, left ankle and foot; N17.0 Acute kidney failure with tubular necrosis; M00.9 Pyogenic arthritis, unspecified; L03.116 Cellulitis of left lower limb; M84.675A Pathological fracture in other disease, left foot, initial encounter for fracture; A31.1 Cutaneous mycobacterial infection; E11.42 Type 2 diabetes mellitus with diabetic polyneuropathy; E11.51 Type 2 diabetes mellitus with diabetic peripheral angiopathy without gangrene; D86.9 Sarcoidosis, unspecified; T36.8X5A Adverse effect of other systemic antibiotics, initial encounter; B95.62 Methicillin resistant Staphylococcus aureus infection as the cause of diseases classified elsewhere; Z79.84 Long term (current) use of oral hypoglycemic drugs; Z86.14 Personal history of Methicillin resistant Staphylococcus aureus infection; Z88.2 Allergy status to sulfonamides
CPT/HCPCS: 36569; 73630; 76775; 76937; 80048; 80202; 81001; 82550; 82565; 82570; 82948; 83036; 84156; 84300; 85025; 86021; 86038; 86160; 86403; 87015; 87070; 87102; 87116; 87147; 87186; 87205; 87206; 88304; 88305; 88307; 88311; 93923; J0743; J0878; J1642; J1644; J1815; J2250; J2270; J2370; J2405; J2543; J3010; J3243; J3370; J7030; J7040; L3260

== ENCOUNTER 2018-05-02 16:55 | Observation (INO) ==
[2018-05-02] MEDS ORDERED: Morphine Inj 4 MG/ML Vial IV.PUSH ONE (19:28)
--- NOTE | 2018-05-02 19:35 | ED ---
HPI General Chief complaint: Dizziness Stated complaint: Dizziness Time Seen by Provider: 05/02/18 19:22 History of Present Illness HPI narrative: This is a 52-year-old male with history of type 2 diabetes, sarcoidosis who presents for evaluation of chest pain. Symptoms started yesterday morning. He describes it as a substernal chest tightness which started when he woke up yesterday with associated dyspnea, nausea, dizziness. He reports that he has chronic frontal headaches and is also having a frontal headache which is not different from his typical headaches. He denies cough, congestion, fevers, chills, diaphoresis, abdominal pain, flank pain, dysuria. He has no known history of coronary artery disease. He reports that he had a cardiac catheterization approximately 7-8 years ago which he was told was normal. His primary care physician is Dr. Paz. No other complaints. Related Data Home Medications Medication Instructions Recorded Confirmed glipizide 5 mg PO DAILY 05/02/18 05/02/18 Allergies Allergy/AdvReac Type Severity Reaction Status Date / Time sulfamethoxazole Allergy Severe Swelling Verified 12/21/17 04:44 trimethoprim Allergy Severe Swelling Verified 12/21/17 04:44 Review of Systems Except as stated in HPI: all other systems reviewed are negative PMFSH Medical History Medical History Diabetes (Acute) Social History Social History Substance History: No History of Abuse Second Hand Smoke Exposure: No Smoking Status: Unknown if ever smoked How Often Do You Have a Drink Containing Alcohol: Never Recent Travel in [facility] within the Last 8 Weeks: No Recent Out of Country Travel within the Last 8 Weeks: No Exam Narrative Exam Narrative: GENERAL: Well-developed well-nourished male no acute distress. He is noted to be tachycardic in triage. SKIN: Warm and dry. HEAD: Atraumatic. Normocephalic. EYES: Pupils equal and round. No scleral icterus. No injection or drainage. ENT: No nasal bleeding or discharge. Mucous membranes pink and moist. NECK: Trachea midline. No JVD. CARDIOVASCULAR: Regular rate and rhythm. No murmur appreciated. RESPIRATORY: No accessory muscle use. Clear to auscultation. Breath sounds equal bilaterally. No crackles no wheezing or rhonchi GASTROINTESTINAL: Abdomen soft, non-tender, nondistended. Hepatic and splenic margins not palpable. MUSCULOSKELETAL: No obvious deformities. No clubbing. No cyanosis. No edema. Evidence of previous left great toe amputation. NEUROLOGICAL: Awake and alert. No obvious cranial nerve deficits. Motor grossly within normal limits. Normal speech. PSYCHIATRIC: Appropriate mood and affect; insight and judgment normal. Course Initial Documented Vital Signs Temperature 99.3 F 05/02/18 17:06 Pulse Rate 116 H 05/02/18 17:06 Respiratory Rate 16 05/02/18 17:06 Blood Pressure 138/80 05/02/18 17:06 Pulse Oximetry 100 05/02/18 17:06 Last Documented Vital Signs Temperature 99.3 F 05/02/18 17:06 Pulse Rate 108 H 05/02/18 20:23 Respiratory Rate 18 05/02/18 20:23 Blood Pressure 139/77 05/02/18 20:23 Pulse Oximetry 100 05/02/18 20:23 Medical Decision Making MDM Narrative Medical decision making narrative: Patient was placed on ECG monitoring pulse oximetry. A 12 EKG was obtained. Lab work, chest x-ray, CT brain, CT pulmonary angiogram ordered. The patient will be given morphine, Zofran. Lab work has been reviewed. CT brain is normal. CT pulmonary angiogram is negative for pulmonary embolism but there are pulmonary nodules and radiologist recommends repeat CT of the chest in 6 months, the patient was given a copy of the CT report. Given the patient's risk factors, plan is to admit him into the chest pain center for serial cardiac enzymes and rule out purposes. He is agreeable. Differential Diagnosis Differential Diagnosis: Pulmonary embolism, acute coronary syndrome, pericarditis, myocarditis, aortic dissection, pleurisy, costochondritis, pneumothorax, hemothorax Lab Data Result diagrams: 05/02/18 20:00 05/02/18 20:00 Lab Results 05/02/18 05/02/18 05/02/18 Range/Units 20:00 20:00 20:00 WBC 6.5 (4.0-11.0) th/mm3 RBC 4.18 L (4.50-5.90) mil/mm3 Hgb 12.3 L (13.0-17.0) gm/dL Hct 36.3 L (39.0-51.0) % MCV 86.9 (80.0-100.0) fL MCH 29.5 (27.0-34.0) pg MCHC 34.0 (32.0-36.0) % RDW 14.2 (11.6-17.2) % Plt Count 279 (150-450) th/mm3 MPV 8.2 (7.0-11.0) fL Neut % (Auto) 65.0 (16.0-70.0) % Lymph % (Auto) 20.1 (9.0-44.0) % [place] % (Auto) 8.5 H (0.0-8.0) % Eos % (Auto) 5.3 H (0.0-4.0) % Baso % (Auto) 1.1 (0.0-2.0) % Neut # (Auto) 4.2 (1.8-7.7) th/mm3 Lymph # (Auto) 1.3 (1.0-4.8) th/mm3 [place] # (Auto) 0.5 (0.0-0.9) th/mm3 Eos # (Auto) 0.3 (0.0-0.4) th/mm3 Baso # (Auto) 0.1 (0.0-0.2) th/mm3 WBC Differential . Differential Comment Auto diff final PT 10.7 (9.8-11.6) sec INR 1.1 Ratio APTT 21.3 L (24.3-30.1) sec Sodium 138 (136-145) meq/L Potassium 4.5 (3.5-5.1) meq/L Chloride 103 (98-107) meq/L Carbon Dioxide 26.1 (21.0-32.0) meq/L Anion Gap 9 (5-15) meq/L BUN 18 (7-18) mg/dL Creatinine 1.48 H (0.60-1.30) mg/dL Estimated GFR 60 L (>89) mL/min Random Glucose 299 H (74-106) mg/dL Calcium 9.0 (8.5-10.1) mg/dL Magnesium (1.5-2.5) mg/dL Total Bilirubin 1.0 (0.2-1.0) mg/dL AST 19 (15-37) U/L ALT 28 (12-78) U/L Alkaline Phosphatase 106 (45-117) U/L Total Creatine Kinase 121 (39-308) U/L CK-MB (CK-2) 1.1 (0.5-3.6) ng/mL Troponin I Less than 0.02 L (0.02-0.05) ng/mL Total Protein 7.8 (6.4-8.2) g/dL Albumin 3.6 (3.4-5.0) g/dL 05/02/18 Range/Units 20:00 WBC (4.0-11.0) th/mm3 RBC (4.50-5.90) mil/mm3 Hgb (13.0-17.0) gm/dL Hct (39.0-51.0) % MCV (80.0-100.0) fL MCH (27.0-34.0) pg MCHC (32.0-36.0) % RDW (11.6-17.2) % Plt Count (150-450) th/mm3 MPV (7.0-11.0) fL Neut % (Auto) (16.0-70.0) % Lymph % (Auto) (9.0-44.0) % [place] % (Auto) (0.0-8.0) % Eos % (Auto) (0.0-4.0) % Baso % (Auto) (0.0-2.0) % Neut # (Auto) (1.8-7.7) th/mm3 Lymph # (Auto) (1.0-4.8) th/mm3 [place] # (Auto) (0.0-0.9) th/mm3 Eos # (Auto) (0.0-0.4) th/mm3 Baso # (Auto) (0.0-0.2) th/mm3 WBC Differential Differential Comment PT (9.8-11.6) sec INR Ratio APTT (24.3-30.1) sec Sodium (136-145) meq/L Potassium (3.5-5.1) meq/L Chloride (98-107) meq/L Carbon Dioxide (21.0-32.0) meq/L Anion Gap (5-15) meq/L BUN (7-18) mg/dL Creatinine (0.60-1.30) mg/dL Estimated GFR (>89) mL/min Random Glucose (74-106) mg/dL Calcium (8.5-10.1) mg/dL Magnesium 2.3 (1.5-2.5) mg/dL Total Bilirubin (0.2-1.0) mg/dL AST (15-37) U/L ALT (12-78) U/L Alkaline Phosphatase (45-117) U/L Total Creatine Kinase (39-308) U/L CK-MB (CK-2) (0.5-3.6) ng/mL Troponin I (0.02-0.05) ng/mL Total Protein (6.4-8.2) g/dL Albumin (3.4-5.0) g/dL Imaging Data Radiologist's impression: Chest X-Ray 05/02/18 19:28 CONCLUSION: Head CT 05/02/18 19:28 CONCLUSION: Chest CTA 05/02/18 19:31 CONCLUSION: Discharge Plan Physicians Team ED Provider: Javier Smart ED Midlevel Provider: Graham Ennis Primary Care Provider: Adriana Paz Rxs /Orders / Referrals /Forms Prescriptions: No Action glipizide 5 mg Tablet 5 mg PO DAILY RF: 0 Discharge Interventions Interventions: Vital Signs Last Done: 05/02/18 17:06 Status ED Status: With Doctor
--- NOTE | 2018-05-02 19:59 | XR ---
EXAM DATE: 05/02/2018 7:53 PM EDT AGE/SEX: 52 years / Male INDICATIONS: Chest pain. CLINICAL DATA: This is the patient's initial encounter. Patient reports that signs and symptoms have been present for 2 days and indicates a pain score of 8/10. MEDICAL/SURGICAL HISTORY: . Methicillin-resistant Staphylococcus aureus. Arthritis. Diabetes. S arcoidosis. . Left shoulder surgery. Cardiac catheterization. Biopsy. Left great toe amputation. COMPARISON: [facility] [place], CHEST SINGLE AP, 11/12/2017. . FINDINGS: A single AP view of the chest demonstrates the lungs to be symmetrically aerated without evidence of mass, infiltrate or effusion. The cardiomediastinal contours are unremarkable. Osseous structures a re intact. CONCLUSION: No acute cardiopulmonary process. Electronically signed by: Wilton Barrera MD 05/02/2018 7:58 PM EDT
[2018-05-02 20:24] LABS: Baso # (Auto) 0.1 th/mm3 (0.0-0.2); Baso % (Auto) 1.1 % (0.0-2.0); Eos # (Auto) 0.3 th/mm3 (0.0-0.4); Eos % (Auto) 5.3 % (0.0-4.0); Hematocrit 36.3 % (39.0-51.0); Hemoglobin 12.3 gm/dL (13.0-17.0); Lymph # (Auto) 1.3 th/mm3 (1.0-4.8); Lymph % (Auto) 20.1 % (9.0-44.0); Mean Corpuscular Hemoglobin 29.5 pg (27.0-34.0); Mean Corpuscular Volume 86.9 fL (80.0-100.0); Mean Platelet Volume 8.2 fL (7.0-11.0); Mono # (Auto) 0.5 th/mm3 (0.0-0.9); Mono % (Auto) 8.5 % (0.0-8.0); Neut # (Auto) 4.2 th/mm3 (1.8-7.7); Platelet Count 279 th/mm3 (150-450); Red Blood Count 4.18 mil/mm3 (4.50-5.90); Red Cell Distribution Width 14.2 % (11.6-17.2); White Blood Count 6.5 th/mm3 (4.0-11.0)
[2018-05-02 20:38] LABS: Activated Partial Thrombo Time 21.3 sec (24.3-30.1); INR 1.1 Ratio; Prothrombin Time 10.7 sec (9.8-11.6)
[2018-05-02 21:04] LABS: Alanine Aminotransferase 28 U/L (12-78)
[2018-05-02 21:08] LABS: Alkaline Phosphatase 106 U/L (45-117); Creatine Kinase 121 U/L (39-308); Total Protein 7.8 g/dL (6.4-8.2)
[2018-05-02 21:10] LABS: Albumin 3.6 g/dL (3.4-5.0); Anion Gap 9 meq/L (5-15); Aspartate Aminotransferase 19 U/L (15-37); Blood Urea Nitrogen 18 mg/dL (7-18); Carbon Dioxide 26.1 meq/L (21.0-32.0); Chloride 103 meq/L (98-107); Glomerular Filtration Rate 60 mL/min (>89); Glucose,Random 299 mg/dL (74-106); Potassium 4.5 meq/L (3.5-5.1); Sodium 138 meq/L (136-145)
[2018-05-02 21:21] LABS: Creatine Kinase MB 1.1 ng/mL (0.5-3.6)
--- NOTE | 2018-05-02 22:24 | CT ---
EXAM DATE: 05/02/2018 10:16 PM EDT AGE/SEX: 52 years / Male INDICATIONS: Chest pain and shortness of breath. CLINICAL DATA: This is the patient's initial encounter. Patient reports that signs and symptoms have been present for 1 day and indicates a pain score of 4/10. MEDICAL/SURGICAL HISTORY: Diabetes. None. RADIATION DOSE: 20.89 CTDI (mGy) COMPARISON: [facility], CT CHEST W/O CONTRAST, 04/12/2018. . TECHNIQUE: Volumetric scanning was performed using a multi-row detector CT scanner during bolus infu brianna of 70 ml Omnipaque 350 (iohexol) nonionic water-soluble contrast as a single exam dose. The pablo a was post processed with a variety of visualization algorithms including full volume maximum intensi ty projection and sliding thin slab reformation. Using automated exposure control and adjustment of t he mA and/or kV according to patient size, radiation dose was kept as low as reasonably achievable to obtain optimal diagnostic quality images. DICOM format image data is available electronically for r eview and comparison. FINDINGS: Pulmonary Arteries: No filling defects are seen in the pulmonary arteries out to the subsegmental ve ssels. The left and right pulmonary arteries are normal in diameter. Lung: There are several pulmonary nodules identified bilaterally. These were all present on the prio r exam. The largest nodule seen in the right middle lobe measuring 1 cm. Effusion: None. Mediastinum: There is extensive mediastinal and bilateral hilar adenopathy. This was present previou sly. Apparently the patient has a history of sarcoid. There is a mild pericardial effusion. Other: The axilla is unremarkable. There is bilateral gynecomastia. 1. No pulmonary was. 2. Extensive mediastinal and hilar adenopathy. The groin to the prior report, the patient has a hist ory of sarcoid. The adenopathy is nonspecific. It certainly can be seen with sarcoid. 3. Several pulmonary nodules as described above. These could be followed with a noncontrast CT exami [facility] in 6 months. Electronically signed by: Wilton Barrera MD 05/02/2018 10:23 PM EDT
--- NOTE | 2018-05-02 22:34 | CT ---
EXAM DATE: 05/02/2018 10:14 PM EDT AGE/SEX: 52 years / Male INDICATIONS: Dizziness and headache. CLINICAL DATA: This is the patient's initial encounter. Patient reports that signs and symptoms have been present for 1 day and indicates a pain score of 10/10. MEDICAL/SURGICAL HISTORY: Diabetes. None. RADIATION DOSE: 66.34 CTDI (mGy) ;Tabletop exam COMPARISON: [facility] [place], CT BRAIN W/O CONTRAST, 04/16/2017. . TECHNIQUE: CT of the head without contrast. Using automated exposure control and adjustment of the mA and/or kV according to patient size, radiation dose was kept as low as reasonably achievable to ob tain optimal diagnostic quality images. DICOM format image data is available electronically for revi ew and comparison. FINDINGS: Cerebrum: The ventricles are normal for age. No evidence of midline shift, mass lesion, hemorrhage or acute infarction. No extraaxial fluid collections are seen. Posterior Fossa: The cerebellum and brainstem are intact. The 4th ventricle is midline. The cerebe llopontine angle is unremarkable. Extracranial: The visualized portion of the orbits is intact. There is right maxillary sinus disease . Skull: The calvaria is intact. No evidence of skull fracture. No intracranial abnormality is seen. Right maxillary sinus disease. . Electronically signed by: Wilton Barrera MD 05/02/2018 10:32 PM EDT
[2018-05-02 23:52] LABS: Creatine Kinase 107 U/L (39-308)
[2018-05-03] MEDS ORDERED: Acetaminophen 500 MG Tablet PO PRN (03:42)
[2018-05-03 04:06] LABS: Creatine Kinase 104 U/L (39-308)
[2018-05-03 08:46] VITALS: BP 136/87; TEMP 98.2; O2SAT 98
[2018-05-03 09:03] VITALS: PULSE 87; RESP 17
--- NOTE | 2018-05-03 10:09 | P.HPCA ---
History of Present Illness Primary Care Physician: Adriana Paz MD Chief Complaint: Chest pain History of Present Illness: This is a 52-year-old male with history of sarcoidosis and diabetes that presents to ED with complaint of having 2 days of constant chest discomfort that he describes as a central pressure. Worse was a 10 out of 10. Is still there. Worsened with certain movements and touching the area. Also worse when he takes a deep breath. He has chronic shortness of breath with sarcoidosis but states it has been a little worse. He was nauseous with emesis. Denies diaphoresis. Denies history of heart disease but states he has had stress test in the past. Upon reviewing records he has had 2 normal stress tests most recently 2011 he had an abnormal nuclear stress test led to cardiac catheterization revealing normal coronaries. Patient also has been feeling little dizzy last couple days. Describes it as being unsteady. Of note he was also taken off of prednisone yesterday by his shoe coverer. He states that was secondary to sugars being elevated and thinking that his sarcoidosis was under control at this time. States also his inhaler was changed to different medication however he has not filled that yet and cannot recall the name. He is feeling better after getting pain medication in the ED and chest pain center. Patient has history of sarcoidosis and diabetes. Denies family history of CAD. Lifetime non-smoker. Denies alcohol or illicit drug use. - Diagnosis (1) Chest pain (2) History of sarcoidosis (3) Diabetes Review of Systems General: Patient denies fevers, chills, and recent travel. HEENT: Patient denies headache, sore throat, difficulty swallowing. Cardiovascular: Has the chest discomfort as mentioned above. Denies sensation of heart beating rapidly or irregularly. No syncope. Denies diaphoresis. Respiratory: He is chronically short of breath but feels it was a little worse over the last couple days. Discomfort is worsened with deep inspiration. He has a chronic nonproductive cough and wheezes occasionally. Denies hemoptysis. GI: He was nauseous at times. Patient denies vomiting, diarrhea, abdominal pain , bloody stools. Musculoskeletal: Patient denies joint pain or edema. Denies calf pain or edema. Neurovascular: Patient denies numbness, tingling, weakness in extremities. Denies headache. Endocrine: Denies polyuria and polydipsia. Hematologic: Denies easy bruising. Skin: Denies rash or itching. Chronic lesions on his back and chest. PMFSH - History History Provided By: Patient - Medical History Medical History: Medical History (Last Updated 05/02/18 @ 22:18 by Karina Baptiste) Diabetes - Tobacco History Second Hand Smoke Exposure: No Tobacco Use In Past 30 Days: No Smoking Status: Never smoker - Alcohol History How Often Do You Have a Drink Containing Alcohol: Never - Substance Use History Substance History: No History of Abuse - Travel History Recent Travel in the [place] Within the Last 8 Weeks: No Recent Travel Out of the Country Within the Last 8 Weeks: No - Immunization History Tetanus Immunization: Unable to Assess Hx Influenza Vaccine This Season: Unable to Assess Medications and Allergies Active Medications: Active Medications Acetaminophen (Tylenol) 1,000 mg PO Q8H PRN PRN Reason: PAIN SCALE 1 TO 5 Hydrocodone Bitart/Acetaminophen ([place] 7.5/325) 1 tab PO Q6H PRN PRN Reason: PAIN SCALE 6 TO 10 Last Admin: 05/03/18 04:35 Dose: 1 tab Albuterol (Duoneb Neb (Prn)) 1 ampul NEB Q4HR NEB PRN PRN Reason: SHORTNESS OF BREATH/WHEEZING Insulin Human Regular (Novolin R Correctional Sugar Inj) 0 units SQ ACHS SHANON; Protocol Sodium Chloride (Ns Flush) 2 ml IV.FLUSH UNSCH PRN PRN Reason: FLUSH AFTER USING IV ACCESS Last Admin: 05/02/18 20:25 Dose: 2 ml Sodium Chloride (Ns Flush) 2 ml IV.FLUSH BID SHANON Sodium Chloride (Ns Flush) 2 ml IV.FLUSH PRN PRN PRN Reason: FLUSH AFTER USING IV ACCESS Allergies Allergy/AdvReac Type Severity Reaction Status Date / Time sulfamethoxazole Allergy Severe Swelling Verified 12/21/17 04:44 trimethoprim Allergy Severe Swelling Verified 12/21/17 04:44 Home Medications Medication Instructions Recorded Confirmed Type glipizide 5 mg PO DAILY 05/02/18 05/02/18 History Exam Vital signs: Vital Signs 05/02/18 17:06 05/02/18 19:37 05/02/18 20:00 Temperature 99.3 F Pulse Rate 116 H Respiratory Rate 16 Blood Pressure 138/80 Pulse Oximetry 100 98 98 05/02/18 20:23 05/03/18 01:16 05/03/18 03:16 Temperature 98.0 F Pulse Rate 108 H 96 H 96 H Respiratory Rate 18 16 Blood Pressure 139/77 126/79 127/77 Pulse Oximetry 100 99 96 05/03/18 05:39 05/03/18 08:03 05/03/18 08:44 Temperature 98.2 F Pulse Rate 97 H 94 H 68 Respiratory Rate 18 Blood Pressure 136/87 Pulse Oximetry 98 05/03/18 08:59 Temperature Pulse Rate 87 Respiratory Rate 17 Blood Pressure Pulse Oximetry Intake & Output 05/02/18 05/03/18 05/03/18 18:59 06:59 18:59 Weight 90.718 kg Narrative: GENERAL: This is a well-nourished, well-developed patient, in no apparent distress. Patient speaks in clear complete sentences. Patient is pleasant. HEENT: Head is atraumatic and normocephalic. Neck is supple without lymphadenopathy and trachea is midline. No JVD or carotid bruits. CARDIOVASCULAR: Regular rate and rhythm without murmurs, gallops, or rubs. RESPIRATORY: Clear to auscultation. Breath sounds equal bilaterally. No wheezes , rales, or rhonchi. Chest wall is tender. No use of accessory muscles. GASTROINTESTINAL: Abdomen is nontender, nondistended. Abdomen soft. No obvious pulsatile mass or bruit. No CVA tenderness. Strong femoral pulses bilaterally. Normal bowel sounds in all quadrants. MUSCULOSKELETAL: Patient is moving upper and lower extremities freely. No calf tenderness or edema, no Homans sign. Strong pulses in upper and lower extremities. NEUROLOGICAL: Patient is alert and oriented. Cranial nerves 2-12 are grossly intact. No focal deficits and speech is clear. SKIN: There are chronic lesions on his upper back and chest. No rash and turgor is normal. Results 05/02/18 20:00 05/02/18 20:00 Cardiac Enzymes 05/02/18 05/02/18 05/03/18 Range/Units 20:00 23:10 01:45 AST 19 (15-37) U/L CK-MB (CK-2) 1.1 (0.5-3.6) ng/mL Troponin I Less than 0.02 L Less than 0.02 L Less than 0.02 L (0.02-0.05) ng/mL Coagulation 05/02/18 Range/Units 20:00 PT 10.7 (9.8-11.6) sec APTT 21.3 L (24.3-30.1) sec CBC 05/02/18 Range/Units 20:00 WBC 6.5 (4.0-11.0) th/mm3 RBC 4.18 L (4.50-5.90) mil/mm3 Hgb 12.3 L (13.0-17.0) gm/dL Hct 36.3 L (39.0-51.0) % Plt Count 279 (150-450) th/mm3 Neut # (Auto) 4.2 (1.8-7.7) th/mm3 Lymph # (Auto) 1.3 (1.0-4.8) th/mm3 [place] # (Auto) 0.5 (0.0-0.9) th/mm3 Eos # (Auto) 0.3 (0.0-0.4) th/mm3 Baso # (Auto) 0.1 (0.0-0.2) th/mm3 Comprehensive Metabolic Panel 05/02/18 Range/Units 20:00 Sodium 138 (136-145) meq/L Potassium 4.5 (3.5-5.1) meq/L Chloride 103 (98-107) meq/L Carbon Dioxide 26.1 (21.0-32.0) meq/L BUN 18 (7-18) mg/dL Creatinine 1.48 H (0.60-1.30) mg/dL Calcium 9.0 (8.5-10.1) mg/dL AST 19 (15-37) U/L ALT 28 (12-78) U/L Alkaline Phosphatase 106 (45-117) U/L Total Protein 7.8 (6.4-8.2) g/dL Albumin 3.6 (3.4-5.0) g/dL Intake and Output 05/02/18 05/03/18 05/03/18 22:59 06:59 14:59 Other: Weight 90.718 kg Caprini VTE Risk Assessment Caprini VTE Risk Assessment: No/Low Risk (score <= 1) Caprini Risk Assessment Model: Point Value = 1 Point Value = 2 Point Value = 3 Point Value = 5 Age 41-60 Minor surgery BMI > 25 kg/m2 Swollen legs Varicose veins or History of unexplained or recurrent spontaneous Oral contraceptives or hormone replacement Sepsis (< 1 month) Serious lung disease, including pneumonia (< 1 month) Abnormal pulmonary function Acute myocardial infarction Congestive heart failure (< 1 month) History of inflammatory bowel disease Medical patient at bed rest Age 61-74 Arthroscopic surgery Major open surgery (> 45 min) Laparoscopic surgery (> 45 min) Malignancy Confined to bed (> 72 hours) Immobilizing plaster cast Central venous access Age >= 75 History of VTE Family history of VTE Factor V Leiden Prothrombin [id number] Lupus anticoagulant Anticardiolipin antibodies Elevated serum homocysteine Heparin-induced thrombocytopenia Other congenital or acquired thrombophilia Stroke (< 1 month) Elective arthroplasty Hip, pelvis, or leg fracture Acute spinal cord injury (< 1 month) Prophylaxis Regimen: Total Risk Factor Score Risk Level Prophylaxis Regimen 0-1 Low Early ambulation 2 Moderate Order ONE of the following: *Sequential Compression Device (SCD) *Heparin 5000 units SQ BID 3-4 Higher Order ONE of the following medications: *Heparin 5000 units SQ TID *Enoxaparin/Lovenox 40 mg SQ daily (WT < 150 kg, CrCl > 30 mL/min) *Enoxaparin/Lovenox 30 mg SQ daily (WT < 150 kg, CrCl > 10-29 mL/min) *Enoxaparin/Lovenox 30 mg SQ BID (WT < 150 kg, CrCl > 30 mL/min) AND/OR *Sequential Compression Device (SCD) 5 or more Highest Order ONE of the following medications: *Heparin 5000 units SQ TID (Preferred with Epidurals) *Enoxaparin/Lovenox 40 mg SQ daily (WT < 150 kg, CrCl > 30 mL/min) *Enoxaparin/Lovenox 30 mg SQ daily (WT < 150 kg, CrCl > 10-29 mL/min) *Enoxaparin/Lovenox 30 mg SQ BID (WT < 150 kg, CrCl > 30 mL/min) AND *Sequential Compression Device (SCD) Assessment and Plan - Assessment (1) Chest pain Code(s): R07.9 - Chest pain, unspecified Status: Acute (2) History of sarcoidosis Code(s): Z86.2 - Personal history of diseases of the blood and blood-forming organs and certain disorders involving the immune mechanism Status: Acute (3) Diabetes Code(s): E11.9 - Type 2 diabetes mellitus without complications Status: Acute - Plan * Chest pain: Patient has had serial cardiac enzymes and EKGs for ruling out purposes. He has been seen by Dr. Danielle of cardiology in the chest pain center. Patient had a heart catheterization revealing normal coronaries in 2011 his symptoms do not sound ischemic. Patient will likely be discharged home with instructions to follow-up with PCP and his shoe coverer. He was wheezing on examination was given duo nebs. We further discussed this with his shoe coverer. Return to ED for interval issues. * History of sarcoidosis: Patient will follow up with his shoe coverer to resume medication. * Diabetes: Patient will need to follow diabetic diet. He will be on sliding scale insulin coverage while in chest pain center. He will need close follow- up with his PCP for improved management of his diabetes as well as to discuss if he should be on an RUFUS inhibitor as well as a statin with history of diabetes. Currently not on a statin or an RUFUS inhibitor. Patient is stable at this time. He is agreeable to this plan. H&P: Quality - VTE Deep Vein Thrombosis/Pulmonary Embolism Present on Admission: No
[2018-05-03] MEDS ORDERED: predniSONE 20 MG Tablet PO ONE (11:00)
--- NOTE | 2018-05-03 11:22 | ECG ---
Date Performed: 05/03/2018 Time Performed: 03:12:36 PTAGE: 52 years EKG: Sinus rhythm NONSPECIFIC T-WAVE ABNORMALITY BORDERLINE ECG PREVIOUS TRACING : 05/02/2018 23.06 Since previous tracing, no significant change noted DOCTOR: Dejuan Danielle Interpretating Date/Time 05/03/2018 11:20:41
--- NOTE | 2018-05-03 11:23 | ECG ---
Date Performed: 05/02/2018 Time Performed: 23:06:36 PTAGE: 52 years EKG: SINUS TACHYCARDIA INCOMPLETE RIGHT BUNDLE BRANCH BLOCK NONSPECIFIC T-WAVE ABNORMALITY ABNOR MAL RHYTHM ECG PREVIOUS TRACING : 05/02/2018 19.47 Since previous tracing, no significant change noted DOCTOR: Dejuan Danielle Interpretating Date/Time 05/03/2018 11:22:27
--- NOTE | 2018-05-03 11:30 | ECG ---
Date Performed: 05/02/2018 Time Performed: 19:47:55 PTAGE: 52 years EKG: SINUS TACHYCARDIA NONSPECIFIC T-WAVE ABNORMALITY ABNORMAL RHYTHM ECG PREVIOUS TRACING : 11/13/2017 06.27 Since previous tracing, no significant change noted DOCTOR: Dejuan Danielle Interpretating Date/Time 05/03/2018 11:28:41
[2018-05-03] MEDS ORDERED: Insulin NovoLIN Regular Correctional Sugar Inj SQ SCH (12:00)
== END 2018-05-03 11:31 | disposition home or self-care (01) ==
LOC: NEPD 16:55 → NEDA 16:55 → NEPGCP 16:55

== ENCOUNTER 2018-07-21 11:22 | Observation (INO) ==
[2018-07-21] MEDS ORDERED: Morphine Inj 4 MG/ML Vial IV.PUSH ONE (12:02)
--- NOTE | 2018-07-21 12:15 | ED ---
HPI General Chief Complaint: Abdominal Pain Stated Complaint: GI Time Seen by Provider: 07/21/18 11:52 History of Present Illness HPI narrative: This is a 53-year-old male with a history of sarcoidosis, diabetes mellitus, COPD, who presents today with complaints of chest pain and abdominal pain. Patient states that yesterday it started as chest pain. He reports it as a pressure and tightness across his chest. He could not quantitate a number for the pain. He states that this morning when he woke up, he also had abdominal pain. He denies any diarrhea. He does report nausea. There is no vomiting. There is no reported fevers, chills. Patient denies any previous history of pain such as this. Patient also reports being on chronic antibiotics for Mycobacterium avium infection. There are no other complaints at the time of my examination. Related Data Home Medications Medication Instructions Recorded Confirmed ciprofloxacin HCl [Cipro] 500 mg PO BID 06/13/18 07/21/18 minocycline 100 mg PO BID 06/13/18 07/21/18 diphenhydramine HCl [Benadryl] 25 mg PO Q6H PRN 07/02/18 07/21/18 glyburide 2.5 mg PO DAILY 07/02/18 07/21/18 amikacin 2 gm IV DIRECTED 07/19/18 07/21/18 Previous Rx's Medication Instructions Recorded tramadol [Ultram] 50 mg PO Q6H PRN #8 tab 07/06/18 Allergies Allergy/AdvReac Type Severity Reaction Status Date / Time sulfamethoxazole Allergy Severe Swelling Verified 07/21/18 11:48 trimethoprim Allergy Severe Swelling Verified 07/21/18 11:48 Review of Systems ROS: all other systems reviewed are negative Constitutional Denies chills and Denies fever(s) Eyes Reports system reviewed and no additional complaints, except as docu ENT Reports system reviewed and no additional complaints, except as docu Cardiovascular Reports chest pain (Chest pressure as per HPI), Denies diaphoresis and Denies dyspnea Respiratory Denies cough and Denies dyspnea Gastrointestinal Reports abdominal pain (Generalized worse on the left), Reports nausea and Denies vomiting Genitourinary Denies dysuria and Denies flank pain Musculoskeletal Reports system reviewed and no additional complaints, except as [facility] Neurologic Reports system reviewed and no additional complaints, except as [facility] Social History Social History Substance History: No History of Abuse Second Hand Smoke Exposure: No Smoking Status: Never smoker How Often Do You Have a Drink Containing Alcohol: Never Recent Travel in [place] within the Last 8 Weeks: No Recent Out of Country Travel within the Last 8 Weeks: No Immunization History Tetanus Immunization: <5 Years Exam Narrative Exam Narrative: GENERAL: Well-developed well-nourished male in no acute respiratory distress. SKIN: Focused skin assessment warm/dry. Patient has lesions to his face and chest consistent with his sarcoidosis history. HEAD: Atraumatic. Normocephalic. EYES: No scleral icterus. No injection or drainage. ENT: No nasal bleeding or discharge. Mucous membranes pink and moist. NECK: Trachea midline. Supple. CARDIOVASCULAR: Regular rate and rhythm. No murmur appreciated. RESPIRATORY: No accessory muscle use. Clear to auscultation. Breath sounds equal bilaterally. GASTROINTESTINAL: Abdomen soft, nondistended. Patient has tenderness in his periumbilical and left upper and middle abdomen. No rebound or guarding noted. MUSCULOSKELETAL: No obvious deformities. No clubbing. No cyanosis. No edema. NEUROLOGICAL: Awake and alert. No obvious cranial nerve deficits. Motor grossly within normal limits. Normal speech. PSYCHIATRIC: Appropriate mood and affect; insight and judgment normal. Course Initial Documented Vital Signs Temperature 98.4 F 07/21/18 11:35 Pulse Rate 99 H 07/21/18 11:35 Respiratory Rate 16 07/21/18 11:35 Blood Pressure 165/92 H 07/21/18 11:35 Pulse Oximetry 99 07/21/18 11:35 Last Documented Vital Signs Temperature 98.4 F 07/21/18 11:35 Pulse Rate 100 H 07/21/18 15:34 Respiratory Rate 18 07/21/18 15:34 Blood Pressure 164/90 H 07/21/18 15:34 Pulse Oximetry 98 07/21/18 15:34 Medical Decision Making MDM Narrative Medical decision making narrative: This is a 53-year-old male with a history of sarcoidosis, diabetes mellitus, COPD, who presents today with complaints of chest pain and upper abdominal pain. Patient reports the chest pain started yesterday in the upper abdominal pain started today. Patient denies any diaphoresis. He denies any nausea vomiting. Patient does state that the pain was a tightness. EKG and cardiac enzymes are within normal limits. Given his history, he will be admitted to the [facility] for rule out protocol. He will also have his abdominal pain followed. The patient is also on chronic antibiotics for his Mycobacterium skin infection. Medical Screen Exam Complete: Yes Emergency Medical Condition: Yes Differential Diagnosis Differential Diagnosis: ACS versus diverticulitis versus pancreatitis versus peptic ulcer disease Lab Data Result diagrams: 07/21/18 12:10 07/21/18 12:10 Lab Results 07/21/18 07/21/18 07/21/18 Range/Units 12:10 12:10 13:40 WBC 5.3 (4.0-11.0) th/mm3 RBC 4.08 L (4.50-5.90) mil/mm3 Hgb 11.9 L (13.0-17.0) gm/dL Hct 35.4 L (39.0-51.0) % MCV 86.7 (80.0-100.0) fL MCH 29.2 (27.0-34.0) pg MCHC 33.6 (32.0-36.0) % RDW 14.2 (11.6-17.2) % Plt Count 261 (150-450) th/mm3 MPV 8.0 (7.0-11.0) fL Neut % (Auto) 65.9 (16.0-70.0) % Lymph % (Auto) 18.0 (9.0-44.0) % [place] % (Auto) 10.2 H (0.0-8.0) % Eos % (Auto) 5.1 H (0.0-4.0) % Baso % (Auto) 0.8 (0.0-2.0) % Neut # (Auto) 3.5 (1.8-7.7) th/mm3 Lymph # (Auto) 1.0 (1.0-4.8) th/mm3 [place] # (Auto) 0.5 (0.0-0.9) th/mm3 Eos # (Auto) 0.3 (0.0-0.4) th/mm3 Baso # (Auto) 0.0 (0.0-0.2) th/mm3 WBC Differential . Differential Comment Auto diff final Sodium 139 (136-145) meq/L Potassium 4.0 (3.5-5.1) meq/L Chloride 106 (98-107) meq/L Carbon Dioxide 25.2 (21.0-32.0) meq/L Anion Gap 8 (5-15) meq/L BUN 20 H (7-18) mg/dL Creatinine 2.11 H (0.60-1.30) mg/dL Estimated GFR 40 L (>89) mL/min POC Glucose (68-110) mg/dl Random Glucose 148 H (74-106) mg/dL Calcium 8.5 (8.5-10.1) mg/dL Total Bilirubin 0.9 (0.2-1.0) mg/dL AST 22 (15-37) U/L ALT 26 (12-78) U/L Alkaline Phosphatase 84 (45-117) U/L Total Creatine Kinase 116 (39-308) U/L CK-MB (CK-2) 1.1 (0.5-3.6) ng/mL Troponin I Less than 0.02 L (0.02-0.05) ng/mL Total Protein 7.3 (6.4-8.2) g/dL Albumin 3.4 (3.4-5.0) g/dL Lipase 241 (73-393) U/L Urine Color Yellow (Yellw/Straw) Urine Clarity Clear (Clear) Urine pH 5.0 (5.0-8.5) Ur Specific [place] 1.016 (1.002-1.035) Urine Protein Negative (Neg-Trace) mg/dL Urine Glucose (UA) Negative (Negative) mg/dL Urine Ketones Negative (Negative) mg/dL Urine Occult Blood Small H (Negative) Urine Nitrate Negative (Negative) Urine Bilirubin Negative (Negative) Urine Urobilinogen Less than 2 (Less than 2) mg/dL Ur Leukocyte Esterase Negative (Negative) Urine RBC Less than 1 (0-3) /hpf Urine WBC 1 (0-5) /hpf Urine Bacteria Rare H (None) /hpf Urine Mucus Few H (Occasional) /lpf Micro UA Comment Culture not ind Ur Microscopic Review Not Reportable Urine Culture Comments Culture not ind 07/21/18 Range/Units 15:36 WBC (4.0-11.0) th/mm3 RBC (4.50-5.90) mil/mm3 Hgb (13.0-17.0) gm/dL Hct (39.0-51.0) % MCV (80.0-100.0) fL MCH (27.0-34.0) pg MCHC (32.0-36.0) % RDW (11.6-17.2) % Plt Count (150-450) th/mm3 MPV (7.0-11.0) fL Neut % (Auto) (16.0-70.0) % Lymph % (Auto) (9.0-44.0) % [place] % (Auto) (0.0-8.0) % Eos % (Auto) (0.0-4.0) % Baso % (Auto) (0.0-2.0) % Neut # (Auto) (1.8-7.7) th/mm3 Lymph # (Auto) (1.0-4.8) th/mm3 [place] # (Auto) (0.0-0.9) th/mm3 Eos # (Auto) (0.0-0.4) th/mm3 Baso # (Auto) (0.0-0.2) th/mm3 WBC Differential Differential Comment Sodium (136-145) meq/L Potassium (3.5-5.1) meq/L Chloride (98-107) meq/L Carbon Dioxide (21.0-32.0) meq/L Anion Gap (5-15) meq/L BUN (7-18) mg/dL Creatinine (0.60-1.30) mg/dL Estimated GFR (>89) mL/min POC Glucose 86 (68-110) mg/dl Random Glucose (74-106) mg/dL Calcium (8.5-10.1) mg/dL Total Bilirubin (0.2-1.0) mg/dL AST (15-37) U/L ALT (12-78) U/L Alkaline Phosphatase (45-117) U/L Total Creatine Kinase (39-308) U/L CK-MB (CK-2) (0.5-3.6) ng/mL Troponin I (0.02-0.05) ng/mL Total Protein (6.4-8.2) g/dL Albumin (3.4-5.0) g/dL Lipase (73-393) U/L Urine Color (Yellw/Straw) Urine Clarity (Clear) Urine pH (5.0-8.5) Ur Specific [place] (1.002-1.035) Urine Protein (Neg-Trace) mg/dL Urine Glucose (UA) (Negative) mg/dL Urine Ketones (Negative) mg/dL Urine Occult Blood (Negative) Urine Nitrate (Negative) Urine Bilirubin (Negative) Urine Urobilinogen (Less than 2) mg/dL Ur Leukocyte Esterase (Negative) Urine RBC (0-3) /hpf Urine WBC (0-5) /hpf Urine Bacteria (None) /hpf Urine Mucus (Occasional) /lpf Micro UA Comment Ur Microscopic Review Urine Culture Comments Imaging Data Radiologist's impression: Chest X-Ray 07/21/18 12:02 CONCLUSION: 1. Persistent perihilar opacities consistent with patient's known hilar adenopathy. 2. Otherwise, no acute abnormality or significant interval change. Discharge Plan Discharge Disposition Patient Disposition: 30 Still Patient Discharge Details Diagnosis: Chest pain, History of sarcoidosis, Diabetes, COPD (chronic obstructive pulmonary disease) Physicians Team ED Provider: Ethan Zaldivar Primary Care Provider: Adriana Paz Attending Provider: Edinson Fleming Other Providers: Radha Santiago Discharge Interventions Interventions: Vital Signs Last Done: 07/21/18 13:22 Status ED Status: Admitted Observation Patient
[2018-07-21 12:24] LABS: Baso % (Auto) 0.8 % (0.0-2.0); Eos # (Auto) 0.3 th/mm3 (0.0-0.4); Eos % (Auto) 5.1 % (0.0-4.0); Hematocrit 35.4 % (39.0-51.0); Hemoglobin 11.9 gm/dL (13.0-17.0); Mean Corpuscular HGB Conc 33.6 % (32.0-36.0); Mean Corpuscular Hemoglobin 29.2 pg (27.0-34.0); Mean Corpuscular Volume 86.7 fL (80.0-100.0); Mono # (Auto) 0.5 th/mm3 (0.0-0.9); Mono % (Auto) 10.2 % (0.0-8.0); Neut # (Auto) 3.5 th/mm3 (1.8-7.7); Neut % (Auto) 65.9 % (16.0-70.0); Platelet Count 261 th/mm3 (150-450); Red Blood Count 4.08 mil/mm3 (4.50-5.90); Red Cell Distribution Width 14.2 % (11.6-17.2); White Blood Count 5.3 th/mm3 (4.0-11.0)
[2018-07-21 12:41] LABS: Alanine Aminotransferase 26 U/L (12-78)
--- NOTE | 2018-07-21 12:43 | XR ---
EXAM DATE: 07/21/2018 12:02 PM EDT AGE/SEX: 53 years / Male INDICATIONS: Chest Pain CLINICAL DATA: This is the patient's initial encounter. Patient reports that signs and symptoms have been present for 1 day and indicates a pain score of 6/10. MEDICAL/SURGICAL HISTORY: . Sarcoidosis None. COMPARISON: [facility] [place], CHEST 1V SINGLE AP, 05/02/2018. . FINDINGS: Right-sided PICC line tip near the cavoatrial junction. Perihilar opacities consistent with patient's known hilar adenopathy. No new focal pleural or parenchymal opacities. Cardiac silhouette is within normal limits. Remainder of the exam is unchanged. CONCLUSION: 1. Persistent perihilar opacities consistent with patient's known hilar adenopathy. 2. Otherwise, no acute abnormality or significant interval change. Electronically signed by: Marco Sweeney MD 07/21/2018 12:42 PM EDT
[2018-07-21 12:45] LABS: Alkaline Phosphatase 84 U/L (45-117); Creatine Kinase 116 U/L (39-308); Total Protein 7.3 g/dL (6.4-8.2)
[2018-07-21 12:50] LABS: Albumin 3.4 g/dL (3.4-5.0); Anion Gap 8 meq/L (5-15); Aspartate Aminotransferase 22 U/L (15-37); Blood Urea Nitrogen 20 mg/dL (7-18); Calcium 8.5 mg/dL (8.5-10.1); Carbon Dioxide 25.2 meq/L (21.0-32.0); Chloride 106 meq/L (98-107); Glomerular Filtration Rate 40 mL/min (>89); Glucose,Random 148 mg/dL (74-106); Lipase 241 U/L (73-393); Sodium 139 meq/L (136-145)
[2018-07-21 12:58] LABS: Creatine Kinase MB 1.1 ng/mL (0.5-3.6)
[2018-07-21 14:35] LABS: Bacteria,Urine Rare /hpf; Bilirubin,Urine Negative (Negative); Clarity,Urine Clear (Clear); Color,Urine Yellow (Yellw/Straw); Glucose,Urine (UA) Negative (Negative); Leukocyte Esterase,Urine Negative (Negative); Mucus,Urine Few /lpf (Occasional); Nitrite,Urine Negative (Negative); Specific Gravity,Urine 1.016 (1.002-1.035)
[2018-07-21] MEDS ORDERED: Dextrose 50% in Water 50 ML Vial IV.PUSH PRN (14:56)
[2018-07-21] MEDS ORDERED: Amikacin Consult Pharmacy OTHER PRN (15:21)
[2018-07-21] MEDS: Sod Chloride 0.9% Inj 1,000 ML IV.CONT SCH (15:33)
[2018-07-21] MEDS: Ciprofloxacin 500 MG Tablet PO SCH ×2 (15:33→21:02)
--- NOTE | 2018-07-21 15:40 | P.HPFP ---
History of Present Illness Primary Care Physician: Adriana Paz MD History of Present Illness: This is a 53-year-old gentleman with a history of sarcoidosis, COPD, type 2 diabetes mellitus, chronic cutaneous infection with Mycobacterium who presents the ED with a 1 day history of chest pain and abdominal pain. Patient reports that his chest pain began yesterday, he describes the pain as squeezing and pressure and nonradiating. He reports the pain is in the center of his sternum and is worsened by activity, coughing, or breathing in deeply. The pain is not related to food or position. He reports he has had similar chest pains for several years but this one is different and more intense. The patient has not tried anything else to make it better or worse. Patient reports that his abdominal pain is located in the epigastric area and is started last night. He describes the abdominal pain is dull and has a 6/10. It does not radiate it is constant in nature and is not related to position, food intake, or activity. Patient reports chronic shortness of breath due to his COPD and sarcoidosis but does report a shortness of breath has gotten somewhat worse in the last day. Patient denies any nausea or vomiting but does report some global generalized weakness. He denies any constipation or diarrhea. 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 Patient denies any tobacco and stopped consuming casual social alcohol use in November he denies any drug use. Allergies: Sulfa Code Status: Full - Diagnosis (1) Chest pain (2) COPD (chronic obstructive pulmonary disease) (3) SUDHIR (acute kidney injury) (4) History of sarcoidosis (5) Diabetes (6) Abdominal pain (7) Nutrition, metabolism, and development symptoms Review of Systems Constitutional: Denies chills, Denies fever(s), Denies headache(s), Denies dizziness, Eyes: Denies change in vision, Denies double vision, Denies blurry vision Cardiovascular: Endorses nonradiating constant squeezing/pressure like chest pain that has been present for 1 day, Denies fast heart rate, Denies rapid, pounding, or irregular heartbeat Respiratory: Reports chronic shortness of breath due to his sarcoidosis but does admit that his shortness of breath has increased in the last 24 hours Gastrointestinal: Reports epigastric pain that is unrelated to food position or activity, Denies constipation, Denies loose stools, Denies nausea, Denies vomiting Genitourinary: Denies difficulty urinating, Denies painful urination, Denies urinary frequency, Denies blood in urine PMFSH - History History Provided By: Patient - Medical History Medical History: Medical History (Last Reviewed 07/21/18 @ 11:43 by Felisha Vann) Diabetes Nontuberculous mycobacterial infection Peripheral neuropathy Sarcoidosis - Surgical History Surgical History: Surgical History (Last Reviewed 07/21/18 @ 11:43 by Felisha Vann) History of cardiac cath History of shoulder surgery - Tobacco History Second Hand Smoke Exposure: No Smoking Status: Never smoker - Alcohol History How Often Do You Have a Drink Containing Alcohol: Never - Substance Use History Substance History: No History of Abuse - Travel History Recent Travel in the [place] Within the Last 8 Weeks: No Recent Travel Out of the Country Within the Last 8 Weeks: No - Immunization History Tetanus Immunization: <5 Years Medications and Allergies Active Medications: Active Medications Albuterol (Duoneb Neb (Dereck)) 1 ampul NEB Q6HR WHILE AWAKE NEB [facility] Aspirin (Aspirin) 325 mg PO ONCE ONE Stop: 07/22/18 15:11 Ciprofloxacin HCl (Cipro) 500 mg PO BID [facility] Last Admin: 07/21/18 15:33 Dose: 500 mg Dextrose (D50w Vial) 50 ml IV.PUSH UNSCH PRN PRN Reason: PER HYPOGLYCEMIA PROTOCOL Diphenhydramine HCl (Benadryl) 25 mg PO Q6H PRN PRN Reason: swelling Glucagon (Glucagon Inj) 1 mg OTHER PRN PRN PRN Reason: for Hypoglycemia Protocol Glyburide (Diabeta) 2.5 mg PO DAILY [facility] Sodium Chloride (Ns Inj) 1,000 mls @ 140 mls/hr IV.CONT .Q7H9M [facility] Last Admin: 07/21/18 15:33 Dose: 140 mls/hr Amikacin Sulfate 2,000 mg/ (Sodium Chloride) 508 mls @ 250 mls/hr IV.SIG MoWeFr DERECK Insulin Aspart (Novolog Insulin Correctional Sugar Inj) 0 unit SQ ACHS [facility]; Protocol Minocycline HCl (Minocin) 100 mg PO BID [facility] Pharmacy Profile Note (Amikacin Consult Pharmacy) 1 each OTHER UNSCH PRN PRN Reason: Pharmacy to dose Sodium Chloride (Ns Flush) 2 ml IV.FLUSH PRN PRN PRN Reason: FLUSH AFTER USING IV ACCESS Last Admin: 07/21/18 12:15 Dose: 2 ml Tramadol HCl (Ultram) 50 mg PO Q6H PRN PRN Reason: pain Allergies Allergy/AdvReac Type Severity Reaction Status Date / Time sulfamethoxazole Allergy Severe Swelling Verified 07/21/18 11:48 trimethoprim Allergy Severe Swelling Verified 07/21/18 11:48 Home Medications Medication Instructions Recorded Confirmed Type ciprofloxacin HCl [Cipro] 500 mg PO BID 06/13/18 07/21/18 History minocycline 100 mg PO BID 06/13/18 07/21/18 History diphenhydramine HCl [Benadryl] 25 mg PO Q6H PRN 07/02/18 07/21/18 History glyburide 2.5 mg PO DAILY 07/02/18 07/21/18 History amikacin 2 gm IV DIRECTED 07/19/18 07/21/18 History Exam Vital signs: Vital Signs 07/21/18 11:35 07/21/18 11:37 07/21/18 12:36 Temperature 98.4 F Pulse Rate 99 H 98 H Respiratory Rate 16 19 16 Blood Pressure 165/92 H 168/93 H Pulse Oximetry 99 98 07/21/18 13:22 07/21/18 15:19 07/21/18 15:34 Temperature Pulse Rate 94 H 100 H Respiratory Rate 15 18 Blood Pressure 152/87 H 164/90 H Pulse Oximetry 94 L 98 98 Intake & Output 07/20/18 07/21/18 07/21/18 18:59 06:59 18:59 Output Total 200 / 200 Balance -200 / -200 Weight 95.254 kg Output: Urine 200 / 200 Narrative: GENERAL: Well-nourished, well-developed patient. No acute distress. SKIN: Multiple raised darkly pigmented lesions on all areas of his body's to include the nares, the lips, the scalp, face, his back, abdomen and all extremities. 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 EYES: No scleral icterus. No injection or drainage. PERRLA. EOMI. HENT: Normocephalic. Atraumatic. NECK: Supple, trachea midline. No JVD or lymphadenopathy. CARDIOVASCULAR: Regular rate and rhythm without obvious murmurs, gallops, or rubs. Pain was partially reproducible upon palpation of the chest wall. RESPIRATORY: Breath sounds diminished bilaterally. No accessory muscle use. CTAB. GASTROINTESTINAL: Abdomen soft, tender to palpation in the epigastric region, firm but not rigid, no rebounding or guarding mildly distended. BS WNL. MUSCULOSKELETAL: No cyanosis or edema. Left hallux is previously amputated. BACK: Nontender without obvious deformity. No CVA tenderness. NEURO/PSYCH: Afocal. Awake, alert, and oriented x3. Results - Labs Result diagrams: 07/21/18 12:10 07/21/18 12:10 Abnormal lab results 07/21/18 07/21/18 07/21/18 Range/Units 12:10 12:10 13:40 RBC 4.08 L (4.50-5.90) mil/mm3 Hgb 11.9 L (13.0-17.0) gm/dL Hct 35.4 L (39.0-51.0) % [place] % (Auto) 10.2 H (0.0-8.0) % Eos % (Auto) 5.1 H (0.0-4.0) % BUN 20 H (7-18) mg/dL Creatinine 2.11 H (0.60-1.30) mg/dL Estimated GFR 40 L (>89) mL/min Random Glucose 148 H (74-106) mg/dL Troponin I Less than 0.02 L (0.02-0.05) ng/mL Urine Occult Blood Small H (Negative) Urine Bacteria Rare H (None) /hpf Urine Mucus Few H (Occasional) /lpf Short CBC 07/21/18 Range/Units 12:10 WBC 5.3 (4.0-11.0) th/mm3 Hgb 11.9 L (13.0-17.0) gm/dL Hct 35.4 L (39.0-51.0) % Plt Count 261 (150-450) th/mm3 BMP 07/21/18 12:10 Sodium 139 Potassium 4.0 Chloride 106 Carbon Dioxide 25.2 BUN 20 H Creatinine 2.11 H Calcium 8.5 Cardiac Enzymes 07/21/18 Range/Units 12:10 Total Creatine Kinase 116 (39-308) U/L CK-MB (CK-2) 1.1 (0.5-3.6) ng/mL Troponin I Less than 0.02 L (0.02-0.05) ng/mL Liver Function 07/21/18 Range/Units 12:10 Total Bilirubin 0.9 (0.2-1.0) mg/dL AST 22 (15-37) U/L ALT 26 (12-78) U/L Alkaline Phosphatase 84 (45-117) U/L Albumin 3.4 (3.4-5.0) g/dL Urine 07/21/18 Range/Units 13:40 Urine Color Yellow (Yellw/Straw) Urine Clarity Clear (Clear) Urine pH 5.0 (5.0-8.5) Ur Specific [place] 1.016 (1.002-1.035) Urine Protein Negative (Neg-Trace) mg/dL Urine Glucose (UA) Negative (Negative) mg/dL - Imaging Impressions Chest X-Ray 07/21/18 12:02 CONCLUSION: 1. Persistent perihilar opacities consistent with patient's known hilar adenopathy. 2. Otherwise, no acute abnormality or significant interval change. Caprini VTE Risk Assessment Caprini VTE Risk Assessment: No/Low Risk (score <= 1) Caprini Risk Assessment Model: Point Value = 1 Point Value = 2 Point Value = 3 Point Value = 5 Age 41-60 Minor surgery BMI > 25 kg/m2 Swollen legs Varicose veins or History of unexplained or recurrent spontaneous Oral contraceptives or hormone replacement Sepsis (< 1 month) Serious lung disease, including pneumonia (< 1 month) Abnormal pulmonary function Acute myocardial infarction Congestive heart failure (< 1 month) History of inflammatory bowel disease Medical patient at bed rest Age 61-74 Arthroscopic surgery Major open surgery (> 45 min) Laparoscopic surgery (> 45 min) Malignancy Confined to bed (> 72 hours) Immobilizing plaster cast Central venous access Age >= 75 History of VTE Family history of VTE Factor V Leiden Prothrombin [id number] Lupus anticoagulant Anticardiolipin antibodies Elevated serum homocysteine Heparin-induced thrombocytopenia Other congenital or acquired thrombophilia Stroke (< 1 month) Elective arthroplasty Hip, pelvis, or leg fracture Acute spinal cord injury (< 1 month) Prophylaxis Regimen: Total Risk Factor Score Risk Level Prophylaxis Regimen 0-1 Low Early ambulation 2 Moderate Order ONE of the following: *Sequential Compression Device (SCD) *Heparin 5000 units SQ BID 3-4 Higher Order ONE of the following medications: *Heparin 5000 units SQ TID *Enoxaparin/Lovenox 40 mg SQ daily (WT < 150 kg, CrCl > 30 mL/min) *Enoxaparin/Lovenox 30 mg SQ daily (WT < 150 kg, CrCl > 10-29 mL/min) *Enoxaparin/Lovenox 30 mg SQ BID (WT < 150 kg, CrCl > 30 mL/min) AND/OR *Sequential Compression Device (SCD) 5 or more Highest Order ONE of the following medications: *Heparin 5000 units SQ TID (Preferred with Epidurals) *Enoxaparin/Lovenox 40 mg SQ daily (WT < 150 kg, CrCl > 30 mL/min) *Enoxaparin/Lovenox 30 mg SQ daily (WT < 150 kg, CrCl > 10-29 mL/min) *Enoxaparin/Lovenox 30 mg SQ BID (WT < 150 kg, CrCl > 30 mL/min) AND *Sequential Compression Device (SCD) Assessment and Plan - Assessment (1) Chest pain Code(s): R07.9 - Chest pain, unspecified Status: Acute Plan: This is a 53-year-old gentleman with a 1 day history of chest pain. The chest pain is constant nonradiating and described as sternal pressure/squeezing. The pain is aggravated by coughing activity and deep breathing but unrelated to position or food. Patient had negative troponins in the ED as well as a normal CK-MB. EKG in the ED was also within normal limits. Unlikely to be cardiac in nature at this time. Possibly pulmonary related due to his sarcoidosis and history of COPD. Patient is also tender on palpation of the sternal wall indicating the pain might be musculoskeletal in nature. Pericarditis also unlikely due to the pain not being positional in nature. New-onset COPD exacerbation possible due to patient reporting clear sputum within the last day. Perform ACS rule out. -Monitor on telemetry -Monitor serial troponins -Chest x-ray was consistent with perihilar opacities that were consistent with the patient's known hilar adenopathy due to sarcoidosis -EKG shows no acute cardiac pathology -Continue duo nebs (2) COPD (chronic obstructive pulmonary disease) Code(s): J44.9 - Chronic obstructive pulmonary disease, unspecified Status: Acute Plan: This patient is a history of COPD in the setting of known sarcoidosis. Patient reported increasing clear sputum over the last day but has had no purulent sputum or recent changes in color. Patient reports shortness of breath has worsened over the last day but admits that he suffers from chronic shortness of breath due to his sarcoidosis. Patient currently afebrile satting 98% on room air. Patient on several medications to include amikacin, minocycline, ciprofloxacin due to chronic cutaneous Mycobacterium infection. Patient unlikely to benefit from further antibiotics. -Continue duo nebs (3) SUDHIR (acute kidney injury) Code(s): N17.9 - Acute kidney failure, unspecified Status: Acute Plan: On admission patient was noted to have an elevated BUN and creatinine. BUN of 20 and a creatinine of 2.11 which is up from his baseline of 1.4 from previous admissions. Patient is a type II diabetic with no known history of renal disease. SUDHIR possibly superimposed on CKD. -Trend renal function -Continue to hydrate orally as well as continue maintenance fluids at 140 mL an hour (4) History of sarcoidosis Code(s): Z86.2 - Personal history of diseases of the blood and blood-forming organs and certain disorders involving the immune mechanism Status: Acute Plan: Patient diagnosed in 2011 for lung biopsy with sarcoidosis. Today on chest x- ray patient with perihilar adenopathy consistent with his diagnosis. -Sarcoidosis currently stable (5) Diabetes Code(s): E11.9 - Type 2 diabetes mellitus without complications Status: Acute Plan: Patient is a known type II diabetic that is currently being treated out patiently with glyburide. Patient's random glucose on admission was 148. Patient glyburide will be held and he will be placed on a low dose sliding scale while inpatient. Due to patient's diabetic status patient would benefit from outpatient lisinopril after his AK I resolves. Continue low-dose sliding scale (6) Abdominal pain Code(s): R10.9 - Unspecified abdominal pain Status: Acute Plan: Patient has a 1 day history of epigastric pain unrelated to eating, position, or activity. The abdominal pain is constant in nature and characterized as dull and does not radiate. Possible etiologies of his epigastric pain is cholecystitis, choledocholithiasis, pancreatitis, gastritis, and hepatitis. Patient has no further GI symptoms to include vomiting or diarrhea. Patient be monitored over the next 24 hours to see if she has not improved. -AST and ALT within normal limits at 22 and 26 -Alkaline phosphatase 84 -Total bilirubin within normal limits at 0.9 -Lipase within normal limits at 241 (7) Nutrition, metabolism, and development symptoms Code(s): R63.8 - Other symptoms and signs concerning food and fluid intake Status: Acute Plan: Fluids: 140 mL an hour of normal saline Electrolytes: Replete as needed Nutrition: Diabetic diet DVT prophylaxis: SCDs (1) Chest pain Qualifiers: Chest pain type: unspecified Qualified Code(s): R07.9 - Chest pain, unspecified (2) COPD (chronic obstructive pulmonary disease) Qualifiers: COPD type: unspecified COPD Qualified Code(s): J44.9 - Chronic obstructive pulmonary disease, unspecified (5) Diabetes Qualifiers: Diabetes mellitus type: type 2 Diabetes mellitus senior living insulin use: without senior living use
[2018-07-21] MEDS: glyBURIDE 2.5 MG Tablet PO SCH (16:18)
[2018-07-21] MEDS: Minocycline 100 MG Capsule PO SCH ×2 (16:18→20:59)
[2018-07-21] MEDS: Insulin NovoLOG Aspart Correctional Sugar Inj SQ SCH ×2 (17:52→21:24)
[2018-07-22] MEDS: Sod Chloride 0.9% Inj 1,000 ML IV.CONT SCH ×2 (01:31→08:37)
[2018-07-22 06:02] LABS: Baso % (Auto) 0.7 % (0.0-2.0); Eos # (Auto) 0.2 th/mm3 (0.0-0.4); Eos % (Auto) 3.8 % (0.0-4.0); Hematocrit 32.4 % (39.0-51.0); Hemoglobin 11.3 gm/dL (13.0-17.0); Lymph # (Auto) 0.8 th/mm3 (1.0-4.8); Lymph % (Auto) 14.5 % (9.0-44.0); Mean Corpuscular HGB Conc 34.8 % (32.0-36.0); Mean Corpuscular Hemoglobin 29.8 pg (27.0-34.0); Mean Corpuscular Volume 85.7 fL (80.0-100.0); Mean Platelet Volume 8.2 fL (7.0-11.0); Mono # (Auto) 0.5 th/mm3 (0.0-0.9); Mono % (Auto) 9.5 % (0.0-8.0); Neut % (Auto) 71.5 % (16.0-70.0); Platelet Count 241 th/mm3 (150-450); Red Blood Count 3.78 mil/mm3 (4.50-5.90); Red Cell Distribution Width 13.9 % (11.6-17.2); White Blood Count 5.6 th/mm3 (4.0-11.0)
[2018-07-22 06:25] LABS: Anion Gap 8 meq/L (5-15); Blood Urea Nitrogen 18 mg/dL (7-18); Calcium 8.1 mg/dL (8.5-10.1); Carbon Dioxide 25.8 meq/L (21.0-32.0); Chloride 107 meq/L (98-107); Glomerular Filtration Rate 43 mL/min (>89); Glucose,Random 78 mg/dL (74-106); Potassium 3.8 meq/L (3.5-5.1); Sodium 141 meq/L (136-145)
[2018-07-22 07:42] VITALS: O2SAT 98
[2018-07-22 08:11] VITALS: TEMP 98.4
[2018-07-22] MEDS: glyBURIDE 2.5 MG Tablet PO SCH (08:36)
[2018-07-22] MEDS: Ciprofloxacin 500 MG Tablet PO SCH (08:36)
[2018-07-22] MEDS: Minocycline 100 MG Capsule PO SCH (08:36)
[2018-07-22] MEDS: Insulin NovoLOG Aspart Correctional Sugar Inj SQ SCH ×2 (08:38→13:12)
[2018-07-22] MEDS ORDERED: AMIKACIN 1000 MG/4 ML IV.SIG SCH (09:00)
[2018-07-22] MEDS ORDERED: AMIKACIN IV.SIG SCH (09:00)
[2018-07-22] MEDS ORDERED: SODIUM CHLOR 0.9% IV.SIG SCH (09:00)
--- NOTE | 2018-07-22 10:48 | P.PNFP ---
Subjective Interval history: Patient was seen at bedside this morning. There were no acute events overnight. Patient reports feeling much better this morning and reports less chest pain as well as less abdominal pain. He does report he still feels the pressure/ squeezing in his chest but is much less intense. His abdominal pain is also decreased at baseline but is still very tender on palpation. It was discussed with the patient in detail that we do not believe the chest pain to be cardiac related due to negative EKG, negative troponins, negative on telemetry as well as reproducible pain on palpation of the sternum. His abdominal pain was also discussed in great detail explaining all the labs that we conducted and have a more serious abdominal conditions were ruled out. Patient reports he understood and agrees with our plan. Patient denies any subjective fevers, chills, shortness of breath, chest pain, nausea, or vomiting. All questions were answered to the patient's satisfaction. <Darrell Ortiz - 07/22/18 15:13> Results - Labs Result diagrams: 07/22/18 03:00 07/22/18 05:00 <Edinson Fleming - 07/22/18 20:59> Abnormal lab results 07/21/18 07/21/18 07/22/18 Range/Units 21:04 22:23 03:00 RBC 3.78 L (4.50-5.90) mil/mm3 Hgb 11.3 L (13.0-17.0) gm/dL Hct 32.4 L (39.0-51.0) % Neut % (Auto) 71.5 H (16.0-70.0) % [place] % (Auto) 9.5 H (0.0-8.0) % Lymph # (Auto) 0.8 L (1.0-4.8) th/mm3 Creatinine (0.60-1.30) mg/dL Estimated GFR (>89) mL/min POC Glucose 155 H (68-110) mg/dl Calcium (8.5-10.1) mg/dL Troponin I Less than 0.02 L (0.02-0.05) ng/mL 07/22/18 Range/Units 05:00 RBC (4.50-5.90) mil/mm3 Hgb (13.0-17.0) gm/dL Hct (39.0-51.0) % Neut % (Auto) (16.0-70.0) % [place] % (Auto) (0.0-8.0) % Lymph # (Auto) (1.0-4.8) th/mm3 Creatinine 2.00 H (0.60-1.30) mg/dL Estimated GFR 43 L (>89) mL/min POC Glucose (68-110) mg/dl Calcium 8.1 L (8.5-10.1) mg/dL Troponin I Less than 0.02 L (0.02-0.05) ng/mL Short CBC 07/22/18 Range/Units 03:00 WBC 5.6 (4.0-11.0) th/mm3 Hgb 11.3 L (13.0-17.0) gm/dL Hct 32.4 L (39.0-51.0) % Plt Count 241 (150-450) th/mm3 BMP 07/22/18 05:00 Sodium 141 Potassium 3.8 Chloride 107 Carbon Dioxide 25.8 BUN 18 Creatinine 2.00 H Calcium 8.1 L Cardiac Enzymes 07/21/18 07/22/18 Range/Units 22:23 05:00 Troponin I Less than 0.02 L Less than 0.02 L (0.02-0.05) ng/mL <Edinson Fleming - 07/22/18 20:59> Abnormal lab results 07/21/18 07/21/18 07/21/18 Range/Units 12:10 12:10 13:40 RBC 4.08 L (4.50-5.90) mil/mm3 Hgb 11.9 L (13.0-17.0) gm/dL Hct 35.4 L (39.0-51.0) % Neut % (Auto) (16.0-70.0) % [place] % (Auto) 10.2 H (0.0-8.0) % Eos % (Auto) 5.1 H (0.0-4.0) % Lymph # (Auto) (1.0-4.8) th/mm3 BUN 20 H (7-18) mg/dL Creatinine 2.11 H (0.60-1.30) mg/dL Estimated GFR 40 L (>89) mL/min POC Glucose (68-110) mg/dl Random Glucose 148 H (74-106) mg/dL Calcium (8.5-10.1) mg/dL Troponin I Less than 0.02 L (0.02-0.05) ng/mL Urine Occult Blood Small H (Negative) Urine Bacteria Rare H (None) /hpf Urine Mucus Few H (Occasional) /lpf 07/21/18 07/21/18 07/21/18 Range/Units 17:51 21:04 22:23 RBC (4.50-5.90) mil/mm3 Hgb (13.0-17.0) gm/dL Hct (39.0-51.0) % Neut % (Auto) (16.0-70.0) % [place] % (Auto) (0.0-8.0) % Eos % (Auto) (0.0-4.0) % Lymph # (Auto) (1.0-4.8) th/mm3 BUN (7-18) mg/dL Creatinine (0.60-1.30) mg/dL Estimated GFR (>89) mL/min POC Glucose 141 H 155 H (68-110) mg/dl Random Glucose (74-106) mg/dL Calcium (8.5-10.1) mg/dL Troponin I Less than 0.02 L (0.02-0.05) ng/mL Urine Occult Blood (Negative) Urine Bacteria (None) /hpf Urine Mucus (Occasional) /lpf 07/22/18 07/22/18 Range/Units 03:00 05:00 RBC 3.78 L (4.50-5.90) mil/mm3 Hgb 11.3 L (13.0-17.0) gm/dL Hct 32.4 L (39.0-51.0) % Neut % (Auto) 71.5 H (16.0-70.0) % [place] % (Auto) 9.5 H (0.0-8.0) % Eos % (Auto) (0.0-4.0) % Lymph # (Auto) 0.8 L (1.0-4.8) th/mm3 BUN (7-18) mg/dL Creatinine 2.00 H (0.60-1.30) mg/dL Estimated GFR 43 L (>89) mL/min POC Glucose (68-110) mg/dl Random Glucose (74-106) mg/dL Calcium 8.1 L (8.5-10.1) mg/dL Troponin I Less than 0.02 L (0.02-0.05) ng/mL Urine Occult Blood (Negative) Urine Bacteria (None) /hpf Urine Mucus (Occasional) /lpf Short CBC 07/21/18 07/22/18 Range/Units 12:10 03:00 WBC 5.3 5.6 (4.0-11.0) th/mm3 Hgb 11.9 L 11.3 L (13.0-17.0) gm/dL Hct 35.4 L 32.4 L (39.0-51.0) % Plt Count 261 241 (150-450) th/mm3 BMP 07/21/18 07/22/18 12:10 05:00 Sodium 139 141 Potassium 4.0 3.8 Chloride 106 107 Carbon Dioxide 25.2 25.8 BUN 20 H 18 Creatinine 2.11 H 2.00 H Calcium 8.5 8.1 L Cardiac Enzymes 07/21/18 07/21/18 07/22/18 Range/Units 12:10 22:23 05:00 Total Creatine Kinase 116 (39-308) U/L CK-MB (CK-2) 1.1 (0.5-3.6) ng/mL Troponin I Less than 0.02 L Less than 0.02 L Less than 0.02 L (0.02-0.05) ng/mL Liver Function 07/21/18 Range/Units 12:10 Total Bilirubin 0.9 (0.2-1.0) mg/dL AST 22 (15-37) U/L ALT 26 (12-78) U/L Alkaline Phosphatase 84 (45-117) U/L Albumin 3.4 (3.4-5.0) g/dL Urine 07/21/18 Range/Units 13:40 Urine Color Yellow (Yellw/Straw) Urine Clarity Clear (Clear) Urine pH 5.0 (5.0-8.5) Ur Specific [place] 1.016 (1.002-1.035) Urine Protein Negative (Neg-Trace) mg/dL Urine Glucose (UA) Negative (Negative) mg/dL <Darrell Ortiz O - 07/22/18 10:48> - Imaging Impressions Chest X-Ray 07/21/18 12:02 CONCLUSION: 1. Persistent perihilar opacities consistent with patient's known hilar adenopathy. 2. Otherwise, no acute abnormality or significant interval change. <Darrell Ortiz - 07/22/18 10:48> Physical Exam Vital signs: Vital Signs 07/22/18 00:00 07/22/18 00:09 07/22/18 03:35 Temperature 98.2 F Pulse Rate 94 H 90 Respiratory Rate 19 15 Blood Pressure 148/88 H Pulse Oximetry 95 07/22/18 03:49 07/22/18 04:17 07/22/18 07:41 Temperature 97.9 F Pulse Rate 91 H 93 H 93 H Respiratory Rate 19 18 Blood Pressure 146/91 H Pulse Oximetry 99 98 07/22/18 08:00 07/22/18 11:17 07/22/18 11:47 Temperature 98.4 F Pulse Rate 96 H 98 H 99 H Respiratory Rate 16 18 Blood Pressure 160/90 H 157/91 H Pulse Oximetry 98 98 07/22/18 12:51 Temperature Pulse Rate 97 H Respiratory Rate 18 Blood Pressure Pulse Oximetry Intake & Output 07/22/18 07/22/18 07/23/18 06:59 18:59 06:59 Intake Total 1000 / 1000 1508 / 1508 Output Total 450 / 450 Balance 550 / 550 1508 / 1508 Weight 94.83 kg Intake: IV 1000 / 1000 1508 / 1508 NS Inj 1,000 ML @ 140 mls/hr IV 1000 / 1000 1000 / 1000 .CONT .Q7H9M [facility] Rx#:[id number] Amikin Inj 2,000 MG In NS Inj 508 / 508 500 ML @ 250 mls/hr IV.SIG [facility] Rx#:[id number] Output: Urine 450 / 450 <Edinson Fleming - 07/22/18 20:59> Vital Signs 07/21/18 11:35 07/21/18 11:37 07/21/18 12:36 Temperature 98.4 F Pulse Rate 99 H 98 H Respiratory Rate 16 19 16 Blood Pressure 165/92 H 168/93 H Pulse Oximetry 99 98 07/21/18 13:22 07/21/18 15:19 07/21/18 15:34 Temperature Pulse Rate 94 H 100 H Respiratory Rate 15 18 Blood Pressure 152/87 H 164/90 H Pulse Oximetry 94 L 98 98 07/21/18 17:59 07/21/18 19:25 07/21/18 20:00 Temperature 98.1 F 99.0 F Pulse Rate 92 H 68 91 H Respiratory Rate 12 18 19 Blood Pressure 170/92 H 164/99 H Pulse Oximetry 98 99 07/21/18 20:01 07/22/18 00:00 07/22/18 00:09 Temperature 98.2 F Pulse Rate 94 H 90 Respiratory Rate 19 Blood Pressure 148/88 H Pulse Oximetry 98 95 07/22/18 03:35 07/22/18 03:49 07/22/18 04:17 Temperature 97.9 F Pulse Rate 91 H 93 H Respiratory Rate 15 19 Blood Pressure 146/91 H Pulse Oximetry 99 07/22/18 07:41 07/22/18 08:00 Temperature 98.4 F Pulse Rate 93 H 96 H Respiratory Rate 18 16 Blood Pressure 160/90 H Pulse Oximetry 98 98 Intake & Output 07/21/18 07/22/18 07/22/18 18:59 06:59 18:59 Intake Total 500 / 500 1000 / 1000 1000 / 1000 Output Total 200 / 200 450 / 450 Balance 300 / 300 550 / 550 1000 / 1000 Weight 95.254 kg 94.83 kg Intake: IV 1000 / 1000 1000 / 1000 NS Inj 1,000 ML @ 140 mls/hr IV 1000 / 1000 1000 / 1000 .CONT .Q7H9M [facility] Rx#:[id number] Oral 500 / 500 Output: Urine 200 / 200 450 / 450 <OrtizDarrell O - 07/22/18 10:48> Narrative: GENERAL: Well-nourished, well-developed patient. No acute distress. SKIN: Multiple raised darkly pigmented lesions on all areas of his body's to include the nares, the lips, the scalp, face, his back, abdomen and all extremities. 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 EYES: No scleral icterus. No injection or drainage. HENT: Normocephalic. Atraumatic. CARDIOVASCULAR: Regular rate and rhythm without obvious murmurs, gallops, or rubs. Pain was partially reproducible upon palpation of the chest wall just over the mid sternum. RESPIRATORY: Breath sounds diminished bilaterally. No accessory muscle use. CTAB. GASTROINTESTINAL: Abdomen soft, tender to palpation in the epigastric region just over the umbilicus, less distended and less firm than yesterday, no rebounding or guarding. BS WNL. MUSCULOSKELETAL: No cyanosis or edema. Left hallux is previously amputated. BACK: Nontender without obvious deformity. No CVA tenderness. NEURO/PSYCH: Afocal. Awake, alert, and oriented x3. <Darrell Ortiz Chanel - 07/22/18 15:13> Assessment and Plan - Assessment (1) Chest pain Code(s): R07.9 - Chest pain, unspecified Status: Acute (2) COPD (chronic obstructive pulmonary disease) Code(s): J44.9 - Chronic obstructive pulmonary disease, unspecified Status: Acute (3) SUDHIR (acute kidney injury) Code(s): N17.9 - Acute kidney failure, unspecified Status: Acute (4) History of sarcoidosis Code(s): Z86.2 - Personal history of diseases of the blood and blood-forming organs and certain disorders involving the immune mechanism Status: Acute (5) Abdominal pain Code(s): R10.9 - Unspecified abdominal pain Status: Acute (6) Diabetes Code(s): E11.9 - Type 2 diabetes mellitus without complications Status: Acute (7) Nutrition, metabolism, and development symptoms Code(s): R63.8 - Other symptoms and signs concerning food and fluid intake Status: Acute <BernadetteEdinson - 07/22/18 20:59> (1) Chest pain Code(s): R07.9 - Chest pain, unspecified Status: Acute Plan: Patient reports significantly decreased chest pain from yesterday. Patient was on telemetry overnight with no acute cardiac events. He has had negative troponins as well as a normal CK-MB. The pain is also reproducible on palpation of the chest wall. Discussed with the patient this pain is unlikely to be cardiac in origin. A lengthy Discussion was had with the patient about following with his PCP outpatient. -Discharge home patient is stable follow-up with outpatient provider -Return to the emergency department if acute chest pain returns (2) COPD (chronic obstructive pulmonary disease) Code(s): J44.9 - Chronic obstructive pulmonary disease, unspecified Status: Acute Plan: Patient reports decrease shortness of breath from yesterday. 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 Patient currently satting well on room air and may be discharged home. No outpatient antibiotics indicated at this time. -Discharge home follow-up with outpatient provider (3) SUDHIR (acute kidney injury) Code(s): N17.9 - Acute kidney failure, unspecified Status: Acute Plan: On admission patient was noted to have an elevated BUN and creatinine. BUN of 20 and a creatinine of 2.11 which is up from his baseline of 1.4 from previous admissions. SUDHIR likely due to nephrotoxic effects of amikacin. His creatinine has begun to decline from 2.11-2 and his BUN has also gone from 20-18. Patient was counseled on the importance of oral hydration. A follow-up BMP has been ordered 1 week from discharge as well as patient reports he gets weekly blood draws on Mondays to evaluate renal function. -BMP outpatient -Continue to hydrate orally, follow-up with outpatient provider (4) History of sarcoidosis Code(s): Z86.2 - Personal history of diseases of the blood and blood-forming organs and certain disorders involving the immune mechanism Status: Acute Plan: Patient diagnosed in 2011 for lung biopsy with sarcoidosis. Today on chest x- ray patient with perihilar adenopathy consistent with his diagnosis. -Sarcoidosis currently stable (5) Abdominal pain Code(s): R10.9 - Unspecified abdominal pain Status: Acute Plan: Patient reports feeling much better from his abdominal pain this morning. He said no other GI symptoms since admission to include nausea, vomiting, or diarrhea. It was discussed in detail patient's lab results as well as the acute pathologies were ruled out. Patient reports he understood the plan and agrees on the findings. Patient will be discharged home to follow-up with his outpatient provider. -AST and ALT within normal limits at 22 and 26 -Alkaline phosphatase 84 -Total bilirubin within normal limits at 0.9 -Lipase within normal limits at 241 (6) Diabetes Code(s): E11.9 - Type 2 diabetes mellitus without complications Status: Acute Plan: Patient is a known type II diabetic that is currently being treated out patiently with glyburide. Patient may restart glyburide once discharge, follow- up with outpatient provider to continue blood glucose control. (7) Nutrition, metabolism, and development symptoms Code(s): R63.8 - Other symptoms and signs concerning food and fluid intake Status: Acute Plan: Fluids: Patient is tolerating p.o. fluids Electrolytes: Replete as needed Nutrition: Diabetic diet <Darrell Ortiz - 07/22/18 14:43> - Attending Attestation The exam, history, and the medical decision-making described in the above note were completed with the assistance of the resident physician. I reviewed and agree with the findings presented. I attest that I had a [id number] encounter with the patient on the same day, and personally performed and documented my assessment and findings in the medical record. <Edinson Fleming - 07/22/18 20:59> <Darrell Ortiz O - Last Filed: 07/22/18 14:43> (1) Chest pain Qualifiers: Chest pain type: unspecified Qualified Code(s): R07.9 - Chest pain, unspecified (2) COPD (chronic obstructive pulmonary disease) Qualifiers: COPD type: unspecified COPD Qualified Code(s): J44.9 - Chronic obstructive pulmonary disease, unspecified (6) Diabetes Qualifiers: Diabetes mellitus type: type 2 Diabetes mellitus [employer] insulin use: without long-term use <Edinson Fleming - Last Filed: 07/22/18 20:59> (1) Chest pain Qualifiers: Chest pain type: unspecified Qualified Code(s): R07.9 - Chest pain, unspecified (2) COPD (chronic obstructive pulmonary disease) Qualifiers: COPD type: unspecified COPD Qualified Code(s): J44.9 - Chronic obstructive pulmonary disease, unspecified (6) Diabetes Qualifiers: Diabetes mellitus type: type 2 Diabetes mellitus [employer] insulin use: without [employer] use <Darrell Ortiz - Last Filed: 07/22/18 14:43> (1) Chest pain Qualifiers: Chest pain type: unspecified Qualified Code(s): R07.9 - Chest pain, unspecified (2) COPD (chronic obstructive pulmonary disease) Qualifiers: COPD type: unspecified COPD Qualified Code(s): J44.9 - Chronic obstructive pulmonary disease, unspecified (6) Diabetes Qualifiers: Diabetes mellitus type: type 2 Diabetes mellitus long-term insulin use: without long-term use <Edinson Fleming - Last Filed: 07/22/18 20:59> (1) Chest pain Qualifiers: Chest pain type: unspecified Qualified Code(s): R07.9 - Chest pain, unspecified (2) COPD (chronic obstructive pulmonary disease) Qualifiers: COPD type: unspecified COPD Qualified Code(s): J44.9 - Chronic obstructive pulmonary disease, unspecified (6) Diabetes Qualifiers: Diabetes mellitus type: type 2 Diabetes mellitus long-term insulin use: without [employer] use
[2018-07-22 11:49] VITALS: BP 157/91; RESP 18
[2018-07-22 12:52] VITALS: PULSE 97
[2018-07-22] MEDS ORDERED: Aspirin 325 MG Tablet PO ONE (15:10)
--- NOTE | 2018-07-22 15:35 | ECG ---
Date Performed: 07/21/2018 Time Performed: 11:52:02 PTAGE: 53 years EKG: Sinus rhythm POSSIBLE LEFT ATRIAL ENLARGEMENT NONSPECIFIC T-WAVE ABNORMALITY BORDERLINE ECG PREVIOUS TRACING : 05/03/2018 03.12 Compared to previous tracing, a litlle flatening of T-wave in V5 but largely unchanged. DOCTOR: Bradly Lyn Interpretating Date/Time 07/22/2018 15:33:08
--- NOTE | 2018-07-22 15:35 | ECG ---
Date Performed: 07/22/2018 Time Performed: 02:48:39 PTAGE: 53 years EKG: Sinus rhythm NONSPECIFIC T-WAVE ABNORMALITY BORDERLINE ECG PREVIOUS TRACING : 07/21/2018 21.58 Compared to previous tracing, Persistent artifact but remai ns largely unchanged. DOCTOR: Bradly Lyn Interpretating Date/Time 07/22/2018 15:34:18
--- NOTE | 2018-07-22 15:35 | ECG ---
Date Performed: 07/21/2018 Time Performed: 21:58:58 PTAGE: 53 years EKG: SUPRAVENTRICULAR RHYTHM NONSPECIFIC T-WAVE ABNORMALITY BORDERLINE ECG Artifact percludes ac curate assessment PREVIOUS TRACING : 07/21/2018 11.52 DOCTOR: Bradly Lyn Interpretating Date/Time 07/22/2018 15:33:52
== END 2018-07-22 14:40 | disposition home or self-care (01) ==
LOC: NEPE 11:22 → NEDA 11:22 → NEPGCP 17:18
PROVIDERS: ADMIT Family Medicine; ATTEND Family Medicine